=== PATIENT | male | born 1955 | race Caucasian/White ===

== ENCOUNTER 2020-09-12 10:26 | Outpatient (REF) | payer OTHER, SELFPAY ==
[2020-09-12 10:29] LABS: MANUAL DIFF FLAG NO
[2020-09-12 10:50] LABS: Estimated Average Glucose 111 mg/dL; Hemoglobin A1C 136.1236 umol/L; Hemoglobin A1c % 5.5 %
[2020-09-12 10:51] LABS: Basophils Percent Auto 0.7 % (0-2); Eosinophils Absolute Auto 0.1 X10*3/uL (0.0-0.4); Eosinophils Percent Auto 0.8 % (0-4); Hematocrit 43.7 % (42-52); Hemoglobin 14.3 g/dl (14.0-18.0); Imm Gran Abs Auto 0.02 X10*3/uL (0.00-0.03); Imm Gran Pct Auto 0.3 % (0.0-0.4); Lymphocytes Absolute Auto 1.5 X10*3/uL (1.2-4.9); Lymphocytes Percent Auto 24.5 % (20-40); Mean Corpuscular HGB Conc 32.7 g/dl (31.0-36.0); Mean Corpuscular Hemoglobin 30.7 pg (27.0-33.0); Mean Corpuscular Volume 93.8 fL (80-98); Mean Platelet Volume 10.6 fL (9.4-12.4); Monocytes Absolute Auto 0.4 X10*3/uL (0.1-1.2); Monocytes Percent Auto 6.7 % (2-11); Platelet Count 191 X10*3/uL (160-400); Red Blood Count 4.66 X10*6/uL (4.60-5.80); Red Cell Distribution Width 12.8 % (11.0-16.0); White Blood Count 5.9 X10*3/uL (4.8-10.8)
[2020-09-12 12:03] LABS: Alanine Aminotransferase 23 U/L (0-40); Albumin Level 4.2 g/dL (3.5-5.0); Alkaline Phosphatase 47 U/L (39-117); Anion Gap 12 (12-20); Aspartate Amino Transferase 25 U/L (5-37); Bilirubin Total 0.9 mg/dL (0.0-1.0); Blood Urea Nitrogen 22 mg/dL (9-16); Calcium 9.1 mg/dL (8.4-10.2); Carbon Dioxide 26 mmol/L (22-29); Chloride 108 mmol/L (96-108); Cholesterol 206 mg/dL; Estimated Glomerular Filt Rate 52; Glucose Fasting 105 mg/dL (60-99); HDL Cholesterol 64 mg/dL; LDL Cholesterol Calculated 132 mg/dl; Potassium 4.1 mmol/L (3.3-5.1); Sodium 142 mmol/L (135-145); Total Protein 6.7 g/dL (6.5-8.0); Triglycerides 54 mg/dL
[2020-09-12 12:09] LABS: PSA,Total (Free>4and<10) 0.68 ng/mL (0.00-4.00)
== END 2020-09-12 10:27 | disposition home or self-care (01) ==
LOC: HO.LNP 10:26
PROVIDERS: Visit Provider Internal Medicine
DX: Z00.00 Encounter for general adult medical examination without abnormal findings (principal); Z12.5 Encounter for screening for malignant neoplasm of prostate; K50.914 Crohn's disease, unspecified, with abscess; R73.03 Prediabetes
CPT/HCPCS: 80053; 80061; 82043; 83036; 84153; 85025

== ENCOUNTER 2020-09-22 15:05 | Outpatient (REF) | payer OTHER, SELFPAY ==
[2020-09-22 15:14] LABS: Glucose Urine UA NEG (NEG); Leukocyte Esterase Urine NEG (NEG); Nitrite Urine NEG (NEG); PH 6.5 (5.0-8.0); Specific Gravity - Urine 1.015 (1.005-1.025); Urine Blood NEG (NEG); Urine Ketones NEG (NEG); Urine Protein NEG (NEG-TRACE)
[2020-09-22 15:17] LABS: Appearance Urine CLEAR; Color Urine YELLOW
== END 2020-09-22 15:06 | disposition home or self-care (01) ==
LOC: HO.LNP 15:05
PROVIDERS: Visit Provider Internal Medicine
DX: Z00.00 Encounter for general adult medical examination without abnormal findings (principal)
CPT/HCPCS: 81003

== ENCOUNTER 2021-09-22 10:29 | Outpatient (REF) | payer OTHER, SELFPAY ==
[2021-09-22 10:33] LABS: MANUAL DIFF FLAG NO
[2021-09-22 11:05] LABS: Basophils Percent Auto 0.3 % (0-2); Eosinophils Absolute Auto 0.1 X10*3/uL (0.0-0.4); Eosinophils Percent Auto 0.8 % (0-4); Hematocrit 42.4 % (42.0-52.0); Hemoglobin 13.7 g/dl (14.0-18.0); Imm Gran Abs Auto 0.02 X10*3/uL (0.00-0.03); Imm Gran Pct Auto 0.3 % (0.0-0.4); Lymphocytes Absolute Auto 1.6 X10*3/uL (1.2-4.9); Lymphocytes Percent Auto 26.2 % (20-40); Mean Corpuscular HGB Conc 32.3 g/dl (31.0-36.0); Mean Corpuscular Hemoglobin 30.4 pg (27.0-33.0); Mean Platelet Volume 11.4 fL (9.4-12.4); Monocytes Absolute Auto 0.4 X10*3/uL (0.1-1.2); Monocytes Percent Auto 5.7 % (2-11); Neutrophils Absolute Auto 4.1 x10*3/uL (2.0-8.3); Neutrophils Percent Auto 66.7 % (45-73); Platelet Count 176 X10*3/uL (160-400); Red Blood Count 4.51 X10*6/uL (4.60-5.80); Red Cell Distribution Width 12.8 % (11.0-16.0); White Blood Count 6.2 X10*3/uL (4.8-10.8)
[2021-09-22 11:07] LABS: Appearance Urine CLOUDY; Color Urine YELLOW; Glucose Urine UA NEG (NEG); Leukocyte Esterase Urine NEG (NEG); Nitrite Urine NEG (NEG); PH 7.5 (5.0-8.0); Urine Blood NEG (NEG); Urine Ketones NEG (NEG); Urine Protein NEG (NEG-TRACE)
[2021-09-22 11:29] LABS: Alanine Aminotransferase 23 U/L (0-40); Albumin Level 4.1 g/dL (3.5-5.0); Alkaline Phosphatase 52 U/L (39-117); Anion Gap 10 (12-20); Aspartate Amino Transferase 21 U/L (5-37); Bilirubin Total 0.7 mg/dL (0.0-1.0); Blood Urea Nitrogen 23 mg/dL (9-16); Calcium 9.1 mg/dL (8.4-10.2); Carbon Dioxide 30 mmol/L (22-29); Chloride 105 mmol/L (96-108); Cholesterol 201 mg/dL; Estimated Glomerular Filt Rate 50; Glucose Fasting 105 mg/dL (60-99); HDL Cholesterol 55 mg/dL; LDL Cholesterol Calculated 133 mg/dl; Potassium 4.5 mmol/L (3.3-5.1); Sodium 140 mmol/L (135-145); Total Protein 6.7 g/dL (6.5-8.0); Triglycerides 68 mg/dL
[2021-09-22 11:34] LABS: Estimated Average Glucose 105 mg/dL; Hemoglobin A1c % 5.3 %
[2021-09-22 11:37] LABS: PSA,Total (Free>4and<10) 0.69 ng/mL (0.00-4.00)
[2021-09-22 11:55] LABS: Creatinine Urine 138.38 mg/dL; Microalbum/Creatinine Ratio Ur 4.3 ug/mg cr
[2021-09-22 12:04] LABS: Amorphous Sediment Urine 3+ /LPF; RBC Urine 0-2 /HPF (0); WBC Urine 0 /HPF (0-4)
== END 2021-09-22 10:30 | disposition home or self-care (01) ==
LOC: HO.LNP 10:29
PROVIDERS: Visit Provider Internal Medicine
DX: Z00.00 Encounter for general adult medical examination without abnormal findings (principal); Z12.5 Encounter for screening for malignant neoplasm of prostate; R73.03 Prediabetes; K50.914 Crohn's disease, unspecified, with abscess; Z87.448 Personal history of other diseases of urinary system
CPT/HCPCS: 80053; 80061; 81001; 82043; 83036; 84153; 85025

== ENCOUNTER 2021-09-28 15:23 | Outpatient (REF) | payer OTHER, SELFPAY ==
[2021-09-28 15:43] LABS: Blood Urea Nitrogen 24 mg/dL (9-16); Estimated Glomerular Filt Rate 55
== END 2021-09-28 15:24 | disposition home or self-care (01) ==
LOC: HO.LNP 15:23
PROVIDERS: Visit Provider Internal Medicine
DX: R79.9 Abnormal finding of blood chemistry, unspecified (principal)
CPT/HCPCS: 82565; 84520

== ENCOUNTER 2021-10-30 14:16 | Outpatient (REF) | payer OTHER, SELFPAY ==
--- NOTE | ~2021-10-30 | US_ITS ---
EXAMINATION: US EXTRACRANIAL CAROTID DUPLEX, BILATERAL CLINICAL INFORMATION: Carotid bruit COMPARISON: None TECHNIQUE: Real-time ultrasound and Doppler techniques (integrating B-mode 2-D vascular images, Doppler spectral analysis and color-flow Doppler imaging) were utilized to interrogate the extracranial carotid arteries, the vertebral arteries and proximal subclavian arteries bilaterally. The degree of stenosis is determined by criteria similar to NASCET. FINDINGS: Right Side: 1. There is no significant atherosclerotic plaque seen in the bifurcation/proximal ICA region. 2. The common carotid artery PSV proximally is 128 cm/s and distally 108 cm/s. 3. The proximal internal carotid artery velocities are 105 cm/s systolic and 30.8 cm/s diastolic. 4. The proximal external carotid artery PSV is 87.9 cm/s. 5. The vertebral artery shows antegrade flow. 6. The subclavian artery waveforms are normal. Left Side: 1. There is no significant atherosclerotic plaque seen in the bifurcation/proximal ICA region. 2. The common carotid artery PSV proximally is 132 cm/s and distally 127 cm/s. 3. The proximal internal carotid artery velocities are 81.5 cm/s systolic and 28.8 cm/s diastolic. 4. The proximal external carotid artery PSV is 147 cm/s. 5. The vertebral artery shows antegrade flow. 6. The subclavian artery waveforms are normal. US/US carotid duplex BI IMPRESSION: 1. RIGHT: Normal right internal carotid artery without atherosclerotic plaque or hemodynamically significant stenosis. 2. LEFT: Normal left internal carotid artery without atherosclerotic plaque or hemodynamically significant stenosis.
--- NOTE | ~2021-10-30 | US_ITS ---
EXAMINATION: US RETROPERITONEAL LIMITED (RENAL ONLY) CLINICAL INFORMATION: Elevated BUN. COMPARISON: None TECHNIQUE: Real-time imaging of the kidneys. FINDINGS: RIGHT KIDNEY: 9.2 x 5.6 x 5.4 cm (SAG x AP x TRV). The kidney is normal in size, contour, and echogenicity. Renal cortical thickness is normal. There is a 3.7 x 3 x 3.2 cm simple cyst in the upper pole. There is question of smaller peripelvic cysts versus mild calyceal dilatation. No renal calculi. LEFT KIDNEY: 10.0 x 5.4 x 5.8 cm (SAG x AP x TRV). The kidney is normal in size, contour, and echogenicity. Renal cortical thickness is normal. There is question of a small peripelvic cysts versus calyceal dilatation. No calculi or focal parenchymal lesions. US/US renal BI IMPRESSION: Question bilateral small peripelvic cysts versus calyceal dilatation. 3.7 cm right renal cyst.
== END 2021-10-30 14:17 | disposition home or self-care (01) ==
LOC: HO.US 14:16
PROVIDERS: Visit Provider Internal Medicine
DX: R79.9 Abnormal finding of blood chemistry, unspecified (principal); R09.89 Other specified symptoms and signs involving the circulatory and respiratory systems
CPT/HCPCS: 76775; 93880

== ENCOUNTER 2021-10-31 09:57 | Outpatient (REF) | payer OTHER, SELFPAY ==
--- NOTE | ~2021-10-31 | US_ITS ---
EXAMINATION: US PELVIS LIMITED (BLADDER) CLINICAL INFORMATION: Right flank pain. History of renal stones. COMPARISON: None TECHNIQUE: Real-time imaging of the bladder. FINDINGS: BLADDER: Well distended. Mild diffuse bladder wall thickening measuring 4 to 5 mm. Echogenic debris in the bladder. No stone or mass. Bilateral ureteral jets are demonstrated. Prevoid bladder volume is 270 mL. Postvoid bladder volume is 28.8 mL. Prostate gland measures 4.5 x 3.6 x 4 cm, volume 34.6 mL. US/US bladder IMPRESSION: Mild diffuse bladder wall thickening and mobile echogenic debris in the bladder. No significant post void residual. Slightly enlarged prostate gland.
== END 2021-10-31 09:58 | disposition home or self-care (01) ==
LOC: HO.US 09:57
PROVIDERS: Visit Provider Internal Medicine
DX: R79.9 Abnormal finding of blood chemistry, unspecified (principal)
CPT/HCPCS: 76857

== ENCOUNTER 2021-12-02 10:47 | Outpatient (REF) | payer OTHER, SELFPAY ==
[2021-12-02 13:43] LABS: Appearance Urine Cloudy; Color Urine Dark Yellow; Glucose Urine UA Negative (Negative); Leukocyte Esterase Urine Trace (Negative); Nitrite Urine Negative (Negative); Urine Blood Negative (Negative); Urine Ketones Negative (Negative); Urine Protein Negative (Neg-Trace)
[2021-12-02 13:48] LABS: Bacteria Urine None Seen (None Seen); Hyaline Casts Urine 0-2 /LPF (0-2); RBC Urine 0-2 /HPF (0-2); Squamous Epithelial Cell Urine 0-2 /HPF (0-2); WBC Urine 0-5 /HPF (0-5)
[2021-12-02 14:11] LABS: PSA,Total (Free>4and<10) 0.62 ng/mL (0.00-4.00)
== END 2021-12-02 10:48 | disposition home or self-care (01) ==
LOC: HO.HMGCLDS 10:47
PROVIDERS: PCP Internal Medicine; Visit Provider Physician Assistant Medical
DX: Z12.5 Encounter for screening for malignant neoplasm of prostate (principal); R35.0 Frequency of micturition
CPT/HCPCS: 36415; 81001; 84153

== ENCOUNTER 2022-01-22 10:55 | Outpatient (REF) | payer OTHER, SELFPAY ==
[2022-01-22 11:53] LABS: Blood Urea Nitrogen 19 mg/dL (9-16); Estimated Glomerular Filt Rate 48
== END 2022-01-22 10:56 | disposition home or self-care (01) ==
LOC: HO.LNP 10:55
PROVIDERS: Visit Provider Internal Medicine
DX: R79.9 Abnormal finding of blood chemistry, unspecified (principal)
CPT/HCPCS: 82565; 84520

== ENCOUNTER 2022-04-17 11:16 | Outpatient (REF) | payer OTHER, SELFPAY ==
[2022-04-17 12:16] LABS: Blood Urea Nitrogen 16 mg/dL (9-16); Estimated Glomerular Filt Rate 49
== END 2022-04-17 11:17 | disposition home or self-care (01) ==
LOC: HO.LNP 11:16
PROVIDERS: Visit Provider Internal Medicine
DX: R79.9 Abnormal finding of blood chemistry, unspecified (principal)
CPT/HCPCS: 82565; 84520

== ENCOUNTER 2022-08-09 13:43 | Outpatient (REF) | payer OTHER, SELFPAY ==
--- NOTE | ~2022-08-09 | MR_ITS ---
EXAMINATION: MR BRAIN WITHOUT CONTRAST CLINICAL INFORMATION: Parkinsonism. COMPARISON: None available. TECHNIQUE: MRI of the brain was obtained using routine sequences without contrast. FINDINGS: No focal restricted diffusion is demonstrated to suggest acute or subacute cerebral ischemia. No evidence of acute or chronic hemorrhagic products on heme-sensitive imaging. Scattered periventricular and deep white matter T2 FLAIR hyperintensities consistent with mild underlying microangiopathy. Proportional prominence of the ventricles and sulcal spaces without evidence of obstructive hydrocephalus. No abnormal mass effect. No midline shift. Partial flattening of the pituitary gland. Normal positioning of the cerebellar tonsils. Normal arterial and venous vascular flow voids are present. Normal, homogeneous marrow signal. Mild mucosal thickening of the paranasal sinuses. Mild leftward nasal septal deviation. Small bilateral mastoid effusions. MR/MR head/brain wo con IMPRESSION: 1. No acute intracranial abnormalities. 2. Mild underlying microangiopathy and generalized cerebral volume loss.
== END 2022-08-09 13:44 | disposition home or self-care (01) ==
LOC: HO.MRI 13:43
PROVIDERS: PCP Internal Medicine; Visit Provider Psychiatry & Neurology Neurology
DX: G20 Parkinson's disease (principal)
CPT/HCPCS: 70551

== ENCOUNTER 2022-09-27 10:34 | Outpatient (REF) | payer OTHER, SELFPAY ==
[2022-09-27 11:06] LABS: Alanine Aminotransferase 24 U/L (0-40); Albumin Level 4.3 g/dL (3.5-5.0); Alkaline Phosphatase 55 U/L (39-117); Anion Gap 16 (12-20); Aspartate Amino Transferase 20 U/L (5-37); Bilirubin Total 1.2 mg/dL (0.0-1.0); Blood Urea Nitrogen 25 mg/dL (9-16); Calcium 9.8 mg/dL (8.4-10.2); Carbon Dioxide 27 mmol/L (22-29); Chloride 107 mmol/L (96-108); Cholesterol 214 mg/dL; Estimated Glomerular Filt Rate 47; Glucose Fasting 100 mg/dL (60-99); HDL Cholesterol 58 mg/dL; LDL Cholesterol Calculated 139 mg/dl; Potassium 4.5 mmol/L (3.3-5.1); Sodium 145 mmol/L (135-145); Total Protein 6.9 g/dL (6.5-8.0); Triglycerides 87 mg/dL
== END 2022-09-27 10:35 | disposition home or self-care (01) ==
LOC: HO.LNP 10:34
PROVIDERS: Visit Provider Internal Medicine
DX: Z00.00 Encounter for general adult medical examination without abnormal findings (principal); Z12.5 Encounter for screening for malignant neoplasm of prostate; N40.0 Benign prostatic hyperplasia without lower urinary tract symptoms; R73.03 Prediabetes; Z87.448 Personal history of other diseases of urinary system
CPT/HCPCS: 80053; 80061; 81001; 82043; 83036; 84153; 85025

== ENCOUNTER 2022-10-11 10:46 | Outpatient (REF) | payer OTHER, SELFPAY ==
[2022-10-11 14:10] LABS: Blood Urea Nitrogen 19 mg/dL (9-16); Estimated Glomerular Filt Rate 49
== END 2022-10-11 10:47 | disposition home or self-care (01) ==
LOC: HO.LNP 10:46
PROVIDERS: Visit Provider Internal Medicine
DX: R79.9 Abnormal finding of blood chemistry, unspecified (principal)
CPT/HCPCS: 82565; 84520

== ENCOUNTER 2023-01-15 09:15 | Outpatient (AMB) | payer OTHER, SELFPAY ==
--- NOTE | 2023-01-15 09:19 | MHC.OFFVIS ---
Intake Vital Signs 01/15/23 09:20 Height 5 ft 10 in Weight 181 lb BMI 26.0 BP 146/84 H Blood Pressure Location Lt brachial Position Sitting Respiration 16 Pulse 59 Pulse Source Pulse Oximeter Pulse Oximetry (%) 98 Oxygen Delivery Method Room Air Intake Visit Reasons: NPV / Tremors-lvm Intake Note: Pt presents to office for new pt evaluation for tremors. He reports he was diagnosed in June/2022 with Parkinson's. He reports his legs are stiff, he doesn't walk with a swing in my arms , I have mask face and tremors. These have gotten better since starting his medication. Allergies No Known Allergies Allergy (Verified 01/15/23 09:20) Medication List - Last Reconciled 01/15/23 by Roro Trujillo MD carbidopa-levodopa 25-100 mg 1 tab PO TID melatonin 10 mg PO BEDTIME PRN HPI HPI Comments History of Present Illness Details 67y/o right handed male comes for evaluation tremors.He was seen by Dr. Damon and was diagnosed with parkinsons and started on sinemet 25/100 1 tab tid which helped. He started noticing tremors about 2 years ago . The left hand tremors were worse compared to right.The tremors were mainly in the morning and at rest. He also felt his legs were stiff and tight.He also had right shoulder issues , has a shot in his neck, diagnosed with c spine stenosis . He did PT and felt better. Cognition- no change , slower in thinking before sinemet Sleep- He has screaming and yelling sleep for many years now. Mood- depression , anxiety Motivated- good Speech- Normal Drooling- at nighttime Writing- poor , smaller. using utensils- good Dressing- good SHower- normal Turning in bed- normal Gait- good Hallucinations - none He had h/o Crohns and had diarrhea and constipation. falls- none He had concussions from Football as a kid No exposure to chemicals [facility] Medical History Benign enlargement of prostate Parkinson's disease without dyskinesia Right shoulder tendinitis Lumbar spondylosis Cervical spinal stenosis Crohn disease Surgical History H/O left knee surgery Family History Mother No problems noted. Father No problems noted. Sister Breast CA Brother No problems noted. Social History Household Members: Spouse Housing: House Alcohol intake: never Patient Tobacco Use Status: Never used Tobacco Review of Systems Const Reports difficulty sleeping, Reports lethargy and Reports malaise ENT Reports neck pain GI Reports constipation and Reports diarrhea Musc Reports back pain and Reports neck pain Neuro Reports tremor(s) Psych Reports anxiety and Reports depression Physical Exam Vital Signs: Last Vital Signs Pulse 59 01/15/23 09:20 Resp 16 01/15/23 09:20 BP 146/84 H 01/15/23 09:20 Pulse Ox 98 01/15/23 09:20 Oxygen Delivery Method Room Air 01/15/23 09:20 BMI result Body Mass Index 26.0 Const General: cooperative, healthy appearing and comfortable Nutritional Appearance: average body habitus Orientation/consciousness: patient oriented x3 Limitations: no limitations Eyes Pupils: Equal, round and reactive pupils present Neuro Other: mild rest tremors Left UE Mild decreased facial expression and blink FFM and foot taps decreased gisele L>R Gait- stooped , smaller stride , mild decreased arm swings gisele Mild cogwheel rigidity L>R General: patient oriented x3, moves all extremities and no focal motor deficits Cranial nerves: Yes Facial sensation intact/muscles of mastication intact, Yes Equal, round and reactive pupils present, Yes Bilaterally intact EOM present, Yes Nystagmus not present, Yes Normal facial strength present, Yes Midline tongue present and Yes Symmetric palate elevation present Cognition (Neuro): normal cognition Motor exam (neuro): 5/5 motor strength present throughout Deep tendon reflexes (DTR's): Right triceps reflex intensity grade: 2+, Left triceps reflex intensity grade: 2+, Rt Biceps (C5, C6): 2+, Left biceps reflex intensity grade: 2+, Right brachioradialis reflex intensity grade: 2+, Left brachioradialis reflex intensity grade: 2+, Right patellar reflex intensity grade: 2+ and Left patellar reflex intensity grade: 2+ Coordination: [id number] test normal Psych Appearance: grossly normal Assessment & Plan Assessment & Plan (1) Parkinson's disease without dyskinesia: Code(s): G20.A1 - Parkinson's disease without dyskinesia, without mention of fluctuations Plan Discussed with patient about the diagnosis and the management options I suggested to continue tid. Discussed about interaction with protein I will refer him to Parkinson BIG program Info on APDA and [employer] were given . Orders: Orders PT Evaluation and Treatment Today G20.A1 - Parkinson's disease without dyskinesia, without mention of fluctuations Coding Level of Care Code New Pt Level 4 (03793) Diagnoses Parkinson's disease without dyskinesia G20.A1
[2023-01-15 09:20] VITALS: BP 146/84; PULSE 59; RESP 16; O2SAT 98; BMI 26.0
== END 2023-01-15 10:18 | disposition home or self-care (01) ==
PROVIDERS: Visit Provider Psychiatry & Neurology Neurology
DX: G20.A1 Parkinson's disease without dyskinesia, without mention of fluctuations (principal)
CPT/HCPCS: 99204

== ENCOUNTER → 2023-01-15 09:15 | Outpatient (BNVA) | payer OTHER, SELFPAY | PROVIDERS: Visit Provider Psychiatry & Neurology Neurology ==

== ENCOUNTER 2023-04-23 07:47 | Outpatient (AMB) | payer OTHER, SELFPAY ==
--- NOTE | 2023-04-23 07:50 | A.OFFVIS_ITS ---
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 He was seen by Dr. Damon and was diagnosed with parkinsons and started on sinemet 25/100 1 tab tid which helped. He started noticing tremors about 2 years ago . The left hand tremors were worse compared to right.The tremors were mainly in the morning and at rest. He also felt his legs were stiff and tight.He also had right shoulder issues , has a shot in his neck, diagnosed with c spine stenosis . He did PT and felt better. 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 Motivated- good Speech- Normal Drooling- at nighttime Writing- poor , smaller. using utensils- good Dressing- good SHower- normal Turning in bed- normal Gait- good Hallucinations - none He had h/o Crohns and had diarrhea and constipation. falls- none He had concussions from Football as a kid No exposure to chemicals [facility] Medical History Benign enlargement of prostate Parkinson's disease without dyskinesia Right shoulder tendinitis Lumbar spondylosis Cervical spinal stenosis Crohn disease Surgical History H/O left knee surgery Family History Mother No problems noted. Father No problems noted. Sister Breast CA Brother No problems noted. Social History Household Members: Spouse Housing: House Alcohol intake: never Patient Tobacco Use Status: Never used Tobacco Physical Exam Vital Signs: Last Vital Signs Pulse 59 04/23/23 07:51 Resp 16 04/23/23 07:51 BP 114/72 04/23/23 07:51 Pulse Ox 100 04/23/23 07:51 BMI result Body Mass Index 25.6 Const General: cooperative, healthy appearing and comfortable Nutritional Appearance: average body habitus Orientation/consciousness: patient oriented x3 Limitations: no limitations Eyes Pupils: Equal, round and reactive pupils present Neuro Other: mild infrequent rest tremors Left UE Mild decreased facial expression and blink FFM and foot taps decreased gisele L>R Gait- stooped , smaller stride , mild decreased arm swings gisele Mild cogwheel rigidity L>R General: patient oriented x3, moves all extremities and no focal motor deficits Cranial nerves: Yes Facial sensation intact/muscles of mastication intact, Yes Equal, round and reactive pupils present, Yes Bilaterally intact EOM present, Yes Nystagmus not present, Yes Normal facial strength present, Yes Midline tongue present and Yes Symmetric palate elevation present Cognition (Neuro): normal cognition Motor exam (neuro): 5/5 motor strength present throughout Deep tendon reflexes (DTR's): Right triceps reflex intensity grade: 2+, Left triceps reflex intensity grade: 2+, Rt Biceps (C5, C6): 2+, Left biceps reflex intensity grade: 2+, Right brachioradialis reflex intensity grade: 2+, Left brachioradialis reflex intensity grade: 2+, Right patellar reflex intensity grade: 2+ and Left patellar reflex intensity grade: 2+ Coordination: [id number] test normal Psych Appearance: grossly normal Assessment & Plan Assessment & Plan (1) Parkinson's disease without dyskinesia: Code(s): G20.A1 - Parkinson's disease without dyskinesia, without mention of fluctuations Plan Discussed with patient about the diagnosis and the management options I suggested to continue sinemet 25/100 tid. Discussed about interaction with protein Parkinson BIG program Info on APDA and [employer] were given . Coding Level of Care Code Est Pt Level 4 (40418) Diagnoses Parkinson's disease without dyskinesia G20.A1
[2023-04-23 07:51] VITALS: BP 114/72; PULSE 59; RESP 16; O2SAT 100; BMI 25.6
== END 2023-04-23 08:33 | disposition home or self-care (01) ==
PROVIDERS: PCP Internal Medicine; Visit Provider Psychiatry & Neurology Neurology
DX: G20.A1 Parkinson's disease without dyskinesia, without mention of fluctuations (principal)
CPT/HCPCS: 99214

== ENCOUNTER → 2023-04-23 07:47 | Outpatient (BNVA) | payer OTHER, SELFPAY | PROVIDERS: PCP Internal Medicine; Visit Provider Psychiatry & Neurology Neurology ==

== ENCOUNTER 2023-10-01 10:49 | Outpatient (REF) | payer OTHER, SELFPAY ==
[2023-10-01 10:53] LABS: MANUAL DIFF FLAG NO
[2023-10-01 11:40] LABS: Basophils Percent Auto 0.5 % (0-2); Eosinophils Percent Auto 0.6 % (0-4); Hematocrit 43.3 % (42.0-52.0); Hemoglobin 14.5 g/dl (14.0-18.0); Imm Gran Abs Auto 0.02 X10*3/uL (0.00-0.03); Imm Gran Pct Auto 0.3 % (0.0-0.4); Lymphocytes Absolute Auto 1.5 X10*3/uL (1.2-4.9); Mean Corpuscular HGB Conc 33.5 g/dl (31.0-36.0); Mean Corpuscular Hemoglobin 31.3 pg (27.0-33.0); Mean Corpuscular Volume 93.3 fL (80.0-98.0); Mean Platelet Volume 10.9 fL (9.4-12.4); Monocytes Absolute Auto 0.4 X10*3/uL (0.1-1.2); Monocytes Percent Auto 6.4 % (2-11); Neutrophils Absolute Auto 4.3 x10*3/uL (2.0-8.3); Neutrophils Percent Auto 68.2 % (45-73); Platelet Count 198 X10*3/uL (160-400); Red Blood Count 4.64 X10*6/uL (4.60-5.80); Red Cell Distribution Width 12.7 % (11.0-16.0); White Blood Count 6.3 X10*3/uL (4.8-10.8)
[2023-10-01 11:44] LABS: Appearance Urine Turbid; Color Urine Dark Yellow; Glucose Urine UA Negative (Negative); Leukocyte Esterase Urine Trace (Negative); Nitrite Urine Negative (Negative); UMIC TRIGGER UACC YES; Urine Blood Negative (Negative); Urine Ketones Trace mg/dL (Negative); Urine Protein Negative (Neg-Trace)
[2023-10-01 11:54] LABS: Estimated Average Glucose 111 mg/dL; Hemoglobin A1c % 5.5 % (<6.0)
[2023-10-01 12:01] LABS: Alanine Aminotransferase 30 U/L (0-40); Albumin Level 4.1 g/dL (3.5-5.0); Alkaline Phosphatase 50 U/L (39-117); Anion Gap 13 (12-20); Aspartate Amino Transferase 29 U/L (5-37); Bilirubin Total 1.2 mg/dL (0.0-1.0); Blood Urea Nitrogen 18 mg/dL (9-16); Carbon Dioxide 26 mmol/L (22-29); Chloride 106 mmol/L (96-108); Cholesterol 213 mg/dL (<200); Estimated Glomerular Filt Rate 56; Glucose Fasting 99 mg/dL (60-99); HDL Cholesterol 58 mg/dL (>40); LDL Cholesterol Calculated 138 mg/dL (<100); Potassium 4.2 mmol/L (3.3-5.1); Sodium 141 mmol/L (135-145); Triglycerides 88 mg/dL (<150)
[2023-10-01 12:12] LABS: PSA,Total (Free>4and<10) 0.98 ng/mL (0.00-4.00)
[2023-10-01 12:30] LABS: Creatinine Urine 194.92 mg/dL; Microalbum/Creatinine Ratio Ur 4.1 ug/mg cr (<30)
[2023-10-01 13:03] LABS: Bacteria Urine None Seen (None Seen); Hyaline Casts Urine 0-2 /LPF (0-2); Other Crystals Urine Present; RBC Urine 0-2 /HPF (0-2); Squamous Epithelial Cell Urine 0-2 /HPF (0-2); WBC Urine 0-5 /HPF (0-5)
== END 2023-10-01 10:50 | disposition home or self-care (01) ==
LOC: HO.LNP 10:49
PROVIDERS: Visit Provider Internal Medicine
DX: Z00.00 Encounter for general adult medical examination without abnormal findings (principal); R73.09 Other abnormal glucose; N40.0 Benign prostatic hyperplasia without lower urinary tract symptoms; Z12.5 Encounter for screening for malignant neoplasm of prostate
CPT/HCPCS: 80053; 80061; 81001; 82043; 82570; 83036; 84153; 85025

== ENCOUNTER 2023-11-20 07:28 | Day surgery (SDC) | payer OTHER, SELFPAY ==
[2023-11-18 11:40] VITALS: BMI 25.6
--- NOTE | 2023-11-19 09:48 | HO.ANESPROP2 ---
Documented by User: Lurdes Medley NP 11/19/23 09:48 HPI - Anesthesia Eval Consult details Narrative: 68yo M for Colonoscopy PMFSH Active Problems Active Problems: All Active Problems Benign enlargement of prostate (Acute) Parkinson's disease without dyskinesia (Acute) Right shoulder tendinitis (Acute) Lumbar spondylosis (Acute) Cervical spinal stenosis (Acute) Past Medical History Medical History Anxiety Benign enlargement of prostate Parkinson's disease without dyskinesia Right shoulder tendinitis Lumbar spondylosis Cervical spinal stenosis Crohn disease Family History Family History Mother No problems noted. Father No problems noted. Sister Breast CA Brother No problems noted. Surgical History Surgical History Hx of colonoscopy H/O left knee surgery Social History Social History Household Members: Spouse Housing: House Alcohol intake: never Patient Tobacco Use Status: Former Tobacco user Tobacco use type: Cigarette Use of substances other than those prescribed or required for medical reasons: No Are you DNR?: No Advance Directives: No Advance Directives Information Provided: Yes Advance Directives on File: No Recently lost weight without trying: No Nutrition Risks: No Nutritional Risk Poor oral hygiene: No Meds Allergies Allergy/AdvReac Type Severity Reaction Status Date / Time No Known Allergies Allergy Verified 04/23/23 07:51 Home Medications ?Medication ?Instructions ?Recorded ?Confirmed ?Last Taken ?Type carbidopa 25 mg-levodopa 100 mg 1 tab PO TID 01/15/23 01/15/23 11/20/23 History tablet melatonin 10 mg capsule 10 mg PO BEDTIME PRN 01/15/23 01/15/23 Unknown History Exam Height,Weight and Vital Signs: Height 5 ft 10 in Weight 80.91 kg Assessment and Plan Assessment Anesthesia Assessment: Chart Reviewed Documented by User: Gail Krishnan MD 11/20/23 08:36 PMFSH Past Medical History Medical History Anxiety Benign enlargement of prostate Parkinson's disease without dyskinesia Right shoulder tendinitis Lumbar spondylosis Cervical spinal stenosis Crohn disease Family History Family History Mother No problems noted. Father No problems noted. Sister Breast CA Brother No problems noted. Family history of problems with anesthesia: No Surgical History Surgical History Hx of colonoscopy H/O left knee surgery History of Problems with Anesthesia: No Social History Social History Household Members: Spouse Housing: House Alcohol intake: never Patient Tobacco Use Status: Former Tobacco user Tobacco use type: Cigarette Use of substances other than those prescribed or required for medical reasons: No Are you DNR?: No Advance Directives: No Advance Directives Information Provided: Yes Advance Directives on File: No Recently lost weight without trying: No Nutrition Risks: No Nutritional Risk Poor oral hygiene: No Meds Allergies Allergy/AdvReac Type Severity Reaction Status Date / Time No Known Allergies Allergy Verified 04/23/23 07:51 Home Medications ?Medication ?Instructions ?Recorded ?Confirmed ?Last Taken ?Type carbidopa 25 mg-levodopa 100 mg 1 tab PO TID 01/15/23 01/15/23 11/20/23 History tablet melatonin 10 mg capsule 10 mg PO BEDTIME PRN 01/15/23 01/15/23 Unknown History Exam Airway Mallampati Class: II TM Dist: >3cm Neck ROM: Full Heart: rrr Lungs: cta Assessment and Plan Assessment Anesthesia Assessment: Anesthesia Plan Discussed Final Anesthetic Review Family History of Problems with Anesthesia: No History of Problems with Anesthesia: No NPO: Yes ASA Class: III Final Preanesthetic Review: No Changes in Pt Med Stat, Meds/Allgs Chart Reviewed, Consent Obtained/Reviewed and Anes Risks/Benef Reviewed Patient Risk: Intermediate Procedure Risk: Low Anesthetic Plan Anesthetic Plan: MAC: Disposition: Standard PACU
[2023-11-20 07:43] VITALS: BMI 24.5
[2023-11-20 07:50] VITALS: BP 136/73; PULSE 56; RESP 16; TEMP 36.6; O2SAT 97
[2023-11-20] MEDS: Lactated Ringers 1,000 ML 100 ML IVCONT (08:03)
[2023-11-20 09:40] VITALS: BP 90/50; PULSE 56; RESP 12; TEMP 36.1; O2SAT 96
--- NOTE | 2023-11-20 09:41 | PM.OP ---
Brief Operative Note Date of Service: 11/20/23 Pre-op diagnosis: Screening Post-op diagnosis: other (Polyps, Melanosis coli) Procedure: Colonoscopy to the cecum and TI with multiple hot snare polypectomies and 1 bx/removal of polyp Surgeon: Duke Rodriguez MD Anesthesia: MAC Was an Rougher For Cement used for this Procedure?: No Estimated blood loss (mL): 2.0 Pathology: other (A. Ascending colon polyps B. Transverse colon polyps C. Polyp at 60cm D. Polyp at 40cm) Condition: stable Disposition: PACU
[2023-11-20 09:55] VITALS: BP 107/63; PULSE 44; RESP 16; O2SAT 100
--- NOTE | 2023-11-20 10:04 | OP_ITS ---
DATE OF SERVICE: 11/20/2023 SURGEON: Duke Rodriguez MD INDICATIONS: The patient presents for evaluation of colorectal cancer screening, personal history of tubular adenoma of the colon, and family history of colon cancer. Full consent was obtained from him for this, including risks of bleeding and perforation. PREOPERATIVE DIAGNOSIS: POSTOPERATIVE DIAGNOSIS: PROCEDURE PERFORMED: Colonoscopy to the cecum and terminal ileum with hot snare polypectomies, and biopsy and removal of polyp. ESTIMATED BLOOD LOSS: COMPLICATIONS: ANESTHESIA: Monitored anesthesia care. ASSISTANTS: SPECIMENS: PREOPERATIVE DIAGNOSES: Colorectal cancer screening, personal history of tubular adenoma of the colon, family history of colon cancer. POSTOPERATIVE DIAGNOSES: Colorectal cancer screening, personal history of tubular adenoma of the colon, family history of colon cancer, multiple colon polyps, melanosis coli, diverticulosis, and internal hemorrhoids. DESCRIPTION OF PROCEDURE: The patient was placed in the left lateral decubitus position. The digital rectal exam revealed no abnormalities. The Olympus videopediatric colonoscope was entered into the rectum and advanced easily to the cecum. Once in the cecum, I did identify normal-appearing cecal pouch other than his known melanosis coli. The terminal ileum was cannulated and appeared normal without any sign of Crohn disease or any other pathology. The scope was withdrawn back in the colon. The entire cecum and ileocecal valve appeared normal. The scope was slowly withdrawn assessing all mucosal surfaces carefully. Preparation was excellent. Throughout the colon were mucosal changes of his known melanosis coli. In the proximal ascending colon, there was an approximately 4 mm polyp, which was biopsied and completely removed with cold biopsy forceps. In the more distal ascending colon, was an approximately 10 mm polyp, which was removed by hot snare polypectomy and recovered by suction. The polypectomy site appeared clean, without any sign of residual polyp nor bleeding. In the transverse colon were 2 approximately 5 or 6 mm polyps which were each removed by hot snare polypectomy and recovered by suction. The polypectomy sites appeared clean, without any sign of residual polyp nor bleeding. At 60 cm, there was an approximately 10 mm polyp, which was removed by hot snare polypectomy and recovered by suction. The polypectomy site appeared clean, without any sign of residual polyp nor bleeding. At 40 cm, was an approximately 15 mm polyp, which was removed by hot snare polypectomy. The polypectomy site appeared clean, without any sign of residual polyp nor bleeding. The polyp was recovered with the retrieval net. As I removed the scope with the retrieval net, I was able to achieve a good inspection of the remainder of the colon, which appeared normal other than his known melanosis coli. There was a mild amount of sigmoid diverticulosis. The scope was withdrawn from the patient. The polyp was removed from the net. The scope was advanced back in the rectum and the scope was retroflexed visualizing small internal hemorrhoids, but no other pathology. The scope was straightened and withdrawn from the patient. He tolerated the procedure well and was returned to recovery area in stable condition. IMPRESSION: 1. Multiple colon polyps. 2. Melanosis coli. 3. Diverticulosis. 4. Small internal hemorrhoids. 5. No sign of any active ileitis. PLAN: The results of the pathology will be checked. He has been advised not to use any aspirin or NSAIDs for at least 1 week. I would recommend a repeat colonoscopy within 3 years for further screening and surveillance, rather than his usual 5 year interval, given today's findings and family history of colon cancer. He will otherwise see me on a p.r.n. basis. This has been discussed with his . MD BRAULIO Trevino/MAGO / [id number] MTDD
[2023-11-20 10:10] VITALS: BP 126/57; PULSE 48; RESP 16; O2SAT 100
[2023-11-20 10:25] VITALS: BP 132/60; PULSE 47; RESP 16; O2SAT 98
[2023-11-20 10:40] VITALS: BP 147/60; PULSE 52; RESP 16; TEMP 36.1; O2SAT 99
== END 2023-11-20 11:22 | disposition home or self-care (01) ==
PROVIDERS: PCP Internal Medicine; Visit Provider Internal Medicine
PROC: 0DJD8ZZ Inspection of Lower Intestinal Tract, Via Natural or Artificial Opening Endoscopic (ICD-10-PCS; CPT 45378; principal; 2023-11-20 08:30)
DX: Z12.11 Encounter for screening for malignant neoplasm of colon (principal); Z86.010 Personal history of colon polyps; Z80.0 Family history of malignant neoplasm of digestive organs; D12.2 Benign neoplasm of ascending colon; D12.3 Benign neoplasm of transverse colon; D12.4 Benign neoplasm of descending colon; D12.5 Benign neoplasm of sigmoid colon; K63.89 Other specified diseases of intestine; K57.30 Diverticulosis of large intestine without perforation or abscess without bleeding; K64.8 Other hemorrhoids; K50.00 Crohn's disease of small intestine without complications; K59.09 Other constipation; G20.A1 Parkinson's disease without dyskinesia, without mention of fluctuations; F41.8 Other specified anxiety disorders; Z79.899 Other long term (current) drug therapy
CPT/HCPCS: 45385; 45380; 88305; J2704

== ENCOUNTER 2023-12-05 07:19 | Outpatient (AMB) | payer OTHER, SELFPAY ==
--- NOTE | 2023-12-05 07:23 | A.OFFVIS_ITS ---
Vital Signs 12/05/23 07:24 Height 5 ft 10 in Weight 172 lb 4 oz BMI 24.7 BP 122/70 Blood Pressure Location Rt brachial Position Sitting Respiration 16 Pulse 49 L Pulse Source Pulse Oximeter Pulse Oximetry (%) 99 Oxygen Delivery Method Room Air Intake Visit Reasons: 3 mo f/u Intake Note: Pt presents for an 8 month follow up for Parkinson's. Director Rehabilitation Program Required: No Allergies No Known Allergies Allergy (Verified 12/05/23 07:24) Medication List - Last Reconciled 12/05/23 by Roro Trujillo MD carbidopa-levodopa 25-100 mg 1 tab PO TID melatonin 10 mg PO BEDTIME PRN HPI Comments Details: 68y/o right handed male comes for follow up.He is doing good with meds and he did BIG program in June and JULY which helped. He reports fatigue around noon time after his meds. Denies dizziness, but feels like he can fall asleep.He does exercise in the afternoon and feels good. He feels anxious in the mornings.He does not feel right especially when he has to play Golf. He wakes up 5 am , works from 5.30am - 9 am and plays Golf until 2 pm.He eats power bar and water. He eats breakfast at 6am - oatmeal and banana. 2.30-4pm exercises with staff trainer M,W,F He does not eat lunch . He eats between 5pm-6pm and by 6.30 pm he is sleeping. He wakes up at 9pm and takes melatonin 10mg and sleeps from 10pm - 2 am . 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 History from initial visit- He was seen by Dr. Damon and was diagnosed with parkinsons and started on sinemet 25/100 1 tab tid which helped. He started noticing tremors about 2 years ago . The left hand tremors were worse compared to right.The tremors were mainly in the morning and at rest. He also felt his legs were stiff and tight.He also had right shoulder issues , has a shot in his neck, diagnosed with c spine stenosis . He did PT and felt better. 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 Motivated- good Speech- Normal Drooling- at nighttime Writing- poor , smaller. using utensils- good Dressing- good SHower- normal Turning in bed- normal Gait- good Hallucinations - none He had h/o Crohns and had diarrhea and constipation. falls- none He had concussions from Football as a kid No exposure to chemicals [facility] Medical History Anxiety Benign enlargement of prostate Parkinson's disease without dyskinesia Right shoulder tendinitis Lumbar spondylosis Cervical spinal stenosis Crohn disease Surgical History S/P colon polypectomy Hx of colonoscopy H/O left knee surgery Family History Mother No problems noted. Father No problems noted. Sister Breast CA Brother No problems noted. Social History Household Members: Spouse Housing: House Alcohol intake: never Patient Tobacco Use Status: Former Tobacco user Tobacco use type: Cigarette Physical Exam Vital Signs: Last Vital Signs Pulse 49 L 12/05/23 07:24 Resp 16 12/05/23 07:24 BP 122/70 12/05/23 07:24 Pulse Ox 99 12/05/23 07:24 Oxygen Delivery Method Room Air 12/05/23 07:24 BMI result Body Mass Index 24.7 Const General: cooperative, healthy appearing and comfortable Nutritional Appearance: average body habitus Orientation/consciousness: patient oriented x3 Limitations: no limitations Eyes Pupils: Equal, round and reactive pupils present Neuro Other: mild infrequent rest tremors Left UE Mild decreased facial expression and blink FFM and foot taps decreased gisele L>R Gait- stooped , smaller stride , mild decreased arm swings gisele Mild cogwheel rigidity L>R General: patient oriented x3, moves all extremities and no focal motor deficits Cranial nerves: Yes Facial sensation intact/muscles of mastication intact, Yes Equal, round and reactive pupils present, Yes Bilaterally intact EOM present, Yes Nystagmus not present, Yes Normal facial strength present, Yes Midline tongue present and Yes Symmetric palate elevation present Cognition (Neuro): normal cognition Motor exam (neuro): 5 motor strength present throughout Deep tendon reflexes (DTR's): Right triceps reflex intensity grade: 2+, Left triceps reflex intensity grade: 2+, Rt Biceps (C5, C6): 2+, Left biceps reflex intensity grade: 2+, Right brachioradialis reflex intensity grade: 2+, Left brachioradialis reflex intensity grade: 2+, Right patellar reflex intensity grade: 2+ and Left patellar reflex intensity grade: 2+ Coordination: [id number] test normal Psych Appearance: grossly normal Assessment & Plan Assessment & Plan (1) Parkinson's disease without dyskinesia: Code(s): G20.A1 - Parkinson's disease without dyskinesia, without mention of fluctuations Category: Medical Plan Discussed with patient about the diagnosis and the management option continue sinemet 25/100 tid. Discussed about interaction with protein start patient on sinemet 25/100 8-9pm Parkinson BIG program - at [facility] for 8 weeks and he continues to do the exercise PT Info on APDA and [employer] were given . will consider citalopram or escitalopram . Orders: Orders PT Evaluation and Treatment Today G20.A1 - Parkinson's disease without dyskinesia, without mention of fluctuations, M47.816 - Spondylosis without myelopathy or radiculopathy, lumbar region, M48.02 - Spinal stenosis, cervical region Medications: New carbidopa-levodopa 25-100 mg ER 1 tab PO BEDTIME 30 tabs 6RF Coding Level of Care Code Est Pt Level 4 (38773) Complex EM visit Add On G2211 Diagnoses Parkinson's disease without dyskinesia G20.A1
[2023-12-05 07:24] VITALS: BP 122/70; PULSE 49; RESP 16; O2SAT 99; BMI 24.7
== END 2023-12-05 08:28 | disposition home or self-care (01) ==
PROVIDERS: PCP Internal Medicine; Visit Provider Psychiatry & Neurology Neurology
DX: G20.A1 Parkinson's disease without dyskinesia, without mention of fluctuations (principal)
CPT/HCPCS: 99214

== ENCOUNTER → 2023-12-05 07:19 | Outpatient (BNVA) | payer OTHER, SELFPAY | PROVIDERS: PCP Internal Medicine; Visit Provider Psychiatry & Neurology Neurology ==

== ENCOUNTER 2024-06-08 07:25 | Outpatient (AMB) | payer OTHER, SELFPAY ==
--- OUTSIDE RECORDS SUMMARY | 2024-06-08 07:28 | XMS_ITS ---
Author Organization [facility] Address [address] [place] [address] Care Team Providers Care Piano Mechanic Name Role Phone Alex Stuart MD Primary Care Provider Duke Albarado [phone] REASON FOR VISIT screening,hx polyps, fam hx [...] Risk Notes Problem Diverticular disease of colon (235693780) Diverticulosis of large intestine without perforation or abscess without bleeding (K57.30) Active confirmed Encounters Encounter Location Date Provider Diagnosis [facility] Outpatient [address] [place] [address] [phone] 11/20/2023 Duke Rodriguez Colon cancer scree donaldo [...] No Information Progress Notes * DAVE HELLERDOB: (69 yo M)Acc No.[id number]:11/20/2023 COLON WITH MAC Patient:?DAVE HELLER Provider:?Duke Rodriguez MD :1955???Age:68 Y???Sex:Male Diego e:11/20/2023 Address:[address] [place] [address], [id number] Pcp:Alex Stuart MD Subjective: * Chief Complaints: * ???1. Screening,hx polyps, f am hx colon ca. * Medical History:? * Medications:?Taking Garlic 1 00 MG Tablet as directed Orally , Taking Fish Oil 1000 MG Capsule 1 capsule Orally Three times a day , Taking Carbidopa-Levodopa 25-100 MG Tablet Oral Objective: * Vitals:? Assessment: * Assessment: 1.?Colon cancer screening - Z12.11 (Primary)???2.?Colon polyps - K63.5???3.?Family history of colon cancer - Z80.0???4.?Other specified diseases of intestine - K63.89???5.?Diverticulosis of large intestine without perforation or abscess without bleeding - K57.30???6.?Other hemorrhoids - K64.8??? Plan: * Treatment: * Procedure Codes:?78823 LESIO N REMOVAL COLONOSCOPY, Modifiers: 33 , 70753 COLONOSCOPY AND BIOPSY, Modifiers: 59 , 33 * * The named appointment provid er may or may not be the originator of this progress note, and it is not deemed complete until electronically signed by the appointment provider. Sign off status: Pending * Provider:?Duke Rodriguez MD Date:? 024 Generated for Renuka kaminski/Joey/eTransmitting on:?06/08/2024 07:28 AM EDT
--- OUTSIDE RECORDS SUMMARY | 2024-06-08 07:28 | XMS_ITS | Patient Health Record ---
Author Organization Alex Stuart MD Address [address] [place] [phone] Care Team Providers Care Colorist Dyer Name Role Phone Alex Stuart Primary Care Provider [phone] Allergies No Known Allergies Results Component Value Reference Range Notes Complete Blood Count Auto Di ff Reviewed date:10/01/2023 01:09:08 PM Interpretation: Performing Lab:[facility], [address] [place] [phone] Notes/Report: White Blood Count 6.3 4.8-10.8 X10*3/uL Red Blood Count 4.64 4.60-5.80 X10*6/uL Hemoglobin 14.5 14.0-18.0 g/dl Hematocrit 43.3 42.0-52.0 % Mean Corpuscular Volume 93.3 80.0-98.0 fL Mean Corpuscular Hemoglobin 31.3 27.0-33.0 pg Mean Corpuscular HGB Conc 33.5 31.0-36.0 g/dl Red Cell Distribution Width 12.7 11.0-16.0 % Platelet Count 198 160-400 X10*3/uL Mean Platelet Volume 10.9 9.4-12.4 fL Neutrophils Percent Auto 68.2 45-73 % Imm Gran Pct Auto 0.3 0.0-0.4 % Lymphocytes Percent Auto 24.0 20-40 % Monocytes Percent Auto 6.4 2-11 % Eosinophils Percent Auto 0.6 0-4 % Basophils Percent Auto 0.5 0-2 % NRBC Pct Auto 0.0 0.0-0.2 /100WBC Neutrophils Absolute Auto 4.3 2.0-8.3 x10*3/u L Imm Gran Abs Auto 0.02 0.00-0.03 X10*3/uL Lymphocytes Absolute Auto 1.5 1.2-4.9 X10*3/u L Monocytes Absolute Auto 0.4 0.1-1.2 X10*3/uL Eosinophils Absolute Auto 0.0 0.0-0.4 X10*3/u L Basophils Absolute Auto 0.0 0.0-0.2 X10*3/uL NRBC Abs Auto 0.000 0.0-0.012 X10*3/uL Comprehensive [place]. Panel Fa st Reviewed date:10/01/2023 01:07:30 PM Interpretation: Performing Lab:[facility], [address] [place] [phone] Notes/Report: Sodium 141 135-145 mmol/L Potassium 4.2 3.3-5.1 mmol/L Chloride 106 96-108 mmol/L Carbon Dioxide 26 22-29 mmol/L Anion Gap 13 12-20 Blood Urea Nitrogen 18 9-16 mg/dL Creatinine 1.28 0.5-1.4 mg/dL Estimated Glomerular Filt Rate 56 NOTE: For -[place]unis[place] individuals, multiply the result by 1.210. Chronic Kidney Disease: Estimated GFR < 60 mL/min/1.73m2 Severe Kidney Disease: Estimated GFR < 15 mL/min/1.73m2 Glucose Fasting 99 60-99 mg/dL Calcium 10.0 8.4-10.2 mg/dL Bilirubin Total 1.2 0.0-1.0 mg/dL Aspartate Amino Transferase 29 5-37 U/L Alanine Aminotransferase 30 0-40 U/L Total Protein 7.0 6.5-8.0 g/dL Albumin Level 4.1 3.5-5.0 g/dL Alkaline Phosphatase 50 39-117 U/L Lipid Panel Reviewed date:10/01/2023 12:59:52 PM Interpretation: Performing Lab:[facility], [address] [place] [phone] Notes/Report: Triglycerides 88 <150 mg/dL Desirable Triglyceride: less than 150 mg/dL Borderline High Triglyceride 150-199 mg/dL High Triglyceride: 200-499 mg/dL Very High Triglyceride: greater than or equal to 5OO mg/dL Cholesterol 213 <200 mg/dL Desirable Cholesterol: less than 200 mg/dL Borderline High Cholesterol: 200-239 mg/dL High Cholesterol: greater than 239 mg/dL LDL Cholesterol Calculated 138 <100 mg/dL Desirable LDL: less than 100 mg/dL Near Optimal/Above Optimal LDL: 110-129 mg/dL Borderline High LDL: 130-159 mg/dL High LDL: 160-189 mg/dL Very High LDL: greater than or equal to 190 mg/dL HDL Cholesterol 58 >40 mg/dL Desirable HDL: greater than 40 mg/dL Note: This HDL assay may give artificially low results in patients with liver disease. PSA,Total (Free>4and<10) Reviewed date:10/01/2023 01:01:24 PM Interpretation: Performing Lab:[facility], [address] [place] [phone] Notes/Report: PSA,Total (Free>4and<10) 0.98 0.00-4.00 ng/mL A Free PSA was not performed: The percentage of Free PSA can be used to enhance the differentiation of prostate cancer from benign prostatic disease in subjects whose PSA levels are between 4.0 and 10.0 ng/mL. For subjects whose PSA levels are below 4.0 or above 10.0 ng/mL, the risk of prostate cancer is determined on the basis of the PSA alone. Therefore the % Free PSA is recommended only for those subjects whose PSA levels are between 4.0 and 10.0 ng/mL. PSA methodology: [place] Alinity i Chemiluminescent Microparticle Immunoassay (CMIA) Microalbumin, Random Reviewed date:10/01/2023 01:00:43 PM Interpretation: Performing Lab:[facility], [address] [place] [phone] Notes/Report: Creatinine Urine 194.92 Microalbumin Urine 8.0 Microalbum/Creatinine Ratio Ur 4.1 <30 ug/mg cr Albumin/Creatinine Ratio Reference Ranges: Normal: < 30 ug/mg creatinine Microalbuminuria: 30 - 300 ug/mg creatinine Clinical Albuminuria: > 300 ug/mg creatinine Hemoglobin A1c Reviewed date:10/01/2023 01:01:33 PM Interpretation: Performing Lab:[facility], [address] [place] [phone] Notes/Report: Hemoglobin A1c % 5.5 <6.0 % Hemoglobin A1C Reference Range Adults: 4.8 - 6.0 % Non diabetic: < 6.0 % Goal: < 7.0 % Additional Action Suggested: > 8.0 % Note: Hemoglobin A1c results are invalid for patients with abnormal amounts of HbF. Blood transfusions may impact the HbA1c concentration in the patient sample. Estimated Average Glucose 111 eAG = Estimated average glucose which is %A1C expressed as average glucose, using the formula of the [id number]-[id number] Average Glucose study (ADAG), Diabetes Care, Vol.31,#8, Oct. 2007 UA ClnCatch+Micro w/rflx Cul t Reviewed date:10/03/2023 04:26:26 PM Interpretation: Performing Lab:[facility], [address] [place] [phone] Notes/Report: Urine, Clean Catch Color Urine Dark Yellow Appearance Urine Turbid PH 7.0 5.0-9.0 Glucose Urine UA Negative Negative mg/dL Urine Blood Negative Negative Specific [place] - Urine 1.020 1.005-1.025 Urine Protein Negative Neg-Trace mg/dL Urine Ketones Trace Negative mg/dL Nitrite Urine Negative Negative Leukocyte Esterase Urine Trace Negative RBC Urine 0-2 0-2 /HPF WBC Urine 0-5 0-5 /HPF Squamous Epithelial Cell Urine 0-2 0-2 /HPF Other Crystals Urine Present Bacteria Urine None Seen None Seen Hyaline Casts Urine 0-2 0-2 /LPF Occult Blood, Stool, Guaiac Reviewed date:10/08/2023 01:59:23 PM Interpretation:Positive Performing Lab: Notes/Report: Positive Occult Blood, Stool, Guaiac Pos Glucose, finger stick Reviewed date:04/14/2024 01:47:16 PM Interpretation: Performing Lab: Notes/Report: Value 98 Pathology Reviewed date:11/22/2023 02:45:33 PM Interpretation: Performing Lab:[facility], [address] [facility], [place] [address] Notes/Report: Name: Gabriel Brian Age/Sex: 68/M : 1955 Unit#: [id number] Attend Dr: Duke Rodriguez MD Re11/20/23 Status: [facility] Location: [facility] Disch: SPEC : [id number] RECD: 11/20/23-1042 STATUS: GRACIA VAIL NUM: [id number] MADI: 11/20/23-[address] [facility] [address]: Duke Rodriguez MD ENTERED: 11/20/23-1121 SP TYPE: Surgical OTHR DR: Alex Stuart MD ORDERED: HE Stain/12, Gross Micro L4/4 Diagnosis A. Colon, ascending, polypectomies: Fragments of tubular adenomata; negative for high- grade dysplasia or carcinoma. B. Colon, transverse, polypectomy: Fragments of tubular adenoma; negative for high- grade dysplasia or carcinoma. C. Colon, 60 cm, polypectomy: Fragments of tubular adenoma; negative for high-grade dysplasia or carcinoma. D. Colon, 40 cm, polypectomy: Tubular adenoma; negative for high-grade dysplasia or carcinoma. Clinical History Pre-Op Dx: Screening, hx of malignant and colonic polyps Post-Op Dx: Polyps, melanosis coli, diverticulosis, internal hemorrhoids Microscopic Description A-D. Microscopic sections reviewed. Material Received A. Ascending colon polyps B. Transverse colon polyp C. Polyp at 60 D. Polyp at 40 Gross Description A. Received in formalin are multiple hanks 1-3 mm soft tissue fragments, totally submitted in cassette A1. B. Received in formalin is a 1.0 cc aggregate of vegetable material and possible hanks soft tissue fragments, filtered through a mesh cassette and totally submitted in cassette B1. C. Received in formalin is a 0.7 cc aggregate of vegetable material and possible hanks soft tissue, filtered through a mesh cassette, totally submitted in cassette C1. D. Received in formalin is 1 hanks 9 mm polypoid soft tissue fragment, bisected and totally submitted in cassette D1. (DTL) Excision time: 09:00; formalin time: 09:00; cold ischemic time: 0 minutes; total time in formalin: 8-9 hours CONTINUED ON NEXT PAGE Name: Gabriel Brian Age/Sex: 68/M : 1955 [id number] Unit#: [id number] Attend Dr: Duke Rodriguez MD Re11/20/23 Status: [facility] Location: [facility] Disch: SPEC : [id number] RECD: 11/20/23 STATUS: GRACIA VAIL NUM: [id number] MADI: 11/20/[address] [facility] [address]: Duke Rodriguez MD ENTERED: 11/20/23 SP TYPE: Surgical OTHR DR: Alex Stuart MD ORDERED: SMITH Stain/12Brooks L4/4 Copies To: Alex Stuart MD [facility] [address] [place], [place] [phone] Duke Rodriguez MD [facility] [address] [place] [address] Signed (signature on file) Paco Roblero MD 11/22/23 1415 END OF REPORT Reason For Referral No Information Medications Medication SIG (Take, Route, Frequency, Duration) Notes Start Date End Date Status Carbidopa-Levodopa 25-100 MG 1 tablet as needed Orally Three times a day Active Immunizations Vaccine Route Administration Date Status Comme nts DECLINED, FLU Unknown 05/13/2012 Administered SARS-COV-2 Pfizer Unknown 07/18/2020 Administered SARS-COV-2 Pfizer Unknown 06/27/2020 Administered SARS-COV-2 Pfizer Unknown 02/17/2021 Administered PPSV23 (Pnemovax) Unknown 09/09/2017 Refused Fluarix Quadrivalent Unknown 09/21/2019 Refused Fluarix Quadrivalent Unknown 02/13/2022 Refused Social History Tobacco Use: Social History Observation Description Date Details (start date - stop date) Never Smoker NA - NA Tobacco Use/Smoking Question Answer Notes Patient is a nonsmoker Additional Findings: Tobacco Non-User Cu rrent non-smoker, currently using no form of tobacco Alcohol Screen Question Answer Notes Did you have a drink containing alcohol in the p ast year? No Points 0 Interpretation Negative Problems Problem Type SNOMED Code ICD Code Onset Dates Problem Status W/U Status Risk Notes Problem Prostatism (89825297) Prostatism (N40.0) Active confirmed Problem 300338369 Tubular adenoma (D36.9) Active confirmed Problem Anxiety (78916967) Anxiety (F41.9) Active confirmed Problem 21824210 Crohn's disease, unspecified, with abscess (K50.914) Active confirmed Problem 5373607 Prediabetes (R73.09) Active confirmed Problem 059357830 History of hematuria (Z87.448) Active confirmed Problem 3076368 Migraine with aura and without status migrainosus, not intractable (G43.109) Active confirmed Problem 981091613 Panic attacks (F41.0) Active confirmed Problem 35763828 Parkinson disease (G20) Active confirmed Problem 966323475 Irritable bowel syndrome with constipation (K58.1) Active confirmed Problem 741752785 Arthritis of knee (M17.10) Active confirmed Vital Signs Blood pressure diastolic 70 mm Hg 04/14/2024 francisca ght is down 2 pounds since 10-08-23 Height 70 in 04/14/2024 weight is down 2 pounds since 10-08-23 Blood pressure systolic 124 mm Hg 04/14/2024 weig ht is down 2 pounds since 10-08-23 Weight 176 lbs 04/14/2024 weight is down 2 pounds since 10-08-23 BMI 25.25 kg/m2 04/14/2024 weight is down 2 pounds since 10-08-23 Procedures Procedure Date Ordered Date Performed Result Body Sit e Colonoscopy, Screening 11/20/2023 11/20/2023 3 year repeat Encounters Encounter Location Date Provider Diagnosis Alex Stuart MD [address] [place] [phone] 10/01/2023 Alex Stuart Blood tests for routine general physical examination Z00.00 ; Prediabetes R73.09 and Prostatism N40.0 Alex Stuart MD [address] [place] [address] Drive [address] [place] [phone] 10/08/2023 Alex Stuart Annual physical exam Z00.00 ; Stool guaiac positive R19.5 ; Right carotid bruit R09.89 ; Prediabetes R73.09 ; Prostatism N40.0 ; Encounter for screening for depression Z13.31 and Parkinson disease, symptomatic G20.A1 Alex Stuart MD [address] [place] [address] Drive [address] [place], [place] [phone] 04/14/2024 Alex Stuart Prediabetes R73.09 ; Anxiety F41.9 and Parkinson's disease, unspecified whether dyskinesia present, unspecified whether manifestations fluctuate G20.A1 Assessments Encounter Date Diagnosis (ICD Code) Assessment Notes Treatment Notes Treatment Clinical Notes Section Notes 10/01/2023 Blood tests for routine general physical examination (ICD-10 - Z00.00) 10/01/2023 Prediabetes (ICD-10 - R73.09) 10/08/2023 Annual physical exam (ICD-10 - Z00.00) labs reviewed and discussed with patient 04/14/2024 Prediabetes (ICD-10 - R73.09) stable, no need formedication at this time 04/14/2024 Anxiety (ICD-10 - F41.9) was given a script for escitalopram but has not taken it. 10/01/2023 Prostatism (ICD-10 - N40.0) 10/08/2023 Stool guaiac positive (ICD-10 - R19.5) going for colonoscopy in 04/14/2024 Parkinson's disease, unspecified whether dyskinesia present, unspecified whether manifestations fluctuate (ICD-10 - G20.A1) 10/08/2023 Right carotid bruit (ICD-10 - R09.89) had normal carotid us with the bruits and no need to do any further testing 10/08/2023 Prediabetes (ICD-10 - R73.09) stable, no need for medication at this time 10/08/2023 Prostatism (ICD-10 - N40.0) stable, 10/08/2023 Encounter for screening for depression (ICD-10 - Z13.31) negative screen 10/08/2023 Parkinson disease, symptomatic (ICD-10 - G20.A1) 10/08/[address] victoria 04/14/2024 Other stable, followe d by Neuro Plan Of Treatment Pending Test Test Name Order Date Electrocardiogram (EKG) 04/20/2011 Electrocardiogram (EKG) 08/16/2015 Electrocardiogram (EKG) 09/06/2016 Hemoglobin A1c 04/14/2024 URINALYSIS, COMPLETE 09/22/2020 RENAL US WITH BLADDER 10/30/2021 US renal BI 09/28/2021 US carotid duplex BI 09/28/2021 Next Appt Details Provider Name:Alex Sotelo ier, 07/16/2024 01:45:00 PM, [address] [place] [address], Suite [facility], [place], [place], [phone], Provider Name:Alex Sotelo ier, 10/06/2024 07:00:00 AM, [address] [place] [address], [place] [address], [place], [place], [phone], Provider Name:Alex Sotelo ier, 10/13/2024 01:00:00 PM, [address] [place] [address], [place] [address], [place], [place], [phone], Insurance Providers Payer Name Payer Address Payer Phone Subscriber Number Group Number Insured Name Patient Relationship to Insured Coverage Start Date Coverage End Date [facility] [address] [place] [id number] [phone] [id number] Gabriel Brian Self - patient is the insured Medical (General) History Medical History History ICD Code colonoscopy 2008; colonoscop y 06/10/2013 - repeat 5 years; Colonoscopy 06/13/18 - Dr. Rodriguez - repeat 5 years, colonoscopy 11/20/23 repeat 3 y trigeminal neurology hematuria w/u 07/15
--- OUTSIDE RECORDS SUMMARY | 2024-06-08 07:28 | XMS_ITS ---
Author Organization Alex Stuart MD Address [address] [place] [phone] Care Team Providers Care Associate Embalmer/Funeral Director Name Role Phone Alex Stuart Primary Care Provider Allergies No Known Allergies Results Component Value Reference Range Notes Glucose, finger stick Reviewed date:04/14/2024 01:47:16 PM Interpretation: Performing Lab: Notes/Report: Value 98 REASON FOR VISIT 6 month parkinson Medications Medication SIG (Take, Route, Frequency, Duration) Notes Start Date End Date Status Carbidopa-Levodopa 25-100 MG 1 tablet as needed Orally Three times a day Active Vital Signs Blood pressure systolic 124 mm Hg 04/14/19 25 Blood pressure diastolic 70 mm Hg 025 Height 70 in 04/14/2024 Weight 176 lbs 04/14/2024 BMI 25.25 kg/m2 04/14/2024 weight is down 2 pounds [facility] e 10-08-23 Encounters Encounter Location Date Provider Diagnosis Alex Stuart MD [address] [place] [phone] 04/14/2024 Alex Stuart Prediabetes R73.09 ; Anxiety F41.9 and Parkinson's disease, unspecified whether dyskinesia present, unspecified whether manifestations fluctuate G20.A1 Assessments Encounter Date Diagnosis (ICD Code) Assessment Notes Treatment Notes Treatment Clinical Notes Section Notes 04/14/2024 Prediabetes (ICD-10 - R73.09) stable, no need formedication at this time 04/14/2024 Anxiety (ICD-10 - F41.9) was given a script for escitalopram but has not taken it. 04/14/2024 Parkinson's disease, unspecified whether dyskinesia present, unspecified whether manifestations fluctuate (ICD-10 - G20.A1) 04/14/2024 Other stable, followe d by Neuro Plan Of Treatment Treatment Notes Assessment Notes Prediabetes stable, no need form edication at this time Anxiety was given a script f or escitalopram but has not taken it. Other stable, followed by Neuro Pending Test Test Name Order Date Hemoglobin A1c 04/14/2024 Next Appt Details Follow Up: 3 Months, Reason: Provider Name:Alex harvey, 07/16/2024 01:45:00 PM, [address] [place] [address], [address], [phone], Provider Name:Alex harvey, 10/06/2024 07:00:00 AM, [address] [place] [address], [place] [address], [place], [place], [phone], Provider Name:Alex harvey, 10/13/2024 01:00:00 PM, [address] [place] [address], [address], [phone], Progress Notes * Gabriel HELLER PDOB: [birth year] (69 yo M)Acc No.[id number]:04/14/2024 Progress Notes Patient:?Gabriel HELLER Provider:?Alex Stuart MD :1955???Age:69 Y???Sex:Male Diego e:04/14/2024 Address:[address] [place] [address], [facility] [id number] Subjective: * Chief Complaints: * ???6 month parkinson * HPI: ???Symptom(s):? patient is a 69 yo male here for 6 month follow up visit, having trouble with constipation. is doing best when exercising. 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 * ROS:?General/Constitutional:?Denies?Chills.?Denies?Fatigue.?Denies?Fever.?Denies?Headache.?ENT:?Patient denies?decreased sense of smell , any loss of taste , sore throat.?Denies?Sore throat.?Respiratory:?Denies?Cough.?Denies?Shortness of breath at rest.?Denies?Shortness of breath with exertion.?Gastrointestinal:?Denies?Diarrhea.?Denies?Nausea.?Musculoskeletal:?Patient denies?muscle aches.?Peripheral Vascular:?Patient denies?red and blue toes.?Psychiatric:?Admits?Anxiety.?Admits?Difficulty sleeping.? * Medical History:? * Surgical History:? * Hospitalization/Major Diagno stic Procedure:? * Medications:?TakingCarbidopa -Levodopa 25-100 MG Tablet 1 tablet as needed Orally Three times a day Medication List reviewed and reconciled with the patientTaking Carbidopa-Levodopa 25-100 MG Tablet 1 tablet as needed Orally Three times a day Medication List reviewed and reconciled with the patient * Allergies:?N.K.D.A.yes[Aller gies Verified] Objective: * Vitals:?Ht: 70, Wt: 176, BMI :25.25, BP:124/70, Wt-k.83. weight is down 2 pounds since 10-08-23. * Examination: ???General Examination: ?GENERAL APPEARANCE:?alert, well hydrated, in no distress.?HEAD:?normocephalic.?SKIN:?good turgor.?HEART:?no murmurs, rubs, gallops , regular rate and rhythm.?LUNGS:?no wheezes, rales, rhonchi , good air movement , clear to auscultation bilaterally.? Assessment: * Assessment: 1.?Prediabetes - R73.09 (Lydia yancey)???2.?Anxiety - F41.9???3.?Parkinson's disease, unspecified whether dyskinesia present, unspecified whether manifestations fluctuate - G20.A1??? Plan: * Treatment: 2.?Anxiety? Notes: was given a script for escitalopram but has not taken it.?? 3.?Others? Notes: stable, followed by Neuro?? * Labs:? * ?Lab: Hemoglobin A1c (Co llection Date & Time - 04/14/2024) ? Value Reference Range ?Hemoglobin A1c 5.6 ?Lab: Glucose, finger stick (Collection Date & Time - 04/14/2024)* ? Value Reference Range ?Value 98 * Procedure Codes:?68513 ASSAY , GLUCOSE, BLOOD QUANT, Modifiers: QW 66079 GLYCATED HEMOGLOBIN TEST, Modifiers: QW * Follow Up:?3 Months * * Sign off status: Completed true * Provider:?Alex Stuart MD Date:?0 04/14/2024 Generated for Renuka kaminski/Joey/eTransmitting on:?06/08/2024 07:28 AM EDT History and Physical Notes * HPI (History of Present Illness) Category Sub-Category Detail Notes Category Not es Symptom(s) patient is a 69 yo male here for 6 month follow up visit, having trouble with constipation. is doing best when exercising. 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 Examination Category Sub-Category Detail Notes Category Not es General Examination GENERAL APPEARANCE: alert, w ell hydrated, in no distress HEAD: normocephalic HEART: no murmurs, rubs, ga llops , regular rate and rhythm LUNGS: no wheezes, rales, r honchi , good air movement , clear to auscultation bilaterally SKIN: good turgor
--- OUTSIDE RECORDS SUMMARY | 2024-06-08 07:28 | XMS_ITS | Patient Health Record ---
Author Organization [facility] Address [address] [place] [id number] Care Team Providers Care Director Auto Name Role Phone Narciso BECERRA, Alex Primary Care Provider Duke Albarado Unavailable [phone] Allergies No Known Allergies Results Component Value Reference Range Notes Pathology (Not yet reviewed by provider) Interpretation: Performing Lab:[facility], [address] [place] [id number] Notes/Report: Name: Dave Heller Age/Sex: 68/M : 1955 Unit#: [id number] Attend Dr: Duke Rodriguez MD Re11/20/23 Status : [facility] Location: [facility] Disch: SPEC : [id number] RECD : 11/20/23 STATUS: GRACIA VAIL NUM: [id number] MADI: 11/20/[address] [facility] [address]: Duke Rodriguez MD ENTERED: 11/20/23 SP TYPE: Surgical OTHR DR: Alex Stuart MD ORDERED: HE Stain/12 , Gross Micro L4/4 Diagnosis A. Colon, ascending, polypectomies: Fragments of tubular adenomata; negative for high- grade dysplasia or carcinoma. B. Colon, transverse , polypectomy: Fragments of tubular adenoma; negative for high- grade dysplasia or carcinoma. C. Colon, 60 cm, joseph ypectomy: Fragments of tubular adenoma; negative for high-grade dysplasia or carcinoma. D. Colon, 40 cm, joseph ypectomy: Tubular adenoma; negative for high-grade dysplasia or carcinoma. Clinical History Pre-Op Dx: Screening , hx of malignant and colonic polyps Post-Op Dx: Polyps, melanosis coli, diverticulosis, internal hemorrhoids Microscopic Description A-D. Microscopic sec tions reviewed. Material Received A. Ascending colon polyps B. Transverse colon polyp C. Polyp at 60 D. Polyp at 40 Gross Description A. Received in forma [place] are multiple hanks 1-3 mm soft tissue fragments, totally submitted in cassette A1. B. Received in forma [place] is a 1.0 cc aggregate of vegetable material and possible hanks soft tissue fragments, fi ltered through a mesh cassette and totally submitted in cassette B1. C. Received in forma [place] is a 0.7 cc aggregate of vegetable material and possible hanks soft tissue, filtered thr ough a mesh cassette, totally submitted in cassette C1. D. Received in forma [place] is 1 hanks 9 mm polypoid soft tissue fragment, bisected and totally submitted in cassette D1. (DTL) Excision time: 09:00 ; formalin time: 09:00; cold ischemic time: 0 minutes; total time in formalin: 8-9 hours CONTINUED ON NEXT PAGE Name: Dave Heller Jenifer Age/Sex: 68/M : 1955 Unit#: [id number] Attend Dr: Duke Rodriguez MD Re11/20/23 Status : [facility] Location: [facility] Disch: SPEC : [id number] REC STATUS: GRACIA VAIL NUM: [id number] MADI: 11/20/[address] [facility] [address]: Duke Rodriguez MD ENTERED: 11/20/23 SP TYPE: Surgical OTHR DR: Alex Stuart MD ORDERED: SMITH Stain/12 , Brooks [place]ne L4/4 Copies To: Alex Stuart MD [facility] [address] [place] [address] Duke Rodriguez MD [facility] [address] [place] [address] Signed (si gnature on file) Paco Roblero MD 11/22/23 1415 END OF REPORT Reason For Referral No Information Medications Medication SIG (Take, Route, Frequency, Duration) Notes Start Date End Date Status Fish Oil 1000 MG 1 capsule Orally Thr ee times a day for 30 day(s) Active Carbidopa-Levodopa 25-100 MG Oral for 90 Active Garlic 100 MG as directed Orally Active Immunizations Vaccine Route Administration Date Status Comme nts Influenza Unknown 05/07/2018 Refused Influenza Unknown 08/13/2023 Refused Problems Problem Type SNOMED Code ICD Code Onset Dates Problem Status W/U Status Risk Notes Problem 176847382 Encounter for screening for malignant neoplasm of colon (Z12.11) Active confirmed Problem Diverticular disease of colon (869192435) Diverticulosis of large intestine without perforation or abscess without bleeding (K57.30) Active confirmed Problem 637977932926256 Preprocedural examination (Z01.818) Active confirmed Problem 150339847 Family history o f colon cancer (Z80.0) Active confirmed Problem 43125609 Constipation, unspecified constipation type (K59.00) Active confirmed Problem 805208681 Hx of adenomatou s colonic polyps (Z86.010) Active confirmed Problem 50833364 Crohn''s disease of small intestine without complication (K50.00) Active confirmed Vital Signs Temperature 98.0 degrees Fahrenheit 08/13/2023 Blood pressure diastolic 00 mm Hg 08/13/2023 Height 70 in 08/13/2023 Blood pressure systolic 000 mm Hg 08/13/2023 Weight 178 lb 6 oz lbs 08/13/2023 BMI 25.59 kg/m2 08/13/2023 Encounters Encounter Location Date Provider Diagnosis [facility] [address], [place] [id number] 11/20/2023 Duke Rodriguez Colon cancer screeni ng Z12.11 ; Colon polyps K63.5 ; Family history of colon cancer Z80.0 ; Other specified diseases of intestine K63.89 ; Diverticulosis of large intestine without perforation or abscess without bleeding K57.30 and Other hemorrhoids K64.8 [facility] [address] [place] [address] 08/13/2023 uDke Rodriguez Preprocedural examination Z01.818 ; Crohn''s disease of small intestine without complication K50.00 ; Hx of adenomatous colonic polyps Z86.010 ; Encounter for screening for malignant neoplasm of colon Z12.11 and Family history of colon cancer Z80.0 [facility] [address] [place] [address] 07/23/2023 Duke Rodriguez [facility] [address] [place] [address] 11/19/2023 Duke Rodriguez Assessments Encounter Date Diagnosis (ICD Code) Assessment Notes Treatment Notes Treatment Clinical Notes Section Notes 11/20/2023 Colon cancer screening (ICD-10 - Z12.11) 11/20/2023 Colon polyps (ICD-10 - K63.5) 08/13/2023 Preprocedural examination (ICD-10 - Z01.818) Overall, Dave appears well despite the fairly recent diagnosis of his Parkinson's disease. He is not having any particularly worrisome GI symptoms at the present time. I did recommend a followup colonoscopy for further screening given his history of a tubular adenoma, family history of colon cancer in his father in his 50s, and his last colonoscopy being over 5 years ago. We did review the rationale for that in regard to colon cancer prevention. Full consent was obtained from him for this, including risks of bleeding and perforation. The procedure will be done monitored anesthesia care. We did review the underlying diagnosis of Crohn's disease but at this point I don't think it is symptomatic as the majority of the time his bowel movements are formed and fairly regular. We did review that Parkinson's disease can have GI related effects but at this point things being stable in that regard as well. Dave was comfortable with this plan. Thank you again for allowing me to participate in in Dave's care. I shall continue to keep you advised of his progress 08/13/2023 Crohn''s disease of small intestine without complication (ICD-10 - K50.00) Overall, Dave appears well despite the fairly recent diagnosis of his Parkinson's disease. He is not having any particularly worrisome GI symptoms at the present time. I did recommend a followup colonoscopy for further screening given his history of a tubular adenoma, family history of colon cancer in his father in his 50s, and his last colonoscopy being over 5 years ago. We did review the rationale for that in regard to colon cancer prevention. Full consent was obtained from him for this, including risks of bleeding and perforation. The procedure will be done monitored anesthesia care. We did review the underlying diagnosis of Crohn's disease but at this point I don't think it is symptomatic as the majority of the time his bowel movements are formed and fairly regular. We did review that Parkinson's disease can have GI related effects but at this point things being stable in that regard as well. Dave was comfortable with this plan. Thank you again for allowing me to participate in in Dave's care. I shall continue to keep you advised of his progress 11/20/2023 Family history of colon cancer (ICD-10 - Z80.0) 08/13/2023 Hx of adenomatous colonic polyps (ICD-10 - Z86.010) Overall, Dave appears well despite the fairly recent diagnosis of his Parkinson's disease. He is not having any particularly worrisome GI symptoms at the present time. I did recommend a followup colonoscopy for further screening given his history of a tubular adenoma, family history of colon cancer in his father in his 50s, and his last colonoscopy being over 5 years ago. We did review the rationale for that in regard to colon cancer prevention. Full consent was obtained from him for this, including risks of bleeding and perforation. The procedure will be done monitored anesthesia care. We did review the underlying diagnosis of Crohn's disease but at this point I don't think it is symptomatic as the majority of the time his bowel movements are formed and fairly regular. We did review that Parkinson's disease can have GI related effects but at this point things being stable in that regard as well. Dave was comfortable with this plan. Thank you again for allowing me to participate in in Dave's care. I shall continue to keep you advised of his progress 11/20/2023 Other specified diseases of intestine (ICD-10 - K63.89) 08/13/2023 Encounter for screening for malignant neoplasm of colon (ICD-10 - Z12.11) Overall, Dave appears well despite the fairly recent diagnosis of his Parkinson's disease. He is not having any particularly worrisome GI symptoms at the present time. I did recommend a followup colonoscopy for further screening given his history of a tubular adenoma, family history of colon cancer in his father in his 50s, and his last colonoscopy being over 5 years ago. We did review the rationale for that in regard to colon cancer prevention. Full consent was obtained from him for this, including risks of bleeding and perforation. The procedure will be done monitored anesthesia care. We did review the underlying diagnosis of Crohn's disease but at this point I don't think it is symptomatic as the majority of the time his bowel movements are formed and fairly regular. We did review that Parkinson's disease can have GI related effects but at this point things being stable in that regard as well. Dave was comfortable with this plan. Thank you again for allowing me to participate in in Dave's care. I shall continue to keep you advised of his progress 11/20/2023 Diverticulosis of large intestine without perforation or abscess without bleeding (ICD-10 - K57.30) 08/13/2023 Family history of colon cancer (ICD-10 - Z80.0) Overall, Dave appears well despite the fairly recent diagnosis of his Parkinson's disease. He is not having any particularly worrisome GI symptoms at the present time. I did recommend a followup colonoscopy for further screening given his history of a tubular adenoma, family history of colon cancer in his father in his 50s, and his last colonoscopy being over 5 years ago. We did review the rationale for that in regard to colon cancer prevention. Full consent was obtained from him for this, including risks of bleeding and perforation. The procedure will be done monitored anesthesia care. We did review the underlying diagnosis of Crohn's disease but at this point I don't think it is symptomatic as the majority of the time his bowel movements are formed and fairly regular. We did review that Parkinson's disease can have GI related effects but at this point things being stable in that regard as well. Dave was comfortable with this plan. Thank you again for allowing me to participate in in Dave's care. I shall continue to keep you advised of his progress 11/20/2023 Other hemorrhoids (ICD-10 - K64.8) Plan Of Treatment Pending Test Test Name Order Date Pathology 11/20/2023 Future Test Test Name Order Date COLONOSCOPY 04/17/2013 COLONOSCOPY 05/07/2018 COLONOSCOPY 08/13/2023 Insurance Providers Payer Name Payer Address Payer Phone Subscriber Number Group Number Insured Name Patient Relationship to Insured Coverage Start Date Coverage End Date [facility] [address] [place] [phone] [id number] Self - patient is the insured Medical (General) History Medical History History ICD Code He has had negative colonosc opies in 1993, 1997, 2002, and 2008, other than the finding of his known Crohn's disease of the terminal ileum, hyperplastic polyps, diverticulosis, and internal hemorrhoids. Colonoscopy in 05/2013-small tubular adenoma removed and mild ileitis Crohn's Disease of TI--not s ymptomatic-never been treated--confirmed on his colonoscopies and GI series. Denies NE,DM,CVA,Lung disease,renal dise ase Neg. ETT Negative colonoscopy in 2018 other than his known melanosis coli and Crohn's ileitis. Parkinson's disease Anxiety in association with the Parkinso n's disease Surgical History Surgery Date(Month/Year) Knee surgery
--- OUTSIDE RECORDS SUMMARY | 2024-06-08 07:28 | XMS_ITS ---
Author Organization Alex Stuart MD Address [address] [place] [phone] Care Team Providers Care Business Database Analyst Name Role Phone Alex Stuart Primary Care Provider [phone] Allergies No Known Allergies Results Component Value Reference Range Notes Occult Blood, Stool, Guaiac Reviewed date:10/08/2023 01:59:23 PM Interpretation:Positive Performing Lab: Notes/Report: Positive Occult Blood, Stool, Guaiac Pos REASON FOR VISIT annual visit Medications Medication SIG (Take, Route, Frequency, Duration) Notes Start Date End Date Status Carbidopa-Levodopa 25-100 MG 1 tablet as needed Orally Three times a day Active Social History Tobacco Use: Social History Observation [...] ast year? No Points 0 Interpretation Negative Vital Signs Blood pressure systolic 132 mm Hg 10/08/19 24 Blood pressure diastolic 64 mm Hg 024 Height 70 in 10/08/2023 Weight 178 lbs 10/08/2023 BMI 25.54 kg/m2 10/08/2023 Encounters Encounter Location Date Provider Diagnosis Alex Stuart MD [address] [place] [address] Drive [address] [place], [place] [phone] 10/08/2023 Alex Stuart Annual physical exam Z00.00 ; Stool guaiac positive R19.5 ; Right carotid bruit R09.89 ; Prediabetes R73.09 ; Prostatism N40.0 ; Encounter for screening for depression Z13.31 and Parkinson disease, symptomatic G20.A1 Assessments Encounter Date Diagnosis (ICD Code) Assessment Notes Treatment Notes Treatment Clinical Notes Section Notes 10/08/2023 Annual physical exam (ICD-10 - Z00.00) labs reviewed and discussed with patient 10/08/2023 Stool guaiac positive (ICD-10 - R19.5) going for colonoscopy in 10/08/2023 Right carotid bruit (ICD-10 - R09.89) [...] G20.A1) 10/08/[address] victoria Plan Of Treatment Treatment Notes Assessment Notes Annual physical exam labs reviewed and d iscussed with patient Stool guaiac positive going for colonosc opy in october Right carotid bruit had normal carotid u s with the bruits and no need to do any further testing Prediabetes stable, no need for medication at this time Prostatism stable, Encounter for screening for depression n egative screen Other followed by dr darci summers Next Appt Details Follow Up: 6 Months, Reason: parkinson Provider Name:Alex harvey, 07/16/2024 01:45:00 PM, [address] [place] [address], [address], [place], [place], [phone], Provider Name:Alex harvey, 10/06/2024 07:00:00 AM, [address], [address], [place], [place], [phone], Provider Name:Alex Stephensonvalorie ier, 10/13/2024 01:00:00 PM, [address], [address], [place], [place], [phone], Progress Notes * ANGabriel Ruiz PDOB: [birth year] (68 yo M)Acc No.[id number]:10/08/2023 Progress Notes Patient:?Gabriel Brian Provider:?Alex Stuart MD :1955???Age:68 Y???Sex:Male Diego e:10/08/2023 Address:[address] [place] [address], [facility] Subjective: * Chief Complaints: * ???Annual visit * HPI: ???Depression Screening:?PHQ-9?Little interest or pleasure in doing things?Several days,?Feeling down, depressed, or hopeless?Not at all,?Trouble falling or staying asleep, or sleeping too much?Not at all,?Feeling tired or having little energy?Several days,?Poor appetite or overeating?Not at all,?Feeling bad about yourself or that you are a failure, or have let yourself or your family down?Not at all,?Trouble concentrating on things, such as reading the newspaper or watching television?Several days,?Moving or speaking so slowly that other people could have noticed; or the opposite, being so fidgety or restless that you have been moving around a lot more than usual?Not at all,?Thoughts that you would be better off or of hurting yourself in some way?Not at all,?Total Score?3,?Interpretation?Minimal Depression.?Communication Needs:?Communication Needs?Does the patient have a hearing impairment?No,?Does the patient have a vision impairment??Yes,?If yes, what is the vision impairment??Glasses,?Does the patient have a cognition impairment??No.?Fall Risk:?History?Have you had any falls with injury in the past year??No,?Have you had two or more falls in the past year??No.?SDOH Questions:?SDOH Questions?In the past year have you been worried about losing housing??No,?In the past year have you or any family members you live with been unable to get any of the following when it was really needed? Check all that apply:?None.?Symptom(s):? patient here for yearly evaluation with review of recent labs and follow up of chronic issues. going to gym regularly. parkinsons is good other than anxiety, and depression is good. * ROS:?General/Constitutional:?Patient denies?fatigue , headache.?Change in appetite?denies.?Chills?denies.?Fever?denies.?Ophthalmologic:?Blurred vision?denies.?Discharge?denies.?Pain?denies.?ENT:?Patient denies?decreased sense of smell , any loss of taste , sore throat.?Decreased hearing?denies.?Sore throat?denies.?Swollen glands?denies.?Endocrine:?Cold intolerance?denies.?Excessive thirst?denies.?Heat intolerance?denies.?Weight loss?denies.?Respiratory:?Cough?denies.?Shortness of breath at rest?denies.?Shortness of breath with exertion?denies.?Wheezing?denies.?Cardiovascular:?Chest pain at rest?denies.?Chest pain with exertion?denies.?Irregular heartbeat?denies.?Shortness of breath?denies.?Gastrointestinal:?Abdominal pain?denies.?Change in bowel habits?denies.?Diarrhea?denies.?Nausea?denies.?Rectal bleeding?admits.?Vomiting?denies .?Genitourinary:?Blood in urine?denies.?Difficulty urinating?denies.?Frequent urination?denies.?Musculoskeletal:?Patient denies?muscle aches.?Painful joints?denies.?Weakness?denies.?Peripheral Vascular:?Patient denies?red and blue toes.?Skin:?Dry skin?denies.?Itching?denies.?Denies?Mole(s),? changes in moles, new moles or any lesions of concern.?Denies?Photosensitivity.?Rash?denies.?Neurologic:?Dizziness?denies.?Fainting?denies.?Headache?denies.? * Medical History:? * Surgical History:? * Hospitalization/Major Diagno stic Procedure:? * Family History:?Father: dece ased 85 yrs, bladder cancer, colon cancer, pancreatic cancer, prostate cancer, diagnosed with Cancer.?Mother: alive 97 yrs.?1 brother(s) , 1 sister(s) . .? Mother-Healthy, Denies mental health/substance abuse family history, No pertinent family medical history, No pertinent family medical history, Denies mental health/substance abuse family history, Denies mental health/substance abuse family history. * Social History:?Tobacco Use:?Tobacco Use/Smoking?Patient is a?nonsmoker,?Additional Findings: Tobacco Non-User?Current non-smoker, currently using no form of tobacco.?Drugs/Alcohol:?Alcohol Screen?Did you have a drink containing alcohol in the past year??No,?Points?0,?Interpretation?Negative.?Miscellaneous:?no Caffeine. no Children. no Community involvements. Exercise: yes, 3-4 times per week manager personal QD. Home smoke detector use: yes. Housing: owning. Living with: spouse. Marital status: . Occupation: works full-time,sales. Pets: none. no Travel outside of the [place]. * Medications:?TakingCarbidopa -Levodopa 25-100 MG Tablet 1 tablet as needed Orally Three times a dayMedication List reviewed and reconciled with the patientTaking Carbidopa-Levodopa 25-100 MG Tablet 1 tablet as needed Orally Three times a dayMedication List reviewed and reconciled with the patient * Allergies:?N.K.D.A.yes[Aller gies Verified] Objective: * Vitals:?Ht: 70, Wt:178, BMI: 25.54, BP:132/64. * ???Past Orders: ???Lab:Lipid Panel (Order Da 10/01/2023) (Collection Date - 10/01/2023) ? Value Reference Range ?Triglycerides 88 <150 - mg/dL ?Cholesterol 213 H <200 - m g/dL ?LDL Cholesterol Calculated 138 H <100 - mg/dL ?HDL Cholesterol 58 >40 - mg/dL ???Lab:PSA,Total (Free>4and< 10) (Order Date - 10/01/2023) (Collection Date - 10/01/2023) ? Value Reference Range ?PSA,Total (Free>4and<10) 0.98 0.00-4.00 - ng/mL ???Lab:Microalbumin, Random (Order - 10/01/2023) (Collection Date - 10/01/2023) ? Value Reference Range ?Creatinine Urine 194.92 - m g/dL ?Microalbumin Urine 8.0 - mg/L ?Microalbum Creatinine Ratio Ur 4.1 <30 - ug/mg cr ???Lab:Hemoglobin A1c (Order - 10/01/2023) (Collection Date - 10/01/2023) ? Value Reference Range ?Hemoglobin A1c % 5.5 <6. 0 - % ?Estimated Average Glucose 111 - mg/dL ???Lab:Complete Blood Count Auto Diff (Order Date - 10/01/2023) (Collection Date - 10/01/2023) ? Value Reference Range ?White Blood Count 6.3 4. 8-10.8 - X10*3/uL ?Red Blood Count 4.64 4.60 -5.80 - X10*6/uL ?Hemoglobin 14.5 14.0-18.0 - g/dl ?Hematocrit 43.3 42.0-52.0 - % ?Mean Corpuscular Volume 93.3 80.0-98.0 - fL ?Mean Corpuscular Hemoglobin 31.3 27.0-33.0 - pg ?Mean Corpuscular HGB Conc 33.5 31.0-36.0 - g/dl ?Red Cell Distribution Width 12.7 11.0-16.0 - % ?Platelet Count 198 160-4 00 - X10*3/uL ?Mean Platelet Volume 10.9 9.4-12.4 - fL ?Neutrophils Percent Auto 68.2 45-73 - % ?Imm Gran Pct Auto 0.3 0. 0-0.4 - % ?Lymphocytes Percent Auto 24.0 20-40 - % ?Monocytes Percent Auto 6.4 2-11 - % ?Eosinophils Percent Auto 0.6 0-4 - % ?Basophils Percent Auto 0.5 0-2 - % ?NRBC Pct Auto 0.0 0.0-0. 2 - /100WBC ?Neutrophils Absolute Auto 4.3 2.0-8.3 - x10*3/uL ?Imm Gran Abs Auto 0.02 0. 00-0.03 - X10*3/uL ?Lymphocytes Absolute Auto 1.5 1.2-4.9 - X10*3/uL ?Monocytes Absolute Auto 0.4 0.1-1.2 - X10*3/uL ?Eosinophils Absolute Auto 0.0 0.0-0.4 - X10*3/uL ?Basophils Absolute Auto 0.0 0.0-0.2 - X10*3/uL ?NRBC Abs Auto 0.000 0.0-0. 012 - X10*3/uL ???Lab:Comprehensive [place]. [facility] Fast (Order Date - 10/01/2023) (Collection Date - 10/01/2023) ? Value Reference Range ?Sodium 141 135-145 - mmo l/L ?Bilirubin Total 1.2 H 0.0- 1.0 - mg/dL ?Aspartate Amino Transferase 29 5-37 - U/L ?Alanine Aminotransferase 30 0-40 - U/L ?Total Protein 7.0 6.5-8. 0 - g/dL ?Albumin Level 4.1 3.5-5. 0 - g/dL ?Alkaline Phosphatase 50 39-117 - U/L ?Potassium 4.2 3.3-5.1 - mmol/L ?Chloride 106 96-108 - mm ol/L ?Carbon Dioxide 26 22-29 - mmol/L ?Anion Gap 13 12-20 - ?Blood Urea Nitrogen 18 H 9-16 - mg/dL ?Creatinine 1.28 0.5-1.4 - mg/dL ?Estimated Glomerular Filt Rate 56 - ?Glucose Fasting 99 60-9 9 - mg/dL ?Calcium 10.0 8.4-10.2 - m g/dL * Examination: ???General Examination: ?GENERAL APPEARANCE:?well developed, well nourished, in no acute distress.?HEAD:?normocephalic, atraumatic.?EYES:?pupils equal, round, reactive to light and accommodation, sclera non-icteric.?EARS:?normal.?ORAL CAVITY:?mucosa moist.?THROAT:?clear.?NECK/THYROID:?neck supple, full range of motion, no cervical lymphadenopathy, , abnormal with bruits on the rt.?SKIN:?warm and dry, no suspicious lesions.?HEART:?regular rate and rhythm, S1, S2 normal, no murmurs.?LUNGS:?clear to auscultation bilaterally.?ABDOMEN:?soft, nontender, nondistended, bowel sounds present, normal, no organomegaly , no masses palpable.?RECTAL EXAM:?normal tone, no external hemorrhoids, no masses palpable, prostate normal, stool guaiac positive.?MALE GENITOURINARY:?circumcised, no penile lesions or discharge, testes descended bilaterally.?EXTREMITIES:?no clubbing, cyanosis, or edema.?NEUROLOGIC:?nonfocal, motor strength normal upper and lower extremities, sensory exam intact.? Assessment: * Assessment: 1.?Annual physical exam - Z0 0.00 (Primary)?2.?Stool guaiac positive - R19.5?3.?Right carotid bruit - R09.89?4.?Prediabetes - R73.09?5.?Prostatism - N40.0?6.?Encounter for screening for depression - Z13.31?7.?Parkinson disease, symptomatic - G20.A1? Plan: * Treatment: 2.?Stool guaiac positive? Notes: going for colonoscopy in october.?? 3.?Right carotid bruit? Notes: had normal carotid us with the bruits and no need to do any further testing.?? 4.?Prediabetes? Notes: stable, no need for medication at this time.?? 5.?Prostatism? Notes: stable,.?? 6.?Encounter for screening f or depression? Notes: negative screen.?? 7.?Others? Notes: followed by dr victoria.?? * Labs:? * ?Lab: Occult Blood, Stoo l, Guaiac?Positive ? Value Reference Range ?Occult Blood, Stool, Guaiac Pos * Procedure Codes:?83833 TEST FOR BLOOD, FECES * Follow Up:?6 Months (Reason: parkinson) * * Sign off status: Completed true * Provider:?Alex Stuart MD Date:?0 10/08/2023 Generated for Renuka kaminski/Joey/eTransmitting on:?06/08/2024 07:27 AM EDT History and Physical Notes * HPI (History of Present Illness) Category Sub-Category Detail Notes Category Not es Symptom(s) patient here fo r yearly evaluation with review of recent labs and follow up of chronic issues. going to gym regularly. parkinsons is good other than anxiety, and depression is good. Depression Screening PHQ-9 Little inte rest or pleasure in doing things: Several days Feeling down, depressed, or hopeless: No t at all Trouble falling or staying asleep, or sl eeping too much: Not at all Feeling tired or having little energy: S everal days Poor appetite or overeating: Not at all Feeling bad about yourself o r that you are a failure, or have let yourself or your family down: Not at all Trouble concentrating on thi ngs, such as reading the newspaper or watching television: Several days Moving or speaking so slowly that other people could have noticed; or the opposite, being so fidgety or restless that you have been moving around a lot more than usual: Not at all Thoughts that you would be b joyce off or of hurting yourself in some way: Not at all Total Score: 3 Interpretation: Minimal Depression SDOH Questions SDOH Questions In the past year have you been worried about losing housing?: No In the past year have you or any family members you live with been unable to get any of the following when it was really needed? Check all that apply:: None Fall Risk History Have you had any falls with injury i n the past year?: No Have you had two or more falls in the year?: No Communication Needs Communication Needs Does the patient have a hearing impairment: No Does the patient have a vision impairmen t?: Yes ?If yes, what is the vision impairment?: Glasses Does the patient have a cognition impair ment?: No Examination Category Sub-Category Detail Notes Category Not es General Examination GENERAL APPEARANCE: well dev eloped, well nourished, in no acute distress HEAD: normocephalic, atrau matic EYES: pupils equal, round, reactive to light and accommodation, sclera non- icteric EARS: normal THROAT: clear NECK/THYROID: neck supple, full ra nge of motion, no cervical lymphadenopathy, , abnormal with bruits on the rt HEART: regular rate and rhy thm, S1, S2 normal, no murmurs LUNGS: clear to auscultatio n bilaterally ABDOMEN: soft, nontender, non distended, bowel sounds present, normal, no organomegaly , no masses palpable NEUROLOGIC: nonfocal, motor stre ngth normal upper and lower extremities, sensory exam intact SKIN: warm and dry, no vani picious lesions EXTREMITIES: no clubbing, cyanosi s, or edema MALE GENITOURINARY: circumcised, no peni le lesions or discharge, testes descended bilaterally RECTAL EXAM: normal tone, no exte rnal hemorrhoids, no masses palpable, prostate normal, stool guaiac positive ORAL CAVITY: mucosa moist
--- OUTSIDE RECORDS SUMMARY | 2024-06-08 07:29 | XMS_ITS ---
Author Organization [facility] Address [address] [place] [phone] Care Team Providers Care Transportation Worker Name Role Phone Alex Stuart MD Primary Care Provider Duke Albarado [phone] REASON FOR VISIT parkinson medication/procedure tomorrow Encounters Encounter Location Date Provider Diagnosis [facility] [address] [place] [phone] 11/19/2023 Duke Rodriguez Plan Of Treatment No Information Progress Notes * DAVE HELLERDOB: (68 yo M)Acc No.[id number]:11/19/2023 Patient:?PINA DAVE :1955???Age:68 Y???Sex:Male Address:[address] [place] [address] * true * Date:? Generated for Renuka kaminski/Joey/eTransmitting on:?06/08/2024 07:28 AM EDT
--- OUTSIDE RECORDS SUMMARY | 2024-06-08 07:29 | XMS_ITS ---
Author Organization Alex Stuart MD Address [address] [place] [phone] Care Team Providers Care Head Host/Hostess Name Role Phone Alex Stuart Primary Care Provider Results Component Value Reference Range Notes Complete Blood Count Auto Di ff Reviewed date:10/01/2023 01:09:08 PM Interpretation: Performing Lab:[facility], [address] [place] [phone] Notes/Report: White Blood Count 6.3 4.8-10.8 X10*3/uL [...] NRBC Abs Auto 0.000 0.0-0.012 X10*3/uL Comprehensive [place]. Panel Fa st Reviewed date:10/01/2023 01:07:30 PM Interpretation: Performing Lab:[facility], [address] [place] [phone] Notes/Report: Sodium 141 135-145 mmol/L Potassium 4.2 3.3-5.1 mmol/L Chloride 106 96-108 mmol/L Carbon Dioxide 26 22-29 mmol/L Anion Gap 13 12-20 Blood Urea Nitrogen 18 9-16 mg/dL Creatinine 1.28 0.5-1.4 mg/dL Estimated Glomerular Filt Rate 56 NOTE: For -Austrian individuals, multiply the result by 1.210. Chronic [...] Panel Reviewed date:10/01/2023 12:59:52 PM Interpretation: Performing Lab:[facility], [address] [place] [phone] Notes/Report: Triglycerides 88 <150 mg/dL Desirable Triglyceride: [...] (Free>4and<10) Reviewed date:10/01/2023 01:01:24 PM Interpretation: Performing Lab:[facility], [address] [place] [phone] Notes/Report: PSA,Total (Free>4and<10) 0.98 0.00-4.00 ng/mL A [...] Random Reviewed date:10/01/2023 01:00:43 PM Interpretation: Performing Lab:[facility], [address] [place] [phone] Notes/Report: Creatinine Urine 194.92 Microalbumin Urine 8.0 Microalbum/Creatinine Ratio Ur 4.1 <30 ug/mg cr Albumin/Creatinine Ratio Reference Ranges: Normal: < 30 ug/mg creatinine Microalbuminuria: 30 - 300 ug/mg creatinine Clinical Albuminuria: > 300 ug/mg creatinine Hemoglobin A1c Reviewed date:10/01/2023 01:01:33 PM Interpretation: Performing Lab:[facility], [address] [place] [phone] Notes/Report: Hemoglobin A1c % 5.5 <6.0 % [...] average glucose, using the formula of the Q8I-Iykpodh Average Glucose study (ADAG), Diabetes Care, Vol.31,#8, Oct. 2007 UA ClnCatch+Micro w/rflx Cul t Reviewed date:10/03/2023 04:26:26 PM Interpretation: Performing Lab:[facility], [address] [place] [phone] Notes/Report: Urine, Clean Catch Color Urine Dark Yellow Appearance Urine Turbid PH 7.0 5.0-9.0 Glucose Urine UA Negative Negative mg/dL Urine Blood Negative Negative Specific Edwards - Urine 1.020 1.005-1.025 Urine Protein Negative Neg-Trace mg/dL Urine Ketones Trace Negative mg/dL Nitrite Urine Negative Negative Leukocyte Esterase Urine Trace Negative RBC Urine 0-2 0-2 /HPF WBC Urine 0-5 0-5 /HPF Squamous Epithelial Cell Urine 0-2 0-2 /HPF Other Crystals Urine Present Bacteria Urine None Seen None Seen Hyaline Casts Urine 0-2 0-2 /LPF REASON FOR VISIT yearly labs Encounters Encounter Location Date Provider Diagnosis Alex Stuart MD [address] [place] [address] Drive [address] [place], [place] [phone] 10/01/2023 Alex Stuart Blood tests for routine general physical examination Z00.00 ; Prediabetes R73.09 and Prostatism N40.0 Assessments Encounter Date Diagnosis (ICD Code) Assessment Notes Treatment Notes Treatment Clinical Notes Section Notes 10/01/2023 Blood tests for routine general physical examination (ICD-10 - Z00.00) 10/01/2023 Prediabetes (ICD-10 - R73.09) 10/01/2023 Prostatism (ICD-10 - N40.0) Plan Of Treatment Next Appt Details Provider Name:Alex harvey, 07/16/2024 01:45:00 PM, [address], [address], [place], [place], [phone], Provider Name:Alex ottr, 10/06/2024 07:00:00 AM, [address], [address], [place], [place], [phone], Provider Name:Alex ottr, 10/13/2024 01:00:00 PM, [address], [address], [place], [place], [phone], Progress Notes * Gbariel HELLER PDOB: [birth year] (69 yo M)Acc No.[id number]:10/01/2023 Progress Note Patient:?Gabriel HELLER Provider:?Alex Stuart MD :1955???Age:68 Y???Sex:Male Diego e:10/01/2023 Address:[address] [place] [address], [facility] Subjective: * Chief Complaints: * ???1. Yearly labs. * Medical History:? Objective: * Vitals:? Assessment: * Assessment: 1.?Blood tests for routine g eneral physical examination - Z00.00 (Primary)???2.?Prediabetes - R73.09???3.?Prostatism - N40.0??? Plan: * Treatment: 2.?Prediabetes?LAB: Complete Blood Count Auto Diff (Collection Date & Time - 10/01/2023 07:00 AM) ?LAB: Comprehensive [place]. Panel Fast (Collection Date & Time - 10/01/2023 07:00 AM) ?LAB: Lipid Panel (Collection Date & Time - 10/01/2023 07:00 AM) ?LAB: PSA,Total (Free>4and<10) (Collection Date & Time - 10/01/2023 07:00 AM) ?LAB: Microalbumin, Random (Collection Date & Time - 10/01/2023 07:00 AM) ?LAB: Hemoglobin A1c (Collection Date & Time - 10/01/2023 07:00 AM) ?LAB: UA ClnCatch+Micro w/rflx Cult (Collection Date & Time - 10/01/2023 07:00 AM) 3.?Prostatism?LAB: Complete Blood Count Auto Diff (Collection Date & Time - 10/01/2023 07:00 AM) ?LAB: Comprehensive [place]. Panel Fast (Collection Date & Time - 10/01/2023 07:00 AM) ?LAB: Lipid Panel (Collection Date & Time - 10/01/2023 07:00 AM) ?LAB: PSA,Total (Free>4and<10) (Collection Date & Time - 10/01/2023 07:00 AM) ?LAB: Microalbumin, Random (Collection Date & Time - 10/01/2023 07:00 AM) ?LAB: Hemoglobin A1c (Collection Date & Time - 10/01/2023 07:00 AM) ?LAB: UA ClnCatch+Micro w/rflx Cult (Collection Date & Time - 10/01/2023 07:00 AM) * Procedure Codes:?14493 VENIP UNCT, ROUTINE* * * The named appointment provid er may or may not be the originator of this progress note, and it is not deemed complete until electronically signed by the appointment provider. Sign off status: Pending * Provider:?Alex Stuart MD Date:?0 10/01/2023 Generated for Renuka kaminski/Joey/eTransmitting on:?06/08/2024 07:28 AM EDT
--- OUTSIDE RECORDS SUMMARY | 2024-06-08 07:29 | XMS_ITS ---
Author Organization [facility] Address [address] [place] [id number] Care Team Providers Care Waste Handling Technician Name Role Phone Alex Stuart MD Primary Care Provider Duke Albarado [phone] Allergies No Known Allergies REASON FOR VISIT Patient presents today for a colon screening Medications Medication SIG (Take, Route, Frequency, Duration) Notes Start Date End Date Status Carbidopa-Levodopa 25-100 MG Oral for 90 Active Fish Oil 1000 MG 1 capsule Orally Thr ee times a day for 30 day(s) Active Garlic 100 MG as directed Orally Active Immunizations Vaccine Route Administration Date Status Comme nts Influenza Unknown 08/13/2023 Refused Vital Signs Temperature 98.0 degrees Fahrenheit 08/13/19 24 Blood pressure systolic 000 mm Hg 08/13/19 24 Blood pressure diastolic 00 mm Hg 024 Height 70 in 08/13/2023 Weight 178 lb 6 oz lbs 08/13/2023 BMI 25.59 kg/m2 08/13/2023 Encounters Encounter Location Date Provider Diagnosis [facility] [address] [place] [id number] 08/13/2023 Duke Rodriguez Preprocedural examination Z01.818 ; Crohn''s disease of small intestine without complication K50.00 ; Hx of adenomatous colonic polyps Z86.010 ; Encounter for screening for malignant neoplasm of colon Z12.11 and Family history of colon cancer Z80.0 Assessments Encounter Date Diagnosis (ICD Code) Assessment Notes Treatment Notes Treatment Clinical Notes Section Notes 08/13/2023 Preprocedural examination (ICD-10 - Z01.818) Overall, [...] keep you advised of his progress 08/13/2023 Hx of adenomatous colonic polyps (ICD-10 [...] keep you advised of his progress 08/13/2023 Encounter for screening for malignant neoplasm [...] keep you advised of his progress 08/13/2023 Family history of colon cancer (ICD-10 [...] to keep you advised of his progress Plan Of Treatment Future Test Test Name Order Date COLONOSCOPY 08/13/2023 Next Appt Details Follow Up: prn, Reason: Progress Notes * DAVE HELLERDOB: (68 yo M)Acc No.[id number]:08/13/2023 Progress Notes Patient:?DAVE HELLER Provider:?Duke Rodriguez MD :1955???Age:68 Y???Sex:Male Diego e:08/13/2023 Address:[address] [place] [address], [id number] Pcp:Alex Stuart MD Subjective: * Chief Complaints: * ???Patient presents today fo r a colon screening * HPI: ???incontinence:? I saw Dave in the office today for evaluation of his personal history of a tubular adenoma of the colon, family history of colon cancer, underlying history of Crohn's ileitis, and chronic constipation. ?I last saw Dave in 2019, at which time he underwent a negative followup screening colonoscopy. He does remain on his magnesium supplements in regard to his chronic constipation. He reports that he is having a daily bowel movement. He has not noticed any sign of bleeding. He does describe occasional days of looser than usual bowel movements but without any persistent diarrhea nor signs of bleeding. He is eating comfortably and denies any significant heartburn or dysphagia. He denies any abdominal pain nor jaundice. ?As you know, he was diagnosed with Parkinson's disease about a year ago. He has also been troubled by some anxiety in association with that. * ROS:?General/Constitutional:?Change in appetite?denies.?Chills?denies.?Fatigue?denies.?Ophthalmologic:?Patient denies? Negative..?ENT:?Patient denies?Negative..?Respiratory:?Patient denies?No coughing/hemoptysis..?Cardiovascular:?Patient denies? No chest pain/orthopnea..?Gastrointestinal:?Comments?See HPI for details.?Genitourinary:?Patient denies? No dysuria/hematuria..?Musculoskeletal:?Patient denies? No specific arthralgias/myalgias..?Skin:?Patient denies?No rash/pruritus..?Neurologic:?Patient denies? No headaches/seizures..?Psychiatric:?Patient denies?Negative..? * Medical History:? * Surgical History:?Knee surge ry * Hospitalization/Major Diagno stic Procedure:?No Hospitalization History. * Family History:?Father: dece ased, Colon cancer in his 50's. He from pancreatic cancer in his 80's, diagnosed with Colon cancer.?Mother: alive.? No family history of liver cancer. * Social History:?Tobacco Use:?Tobacco Use/Smoking?Are you a: former smoker , How long has it been since you last smoked?: > 10 years.?Drugs/Alcohol:?Alcohol Screen?Points: 0, Interpretation: Negative.?Miscellaneous:?Marital status: . 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 ???Nonsmoker; no alcohol. * Medications:?TakingGarlic 10 0 MG Tablet as directed Orally Fish Oil 1000 MG Capsule 1 capsule Orally Three times a dayCarbidopa-Levodopa 25-100 MG Tablet Oral Medication List reviewed and reconciled with the patientTaking Garlic 100 MG Tablet as directed Orally Taking Fish Oil 1000 MG Capsule 1 capsule Orally Three times a dayTaking Carbidopa-Levodopa 25-100 MG Tablet Oral Medication List reviewed and reconciled with the patient * Allergies:?N.K.D.A.yes[Aller gies Verified] Objective: * Vitals:?Wt: 178 lb 6 oz, Ht: 70 in, BMI:25.59 Index, BP: 000/00 mm Hg, Temp: 98.0. * Examination: ???General Examination: ?GENERAL APPEARANCE:?pleasant, well nourished, well developed, in no acute distress.?EYES:?sclera non-icteric.?ORAL CAVITY:?mucosa moist.?NECK/THYROID:?no cervical lymphadenopathy, neck supple.?SKIN:?nonjaundiced, no spider angiomata..?HEART:?S1, S2 normal.?LUNGS:?clear to auscultation bilaterally.?ABDOMEN:?normal bowel sounds, no guarding or rigidity, no hepatosplenomegaly, no masses palpable, soft, nontender, nondistended..?EXTREMITIES:?no edema.?NEUROLOGIC:?alert and oriented.? Assessment: * Assessment: 1.?Crohn''s disease of small intestine without complication - K50.00 (Primary)?2.?Preprocedural examination - Z01.818?3.?Hx of adenomatous colonic polyps - Z86.010?4. Encounter for screening for malignant neoplasm of colon - Z12.11?5.?Family history of colon cancer - Z80.0? Overall, Dave appears well despite the fairly [...] continue to keep you advised of his progress. Plan: * Treatment: 2.?Encounter for screening for malignant neoplasm of colon?Procedure: COLONOSCOPY (Ordered for 08/13/2023)* with MACsched for 11/20/23 at 7:30 ammiralax 3.?Family history of colon cancer?Procedure: COLONOSCOPY (Ordered for 08/13/2023)* with MACsched for 11/20/23 at 7:30 ammiralax * Immunizations:? Influenza (Not administered - Refused: Patient decision) * Procedure Codes:?3017F COLOR ECTAL CA SCREEN DOC [id number] TOBACCO [id number] BP SCR NOT PRFRM REC REASON NOS * Preventive Medicine:? ??Counseling:?Care goal follow-up plan:?Above Normal BMI Follow-up?Giving encouragement to exercise,?BMI management provided?Yes.? * Follow Up:?prn * * Sign off status: Completed true * Provider:?Duke Rodriguez MD Date:? 024 Generated for Renuka kaminski/Joey/eTsarkissmitting on:?06/08/2024 07:28 AM EDT History and Physical Notes * HPI (History of Present Illness) Category Sub-Category Detail Notes Category Not es incontinence I saw Dave in the office today for evaluation of his personal history of a tubular adenoma of the colon, family history of colon cancer, underlying history of Crohn's ileitis, and chronic constipation. I last saw Dave in 2019, at which time he underwent a negative followup screening colonoscopy. He does remain on his magnesium supplements in regard to his chronic constipation. He reports that he is having a daily bowel movement. He has not noticed any sign of bleeding. He does describe occasional days of looser than usual bowel movements but without any persistent diarrhea nor signs of bleeding. He is eating comfortably and denies any significant heartburn or dysphagia. He denies any abdominal pain nor jaundice. As you know, he was diagnosed with Parkinson's disease about a year ago. He has also been troubled by some anxiety in association with that. Examination Category Sub-Category Detail Notes Category Not es General Examination GENERAL APPEARANCE: pleasant , well nourished, well developed, in no acute distress EYES: sclera non-icteric NECK/THYROID: no cervical lymphade nopathy, neck supple HEART: S1, S2 normal LUNGS: clear to auscultatio n bilaterally ABDOMEN: normal bowel sounds, no guarding or rigidity, no hepatosplenomegaly, no masses palpable, soft, nontender, nondistended. NEUROLOGIC: alert and oriented SKIN: nonjaundiced, no spi jeff angiomata. EXTREMITIES: no edema ORAL CAVITY: mucosa moist
[2024-06-08 07:39] VITALS: BP 112/70; PULSE 59; O2SAT 98; BMI 25.4
--- NOTE | 2024-06-08 07:39 | MHC.OFFVIS ---
Vital Signs 06/08/24 07:39 Height 5 ft 10 in Weight 177 lb BMI 25.4 BP 112/70 Blood Pressure Location Rt brachial Position Sitting Pulse 59 Pulse Source Pulse Oximeter Pulse Oximetry (%) 98 Oxygen Delivery Method Room Air Intake Visit Reasons: 6m follow up Intake Note: Patient presents for parkinson's. med trial carbidopa levodopa. Allergies No Known Allergies Allergy (Verified 06/08/24 07:43) HPI Comments Details: 69y/o right handed male comes for follow up. He has some good days and some bad days . 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 He is better when he exercises. he also has left knee pain- has PRP treatment. He is doing good with meds and he did BIG program in June and JULY which helped. He reports fatigue around noon time after his meds. Denies dizziness, but feels like he can fall asleep.He does exercise in the afternoon and feels good. He feels anxious in the mornings.He will start playing Golf this week. He eats breakfast at 6am - oatmeal and banana. 2.30-4pm exercises with nurse infection control M,W,F He does not eat lunch . He eats between 5pm-6pm and by 6.30 pm he is sleeping. He wakes up at 9pm and takes melatonin 10mg and sleeps from 10pm - 2 am . History from initial visit- He was seen by Dr. Damon and was diagnosed with parkinsons and started on sinemet 25/100 1 tab tid which helped. He started noticing tremors about 2 years ago . The left hand tremors were worse compared to right.The tremors were mainly in the morning and at rest. He also felt his legs were stiff and tight.He also had right shoulder issues , has a shot in his neck, diagnosed with c spine stenosis . He did PT and felt better. 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 Motivated- good Speech- Normal Drooling- at nighttime Writing- poor , smaller. using utensils- good Dressing- good SHower- normal Turning in bed- normal Gait- good Hallucinations - none He had h/o Crohns and had diarrhea and constipation. falls- none He had concussions from Football as a kid No exposure to chemicals [facility] Medical History Anxiety Benign enlargement of prostate Parkinson's disease without dyskinesia Right shoulder tendinitis Lumbar spondylosis Cervical spinal stenosis Crohn disease Surgical History S/P colon polypectomy Hx of colonoscopy H/O left knee surgery Family History Mother No problems noted. Father No problems noted. Sister Breast CA Brother No problems noted. Social History Household Members: Spouse Housing: House Alcohol intake: never Patient Tobacco Use Status: Former Tobacco user Tobacco use type: Cigarette Physical Exam Vital Signs: Last Vital Signs Pulse 59 06/08/24 07:39 BP 112/70 06/08/24 07:39 Pulse Ox 98 06/08/24 07:39 Oxygen Delivery Method Room Air 06/08/24 07:39 BMI result Body Mass Index 25.4 Const General: cooperative, healthy appearing and comfortable Nutritional Appearance: average body habitus Orientation/consciousness: patient oriented x3 Limitations: no limitations Eyes Pupils: Equal, round and reactive pupils present Neuro Other: mild infrequent rest tremors Left UE Mild decreased facial expression and blink FFM and foot taps decreased gisele L>R Gait- stooped , smaller stride , mild decreased arm swings gisele Mild cogwheel rigidity L>R General: patient oriented x3, moves all extremities and no focal motor deficits Cranial nerves: Yes Facial sensation intact/muscles of mastication intact, Yes Equal, round and reactive pupils present, Yes Bilaterally intact EOM present, Yes Nystagmus not present, Yes Normal facial strength present, Yes Midline tongue present and Yes Symmetric palate elevation present Cognition (Neuro): normal cognition Motor exam (neuro): 5/5 motor strength present throughout Deep tendon reflexes (DTR's): Right triceps reflex intensity grade: 2+, Left triceps reflex intensity grade: 2+, Rt Biceps (C5, C6): 2+, Left biceps reflex intensity grade: 2+, Right brachioradialis reflex intensity grade: 2+, Left brachioradialis reflex intensity grade: 2+, Right patellar reflex intensity grade: 2+ and Left patellar reflex intensity grade: 2+ Coordination: [id number] test normal Psych Appearance: grossly normal Assessment & Plan Assessment & Plan (1) Parkinson's disease without dyskinesia: Code(s): G20.A1 - Parkinson's disease without dyskinesia, without mention of fluctuations Category: Medical Plan I will trial him on escitalopram 5 mg qd continue sinemet 25/100 tid. Discussed about interaction with protein start patient on sinemet 25/100 8-9pm Parkinson BIG program - at [facility] for 8 weeks and he continues to do the exercise Orders: Orders PT Evaluation and Treatment Today G20.A1 - Parkinson's disease without dyskinesia, without mention of fluctuations Medications: New escitalopram oxalate 5 mg PO DAILY 30 tabs 6RF Coding Level of Care Code Est Pt Level 4 (40079) Complex EM visit Add On G2211 Diagnoses Parkinson's disease without dyskinesia G20.A1
== END 2024-06-08 08:16 | disposition home or self-care (01) ==
LOC: HO.HSMS 07:25
PROVIDERS: PCP Internal Medicine; Visit Provider Psychiatry & Neurology Neurology
DX: G20.A1 Parkinson's disease without dyskinesia, without mention of fluctuations (principal)
CPT/HCPCS: 99214

== ENCOUNTER 2024-09-15 12:14 | Emergency (ER) | payer OTHER, SELFPAY ==
--- NOTE | ~2024-09-15 | CT_ITS ---
CLINICAL HISTORY: SBO vs crohns flare CT abdomen and pelvis with contrast Comparison: None provided Findings: Mild bibasilar atelectasis/pneumonitis, right worse than left. Mild adrenal hyperplasia of the imaged adrenal glands with motion artifacts. The spleen is nonenlarged. Mild volume loss of the pancreas. Multiple cystic lesions of the liver are nonspecific with 1 in the left lobe measuring 1.7 cm (image 19 of series 3). Gallbladder is mildly distended and otherwise unremarkable for CT. No hydronephrosis accounting for parapelvic cysts. Question septation of the 6 mm cystic lesion of the right kidney (Bosniak 2F on image 29 of series 3). Small mesenteric lymph nodes are likely reactive. Air-fluid levels of the multiple small-bowel loops as can be seen with enteritis. With mild/minimal dilatation of the small bowel loops in the right lower quadrant approaching terminal ileum where wall thickening is present. Enteric contrast noted in the large intestine excluding complete small bowel obstruction. Mild wall thickening of the large intestine is nonspecific and may reflect colitis including hepatic flexure, transverse colon, and proximal sigmoid colon. Severe stool burden is noted distally with [id number] distention of the distal large intestine and rectum. Imaged appendix is nondilated (imaged 47 of series 7). Prostate gland measures 5.6 cm transverse. Mild wall thickening of the urinary bladder. Small fat containing left inguinal hernia. Vascular calcifications noted. Degenerative changes of the hips, SI joints, and spine. Facet arthropathy is multifocal. Vacuum disc phenomenon is multifocal. IMPRESSION: 1. Wall thickening of the terminal ileum as can be seen with enteritis and reported inflammatory bowel disease. No small bowel obstruction at this time. 2. Wall thickening of the large intestine is nonspecific, with distention of the imaged rectum at this time. 3. Indeterminate liver lesions, predominantly in the left lobe. Please consider outpatient liver mass imaging for additional characterization. 4. Bosniak 2F cystic lesion of the right kidney measures 6 mm. Recommend six-month follow-up imaging. This document has been electronically signed by: Shai Abbott MD on 09/15/2024 22:56:08
[2024-09-15 12:25] VITALS: BP 127/75; PULSE 69; RESP 16; TEMP 36.6; O2SAT 97; BMI 24.6
--- NOTE | 2024-09-15 12:37 | ED_ITS ---
HPI - Abdominal Pain General Chief Complaint: Abdominal Pain Stated Complaint: Constipation, abd pain Time Seen by Provider: 09/15/24 19:14 Source: patient, family and old records reviewed Mode of arrival: ambulatory Limitations: no limitations History of Present Illness ED Provider: Dr. Brandy Hsu HPI narrative: 69-year-old male with history of Parkinson's disease, Crohn's disease not currently on medications presenting today with constipation for 3 days. Last bowel movement was Saturday. Was reportedly loose but not watery and non melanotic. States that he has been dealing with loose stools over the last several months while using a dietary supplement to help with his bowels. He does not take anything for his Crohn's disease. Has not required steroids. Last colonoscopy was about a year ago and was reportedly ?good?. Does not need another colonoscopy for 2 more years. Sees his seismic observer regularly (Dr. Rodriguez). No reported fevers. Describes suprapubic abdominal pain and fullness. Admits he has not had a single bowel movement or passed any gas for 3 days. He has a lot of anxiety around his bowel movements as he describes an episode of fecal incontinence several years ago that embarrassed him at work. Admits that he fixates on his bowels now. Denies nausea or vomiting. He does report a poor appetite though. No known sick contacts or travel. No questionable food intake. Related Data Home Medications ?Medication ?Instructions ?Recorded ?Confirmed carbidopa 25 mg-levodopa 100 mg 1 tab PO TID 01/15/23 09/18/24 tablet melatonin 5 mg tablet 5 mg PO BEDTIME 09/18/24 Previous Rx's ?Medication ?Instructions ?Recorded carbidopa ER 25 mg-levodopa 100 mg 1 tab PO BEDTIME #3 0 tabs 07/16/24 tablet,extended release polyethylene glycol 3350 17 17 g PO DAILY #119 grams 0 09/20/24 gram/dose oral powder (Miralax) psyllium husk 0.4 gram capsule 0.4 g PO DAILY #90 caps 09/20/24 (Daily Fiber) Allergies Allergy/AdvReac Type Severity Reaction Status Date / Time No Known Allergies Allergy Verified 09/17/24 21:21 Review of Systems Review of Systems Yes all other systems are reviewed and are negative [facility] Past Medical History Attestation statement: The following information was validated with the patient. [facility] Narrative: Crohn's disease, Parkinson's disease Source: old records reviewed and obtained from family Medical History Anxiety Benign enlargement of prostate Parkinson's disease without dyskinesia Right shoulder tendinitis Lumbar spondylosis Cervical spinal stenosis Crohn disease Surgical History S/P colon polypectomy Hx of colonoscopy H/O left knee surgery Family History Family History Mother No problems noted. Father No problems noted. Sister Breast CA Brother No problems noted. Social History Social History Household Members: Spouse Housing: House Do you presently have visiting nurse or other home services: No Alcohol intake: never Comment: at bed side Patient Tobacco Use Status: Former Tobacco user Tobacco use type: Cigarette Second Hand Smoke Exposure: No Advance Directives Date on File: 09/18/24 service: No Physical Exam ED Vital Signs: Vital Signs - 24 hr 09/15/24 12:25 09/15/24 18:58 09/15/24 19:15 Temperature 97.8 F 98.3 F 98.1 F Pulse Rate 69 56 58 Respiratory Rate 16 18 12 Blood Pressure 127/75 160/77 H 166/81 H Pulse Oximetry 97 98 97 Oxygen Delivery Method Room Air Room Air Room Air 09/15/24 23:43 09/15/24 23:46 Temperature 98.2 F 98.2 F Pulse Rate 61 61 Respiratory Rate 18 18 Blood Pressure 136/70 136/70 Pulse Oximetry 97 97 Oxygen Delivery Method Room Air Room Air BMI result Body Mass Index 24.6 GENERAL: Chronically ill-appearing, conversant, no acute distress. SKIN: Normal skin color for ethnicity, warm, dry, no rashes noted. HEENT: Normocephalic, atraumatic, no stridor, posterior oropharynx nonerythematous, EOMI. NECK: Soft, supple, full ROM, midline structures nontender, no step-offs, no deformities, no lymphadenopathy. CHEST: Heart regular rate and rhythm, no murmurs, symmetric chest rise and fall. PULMONARY: Clear to auscultation bilaterally, no labored breathing, no wheezes/rhales/ rhonchi. ABDOMINAL: Soft, nondistended, nontender, quiet bowel sounds in all quadrants, no palpable masses. : Deferred. MUSCULOSKELETAL: Normal tone, full range of motion, no deformities, no peripheral edema. NEURO: Alert and oriented to person, CN II through XII intact, no focal neurologic deficits. PSYCHIATRIC: Flat affect, fluid speech, appropriate demeanor. Course Reevaluation(s) Reevaluation #1: Neisha Pepper PA-C 09/15/2024: 1230 pm :Rapid medical exam done we will defer full ROS and exam to treating provider Subjective Crohn's flare for the last 2 weeks not treated in any way other than a liquid diet. He has not had a BM in the last 3 days. He tried seismic observer off of and he also tried a Fleet enema which failed. It is not common for him to go this long without having a bowel movement. He denies any diarrhea or vomiting he did not notice any blood in his stool last time he had a bowel movement. His last colonoscopy was in October of last year 10 months ago with no abnormal findings. No recent steroids. feels bloated. Time: 12:30 Medical Decision Making Medical Decision Making MDM Narrative: This patient presents today with a chief complaint of abdominal pain. Differential diagnosis for this patient is broad. It includes appendicitis, cholecystitis, bowel obstruction, peptic ulcer disease, pyelonephritis, vascular pathology, among many others. A broad-based workup based on history and physical examination was obtained. Workup today has been reassuring. No evidence of acute intra-abdominal pathology aside from slight inflammatory bowel changes and wall thickening of the large intestine. He does have a significant amount of stool burden in the rectum which is probably causing his discomfort today. We had an extensive discussion regarding fiber and importance of follow-up with gastroenterology. Using shared decision making, plan for discharge home to follow-up with primary care and/or specialist. Patient understands and agrees with plan for discharge. Discharged home in stable condition. Differential Diagnosis Differential Diagnoses: The differential diagnosis associated with the presentation includes (As above) Admission/Observation Consideration of admission/observation: Escalation of care including admission/observation considered Lab Data MDM Lab Attestation statement: I reviewed the patient's lab results. 09/15/24 12:56 09/15/24 12:56 Labs: Lab Results 09/15/24 09/15/24 Range/Units 12:56 20:31 WBC 7.7 (4.8-10.8) X10*3/uL RBC 4.53 L (4.60-5.80) X10*6/uL Hgb 13.8 L (14.0-18.0) g/dl Hct 41.0 L (42.0-52.0) % MCV 90.5 (80.0-98.0) fL MCH 30.5 (27.0-33.0) pg MCHC 33.7 (31.0-36.0) g/dl RDW 12.6 (11.0-16.0) % Plt Count 201 (160-400) X10*3/uL MPV 10.2 (9.4-12.4) fL Immature Gran % (Auto) 0.3 (0.0-0.4) % Neut % (Auto) 68.5 (45-73) % Lymph % (Auto) 23.7 (20-40) % Willacy % (Auto) 6.3 (2-11) % Eos % (Auto) 0.8 (0-4) % Baso % (Auto) 0.4 (0-2) % Lymph # (Auto) 1.8 (1.2-4.9) X10*3/uL Willacy # (Auto) 0.5 (0.1-1.2) X10*3/uL Eos # (Auto) 0.1 (0.0-0.4) X10*3/uL Baso # (Auto) 0.0 (0.0-0.2) X10*3/uL Abs Immat Gran (auto) 0.02 (0.00-0.03) X10*3/uL Absolute Neuts (auto) 5.3 (2.0-8.3) x10*3/uL Absolute Nucleated RBC 0.000 (0.0-0.012) X10*3/uL Nucleated RBC % (auto) 0.0 (0.0-0.2) /100WBC Sodium 139 (135-145) mmol/L Potassium 4.0 (3.3-5.1) mmol/L Chloride 107 (96-108) mmol/L Carbon Dioxide 26 (22-29) mmol/L Anion Gap 10 L (12-20) BUN 17 H (9-16) mg/dL Creatinine 1.23 (0.5-1.4) mg/dL Estim Creat Clear Calc 56.8 Estimated GFR 58 Random Glucose 116 H (60-115) mg/dL Calcium 9.2 D (8.4-10.2) mg/dL Magnesium 2.1 (1.6-2.6) mg/dL Total Bilirubin 0.8 (0.0-1.0) mg/dL Direct Bilirubin 0.2 (0.0-0.5) mg/dL AST 24 (5-37) U/L ALT 9 (0-40) U/L Alkaline Phosphatase 51 (39-117) U/L C-Reactive Protein < 0.04 (< or = 0.50) mg/dL Total Protein 6.8 (6.5-8.0) g/dL Albumin 4.3 (3.5-5.0) g/dL Lipase 39 (8-78) U/L Hold Yellow Top See Note Urine Color Yellow Urine Appearance Clear Urine pH 7.0 (5.0-9.0) Ur Specific Bladen 1.015 (1.005-1.025) Urine Protein Negative (Neg-Trace) mg/dL Urine Glucose (UA) Negative (Negative) mg/dL Urine Ketones Negative (Negative) mg/dL Urine Blood Negative (Negative) Urine Nitrite Negative (Negative) Ur Leukocyte Esterase Negative (Negative) Radiology Impression Discussion of test interpretation with radiology: I have reviewed the radiologist's reading. Radiologist Impression: CT abdomen and pelvis with contrast Comparison: None provided Findings: Mild bibasilar atelectasis/pneumonitis, right worse than left. Mild adrenal hyperplasia of the imaged adrenal glands with motion artifacts. The spleen is nonenlarged. Mild volume loss of the pancreas. Multiple cystic lesions of the liver are nonspecific with 1 in the left lobe measuring 1.7 cm (image 19 of series 3). Gallbladder is mildly distended and otherwise unremarkable for CT. No hydronephrosis accounting for parapelvic cysts. Question septation of the 6 mm cystic lesion of the right kidney (Bosniak 2F on image 29 of series 3). Small mesenteric lymph nodes are likely reactive. Air-fluid levels of the multiple small-bowel loops as can be seen with enteritis. With mild/minimal dilatation of the small bowel loops in the right lower quadrant approaching terminal ileum where wall thickening is present. Enteric contrast noted in the large intestine excluding complete small bowel obstruction. Mild wall thickening of the large intestine is nonspecific and may reflect colitis including hepatic flexure, transverse colon, and proximal sigmoid colon. Severe stool burden is noted distally with [id number] distention of the distal large intestine and rectum. Imaged appendix is nondilated (imaged 47 of series 7). Prostate gland measures 5.6 cm transverse. Mild wall thickening of the urinary bladder. Small fat containing left inguinal hernia. Vascular calcifications noted. Degenerative changes of the hips, SI joints, and spine. Facet arthropathy is multifocal. Vacuum disc phenomenon is multifocal. IMPRESSION: 1. Wall thickening of the terminal ileum as can be seen with enteritis and reported inflammatory bowel disease. No small bowel obstruction at this time. 2. Wall thickening of the large intestine is nonspecific, with distention of the imaged rectum at this time. 3. Indeterminate liver lesions, predominantly in the left lobe. Please consider outpatient liver mass imaging for additional characterization. 4. Bosniak 2F cystic lesion of the right kidney measures 6 mm. Recommend six-month follow-up imaging. This document has been electronically signed by: Shai Abbott MD on 09/15/2024 22:56:08 Dictated By: Shai Abbott MD Signed By: <Electronically signed by Shai Abbott MD in OV> Independent Historian Clinical information obtained from an independent historian. History obtained from or confirmed by: Spouse External Record Review External record reviewed: Inpatient record and Outpatient record Chronic Conditions Patient?s care impacted by: Other (Parkinson's disease, Crohn's) Medications Administered Discontinued Medications Generic Name Dose Route Start Last Admin Trade Name Freq PRN Reason Stop Dose Admin Diatrizoate Meglum/Diatrizoate Sod 30 ml 09/15/24 21:47 09/15/24 21:47 Diatrizoate Meglumine, Sodium 30 Ml Solution PO 09/15/24 21:48 30 ml ONCE ONE Administration Lactated Ringer's 1,000 mls @ 999 mls/hr 09/15/24 20:40 09/15/24 21:50 Lr IV 09/15/24 21:40 Infused .Q1H1M ONE Infusion Iohexol 100 ml 09/15/24 21:44 09/15/24 21:46 Iohexol 350 Mg/Ml 100 Ml Infus..Btl IV 09/15/24 21:45 85 ml ONCE ONE Administration Discharge Plan Discharge Clinical Impression: Abdominal bloating Constipation Qualifiers: Constipation type: unspecified constipation type Qualified Code(s): K59.00 - Constipation, unspecified Patient Disposition: Home, Self-Care Instructions: Constipation (ED), High Fiber Diet (ED) Additional Instructions: Constipation recipe Constipation Remedy 1 Lb prunes 1 Lb pitless dates 1 Lb raisins 16 teabags Smooth Move tea brewed in 2 cups water 1 Cup brown sugar 1 Cup lemon juice Mix in a trainer Put in freezer (never completely freezes) Can be used as a spread on crackers, toast, etc. (about 1-2 tablespoons per dose) Try to force your fluids over the next several days. Drink plenty of water. You may try taking a fiber additive such as Metamucil for your constipation. Be sure to accompany any bowel regimen with plenty of fluids. Return to the emergency department with any new or worsening symptoms including: Worsening pain, fevers greater than 100?, vomiting, any new symptom that concerns you. Follow-up with the seismic observer as soon as possible. You will need a follow-up MRI of the liver on a nonemergent basis. Prescriptions: No Action carbidopa-levodopa 25-100 mg tablet extended release 1 tab PO BEDTIME Qty: 30 6RF melatonin 5 mg Tablet 5 mg PO BEDTIME polyethylene glycol 3350 [Miralax] 17 gram/dose powder 17 g PO DAILY Qty: 119 1RF psyllium husk [Daily Fiber] 0.4 gram capsule 0.4 g PO DAILY Qty: 90 0RF carbidopa-levodopa 25-100 mg tablet 1 tab PO TID Interventions: ED Discharge Assessment Last Done: 09/15/24 23:46 Discharge Date/Time: 09/15/24 23:47 Print Language: Sami
[2024-09-15 13:02] LABS: MANUAL DIFF FLAG NO
[2024-09-15 13:08] LABS: Basophils Percent Auto 0.4 % (0-2); Eosinophils Absolute Auto 0.1 X10*3/uL (0.0-0.4); Eosinophils Percent Auto 0.8 % (0-4); Hemoglobin 13.8 g/dl (14.0-18.0); Imm Gran Abs Auto 0.02 X10*3/uL (0.00-0.03); Imm Gran Pct Auto 0.3 % (0.0-0.4); Lymphocytes Absolute Auto 1.8 X10*3/uL (1.2-4.9); Lymphocytes Percent Auto 23.7 % (20-40); Mean Corpuscular HGB Conc 33.7 g/dl (31.0-36.0); Mean Corpuscular Hemoglobin 30.5 pg (27.0-33.0); Mean Corpuscular Volume 90.5 fL (80.0-98.0); Mean Platelet Volume 10.2 fL (9.4-12.4); Monocytes Absolute Auto 0.5 X10*3/uL (0.1-1.2); Monocytes Percent Auto 6.3 % (2-11); Neutrophils Absolute Auto 5.3 x10*3/uL (2.0-8.3); Neutrophils Percent Auto 68.5 % (45-73); Platelet Count 201 X10*3/uL (160-400); Red Blood Count 4.53 X10*6/uL (4.60-5.80); Red Cell Distribution Width 12.6 % (11.0-16.0); White Blood Count 7.7 X10*3/uL (4.8-10.8)
[2024-09-15 13:23] LABS: Alanine Aminotransferase 9 U/L (0-40); Albumin Level 4.3 g/dL (3.5-5.0); Alkaline Phosphatase 51 U/L (39-117); Anion Gap 10 (12-20); Aspartate Amino Transferase 24 U/L (5-37); Bilirubin Direct 0.2 mg/dL (0.0-0.5); Bilirubin Total 0.8 mg/dL (0.0-1.0); Blood Urea Nitrogen 17 mg/dL (9-16); C Reactive Protein < 0.04 mg/dL (< or = 0.50); Calcium 9.2 mg/dL (8.4-10.2); Carbon Dioxide 26 mmol/L (22-29); Chloride 107 mmol/L (96-108); Creatinine Clr Calc Pharmacy 56.8; Estimated Glomerular Filt Rate 58; Glucose Random 116 mg/dL (60-115); Lipase 39 U/L (8-78); Magnesium 2.1 mg/dL (1.6-2.6); Sodium 139 mmol/L (135-145); Total Protein 6.8 g/dL (6.5-8.0)
[2024-09-15 18:58] VITALS: BP 160/77; PULSE 56; RESP 18; TEMP 36.8; O2SAT 98
[2024-09-15 19:15] VITALS: BP 166/81; PULSE 58; RESP 12; TEMP 36.7; O2SAT 97
--- NOTE | 2024-09-15 19:41 | PC.NURSE ---
Patient done drinking Oral contrast.
[2024-09-15 20:42] LABS: Appearance Urine Clear; Color Urine Yellow; Glucose Urine UA Negative (Negative); Leukocyte Esterase Urine Negative (Negative); Nitrite Urine Negative (Negative); Specific Gravity - Urine 1.015 (1.005-1.025); Urine Blood Negative (Negative); Urine Ketones Negative (Negative); Urine Protein Negative (Neg-Trace)
[2024-09-15] MEDS: Lactated Ringers 1,000 ML 999 ML IV (20:49)
[2024-09-15] MEDS: iohexoL 350 MG/ML 100 ML INFUS..BTL IV (21:46)
[2024-09-15] MEDS: Diatrizoate Meglumine, Sodium 30 ML SOLUTION PO (21:47)
--- NOTE | 2024-09-15 23:01 | PC.NURSE ---
IVF LR still currently running.
[2024-09-15 23:43] VITALS: BP 136/70; PULSE 61; RESP 18; TEMP 36.8; O2SAT 97
[2024-09-15 23:46] VITALS: BP 136/70; PULSE 61; RESP 18; TEMP 36.8; O2SAT 97
== END 2024-09-15 23:47 | disposition home or self-care (01) ==
PROVIDERS: Physician Assistant Medical; Absent Provider Internal Medicine; Emergency Provider Emergency Medicine; PCP Internal Medicine
DX: K59.00 Constipation, unspecified (principal); R14.0 Abdominal distension (gaseous); R10.30 Lower abdominal pain, unspecified; G20.A1 Parkinson's disease without dyskinesia, without mention of fluctuations; K50.90 Crohn's disease, unspecified, without complications; Z79.899 Other long term (current) drug therapy
CPT/HCPCS: 36415; 74177; 80048; 80076; 81003; 83690; 83735; 85025; 86140; 96360; 99284; J7120; Q9967

== ENCOUNTER → 2024-09-15 21:45 | Outpatient (BNV) | payer OTHER, SELFPAY | PROVIDERS: Absent Provider Internal Medicine; Emergency Provider Emergency Medicine; PCP Internal Medicine; Visit Provider Radiology Neuroradiology | DX: K56.41 Fecal impaction (principal) | CPT/HCPCS: 74177 ==

== ENCOUNTER 2024-09-17 20:57 | Observation (INO) | payer OTHER, SELFPAY ==
--- NOTE | ~2024-09-17 | XR_ITS ---
CLINICAL HISTORY: constipation, low suspicion sbo, CT 2 days ago 1 view abdomen Comparison: None provided Findings: No abnormal calcifications. No acute fractures. Large rectal and moderate colonic stool burden. Nonobstructive bowel-gas pattern. IMPRESSION: Large rectal and moderate colonic stool burden. This document has been electronically signed by: Gino Valdez MD on 09/17/2024 22:12:54
--- NOTE | ~2024-09-17 | XR_ITS ---
CLINICAL HISTORY: constipation s p bowel reg?improvemebt 1 view abdomen Comparison: CR - XR KUB - 09/17/24 21:44 EDT Findings: No pneumoperitoneum or pneumatosis. Diffusely air distended, nondilated loops of bowel in the small bowel and colon. There has been significant decrease in amount of fecal loading within the colon. No abnormal calcifications. No acute fractures. IMPRESSION: Interval decrease in amount of fecal loading. Air distended, nondilated small bowel and colon suggesting mild ileus. This document has been electronically signed by: Flo James MD on 09/20/2024 11:25:23
[2024-09-17 21:06] VITALS: BP 134/70; PULSE 74; O2SAT 97
[2024-09-17 21:15] VITALS: BMI 24.2
[2024-09-17 21:21] VITALS: BP 131/63; PULSE 71; RESP 16; TEMP 37.2; O2SAT 95
--- NOTE | 2024-09-17 21:22 | ED.GENADULT ---
HPI - General Adult General Chief complaint: General Medical Stated complaint: ?bowel obstruction Time Seen by Provider: 09/17/24 20:58 Source: patient and family Mode of arrival: ambulatory Limitations: no limitations History of Present Illness ED Provider: Dr. Marni Correa HPI narrative: Patient comes to the emergency room complaining of constipation. Patient was seen here 2 days ago. Patient states that he has not had any bowel movements yet and feels very uncomfortable. Patient states that prior to arrival today, he used to Fleet enemas without any success. Patient states that he does not quite have abdominal pain but he has discomfort in the rectal area from not being able to pass stool. Related Data Home Medications ?Medication ?Instructions ?Recorded ?Confirmed carbidopa 25 mg-levodopa 100 mg 1 tab PO TID 01/15/23 12/05/23 tablet melatonin 10 mg capsule 10 mg PO BEDTIME PRN 01/15/23 12/05/23 Previous Rx's ?Medication ?Instructions ?Recorded escitalopram oxalate 5 mg tablet 5 mg PO DAILY #30 tabs 06/08/24 carbidopa ER 25 mg-levodopa 100 mg 1 tab PO BEDTIME #30 tabs 07/16/24 tablet,extended release Allergies Allergy/AdvReac Type Severity Reaction Status Date / Time No Known Allergies Allergy Verified 09/17/24 21:21 Review of Systems Review of Systems: Constitutional : No Weight loss, No Fever, No Chills, No Night Sweats, No Fatigue, No Malaise ENT/Mouth : No Hearing loss, No Ear Pain, No Nasal Congestion, No Sinus Pain, No Hoarseness, No sore throat, No Rhinorrhea, No Swallowing Difficulty Eyes: No Eye Pain, No Swelling, No Redness, No Foreign Body, No Discharge, No Vision Changes Cardiovascular : No Chest Pain, No SOB, No Dyspnea on Exertion, No Orthopnea, No Edema, No Palpitations Respiratory : No Cough, No Sputum, No Wheezing, No Smoke Exposure, No Dyspnea Gastrointestinal : No Nausea, No Vomiting, patient complaining of constipation, rectal pressure and pain, no significant abdominal pain Genitourinary : no irregular bleeding, No Dysuria, No Urinary Frequency, No Hematuria, No Urinary Incontinence, No Urgency, No Flank Pain, No Urinary Flow Changes, No Hesitancy Musculoskeletal : No joint pain, No Myalgias, No Joint Swelling Skin : No Skin Lesions, No rash Neuro : No Weakness, No Numbness, No Paresthesias, No Loss of Consciousness, No Dizziness, No Headache Psych : No Anxiety/Panic, No Depression, No SI/HI/AH/VH, No Social Issues, Heme/Lymph: No Bruising, No Bleeding,No Lymphadenopathy Endocrine : No Polyuria, No Polydipsia, No Temperature Intolerance [facility] Past Medical History Medical History Anxiety Benign enlargement of prostate Parkinson's disease without dyskinesia Right shoulder tendinitis Lumbar spondylosis Cervical spinal stenosis Crohn disease Surgical History S/P colon polypectomy Hx of colonoscopy H/O left knee surgery Family History Family History Mother No problems noted. Father No problems noted. Sister Breast CA Brother No problems noted. Social History Social History Household Members: Spouse Housing: House Alcohol intake: never Patient Tobacco Use Status: Former Tobacco user Tobacco use type: Cigarette Smoked in Last 30 Days: No Use of substances other than those prescribed or required for medical reasons: No Advance Directives: Yes Advance Directives Information Provided: No Advance Directives on File: No Physical Exam ED Vital Signs: Vital Signs - 24 hr 09/17/24 21:21 Temperature 99.0 F Pulse Rate 71 Respiratory Rate 16 Blood Pressure 131/63 Pulse Oximetry 95 Oxygen Delivery Method Room Air BMI result Body Mass Index 24.2 Const Other: Appearance: Alert. Oriented X3. No acute distress. Eyes: Pupils equal, round and reactive to light. ENT: Pharynx normal. Neck: Normal inspection. Neck supple. No lymph nodes noted. No crepitus CVS: Normal heart rate and rhythm. Pulses normal. Normal S1 and S2 Respiratory: No respiratory distress. Breath sounds normal. No Wheezing. No rales Abdomen: Soft and nontender. No rigidity. No distention. Skin: Skin warm and dry. Normal skin color. Normal skin turgor. Extremities: No lower extremity edema. No Lacerations. No Rash Neuro: Oriented X 3. No motor deficit. No sensory deficit. Moving all extremities. No slurred speech. CN 2 through 12 grossly intact Psych: calm, cooperative, normal affect Course Course Course Narrative: Patient comes in complaining of rectal pain pressure secondary to constipation. Tried to enemas at home without any success. Denies significant abdominal pain Medications Administered Discontinued Medications Generic Name Dose Route Start Last Admin Trade Name Gray PRN Reason Stop Dose Admin Acetaminophen 975 mg 09/18/24 01:17 09/18/24 01:21 Acetaminophen 325 Mg Tablet PO 09/18/24 01:18 975 mg ONCE ONE Administration Lactulose 200 gm 09/17/24 23:33 09/18/24 01:52 Lactulose 320 Gm/480 Ml Solution [place] 09/17/24 23:34 Not Given ONCE ONE Lactulose 200 gm 09/18/24 01:30 09/18/24 01:56 Lactulose 20 Gm/30 Ml Solution [place] 09/18/24 01:31 200 gm ONCE ONE Administration Lidocaine 1 appl 09/17/24 21:26 09/17/24 23:19 Lidocaine 5 % Ointment 35 Gm TOPICAL 09/17/24 21:27 1 appl ONCE ONE Administration Protocol Medical Decision Making Medical Decision Making MDM Narrative: Patient states that earlier today he had a lot of pressure in his abdomen. States that he had a very small bowel movement after 2 Fleet enemas. However, he still has a lot of rectal pressure and feels very uncomfortable. Patient received here soapsuds enema, lactulose enema, we attempted a manual disimpaction. However, patient had a very small bowel movement with no significant relief. Patient states that he does not have as much pressure in the rectum anymore. However, he still has not had a good bowel movement. Dr. Rodriguez from GI, requesting to have the patient admitted, possibly have a surgery consult I discussed the above-mentioned with Dr. Rae, patient being admitted Differential Diagnosis Differential Diagnoses: The differential diagnosis associated with the presentation includes (Constipation, SBO) Admission/Observation Consideration of admission/observation: Escalation of care including admission/observation considered Consult Healthcare Provider Management of the patient was discussed with: Hospitalist and Food Service Tray Attendant Lab Data MDM Lab Attestation statement: I reviewed the patient's lab results. Independent Interpretation I performed an independent interpretation of an: Plain X-Ray Radiology Impression Discussion of test interpretation with radiology: I have reviewed the radiologist's reading. Radiologist Impression: No abnormal calcifications. No acute fractures. Large rectal and moderate colonic stool burden. Nonobstructive bowel-gas pattern. IMPRESSION: Large rectal and moderate colonic stool burden. Critical Care Time Critical Care Time Critical Care Time: Yes Total Critical Care Time: 45 Attestation: I have personally provided critical care time. Time includes review of lab data, radiology results, discussion with consultants, and monitoring for potential decompensation. Intervention performed as documented. Discharge Plan Discharge Clinical Impression: Constipation Patient Disposition: Admitted As Inpatient Print Language: Lithuanian
[2024-09-17] MEDS: Lidocaine 5 % Ointment 35 GM 1 APPL TOPICAL (23:19)
[2024-09-18] MEDS: Acetaminophen 325 MG TABLET 975 MG PO ×2 (01:21→14:13)
[2024-09-18] MEDS: Lactulose 20 GM/30 ML SOLUTION 200 GM PR (01:56)
[2024-09-18 04:00] VITALS: BP 135/86; PULSE 76; RESP 18; TEMP 36.7; O2SAT 96
--- NOTE | 2024-09-18 05:28 | PM.IMHP ---
History of Present Illness Date of Service: 09/18/24 Chief Complaint: constipation This is a 69-year-old male with pertinent history of Parkinson's disease, mood disorder, Crohn's disease currently not on medications who was sent to the emergency department by his mortgage branch manager for evaluation management of constipation. Patient states his last bowel movement was 09/12. Normally he does have a bowel movement every day. He was seen in the ER on 09/15 for constipation and discharged from the ER. Patient states he continues to be constipated and has generalized abdominal discomfort and fullness. His last colonoscopy was 10 months ago which was apparently normal and he is not due for colonoscopy for another 2 years. Patient states he took laxatives and enema at home without any relief for bowel movement. Patient's mortgage branch manager asked the patient to come to the ER for general surgery consult. No nausea or vomiting. He denies fever, chills, chest pain, palpitations, shortness of breath, changes in urinary habits. In the emergency department, patient was given lactulose. ER provider was contacted by patient's mortgage branch manager who requested admission with general surgery consult. Review of Systems Constitutional: Constitutional: Reports fatigue and Reports malaise Cardiovascular: Cardiovascular: Reports no additional cardiovascular complaints Respiratory: Respiratory: Reports no additional respiratory complaints Gastrointestinal: Gastrointestinal: Reports abdominal pain and Reports constipation Genitourinary: Genitourinary: Reports no additional male genitourinary complaints Endocrine: Endocrine: Reports fatigue [facility] Medical History Anxiety Benign enlargement of prostate Parkinson's disease without dyskinesia Right shoulder tendinitis Lumbar spondylosis Cervical spinal stenosis Crohn disease Family History Mother No problems noted. Father No problems noted. Sister Breast CA Brother No problems noted. Surgical History S/P colon polypectomy Hx of colonoscopy H/O left knee surgery Social History Household Members: Spouse Housing: House Alcohol intake: never Patient Tobacco Use Status: Former Tobacco user Tobacco use type: Cigarette Smoked in Last 30 Days: No Use of substances other than those prescribed or required for medical reasons: No Advance Directives: Yes Advance Directives Information Provided: No Advance Directives on File: No Meds Allergies Allergy/AdvReac Type Severity Reaction Status Date / Time No Known Allergies Allergy Verified 09/17/24 21:21 Home Medications ?Medication ?Instructions ?Recorded ?Confirmed ?Last Taken ?Type carbidopa 25 mg-levodopa 100 mg 1 tab PO TID 01/15/23 12/05/23 11/20/23 History tablet melatonin 10 mg capsule 10 mg PO BEDTIME PRN 01/15/23 12/05/23 Unknown History Physical Exam Vital Signs and Narrative: Vital Signs: Last Vital Signs Temp 98.0 F 09/18/24 04:00 Pulse 76 09/18/24 04:00 Resp 18 09/18/24 04:00 BP 135/86 09/18/24 04:00 Pulse Ox 96 09/18/24 04:00 O2 Del Method Room Air 09/18/24 04:00 BMI result Body Mass Index 24.2 Middle-aged male lying in bed in no distress Neck supple, no JVD Regular rate and rhythm, S1-S2 heard Regular breath sounds bilaterally, no wheezing or crackles appreciated Abdomen with no guarding, no rigidity Patient is awake, alert and oriented x3 ; no focal motor deficit Psych: Normal mood No pedal edema Assessment and Plan (1) Constipation: Status: Acute Plan This is a 69-year-old male with pertinent history of Parkinson's disease, mood disorder, Crohn's disease currently not on medications who was sent to the emergency department by his mortgage branch manager for evaluation management of constipation. #. Constipation: Patient tried laxatives and enemas at home without any relief. No bowel movements since 09/12. He was seen in the ER previously on 09/15 for constipation. Patient's mortgage branch manager recommended General surgery consult. He was given lactulose in the ER. Will order bisacodyl and magnesium citrate. #. Parkinson's disease: On Sinemet #. Mood disorder: Continue home mood stabilizers Med rec pending DVT prophylaxis: Lovenox Full code Quality Stroke Does the patient have a stroke diagnosis?: No VTE Prior VTE?: No VTE Risk Level:: Medical - moderate - high VTE Device Contraindication: Treatment Not Indicated VTE Drug Contraindication: N/A - Med Ordered
[2024-09-18 05:54] VITALS: BP 140/64; PULSE 62; RESP 16; TEMP 36.6; O2SAT 97
[2024-09-18 07:16] LABS: Creatinine Clr Calc Pharmacy 61.9; Estimated Glomerular Filt Rate > 60
--- NOTE | 2024-09-18 07:21 | PC.NURSE ---
Accepted care of pt. Pt states no BM in last hour. NAD but abdominal pain is lessening but still present. rates 3-4
--- NOTE | 2024-09-18 09:38 | PM.CNGS ---
History of Present Illness Consult details Consult date: 09/18/24 Reason for consult: other (constipation) Narrative: 69-year-old male with pertinent history of Parkinson's disease, mood disorder, Crohn's disease currently not on medications who was sent to the emergency department by his energy efficiency specialist for evaluation management of constipation. Patient has not had a bowel movement since 09/12. Patient came to the ED on 09/15 and was found to have a large stool burdern, on imaging, however it was not close enough for a manual disimpaction. Patient wasw d/c and instructed on dietary fiber and recommended to f/u with GI. Patient continues to have abdominal pain and intermittent cramping, and thus returned to the ED. Denies nausea or vomiting but has had a reduced appetite since the pain started. states he increased fiber but feels like he does not drink a lot of water. He reports some episodes of fecal incontinence over the past year or so. Denies melena, states he does see some BRBPR after straining. Patient was given a lactulose enema, and oral laxatives. He has been able to produce small volume soft, liquid stools. He is only able to pass these when standing up. At the time of exam the patient was passing some stool PMFSH Past Medical History Medical History Anxiety Benign enlargement of prostate Parkinson's disease without dyskinesia Right shoulder tendinitis Lumbar spondylosis Cervical spinal stenosis Crohn disease Family History Family History Mother No problems noted. Father No problems noted. Sister Breast CA Brother No problems noted. Surgical History Surgical History S/P colon polypectomy Hx of colonoscopy H/O left knee surgery Social History Social History Household Members: Spouse Housing: House Alcohol intake: never Patient Tobacco Use Status: Former Tobacco user Tobacco use type: Cigarette Smoked in Last 30 Days: No Use of substances other than those prescribed or required for medical reasons: No Advance Directives: Yes Advance Directives Information Provided: No Advance Directives on File: No Meds Allergies Allergy/AdvReac Type Severity Reaction Status Date / Time No Known Allergies Allergy Verified 09/17/24 21:21 Active Medications: Current Medications Acetaminophen (Acetaminophen 325 Mg Tablet) 650 mg PO Q6H PRN PRN Reason: Pain, Mild 1-3,fever,headache Calcium Carbonate (Calcium Carbonate 750 Mg Tab.Chew) 750 mg PO Q4H PRN PRN Reason: Heartburn Enoxaparin Sodium (Enoxaparin Sodium 40 Mg/0.4 Ml Syringe) 40 mg SUBCUT Q24H [facility] Last Admin: 09/18/24 09:09 Dose: Not Given Magnesium Hydroxide (Milk Of Magnesia 30 Ml Oral.Susp) 30 ml PO DAILY PRN PRN Reason: Constipation Melatonin (Melatonin 3 Mg Tablet) 6 mg PO BEDTIME PRN PRN Reason: Insomnia Ondansetron HCl (Ondansetron Hcl 4 Mg/2 Ml Vial) 4 mg IVPUSH Q8H PRN PRN Reason: Nausea and Vomiting Sodium Chloride (0.9 % Sodium Chloride Flush 3 Ml Syringe) 3 ml IVFLUSH QSHIFT [facility] Last Admin: 09/18/24 09:09 Dose: Not Given Home Medications ?Medication ?Instructions ?Recorded ?Confirmed ?Last Taken ?Type carbidopa 25 mg-levodopa 100 mg 1 tab PO TID 01/15/23 09/18/24 09/17/24 History tablet melatonin 5 mg tablet 5 mg PO BEDTIME 09/18/24 09/18/24 09/17/24 History Physical Exam Vital Signs: Vital Signs: Last Vital Signs Temp 97.9 F 09/18/24 05:54 Pulse 62 09/18/24 05:54 Resp 16 09/18/24 05:54 BP 140/64 H 09/18/24 05:54 Pulse Ox 97 09/18/24 05:54 O2 Del Method Room Air 09/18/24 05:54 BMI result Body Mass Index 24.2 Const: General: no acute distress; No comfortable Orientation/consciousness: patient oriented x3 Resp: Effort & Inspection: normal respiratory effort and able to speak in complete sentences GI: Inspection: Yes normal to inspection Palpation (GI): Soft to palpation and Tenderness to palpation present (GI) (mildly tender) Rectal Exam - Male: Yes visual inspection normal, Yes heme positive stool (BRBPR with disimpaction) and Yes fecal impaction Neuro: General: patient oriented x3 Results Labs 09/18/24 06:40 Labs: BMP 09/18/24 06:40 Creatinine 1.13 All other labs normal. Assessment and Plan (1) Constipation: Qualifiers: Constipation type: unspecified constipation type Qualified Code(s): K59.00 - Constipation, unspecified Status: Acute Plan 69-year-old male with pertinent history of Parkinson's disease, mood disorder, Crohn's disease currently not on medications who was sent to the emergency department by his energy efficiency specialist for evaluation management of constipation. Patient found to have large volume of stool that was unable to be disimpacted on 09/15, patient was d/c with bowel regimen and dietary instructions. Patient has not had Bm since 09/12, he is feeling increasingly furstrated. Conitnues to have pain the abdomen, decreases appetite. patient was given lactulose enema in ED, on bowel regimen. Has been able to produce small volumes of soft liquid stool. I performed a digital rectal exam and was able to manually disimpact a small/moderate amount of stool. I was unable to appreciate a large formed stool, there may be a larger volume above where i was able to reach. There was some bright red blood, may be secondary to fissure or hemorrhoid. Would recommend continuing with bowel regimen, if patient not producing more stool after disimpaction would consider glycerin enema, possible repeat imaging hydration pain control as needed GI consult? Procedures Date of Service Date of Service: 09/18/24 Rectal Disimpaction Time out performed: Yes (patient agreeable ) Indication: fecal impaction Procedural sedation: No Sedation/Analgesia: none Technique: manual disimpaction with gloved finger Result: significant stool output (small/med amount of soft stool) Patient tolerated procedure: well (small amounts of bright red blood) Rectal disimpaction complications: pain and bleeding
[2024-09-18 13:25] LABS: Anion Gap 11 (12-20); Blood Urea Nitrogen 20 mg/dL (9-16); Calcium 9.3 mg/dL (8.4-10.2); Carbon Dioxide 27 mmol/L (22-29); Chloride 104 mmol/L (96-108); Creatinine Clr Calc Pharmacy 56.8; Estimated Glomerular Filt Rate 58; Glucose Fasting 122 mg/dL (60-99); Potassium 4.1 mmol/L (3.3-5.1); Sodium 138 mmol/L (135-145)
[2024-09-18 13:41] LABS: Free T4 (Free Thyroxine) 1.14 ng/dL (0.71-1.85); Thyroid Stimulating Hormone 0.99 uIU/mL (0.32-4.0)
[2024-09-18 13:42] VITALS: BMI 24.2
[2024-09-18 13:48] VITALS: BP 143/73; PULSE 77; RESP 16; TEMP 37; O2SAT 96
[2024-09-18] MEDS: bisacodyL 5 MG TABLET.DR 10 MG PO (14:13)
[2024-09-18] MEDS: Carbidopa/Levodopa 25/100 TABLET 1 TAB PO ×2 (14:13→20:51)
--- NOTE | 2024-09-18 15:01 | PM.EVENT ---
Event Note Date of Service: 09/18/24 Event Note: seen and examined follow up constipation seen by surgery - some manual disimpaction done seen by GI - rec go lytely, dulcolax and enema and clear liquids for now had moderate BM this afternoon reporting abdominal bloating Parkinson's disease continue Sinemet dvt ppx - lovenox Time Spent With Patient Time: Total time managing care of this patient today ____ minutes.
[2024-09-18] MEDS: PEG 3350/Na Sulf,Bicarb,Cl/KCL 4,000 ML SOLN.RECON 4000 ML PO (15:22)
[2024-09-18 15:57] VITALS: BP 106/60; PULSE 63; RESP 18; TEMP 36.6; O2SAT 96
--- NOTE | 2024-09-18 19:15 | P.EN_ITS ---
Event Note Date of Service: 09/18/24 Event Note: GI Consult-Full note dictated-History from patient, his , and the medical record Patient seen at 12:30PM in the ER. Impression/Recommendations: Chronic constipation exacerbated by stoppage of his home bowel regimen of CleanseMORE a few days prior to the onset of this worsening constipation, as well as his underlying Parkinson's disease. His abdominal exam is presently benign and there is no sign of bowel obstruction. His colonoscopy last year did not show any sign of obstruction but did reveal several polyps which were removed, as well as his known melanosis coli. His previously seen Crohn's ileitis was inactive at that time. Given the benign abdomen and no evidence of obstruction I would continue a cleanout from above as well as with some enema therapy. I have placed an order for another bowel cleanout with a colonoscopy prep. I would cut him back to just full liquids rather than a regular diet for the time being. I have also ordered a thyroid profile and repeat electrolytes. I do not think a colonoscopy is required nor manual disimpaction at this time. If he continues to improve his diet could be advanced over the weekend and he should be able to be discharged on his usual outpatient bowel regimen of his Magnesium and the CleansMORE. However I did advise him that he should add some daily fiber supplement such as Metamucil with a lot of water and some MiraLAX to definitely avoid a recurrence of this worsening constipation. I did advise him to follow- up with me in the office as need be. This has all been reviewed in detail with the patient and his today. They are comfortable with this plan. Thank you for the consultation. Time Spent With Patient Time: Total time managing care of this patient today ____ minutes.
[2024-09-18 19:32] VITALS: BP 132/60; PULSE 54; RESP 16; TEMP 36.6; O2SAT 96
[2024-09-18] MEDS: Melatonin 3 MG TABLET 6 MG PO (20:48)
[2024-09-18] MEDS: Carbidopa/Levodopa CR 25/100 TABLET.ER 1 TAB PO (20:50)
[2024-09-18 23:34] VITALS: BP 101/58; PULSE 54; RESP 18; TEMP 36.7; O2SAT 97
[2024-09-19 02:44] VITALS: BP 119/57; PULSE 51; RESP 16; TEMP 37.2; O2SAT 95
[2024-09-19] MEDS: Acetaminophen 325 MG TABLET 975 MG PO (02:53)
--- NOTE | 2024-09-19 05:16 | CONS_ITS ---
DATE OF SERVICE: 09/18/2024 REASON FOR CONSULTATION: Constipation and abdominal discomfort. HISTORY OF PRESENT ILLNESS: History has been obtained from the patient, his , and the medical record. The patient is a 69-year-old male well known to me with an underlying history of chronic constipation, colon polyps, and Crohn's ileitis. I last saw him in October 2023, when he underwent a followup screening colonoscopy with the removal of several tubular adenomas as well as the finding of his chronic melanosis coli. At that time, there was no evidence for any ileitis as had been seen on previous colonoscopies. Of note, he had never needed to be treated for the Crohn's disease and had always had been asymptomatic. He does have a longstanding history of constipation, for which he had been on magnesium and a bowel regimen called CleanseMORE, which is made up of some herbs. He has Parkinson's disease which has worsened his constipation. Several days ago, for some reason, he decided to stop the CleanseMORE preparation that he had been taking for many years. He did continue the magnesium. He developed progressive constipation that was refractory to attempts at oral cleanouts including a colonoscopy prep with MiraLAX and some enemas at home. He came to the ER for evaluation. In the ER, he was also treated with some enemas, but without much improvement. He has felt bloated and distended. There is no vomiting. He does have some nausea. He denies any fevers. He denies any hematochezia nor melena. He denies any urinary symptoms. Prior to the past few days when he was still taking the CleanseMORE preparation along with the magnesium his bowel movements were fairly regular. He does have a family history of colon cancer in his father. MEDICATIONS: At home included Sinemet, magnesium, fish oil, and the CleanseMORE bowel regimen. PAST MEDICAL HISTORY: Multiple colonoscopies including the most recent one last year with removal of polyps. Melanosis coli and chronic constipation. Asymptomatic Crohn's disease of the terminal ileum although the colonoscopy last year was negative for that. He has had a negative stress test in the past. Parkinson's disease and anxiety. He denies a history of DC, diabetes, stroke. No lung disease. He had knee surgery. FAMILY HISTORY: Positive for colon cancer and pancreatic cancer in his father. SOCIAL HISTORY: He does not smoke nor use any significant amounts of alcohol. He is . REVIEW OF SYSTEMS: CONSTITUTIONAL: He has been feeling poorly in general in regard to worsening constipation and Parkinson disease. SKIN: No rash. No pruritus. CARDIAC: No chest pain. PULMONARY: No coughing or hemoptysis. GI: As above. URINARY: No dysuria. No hematuria. PHYSICAL EXAMINATION: GENERAL: The patient is an alert comfortable-appearing male, in no distress. SKIN: Warm and dry. Anicteric sclerae. Moist mucous membranes. ABDOMEN: Soft, nondistended, nontender without palpable mass. Bowel sounds are diminished, but present. EXTREMITIES: Without edema. IMAGING DATA: He had a CT scan a couple of days ago and abdominal x-ray today that did not show any sign of obstruction nor free air. There was a large amount of stool in the colon including the rectosigmoid area. LABORATORY DATA: CBC and chemistries were unremarkable. IMPRESSION AND PLAN: Given the patient's clinical history with chronic constipation, having stopped one of his bowel regimen medications recently, and the underlying Parkinson disease, he appears to have worsening of his chronic constipation. At this point his abdominal exam is benign and he does not show any clinical signs of obstruction on exam or by imaging studies. As such, I would recommend a continued bowel cleanout with both oral and some enema therapy. I do not think he needs manual disimpaction at this time or any other type of intervention such as a colonoscopy. I did review with him and his that I would recommend another attempt with a colonoscopy prep, as well as another enema later in the day. I will continue a diet but keep him only on full liquids. I would check thyroid studies and followup chemistries. We did review that hopefully once he is cleaned out we can then send him home on his continued bowel regimen of the magnesium and the CleanseMORE preparation, but perhaps add some daily MiraLAX and fiber supplements to his regimen as well. I did review all of this in detail with the patient and his . They are comfortable with the plan. Thank you for the consultation. MD BRAULIO Trevino/MAGO / [id number] MTDD
[2024-09-19 06:14] LABS: MANUAL DIFF FLAG NO
[2024-09-19 06:18] LABS: Basophils Percent Auto 0.6 % (0-2); Eosinophils Absolute Auto 0.1 X10*3/uL (0.0-0.4); Eosinophils Percent Auto 1.8 % (0-4); Hemoglobin 13.2 g/dl (14.0-18.0); Imm Gran Abs Auto 0.03 X10*3/uL (0.00-0.03); Imm Gran Pct Auto 0.4 % (0.0-0.4); Lymphocytes Percent Auto 14.7 % (20-40); Mean Corpuscular HGB Conc 34.7 g/dl (31.0-36.0); Mean Corpuscular Hemoglobin 31.1 pg (27.0-33.0); Mean Corpuscular Volume 89.4 fL (80.0-98.0); Mean Platelet Volume 10.4 fL (9.4-12.4); Monocytes Absolute Auto 0.6 X10*3/uL (0.1-1.2); Monocytes Percent Auto 7.8 % (2-11); Neutrophils Absolute Auto 5.3 x10*3/uL (2.0-8.3); Neutrophils Percent Auto 74.7 % (45-73); Platelet Count 144 X10*3/uL (160-400); Red Blood Count 4.25 X10*6/uL (4.60-5.80); Red Cell Distribution Width 12.5 % (11.0-16.0)
[2024-09-19 06:32] LABS: Anion Gap 16 (12-20); Blood Urea Nitrogen 20 mg/dL (9-16); Carbon Dioxide 24 mmol/L (22-29); Chloride 106 mmol/L (96-108); Creatinine Clr Calc Pharmacy 61.9; Creatinine Clr Calc Pharmacy 62.4; Estimated Glomerular Filt Rate > 60; Glucose Random 96 mg/dL (60-115); Potassium 3.7 mmol/L (3.3-5.1); Sodium 142 mmol/L (135-145)
[2024-09-19] MEDS: Carbidopa/Levodopa 25/100 TABLET 1 TAB PO ×3 (08:10→20:10)
[2024-09-19] MEDS: Docusate Sodium 100 MG CAPSULE PO ×2 (08:10→20:09)
[2024-09-19 08:31] VITALS: BP 131/61; PULSE 50; RESP 18; TEMP 36.1; O2SAT 97
--- NOTE | 2024-09-19 11:13 | MHC.CM.PN ---
NICOLE delivered. Patient lives in a home w/ . Dx Parkinsons. Functionally independent. Denies use of DME or services. PCP Alex Stuart MD Reports he has an HCP naming his , Elizabeth, as HCA. Copy requested. will bring later today. DP: Goal is home self care, to transport. CM will continue to follow.
--- NOTE | 2024-09-19 11:25 | PC.NURSE ---
Pt. is walking independently, steady on feet, at the bedside, they requested alarms off.
[2024-09-19] MEDS: Sodium Phosphate,Mono-Dibasic 133 ML ENEMA PR (12:19)
--- NOTE | 2024-09-19 12:33 | P.PNIM_ITS ---
Subjective Subjective Date of Service: 09/19/24 Interval History: seen and examined this morning follow up for severe constipation abdominal pain/bloating improving Constitutional Constitutional: Denies chills and Denies fever(s) Physical Exam 2 Vital Signs: Vital Signs: Last Vital Signs Temp 97.0 F 09/19/24 08:31 Pulse 50 09/19/24 08:31 Resp 18 09/19/24 08:31 BP 131/61 09/19/24 08:31 Pulse Ox 97 09/19/24 08:31 O2 Del Method Room Air 09/19/24 08:31 BMI result Body Mass Index 24.2 Const: General: cooperative, comfortable, alert and awake Nutritional Appearance: average body habitus Orientation/consciousness: patient oriented x3 Resp: Effort & Inspection: normal respiratory effort, able to speak in complete sentences, no respiratory distress and no use of accessory muscles Cardio: Rate: regular rate GI: Other: no guarding no rebound Inspection: No distended Palpation (GI): Soft to palpation Neuro: General: patient oriented x3, moves all extremities and CN's II-XI intact bilaterally Objective Data Active Medications Acetaminophen (Acetaminophen 325 Mg Tablet) 975 mg PO Q8H PRN PRN Reason: Pain, Mild 1-3,fever,headache Last Admin: 09/19/24 02:53 Dose: 975 mg Documented By: KRISTY Calcium Carbonate (Calcium Carbonate 750 Mg Tab.Chew) 750 mg PO Q4H PRN PRN Reason: Heartburn Carbidopa/Levodopa (Carbidopa/Levodopa 25/100 Tablet) 1 tab PO TID [facility] Last Admin: 09/19/24 08:10 Dose: 1 tab Documented By: RAMOS Carbidopa/Levodopa (Carbidopa/Levodopa Cr 25/100 Tablet.Er) 1 tab PO BEDTIME [facility] Last Admin: 09/18/24 20:50 Dose: 1 tab Documented By: KRISTY Docusate Sodium (Docusate Sodium 100 Mg Capsule) 100 mg PO BID [facility] Last Admin: 09/19/24 08:10 Dose: 100 mg Documented By: RAMOS Enoxaparin Sodium (Enoxaparin Sodium 40 Mg/0.4 Ml Syringe) 40 mg SUBCUT Q24H [facility] Last Admin: 09/19/24 08:13 Dose: Not Given Documented By: RAMOS Non-Admin Reason: Patient Refused Magnesium Hydroxide (Milk Of Magnesia 30 Ml Oral.Susp) 30 ml PO DAILY PRN PRN Reason: Constipation Melatonin (Melatonin 3 Mg Tablet) 6 mg PO BEDTIME PRN PRN Reason: Insomnia Melatonin (Melatonin 3 Mg Tablet) 6 mg PO BEDTIME [facility] Last Admin: 09/18/24 20:48 Dose: 6 mg Documented By: KRISTY Ondansetron HCl (Ondansetron Hcl 4 Mg/2 Ml Vial) 4 mg IVPUSH Q8H PRN PRN Reason: Nausea and Vomiting Polyethylene Glycol (Polyethylene Glycol 3350 17 Gm Powd.Pack) 17 gm PO BEDTIME [facility] Last Admin: 09/18/24 21:01 Dose: Not Given Documented By: KRISTY Non-Admin Reason: Patient Refused Sodium Chloride (0.9 % Sodium Chloride Flush 3 Ml Syringe) 3 ml IVFLUSH QSHIFT [facility] Last Admin: 09/19/24 08:13 Dose: Not Given Documented By: RAMOS Non-Admin Reason: No Access Labs 09/19/24 05:55 09/19/24 05:55 Labs: Laboratory Results - last 24 hr 09/18/24 09/19/24 09/19/24 12:58 05:55 05:55 MCV 89.4 MCH 31.1 MCHC 34.7 RDW 12.5 Plt Count 144 L D MPV 10.4 Immature Gran % (Auto) 0.4 Neut % (Auto) 74.7 H Lymph % (Auto) 14.7 L Baldwin % (Auto) 7.8 Eos % (Auto) 1.8 Baso % (Auto) 0.6 Lymph # (Auto) 1.0 L Baldwin # (Auto) 0.6 Eos # (Auto) 0.1 Baso # (Auto) 0.0 Abs Immat Gran (auto) 0.03 Absolute Neuts (auto) 5.3 Absolute Nucleated RBC 0.000 Nucleated RBC % (auto) 0.0 Anion Gap 11 L 16 Estim Creat Clear Calc 56.8 61.9 62.4 Estimated GFR 58 > 60 Random Glucose Fasting Glucose 122 H Calcium 9.3 TSH 0.99 Free T4 1.14 09/19/24 05:55 MCV MCH MCHC RDW Plt Count MPV Immature Gran % (Auto) Neut % (Auto) Lymph % (Auto) Baldwin % (Auto) Eos % (Auto) Baso % (Auto) Lymph # (Auto) Baldwin # (Auto) Eos # (Auto) Baso # (Auto) Abs Immat Gran (auto) Absolute Neuts (auto) Absolute Nucleated RBC Nucleated RBC % (auto) Anion Gap Estim Creat Clear Calc Estimated GFR > 60 Random Glucose 96 Fasting Glucose Calcium 9.0 TSH Free T4 Assessment and Plan (1) Constipation: Status: Acute Plan 69-year-old male with pertinent history of Parkinson's disease, mood disorder, Crohn's disease currently not on medications who was sent to the emergency department by his watch and clock maker and repairer for evaluation management of constipation. Patient found to have large volume of stool that was unable to be disimpacted on 09/15 Constipation Status post manual disimpaction 09/18 small amount of stool removed Multiple liquid bowel movements with GoLYTELY Continue GoLYTELY, enema, bowel regimen Continue full liquid diet abdominal pain/distention a little better today follow electrolytes GI recommends home with MiraLax and Metamucil upon discharge Parkinson's disease Continue Sinemet DVT prophylaxis- chemoprophylaxis refused; early ambulation Quality Stroke Does the patient have a stroke diagnosis?: No VTE Prior VTE?: No VTE Risk Level:: Medical - moderate - high VTE Device Contraindication: Treatment Not Indicated VTE Drug Contraindication: N/A - Med Ordered
[2024-09-19] MEDS: Potassium Chloride ER 20 MEQ TAB.ER.PRT 40 MEQ PO (13:09)
[2024-09-19 15:48] VITALS: BP 132/63; PULSE 53; RESP 18; TEMP 36.7; O2SAT 99
[2024-09-19 19:33] VITALS: BP 122/57; PULSE 50; RESP 18; TEMP 36.4; O2SAT 98
[2024-09-19] MEDS: Melatonin 3 MG TABLET 6 MG PO (20:10)
[2024-09-19] MEDS: Carbidopa/Levodopa CR 25/100 TABLET.ER 1 TAB PO (20:10)
[2024-09-20 03:26] VITALS: BP 142/64; PULSE 51; RESP 16; TEMP 36.4; O2SAT 96
[2024-09-20 06:30] LABS: Anion Gap 15 (12-20); Blood Urea Nitrogen 14 mg/dL (9-16); Carbon Dioxide 23 mmol/L (22-29); Chloride 108 mmol/L (96-108); Creatinine Clr Calc Pharmacy 63.5; Estimated Glomerular Filt Rate > 60; Glucose Random 100 mg/dL (60-115); Potassium 3.9 mmol/L (3.3-5.1); Sodium 142 mmol/L (135-145)
[2024-09-20] MEDS: Docusate Sodium 100 MG CAPSULE PO (07:52)
[2024-09-20] MEDS: Carbidopa/Levodopa 25/100 TABLET 1 TAB PO (07:53)
[2024-09-20 08:09] VITALS: BP 139/70; PULSE 54; RESP 18; TEMP 36.3; O2SAT 97
--- NOTE | 2024-09-20 10:33 | P.DS_ITS ---
DS: Providers Provider Date of Service: 09/20/24 Date of admission: 09/18/24 05:03 Date of discharge: 09/20/24 Primary care physician: Duke Rodriguez MD Consults: 09/18/24 05:38 Consult to General Surgery Routine Consulting Provider: [facility] General Surgeons Reason for consultation: constipation Attending physician on discharge: Mariaa Craig Discharging clinician: June Pfeiffer DS: Diagnosis Discharge Diagnosis (1) Constipation: Status: Acute DS: Summary Hospital Course Hospital Course: From H&P on the day of admission This is a 69-year-old male with pertinent history of Parkinson's disease, mood disorder, Crohn's disease currently not on medications who was sent to the emergency department by his assembly repairer for evaluation management of constipation. Patient states his last bowel movement was 09/12. Normally he does have a bowel movement every day. He was seen in the ER on 09/15 for constipation and discharged from the ER. Patient states he continues to be constipated and has generalized abdominal discomfort and fullness. His last colonoscopy was 10 months ago which was apparently normal and he is not due for colonoscopy for another 2 years. Patient states he took laxatives and enema at home without any relief for bowel movement. Patient's assembly repairer asked the patient to come to the ER for general surgery consult. No nausea or vomiting. He denies fever, chills, chest pain, palpitations, shortness of breath, changes in urinary habits. In the emergency department, patient was given lactulose. ER provider was contacted by patient's assembly repairer who requested admission with general surgery consult Constipation Status post manual disimpaction 09/18 small amount of stool removed. Completed GoLYTELY colon prep and started on bowel regimin with good effect. Subjective abdominal distention improved, requested repeat KUB showing significant interval decrease in fecal loading, does show air distention suggesting possible mild ileus however given improvement in symptoms and ability to tolerate full diet patient will be discharged home with bowel regimen. Importance of adequate hydration and fiber intake was discussed. GI in agreement and recommends MiraLax and Metamucil fiber pills upon discharge in addition to the patient's home regimen of cleanseMORE and magnesium. Time Attestation Discharge Coordination Time (in mins): 32 Quality: Safe Use of Opioids Does Pt have an Active Cancer Diagnosis on the Problem List?: No Quality: Stroke Does the patient have a stroke diagnosis?: No Physical Exam Vital Signs: Vital Signs: Last Vital Signs Temp 97.4 F 09/20/24 08:09 Pulse 54 09/20/24 08:09 Resp 18 09/20/24 08:09 BP 139/70 09/20/24 08:09 Pulse Ox 97 09/20/24 08:09 O2 Del Method Room Air 09/20/24 08:09 BMI result Body Mass Index 24.2 Const: General: cooperative, comfortable, alert and awake Nutritional Appearance: average body habitus Orientation/consciousness: patient oriented x3 Resp: Effort & Inspection: normal respiratory effort, able to speak in complete sentences, no respiratory distress and no use of accessory muscles Cardio: Rate: regular rate GI: Other: no guarding no rebound Inspection: No distended Palpation (GI): Soft to palpation Neuro: General: patient oriented x3, moves all extremities and CN's II-XI intact bilaterally DS: Data Data Completed and Pending Labs on day of discharge: Laboratory Results - last 24 hr 09/20/24 05:45 Hold Purple Top SEE NOTE Sodium 142 Potassium 3.9 Chloride 108 Carbon Dioxide 23 Anion Gap 15 BUN 14 Creatinine 1.10 Estim Creat Clear Calc 63.5 Estimated GFR > 60 Random Glucose 100 Calcium 9.0 Discharge Plan Discharge Patient Disposition: Home, Self-Care Discharge Diagnosis: constipation Referrals: Duke Rodriguez MD [Primary Care Provider, Gastroenterology] - 1 Week Discharge Medications: New polyethylene glycol 3350 [Miralax] 17 gram/dose powder 17 g PO DAILY Qty: 119 1RF psyllium husk [Daily Fiber] 0.4 gram capsule 0.4 g PO DAILY Qty: 90 0RF Continued carbidopa-levodopa 25-100 mg tablet extended release 1 tab PO BEDTIME Qty: 30 6RF melatonin 5 mg Tablet 5 mg PO BEDTIME carbidopa-levodopa 25-100 mg tablet 1 tab PO TID Discharge Orders: Discharge Order (Routine); Ordered 09/20/24 Ordered By: June Pfeiffer Activity on Discharge: As tolerated Stand Alone Forms: Patient Portal Discharge page Print Language: Zambian Care Plan Goals: See below Health Concerns: Constipation Plan of Treatment: Recommend adequate hydration and fiber intake Continue current personal regimen of magnesium and cleansMORE miralax 1-2 times day (OTC ok) metamucil fiber tablets (OTC ok) prunes/prune juice can be helpful limit constipating foods such as daily and bananas call GI office if any recurrent issues Assessment: See discharge summary Patient Instructions: Constipation (GEN)
--- NOTE | 2024-09-20 14:42 | MHC.CM.PN ---
Patient medically cleared for dc home self care. at bedside to transport. Patient/ with additional questions re: OBS notice. All questions answered. Verbalized understanding. will follow up with [facility] billing and their insurance for any other specific questions.
== END 2024-09-20 15:04 | disposition home or self-care (01) ==
LOC: HO.ED 09-18 04:00 → HO.EDOVER 09-18 05:07 → HO.S3 09-18 12:11
PROVIDERS: Internal Medicine; Absent Provider Internal Medicine; Admitting Provider Student in an Organized Health Care Education/Training Program; Emergency Provider Emergency Medicine; PCP Internal Medicine; Visit Provider Physician Assistant Medical
DX: K59.00 Constipation, unspecified (principal); G20.A1 Parkinson's disease without dyskinesia, without mention of fluctuations; K50.90 Crohn's disease, unspecified, without complications; F39 Unspecified mood [affective] disorder
CPT/HCPCS: 36415; 74018; 80048; 82565; 84439; 84443; 85025; 99221; 99285

== ENCOUNTER → 2024-09-17 21:23 | Outpatient (BNV) | payer OTHER, SELFPAY | PROVIDERS: Absent Provider Internal Medicine; Emergency Provider Emergency Medicine; PCP Internal Medicine; Visit Provider Radiology Diagnostic Radiology | DX: K56.41 Fecal impaction (principal) | CPT/HCPCS: 74018 ==

== ENCOUNTER 2024-09-18 05:03 | Outpatient (BNV) | payer OTHER, SELFPAY | END 2024-09-20 08:36 | PROVIDERS: Absent Provider Internal Medicine; Admitting Provider Student in an Organized Health Care Education/Training Program; Emergency Provider Emergency Medicine; PCP Internal Medicine; Visit Provider Radiology Diagnostic Radiology | DX: K59.00 Constipation, unspecified (principal) | CPT/HCPCS: 74018 ==

== ENCOUNTER → 2024-09-18 05:03 | Outpatient (BNV) | payer OTHER, SELFPAY | PROVIDERS: Absent Provider Internal Medicine; Admitting Provider Student in an Organized Health Care Education/Training Program; Emergency Provider Emergency Medicine; PCP Internal Medicine; Visit Provider Student in an Organized Health Care Education/Training Program | DX: K59.00 Constipation, unspecified (principal) | CPT/HCPCS: 99232; 99239 ==

== ENCOUNTER → 2024-09-18 05:03 | Outpatient (BNV) | payer OTHER, SELFPAY | PROVIDERS: Absent Provider Internal Medicine; Admitting Provider Student in an Organized Health Care Education/Training Program; Emergency Provider Emergency Medicine; PCP Internal Medicine | DX: K59.00 Constipation, unspecified (principal) | CPT/HCPCS: 99222 ==

== ENCOUNTER 2024-10-05 10:50 | Outpatient (REF) | payer OTHER, SELFPAY ==
--- NOTE | ~2024-10-05 | XR_ITS ---
EXAMINATION: XR ABDOMEN 1 VIEW (KUB) HISTORY: ILEUS COMPARISON: Comparison is made with the prior examination dated 09/20/2024. FINDINGS: Two supine views of the abdomen are submitted. The bowel gas pattern is unremarkable, without evidence of mechanical obstruction. There are phleboliths in the pelvis. There are no abnormal soft tissue masses. The bones are intact. XR/XR KUB IMPRESSION: Unremarkable bowel gas pattern. Electronically signed by: Duke Wolfe MD 10/05/2024 12:53 PM EDT
[2024-10-05 11:36] LABS: MANUAL DIFF FLAG NO
[2024-10-05 11:45] LABS: Hematocrit 43.8 % (42.0-52.0); Hemoglobin 14.7 g/dl (14.0-18.0); Imm Gran Abs Auto 0.02 X10*3/uL (0.00-0.03); Imm Gran Pct Auto 0.3 % (0.0-0.4); Lymphocytes Absolute Auto 1.9 X10*3/uL (1.2-4.9); Mean Corpuscular HGB Conc 33.6 g/dl (31.0-36.0); Mean Corpuscular Hemoglobin 30.7 pg (27.0-33.0); Mean Corpuscular Volume 91.4 fL (80.0-98.0); NRBC Abs Auto 0.000 X10*3/uL (0.0-0.012); NRBC Pct Auto 0.0 /100WBC (0.0-0.2); Platelet Count 235 X10*3/uL (160-400); Red Blood Count 4.79 X10*6/uL (4.60-5.80); White Blood Count 6.9 X10*3/uL (4.8-10.8)
--- OUTSIDE RECORDS SUMMARY | 2024-10-05 11:48 | XMS_ITS | Patient Health Record ---
Author Organization [facility] Address [address] [place] [phone] Care Team Providers Care Criminology Teacher Name Role Phone Narciso BECERRA, Alex Primary Care Provider Duke Albarado Unavailable [phone] Allergies No Known Allergies Results Component Value Reference Range Notes Pathology Reviewed date:09/15/2024 09:12:30 AM Interpretation: Performing Lab:[facility], [address] [place] [id number] Notes/Report: CT abdomen pelvis w con Reviewed date:09/16/2024 12:04:45 AM Interpretation: Performing Lab: Notes/Report: [address] [address] [address] Scan Report Signed Patient: Dave Heller MR#: [id number] : 1955 Acct:[id number] Age/Sex: 69 / M ADM Date: 09/15/24 Loc: HO.ED Attending Dr: Ordering Physician: Neisha Pepper PA-C Date of Service: 09/15/24 Procedure(s): CT abdomen pelvis w IV con Accession Number(s): [id number] cc: Neisha Pepper PA-C; Duke Rodriguez MD Report Number: [id number]: Total DLP = 463.00 mGy-cm CLINICAL HISTORY: SBO vs crohns flare CT abdomen and pelvis with contrast Comparison: None provided Findings: Mild bibasilar atelectasis/pneumonitis, right worse than left. Mild adrenal hyperplasia of the imaged adrenal glands with motion artifacts. The spleen is nonenlarged. Mild volume loss of the pancreas. Multiple cystic lesions of the liver are nonspecific with 1 in the left lobe measuring 1.7 cm (image 19 of series 3). Gallbladder is mildly distended and otherwise unremarkable for CT. No hydronephrosis accounting for parapelvic cysts. Question septation of the 6 mm cystic lesion of the right kidney (Bosniak 2F on image 29 of series 3). Small mesenteric lymph nodes are likely reactive. Air-fluid levels of the multiple small-bowel loops as can be seen with enteritis. With mild/minimal dilatation of the small bowel loops in the right lower quadrant approaching terminal ileum where wall thickening is present. Enteric contrast noted in the large intestine excluding complete small bowel obstruction. Mild wall thickening of the large intestine is nonspecific and may reflect colitis including hepatic flexure, transverse colon, and proximal sigmoid colon. Severe stool burden is noted distally with [id number] distention of the distal large intestine and rectum. Imaged appendix is nondilated (imaged 47 of series 7). Prostate gland measures 5.6 cm transverse. Mild wall thickening of the urinary bladder. Small fat containing left inguinal hernia. Vascular calcifications noted. Degenerative changes of the hips, SI joints, and spine. Facet arthropathy is multifocal. Vacuum disc phenomenon is multifocal. IMPRESSION: 1. Wall thickening of the terminal ileum as can be seen with enteritis and reported inflammatory bowel disease. No small bowel obstruction at this time. 2. Wall thickening of the large intestine is nonspecific, with distention of the imaged rectum at this time. 3. Indeterminate liver lesions, predominantly in the left lobe. Please consider outpatient liver mass imaging for additional characterization. 4. Bosniak 2F cystic lesion of the right kidney measures 6 mm. Recommend six-month follow-up imaging. This document has been electronically signed by: Shai Abbott MD on 09/15/2024 22:56:08 Dictated By: Shai Abbott MD Signed By: <Electronically signed by Shai Abbott MD in OV> 09/15/242256 DD/ 55 TD/TT: 09/15/242255 Vacuum Repairer: KATIE BURGOS Reviewed date:09/18/2024 04:54:49 PM Interpretation: Performing Lab: Notes/Report: [address] [address] XRay Report Signed Patient: Dave Heller MR#: [id number] : 1955 Acct:[id number] Age/Sex: 69 / M ADM Date: 09/17/24 Loc: HO.ED Attending Dr: Ordering Physician: Marni Correa MD Date of Service: 09/17/24 Procedure(s): XR KUB Accession Number(s): [id number] cc: Marni Correa MD; Duke Rodriguez MD CLINICAL HISTORY: constipation, low suspicion sbo, CT 2 days ago 1 view abdomen Comparison: None provided Findings: No abnormal calcifications. No acute fractures. Large rectal and moderate colonic stool burden. Nonobstructive bowel-gas pattern. IMPRESSION: Large rectal and moderate colonic stool burden. This document has been electronically signed by: Gino Valdez MD on 09/17/2024 22:12:54 Dictated By: Gino Valdez MD Signed By: <Electronically signed by Gino Valdez MD in OV> 09/17/242213 DD/ 11 TD/TT: 09/17/242211 Vacuum Repairer: Basic Metabolic Panel Fastin g Reviewed date:09/18/2024 04:53:36 PM Interpretation: Performing Lab:[facility], [address] [place] [phone] Notes/Report: Sodium 138 135-145 mmol/L Potassium 4.1 3.3-5.1 mmol/L Chloride 104 96-108 mmol/L Carbon Dioxide 27 22-29 mmol/L Anion Gap 11 12-20 Blood Urea Nitrogen 20 9-16 mg/dL Creatinine 1.23 0.5-1.4 mg/dL Creatinine Clr Calc Pharmacy 56.8 eGFR (calculated from the MDRD study equation) and eCrCl (calculated from the Cockcroft-Gault equation) are based on different parameters and may not yield comparable results. If eCrCl result is absurd, please check patient's height/weight. Estimated Glomerular Filt Rate 58 Chronic Kidney Disease: Estimated GFR < 60 mL/min/1.73m2 Severe Kidney Disease: Estimated GFR < 15 mL/min/1.73m2 Glucose Fasting 122 60-99 mg/dL A fasting glucose from 100-125 mg/dl is considered impaired (pre-diabetes). Calcium 9.3 8.4-10.2 mg/dL Creatinine Reviewed date:09/18/2024 04:54:12 PM Interpretation: Performing Lab:[address] [address] Notes/Report: Creatinine 1.13 0.5-1.4 mg/dL Creatinine Clr Calc Pharmacy 61.9 eGFR (calculated from the MDRD study equation) and eCrCl (calculated from the Cockcroft-Gault equation) are based on different parameters and may not yield comparable results. If eCrCl result is absurd, please check patient's height/weight. Estimated Glomerular Filt Rate > 60 Chronic Kidney Disease: Estimated GFR < 60 mL/min/1.73m2 Severe Kidney Disease: Estimated GFR < 15 mL/min/1.73m2 Free T4 (Free Thyroxine) Reviewed date:09/18/2024 04:53:54 PM Interpretation: Performing Lab:[address] [address] Notes/Report: Free T4 (Free Thyroxine) 1.14 0.71-1.85 ng/dL Thyroid Stimulating Hormone Reviewed date:09/18/2024 04:54:01 PM Interpretation: Performing Lab:[address] [address] Notes/Report: Thyroid Stimulating Hormone 0.99 0.32-4.0 uIU/ mL TSH 3rd Generation ([facility]) Complete Blood Count Auto Di ff Reviewed date:09/19/2024 06:18:39 PM Interpretation: Performing Lab:[address] [address] Notes/Report: White Blood Count 7.0 4.8-10.8 X10*3/uL Red Blood Count 4.25 4.60-5.80 X10*6/uL Hemoglobin 13.2 14.0-18.0 g/dl Hematocrit 38.0 42.0-52.0 % Mean Corpuscular Volume 89.4 80.0-98.0 fL Mean Corpuscular Hemoglobin 31.1 27.0-33.0 pg Mean Corpuscular HGB Conc 34.7 31.0-36.0 g/dl Red Cell Distribution Width 12.5 11.0-16.0 % Platelet Count 144 160-400 X10*3/uL Mean Platelet Volume 10.4 9.4-12.4 fL Neutrophils Percent Auto 74.7 45-73 % Imm Gran Pct Auto 0.4 0.0-0.4 % Lymphocytes Percent Auto 14.7 20-40 % Monocytes Percent Auto 7.8 2-11 % Eosinophils Percent Auto 1.8 0-4 % Basophils Percent Auto 0.6 0-2 % NRBC Pct Auto 0.0 0.0-0.2 /100WBC Neutrophils Absolute Auto 5.3 2.0-8.3 x10*3/u L Imm Gran Abs Auto 0.03 0.00-0.03 X10*3/uL Lymphocytes Absolute Auto 1.0 1.2-4.9 X10*3/u L Monocytes Absolute Auto 0.6 0.1-1.2 X10*3/uL Eosinophils Absolute Auto 0.1 0.0-0.4 X10*3/u L Basophils Absolute Auto 0.0 0.0-0.2 X10*3/uL NRBC Abs Auto 0.000 0.0-0.012 X10*3/uL Basic Metabolic Panel Reviewed date:09/19/2024 06:18:13 PM Interpretation: Performing Lab:[facility], [address] [place] [phone] Notes/Report: Sodium 142 135-145 mmol/L Potassium 3.7 3.3-5.1 mmol/L Chloride 106 96-108 mmol/L Carbon Dioxide 24 22-29 mmol/L Anion Gap 16 12-20 Blood Urea Nitrogen 20 9-16 mg/dL Creatinine 1.13 0.5-1.4 mg/dL Creatinine Clr Calc Pharmacy 61.9 eGFR (calculated from the MDRD study equation) and eCrCl (calculated from the Cockcroft-Gault equation) are based on different parameters and may not yield comparable results. If eCrCl result is absurd, please check patient's height/weight. Estimated Glomerular Filt Rate > 60 Chronic Kidney Disease: Estimated GFR < 60 mL/min/1.73m2 Severe Kidney Disease: Estimated GFR < 15 mL/min/1.73m2 Glucose Random 96 60-115 mg/dL Calcium 9.0 8.4-10.2 mg/dL Creatinine Reviewed date:09/19/2024 06:18:25 PM Interpretation: Performing Lab:[facility], [address] [place] [phone] Notes/Report: Creatinine 1.12 0.5-1.4 mg/dL Creatinine Clr Calc Pharmacy 62.4 eGFR (calculated from the MDRD study equation) and eCrCl (calculated from the Cockcroft-Gault equation) are based on different parameters and may not yield comparable results. If eCrCl result is absurd, please check patient's height/weight. Estimated Glomerular Filt Rate > 60 Chronic Kidney Disease: Estimated GFR < 60 mL/min/1.73m2 Severe Kidney Disease: Estimated GFR < 15 mL/min/1.73m2 Hold Lav - Possible Hematolo gy Reviewed date:09/21/2024 11:04:24 PM Interpretation: Performing Lab:[facility], [address] [place] [phone] Notes/Report: Hold Lav - Possible Hematology SEE NOTE Specimen will be held untested for 8 hours. Call Hematology if testing is desired. Basic Metabolic Panel Reviewed date:09/21/2024 11:04:10 PM Interpretation: Performing Lab:[facility], [address] [place] [phone] Notes/Report: Sodium 142 135-145 mmol/L Potassium 3.9 3.3-5.1 mmol/L Chloride 108 96-108 mmol/L Carbon Dioxide 23 22-29 mmol/L Anion Gap 15 12-20 Blood Urea Nitrogen 14 9-16 mg/dL Creatinine 1.10 0.5-1.4 mg/dL Creatinine Clr Calc Pharmacy 63.5 eGFR (calculated from the MDRD study equation) and eCrCl (calculated from the Cockcroft-Gault equation) are based on different parameters and may not yield comparable results. If eCrCl result is absurd, please check patient's height/weight. Estimated Glomerular Filt Rate > 60 Chronic Kidney Disease: Estimated GFR < 60 mL/min/1.73m2 Severe Kidney Disease: Estimated GFR < 15 mL/min/1.73m2 Glucose Random 100 60-115 mg/dL Calcium 9.0 8.4-10.2 mg/dL XR KUB Reviewed date:09/21/2024 11:03:57 PM Interpretation: Performing Lab: Notes/Report: [address] [address] XRay Report Signed Patient: Dave Heller MR#: [id number] : 1955 Acct:[id number] Age/Sex: 69 / M ADM Date: 09/18/24 Loc: .S3 360-[address]: June ASTUDILLO Ordering Physician: June Pfeiffer Date of Service: 09/20/24 Procedure(s): XR KUB Accession Number(s): [id number] cc: June Pfeiffer; Duke Rodriguez MD CLINICAL HISTORY: constipation s p bowel reg?improvemebt 1 view abdomen Comparison: CR - XR KUB - 09/17/24 21:44 EDT Findings: No pneumoperitoneum or pneumatosis. Diffusely air distended, nondilated loops of bowel in the small bowel and colon. There has been significant decrease in amount of fecal loading within the colon. No abnormal calcifications. No acute fractures. IMPRESSION: Interval decrease in amount of fecal loading. Air distended, nondilated small bowel and colon suggesting mild ileus. This document has been electronically signed by: Flo James MD on 09/20/2024 11:25:23 Dictated By: Flo James MD Signed By: <Electronically signed by Flo James MD in OV> 09/20/24 1126 DD/ 1125 TD/TT: 09/20/24 1125 Vacuum Repairer: Reason For Referral No Information Medications Medication [...] Problem Status W/U Status Risk Notes Problem 687541739 Encounter for screening for malignant neoplasm of colon (Z12.11) Active confirmed Problem Diverticular disease of colon (067710323) Diverticulosis of large intestine without perforation or abscess without bleeding (K57.30) Active confirmed Problem 483237026229677 Preprocedural examination (Z01.818) Active confirmed Problem 646364879 Family history o f colon cancer (Z80.0) Active confirmed Problem 97392674 Constipation, unspecified constipation type (K59.00) Active confirmed Problem 417679644 Hx of adenomatou s colonic polyps (Z86.010) Active confirmed Problem 61952122 Crohn''s disease of small intestine without complication (K50.00) Active confirmed Encounters Encounter Location Date Provider Diagnosis [facility] Outpatient [address] [place] [phone] 11/20/2023 Duke Rodriguez Colon cancer screeni ng Z12.11 ; Colon polyps K63.5 ; Family history of colon cancer Z80.0 ; Other specified diseases of intestine K63.89 ; Diverticulosis of large intestine without perforation or abscess without bleeding K57.30 and Other hemorrhoids K64.8 [facility] [address] [place] [phone] 09/28/2024 Duke Rodriguez [facility] [address] [place] [phone] 11/19/2023 Duke Rodriguez [facility] [address] [place] [phone] 09/14/2024 Duke Rodriguez [facility] [address] [place] [phone] 09/17/2024 Duke Rodriguez [facility] [address] [place] [phone] 09/18/2024 Duke Rodriguez [facility] [address] [place] [phone] 09/22/2024 Duke Rodriguez Assessments Encounter Date Diagnosis (ICD [...] hemorrhoids (ICD-10 - K64.8) Plan Of Treatment Future Test Test Name Order Date COLONOSCOPY 04/17/2013 COLONOSCOPY 05/07/2018 COLONOSCOPY 08/13/2023 Insurance Providers Payer Name Payer Address Payer Phone Subscriber Number Group Number Insured Name Patient Relationship to Insured Coverage Start Date Coverage End Date [employer] [address] [place] [phone] [id number] [place] Self - patient is the insured [...] on his colonoscopies and GI series. Denies [place],DM,CVA,Lung disease,renal dise ase Neg. ETT Negative colonoscopy in 2018 other than his known melanosis coli and Crohn's ileitis. Parkinson's disease Anxiety in association with the Parkinso n's disease Surgical History Surgery Date(Month/Year) Knee surgery
--- OUTSIDE RECORDS SUMMARY | 2024-10-05 11:49 | XMS_ITS | Patient Health Record ---
Author Organization Alex Stuart MD Address [address] [place] [phone] Care Team Providers Care Head Of Acquisitions Name Role Phone Alex Stuart Primary Care Provider Allergies No Known Allergies Results Component Value Reference Range Notes Hemoglobin A1c Reviewed date:07/16/2024 01:50:05 PM Interpretation: Performing Lab: Notes/Report: Hemoglobin A1c 5.3 Complete Blood Count Auto Di ff (Not yet reviewed by provider) Interpretation: Performing Lab:[facility], [address] [place] [phone] Notes/Report: White Blood Count 6.9 4.8-10.8 X10*3/uL [...] X10*3/uL NRBC Abs Auto 0.000 0.0-0.012 X10*3/uL Occult Blood, Stool, Guaiac Reviewed date:10/08/2023 01:59:23 PM Interpretation:Positive Performing Lab: Notes/Report: Positive Occult Blood, Stool, Guaiac Pos Glucose, finger stick Reviewed date:04/14/2024 01:47:16 PM Interpretation: Performing Lab: Notes/Report: Value 98 Glucose, finger stick Reviewed date:07/16/2024 01:43:31 PM Interpretation: Performing Lab: Notes/Report: Value 132 Pathology Reviewed date:11/22/2023 02:45:33 PM Interpretation: Performing Lab:[facility], [address] [place] [phone] Notes/Report: - -------- Name: Gabriel Brian Age/Sex: 68/M : 1955 Unit#: [id number] Attend Dr: Duke Rodriguez MD Re11/20/23 Status : [facility] Location: [facility] Disch: - -------- SPEC : [id number] RECD : 11/20/23-1042 STATUS: GRACIA VAIL NUM: [id number] MADI: 11/20/23-899 [facility] DR: Duke Rodriguez MD ENTERED: 11/20/23-1121 SP [...] tissue fragment, bisected and totally submitted in karla Saldaña ([facility]) Excision time: 09:00 ; formalin time: 09:00; cold ischemic time: 0 minutes; total time in formalin: 8-9 hours CONTINUED ON NEXT PAGE - -------- Name: Gabriel Brian Age/Sex: 68/M : 1955 Unit#: [id number] Attend Dr: Duke Rodriguez MD Re11/20/23 Status : [facility] Location: [facility] Disch: - -------- SPEC : [id number] RECD : 11/20/23 STATUS: GRACIA VAIL NUM: [id number] MADI: 11/20/23 [facility] DR: Duke Rodriguez MD ENTERED: 11/20/23 SP TYPE: Surgical OTHR DR: Alex Stuart MD ORDERED: HE Stain/12 , Gross Micro L4/4 Copies To: Alex Stuart MD [facility] [address] [place] [address] Duke Rodriguez MD [facility] [address] [place], [place] [id number] - -------- Signed (signature on file) Paco Roblero MD 11/22/23 1415 - -------- END OF REPORT Complete Blood Count Auto Di ff Reviewed date:09/15/2024 05:35:59 PM Interpretation: Performing Lab:[facility], [address] [place] [phone] Notes/Report: White Blood Count 7.7 4.8-10.8 X10*3/uL Red Blood Count 4.53 4.60-5.80 X10*6/uL Hemoglobin 13.8 14.0-18.0 g/dl Hematocrit 41.0 42.0-52.0 % Mean Corpuscular Volume 90.5 80.0-98.0 fL Mean Corpuscular Hemoglobin 30.5 27.0-33.0 pg Mean Corpuscular HGB Conc 33.7 31.0-36.0 g/dl Red Cell Distribution Width 12.6 11.0-16.0 % Platelet Count 201 160-400 X10*3/uL Mean Platelet Volume 10.2 9.4-12.4 fL Neutrophils Percent Auto 68.5 45-73 % Imm Gran Pct Auto 0.3 0.0-0.4 % Lymphocytes Percent Auto 23.7 20-40 % Monocytes Percent Auto 6.3 2-11 % Eosinophils Percent Auto 0.8 0-4 % Basophils Percent Auto 0.4 0-2 % NRBC Pct Auto 0.0 0.0-0.2 /100WBC Neutrophils Absolute Auto 5.3 2.0-8.3 x10*3/u L Imm Gran Abs Auto 0.02 0.00-0.03 X10*3/uL Lymphocytes Absolute Auto 1.8 1.2-4.9 X10*3/u L Monocytes Absolute Auto 0.5 0.1-1.2 X10*3/uL Eosinophils Absolute Auto 0.1 0.0-0.4 X10*3/u L Basophils Absolute Auto 0.0 0.0-0.2 X10*3/uL NRBC Abs Auto 0.000 0.0-0.012 X10*3/uL Liver Panel Reviewed date:09/15/2024 03:01:59 PM Interpretation: Performing Lab:[facility], [address] [place] [phone] Notes/Report: Bilirubin Total 0.8 0.0-1.0 mg/dL Bilirubin Direct 0.2 0.0-0.5 mg/dL Aspartate Amino Transferase 24 5-37 U/L Alanine Aminotransferase 9 0-40 U/L Total Protein 6.8 6.5-8.0 g/dL Albumin Level 4.3 3.5-5.0 g/dL Alkaline Phosphatase 51 39-117 U/L Basic Metabolic Panel Reviewed date:09/15/2024 05:33:53 PM Interpretation: Performing Lab:[facility], [address] [place] [phone] Notes/Report: Sodium 139 135-145 mmol/L Potassium 4.0 3.3-5.1 mmol/L Chloride 107 96-108 mmol/L Carbon Dioxide 26 22-29 mmol/L Anion Gap 10 12-20 Blood Urea Nitrogen 17 9-16 mg/dL Creatinine 1.23 0.5-1.4 mg/dL Creatinine [...] Estimated GFR < 15 mL/min/1.73m2 Glucose Random 116 60-115 mg/dL Calcium 9.2 8.4-10.2 mg/dL Magnesium Reviewed date:09/15/2024 03:02:13 PM Interpretation: Performing Lab:[facility], [address] [place] [phone] Notes/Report: Magnesium 2.1 1.6-2.6 mg/dL C Reactive Protein Reviewed date:09/15/2024 03:00:53 PM Interpretation: Performing Lab:[facility], [address] [place] [phone] Notes/Report: C Reactive Protein < 0.04 < or = 0.50 mg/dL Lipase Reviewed date:09/15/2024 03:00:46 PM Interpretation: Performing Lab:[facility], [address] [place] [phone] Notes/Report: Lipase 39 8-78 U/L Hold Jah Reviewed date:09/15/2024 03:01:45 PM Interpretation: Performing Lab:[facility], [address] [place] [phone] Notes/Report: Tiffanie Tyson See Note Specimen held untested for 24 hours; Call to request Chemistry testing. UA CC w/rflx Micro + Cult Reviewed date:09/16/2024 07:42:01 PM Interpretation: Performing Lab:[facility], [address] [place] [phone] Notes/Report: Urine, Clean Catch Color Urine Yellow Appearance Urine Clear PH 7.0 5.0-9.0 Glucose Urine UA Negative Negative mg/dL Urine Blood Negative Negative Specific [place] - Urine 1.015 1.005-1.025 Urine Protein Negative Neg-Trace mg/dL Urine Ketones Negative Negative mg/dL Nitrite Urine Negative Negative Leukocyte Esterase Urine Negative Negative Reason For Referral No Information Medications Medication SIG (Take, Route, Frequency, Duration) Notes Start Date End Date Status Carbidopa-Levodopa 25-100 MG 1 tablet as needed Orally Three times a day Active Escitalopram Oxalate 5 MG 1 tablet Orall y Once a day 10/05/2024 Active Immunizations Vaccine Route Administration Date Status [...] Status W/U Status Risk Notes Problem Prostatism (42509531) Prostatism (N40.0) Active confirmed Problem 513282981 Tubular adenoma (D36.9) Active confirmed Problem Constipation (38758795) Constipation (K59.00) Active confirmed Problem Anxiety (74869146) Anxiety (F41.9) Active confirmed Problem 96768363 Crohn's disease, unspecified, with abscess (K50.914) Active confirmed Problem 1847817 Prediabetes (R73.09) Active confirmed Problem 294324667 History of hematuria (Z87.448) Active confirmed Problem 8888352 Migraine with au ra and without status migrainosus, not intractable (G43.109) Active confirmed Problem 373163771 Panic attacks (F41.0) Active confirmed Problem 895039324 Irritable bowel syndrome with constipation (K58.1) Active confirmed Problem 689802530 Arthritis of kne e (M17.10) Active confirmed Problem Lesion of liver (972095175) Liver lesion (K76.9) Active confirmed Problem 55713149 Parkinson's disease without dyskinesia, unspecified whether manifestations fluctuate (G20.A1) Active confirmed Vital Signs Blood pressure diastolic 76 mm Hg 10/05/2024 francisca ght is down 13 pounds since 07-16-24 Height 70 in 10/05/2024 weight is down 13 pounds since 07-16-24 Blood pressure systolic 144 mm Hg 10/05/2024 weig ht is down 13 pounds since 07-16-24 Weight 163 lbs 10/05/2024 weight is down 13 pounds since 07-16-24 BMI 23.39 kg/m2 10/05/2024 weight is down 13 pounds since 07-16-24 Procedures Procedure Date Ordered Date Performed Result Body Sit e Colonoscopy, Screening 11/20/2023 11/20/2023 3 year repeat Encounters Encounter Location Date Provider Diagnosis Alex Stuart MD [address] [id number] 10/05/2024 Alex Stuart Prediabetes R73.09 ; Prostatism N40.0 ; Blood tests for routine general physical examination Z00.00 and Liver mass R16.0 Alex Stuart MD [address] [id number] 10/05/2024 Alex Stuart Constipation K59.00 ; Ileus K56.7 ; Liver lesion K76.9 and Kidney cysts N28.1 Alex Stuart MD [address] [place] [id number] 10/08/2023 Alex Stuart Annual physical exam Z00.00 ; Stool guaiac positive R19.5 ; Right carotid bruit R09.89 ; Prediabetes R73.09 ; Prostatism N40.0 ; Encounter for screening for depression Z13.31 and Parkinson disease, symptomatic G20.A1 Alex Stuart MD [address] [place] [id number] 04/14/2024 Alex Stuart Prediabetes R73.09 ; Anxiety F41.9 and Parkinson's disease, unspecified whether dyskinesia present, unspecified whether manifestations fluctuate G20.A1 Alex Stuart MD [address] [place] [id number] 07/16/2024 Alex Stuart Prediabetes R73.09 a nd Parkinson disease G20 Alex Stuart MD [address] [place] [address] [id number] 10/02/2024 Alex Stuart Assessments Encounter Date Diagnosis (ICD Code) Assessment Notes Treatment Notes Treatment Clinical Notes Section Notes 10/05/2024 Prediabetes (ICD-10 - R73.09) 10/05/2024 Prostatism (ICD-10 - N40.0) 10/05/2024 Constipation (ICD-10 - K59.00) need results from the thyroid done 09/1810/05/2024 Ileus (ICD-10 - K56.7) 10/08/2023 Annual physical exam (ICD-10 - Z00.00) labs reviewed and discussed with patient 04/14/2024 Prediabetes (ICD-10 - R73.09) stable, no need formedication at this time 04/14/2024 Anxiety (ICD-10 - F41.9) was given a script for escitalopram but has not taken it. 07/16/2024 Prediabetes (ICD-10 - R73.09) stable, no need for medication at this time 10/05/2024 Blood tests for routine general physical examination (ICD-10 - Z00.00) 10/05/2024 Liver lesion (ICD-10 - K76.9) needs liver mass imaging. need to talk to radiology to see what that is/ has ongoing weight loss and abnomal ct of liver. need further evaluation to ascertain that this is not a cancer 10/08/2023 Stool guaiac positive (ICD-10 - R19.5) going for colonoscopy in 04/14/2024 Parkinson's disease, unspecified whether dyskinesia present, unspecified whether manifestations fluctuate (ICD-10 - G20.A1) 07/16/2024 Parkinson disease (ICD-10 - G20) not doing well at present, will continue current regiment 10/05/2024 Kidney cysts (ICD-10 - N28.1) us kidney 10/08/2023 Right carotid bruit (ICD-10 - R09.89) had normal carotid us with the bruits and no need to do any further testing 10/05/2024 Liver mass (ICD-10 - R16.0) 10/08/2023 Prediabetes (ICD-10 - R73.09) stable, no [...] 04/20/2011 Electrocardiogram (EKG) 08/16/2015 Electrocardiogram (EKG) 09/06/2016 URINALYSIS, COMPLETE 09/22/2020 MRI ABD W&WO CONTRAST 10/05/2024 RENAL US WITH BLADDER 10/30/2021 Complete Blood Count Auto Diff Comprehensive [place]. Panel Fast Lipid Panel 10/05/2024 PSA,Total (Free>4and<10) 10/05/2024 Microalbumin, Random 10/05/2024 US renal BI 10/05/2024 US renal BI 09/28/2021 US carotid duplex BI 09/28/2021 XR KUB 10/05/2024 Hemoglobin A1c 10/05/2024 UA ClnCatch+Micro w/rflx Cult 10/05/2024 Next Appt Details Provider Name:Alex Sotelo ier, 10/13/2024 01:00:00 PM, [address] [place] [address], [address], [place], [place], [id number], Insurance Providers Payer Name Payer Address Payer Phone Subscriber Number Group Number Insured Name Patient Relationship to Insured Coverage Start Date Coverage End Date [facility] [address] [place] [address] [phone] [id number] Gabriel Brian Self - patient is the insured Medical (General) History Medical History History ICD Code colonoscopy 2008; colonoscop y 06/10/2013 - repeat 5 years; Colonoscopy 06/13/18 - Dr. Rodriguez - repeat 5 years, colonoscopy 11/20/23 repeat 3 y trigeminal neurology hematuria w/u 07/15
[2024-10-05 11:55] LABS: Hemoglobin A1C 142.2038 umol/L; Total Hemoglobin (HGBA1C) 3841.5296 umol/L
[2024-10-05 12:16] LABS: PSA,Total (Free>4and<10) 1.25 ng/mL (0.00-4.00)
[2024-10-05 12:25] LABS: Alanine Aminotransferase 7 U/L (0-40); Albumin Level 4.4 g/dL (3.5-5.0); Alkaline Phosphatase 52 U/L (39-117); Anion Gap 14 (12-20); Aspartate Amino Transferase 26 U/L (5-37); Blood Urea Nitrogen 18 mg/dL (9-16); Calcium 9.3 mg/dL (8.4-10.2); Carbon Dioxide 25 mmol/L (22-29); Chloride 105 mmol/L (96-108); Cholesterol 206 mg/dL (<200); Estimated Glomerular Filt Rate 58; HDL Cholesterol 62 mg/dL (>40); Potassium 3.9 mmol/L (3.3-5.1); Sodium 140 mmol/L (135-145); Total Protein 7.0 g/dL (6.5-8.0); Triglycerides 94 mg/dL (<150)
== END 2024-10-05 10:51 | disposition home or self-care (01) ==
LOC: HO.XRAY 10:50
PROVIDERS: PCP Internal Medicine; Visit Provider Internal Medicine
DX: K56.7 Ileus, unspecified (principal); N40.0 Benign prostatic hyperplasia without lower urinary tract symptoms; R73.09 Other abnormal glucose; Z12.5 Encounter for screening for malignant neoplasm of prostate; Z13.6 Encounter for screening for cardiovascular disorders; Z00.00 Encounter for general adult medical examination without abnormal findings
CPT/HCPCS: 36415; 74018; 80053; 80061; 83036; 84153; 85025

== ENCOUNTER → 2024-10-05 11:00 | Outpatient (BNV) | payer OTHER, SELFPAY | PROVIDERS: PCP Internal Medicine; Visit Provider Radiology Diagnostic Radiology | DX: K56.7 Ileus, unspecified (principal) | CPT/HCPCS: 74018 ==

== ENCOUNTER 2024-10-20 09:50 | Outpatient (AMB) | payer OTHER, SELFPAY ==
--- NOTE | 2024-10-20 09:54 | A.OFFVIS_ITS ---
Vital Signs 10/20/24 09:56 Height 5 ft 10 in Weight 161 lb 6 oz BMI 23.2 BP 140/70 H Blood Pressure Location Rt brachial Pulse 76 Pulse Source Pulse Oximeter Pulse Oximetry (%) 96 Oxygen Delivery Method Room Air Intake Visit Reasons: Follow up Sterilisation Technician Required: No Accompanied by: Spouse Allergies No Known Allergies Allergy (Verified 09/17/24 21:21) HPI Comments Details: 69y/o right handed male comes for follow up.He reports severe worsening since his hospitalization for severe constipation.Now he feels his medication is not working , He reports anxiety , depression , sleep issues, freezing epsiodes and gen weakness. He started his escitalopram 3 weeks ago and feels it is not helping. He is against using miralax which was suggested by his GI He is is seeing Dr. Momin ( functional medicine) He is now on a supplement - , PATRICIO supplement , another supplement for mood . History form last visit-He has some good days and some bad days . 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 He is better when he exercises. he also has left knee pain- has PRP treatment. He is doing good with meds and he did BIG program in June and JULY which helped. He reports fatigue around noon time after his meds. Denies dizziness, but feels like he can fall asleep.He does exercise in the afternoon and feels good. He feels anxious in the mornings.He will start playing Golf this week. He eats breakfast at 6am - oatmeal and banana. 2.30-4pm exercises with boxing trainer M,W,F He does not eat lunch . He eats between 5pm-6pm and by 6.30 pm he is sleeping. He wakes up at 9pm and takes melatonin 10mg and sleeps from 10pm - 2 am . History from initial visit- He was seen by Dr. Damon and was diagnosed with parkinsons and started on sinemet 25/100 1 tab tid which helped. He started noticing tremors about 2 years ago . The left hand tremors were worse compared to right.The tremors were mainly in the morning and at rest. He also felt his legs were stiff and tight.He also had right shoulder issues , has a shot in his neck, diagnosed with c spine stenosis . He did PT and felt better. 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 Motivated- good Speech- Normal Drooling- at nighttime Writing- poor , smaller. using utensils- good Dressing- good SHower- normal Turning in bed- normal Gait- good Hallucinations - none He had h/o Crohns and had diarrhea and constipation. falls- none He had concussions from Football as a kid No exposure to chemicals [facility] Medical History Anxiety Constipation Anxiety Benign enlargement of prostate Parkinson's disease without dyskinesia Right shoulder tendinitis Lumbar spondylosis Cervical spinal stenosis Crohn disease Surgical History S/P colon polypectomy Hx of colonoscopy H/O left knee surgery Family History Mother No problems noted. Father No problems noted. Sister Breast CA Brother No problems noted. Social History Household Members: Spouse Housing: House Do you presently have visiting nurse or other home services: No Alcohol intake: never Comment: at bed side Patient Tobacco Use Status: Former Tobacco user Tobacco use type: Cigarette Second Hand Smoke Exposure: No Advance Directives Date on File: 09/18/24 service: No Physical Exam Vital Signs: Last Vital Signs Pulse 76 10/20/24 09:56 BP 140/70 H 10/20/24 09:56 Pulse Ox 96 10/20/24 09:56 Oxygen Delivery Method Room Air 10/20/24 09:56 BMI result Body Mass Index 23.2 Const General: cooperative, healthy appearing and comfortable Nutritional Appearance: average body habitus Orientation/consciousness: patient oriented x3 Limitations: no limitations Eyes Pupils: Equal, round and reactive pupils present Neuro Other: mild infrequent rest tremors Left UE Mild decreased facial expression and blink FFM and foot taps decreased gisele L>R Gait- stooped , smaller stride , mild decreased arm swings gisele Mild cogwheel rigidity L>R General: patient oriented x3, moves all extremities and no focal motor deficits Cranial nerves: Yes Facial sensation intact/muscles of mastication intact, Yes Equal, round and reactive pupils present, Yes Bilaterally intact EOM present, Yes Nystagmus not present, Yes Normal facial strength present, Yes Midline tongue present and Yes Symmetric palate elevation present Cognition (Neuro): normal cognition Motor exam (neuro): 5/5 motor strength present throughout Coordination: [id number] test normal Psych Affect: Anxious affect present Assessment & Plan Assessment & Plan (1) Parkinson's disease without dyskinesia: Code(s): G20.A1 - Parkinson's disease without dyskinesia, without mention of fluctuations Category: Medical Qualifiers: Fluctuating manifestations: without fluctuating manifestations Qualified Code(s): G20.A1 - Parkinson's disease without dyskinesia, without mention of fluctuations (2) Constipation: Code(s): K59.00 - Constipation, unspecified Category: Medical (3) Anxiety: Code(s): F41.9 - Anxiety disorder, unspecified Category: Medical Plan Increase escitalopram 10 mg qd I will trial him on Clonazepam 0.25mg qhs Continue sinemet 25/100 tid. Discussed about interaction with protein Sinemet ER/100 8-9pm This was a counseling predominated session . Info on APDA PDA given to patient Medications: New clonazepam administer 30 minutes before bedtime 0.25 mg PO BEDTIME 30 tabs 3RF Coding Level of Care Code Est Pt Level 4 (34816) Complex EM visit Add On G2211 Diagnoses Parkinson's disease without dyskinesia or fluctuating manifestations G20.A1 Fluctuating manifestations: without fluctuating manifestations Constipation K59.00 Anxiety F41.9
[2024-10-20 09:56] VITALS: BP 140/70; PULSE 76; O2SAT 96; BMI 23.2
--- OUTSIDE RECORDS SUMMARY | 2024-10-20 10:28 | XMS_ITS | Patient Health Record ---
Author Organization [facility] Address [address] [place] [phone] Care Team Providers Care Road Roller Operator Hot Mix Name Role Phone Narciso BECERRA, Alex Primary Care Provider Duke Albarado Unavailable [phone] Allergies No Known Allergies Results Component Value Reference Range Notes Pathology Reviewed date:09/15/2024 09:12:30 AM Interpretation: Performing Lab:[facility], [address] [place] [phone] Notes/Report: CT abdomen pelvis w con Reviewed date:09/16/2024 12:04:45 AM Interpretation: Performing Lab: Notes/Report: [address] [address] [address] Scan Report Signed Patient: Dave Heller MR#: [id number] : 1955 Acct:[id number] Age/Sex: 69 / M ADM Date: 09/15/24 Loc: HO.ED Attending Dr: Ordering Physician: Neisha Pepper PA-C Date of Service: 09/15/24 Procedure(s): CT abdomen pelvis w IV con Accession Number(s): [id number] cc: Neisha Pepper PA-C; Duke Rodriguez MD Report Number: [id number]: Total DLP = 463.00 mGy-cm CLINICAL HISTORY: [...] Severe stool burden is noted distally with sppyetbq-uy-uyqovk distention of the distal large intestine and [...] in OV> 09/15/242256 DD/ 55 TD/TT: 09/15/242255 Network Coordinator: KATIE BURGOS Reviewed date:09/18/2024 04:54:49 PM Interpretation: Performing Lab: Notes/Report: [address] [address] XRay Report Signed Patient: Dave Heller MR#: [id number] : 1955 Acct:[id number] Age/Sex: 69 / M ADM Date: 09/17/24 Loc: HO.ED Attending Dr: Ordering Physician: Marni Correa MD Date of Service: 09/17/24 Procedure(s): XR KUB Accession Number(s): [id number] cc: Marni Correa MD; Duke Rodriguez MD [...] in OV> 09/17/242213 DD/ 11 TD/TT: 09/17/242211 Network Coordinator: Basic Metabolic Panel Fastin g Reviewed date:09/18/2024 04:53:36 PM Interpretation: Performing Lab:[facility], [address] [place] [phone] Notes/Report: Sodium 138 135-145 mmol/L Potassium 4.1 [...] Creatinine Reviewed date:09/18/2024 04:54:12 PM Interpretation: Performing Lab:[address] [phone] Notes/Report: Creatinine 1.13 0.5-1.4 mg/dL Creatinine Clr [...] Thyroxine) Reviewed date:09/18/2024 04:53:54 PM Interpretation: Performing Lab:[address] [address] Notes/Report: Free T4 (Free Thyroxine) 1.14 0.71-1.85 ng/dL Thyroid Stimulating Hormone Reviewed date:09/18/2024 04:54:01 PM Interpretation: Performing Lab:[address] [address] Notes/Report: Thyroid Stimulating Hormone 0.99 0.32-4.0 uIU/ mL TSH 3rd Generation ([facility]) Complete Blood Count Auto Di ff Reviewed date:09/19/2024 06:18:39 PM Interpretation: Performing Lab:[address] [address] Notes/Report: White Blood Count 7.0 4.8-10.8 X10*3/uL [...] Panel Reviewed date:09/19/2024 06:18:13 PM Interpretation: Performing Lab:[facility], [address] [place] [phone] Notes/Report: Sodium 142 135-145 mmol/L Potassium 3.7 [...] Creatinine Reviewed date:09/19/2024 06:18:25 PM Interpretation: Performing Lab:[facility], [address] [place] [phone] Notes/Report: Creatinine 1.12 0.5-1.4 mg/dL Creatinine Clr [...] gy Reviewed date:09/21/2024 11:04:24 PM Interpretation: Performing Lab:[facility], [address] [place] [phone] Notes/Report: Hold Lav - Possible Hematology SEE NOTE Specimen will be held untested for 8 hours. Call Hematology if testing is desired. Basic Metabolic Panel Reviewed date:09/21/2024 11:04:10 PM Interpretation: Performing Lab:[facility], [address] [place] [phone] Notes/Report: Sodium 142 135-145 mmol/L Potassium 3.9 [...] date:09/21/2024 11:03:57 PM Interpretation: Performing Lab: Notes/Report: [address] [address] XRay Report Signed Patient: Dave Heller MR#: [id number] : 1955 Acct:[id number] Age/Sex: 69 / M ADM Date: 09/18/24 Loc: .S3 360-[address]: June ASTUDILLO Ordering Physician: June Pfeiffer Date of Service: 09/20/24 Procedure(s): XR KUB Accession Number(s): [id number] cc: June Pfeiffer; Duke Rodriguez MD CLINICAL [...] 09/20/24 1126 DD/ 1125 TD/TT: 09/20/24 1125 Network Coordinator: Reason For Referral No Information Medications Medication [...] Problem Status W/U Status Risk Notes Problem [id number] Encounter for screening for malignant neoplasm of colon (Z12.11) Active confirmed Problem Diverticulosis o f large intestine without perforation or abscess without bleeding (K57.30) Active confirmed Problem 517399324011637 Preprocedural examination (Z01.818) Active confirmed Problem 361771603 Family history o f colon cancer (Z80.0) Active confirmed Problem 83436576 Constipation, unspecified constipation type (K59.00) Active confirmed Problem 100005692 Hx of adenomatou s colonic polyps (Z86.010) Active confirmed Problem 34357699 Crohn''s disease of small intestine without complication (K50.00) Active confirmed Encounters Encounter Location Date Provider Diagnosis [facility] [address] [place] [phone] 11/20/2023 Duke Rodriguez Colon cancer screeni ng Z12.11 ; Colon polyps K63.5 ; Family history of colon cancer Z80.0 ; Other specified diseases of intestine K63.89 ; Diverticulosis of large intestine without perforation or abscess without bleeding K57.30 and Other hemorrhoids K64.8 [facility] [address] [place] [phone] 11/19/2023 Duke Rodriguez [facility] [address] [place] [phone] 09/14/2024 Duke Rodriguez [facility] [address] [place] [phone] 09/17/2024 Duke Rodriguez [facility] [address] [place] [phone] 09/18/2024 Duke Rodriguez [facility] [address] [place] [phone] 09/22/2024 Duke Rodriguez [facility] [address] [place] [phone] 09/28/2024 Duke Rodriguez Assessments Encounter Date Diagnosis (ICD [...] Insured Coverage Start Date Coverage End Date [employer] [address] [place] [phone] [id number] DAVE HELLER Self - patient is the insured Medical [...] on his colonoscopies and GI series. Denies KS,DM,CVA,Lung disease,renal dise ase Neg. ETT Negative colonoscopy in 2018 other than his known melanosis coli and Crohn's ileitis. Parkinson's disease Anxiety in association with the Parkinso n's disease Surgical History Surgery Date(Month/Year) Knee surgery
--- OUTSIDE RECORDS SUMMARY | 2024-10-20 10:28 | XMS_ITS | Clinical Summary ---
Author Organization [facility] Address [address] [place] [phone] Phone Care Team Providers Care Ink Printer Name Role Phone Alex Stuart MD Primary Care Provider Odette Damon MD Unavailable Roro Trujillo MD Unavailable [phone] Allergies No known active allergies Medications carbidopa-levodo pa (SINEMET) 25-100 mg per tablet 1 tablet as needed Orally Three times a day Active Active Problems Problem Noted Date Diagnosed Date Parkinson's disease without dyskinesia or fluctuating manifestations 05/02/2023 Moderate episode of recurrent major depressive d isorder 05/02/2023 Crohn's disease of small intestine without compl ication 05/02/2023 Social History Tobacco Use Types Packs/Day Years Used Date Smoking Tobacco: Never Assessed Education Answer Date Recorded Are you interested in more education? Not on owen e 08/30/2022 Are you concerned about learning? Not on file 08/30/2022 No 08/30/2022 No 08/30/2022 Digital Access Answer Date Recorded No 08/30/2022 No 08/30/2022 Reliable internet access at home? Not on file 08/30/2022 Device with a working camera? Not on file Sex and Gender Information Value Date Recorded Sex Assigned at Male 08/21/2022 10:36 AM EDT Legal Sex Male 10:33 AM EDT Gender Identity Male 08/21/2022 10:36 AM EDT Sexual Orientation Straight 08/21/2022 10 :36 AM EDT Last Filed Vital Signs Vital Sign Reading Time Taken Comments Blood Pressure 118/70 05/02/2023 7:44 AM EST Pulse 63 05/02/2023 7:44 AM EST Temperature 36 C (96.8 F) 05/02/2023 7:44 AM EST Respiratory Rate - - Oxygen Saturation 97% 05/02/2023 7:44 AM EST Inhaled Oxygen Concentration - - Weight 79 kg (174 lb 2.6 oz) 05/02/2023 7:44 AM EST Height 175.5 cm (5' 9.09 ) 05/02/2023 7:44 AM ES T Body Mass Index 25.65 05/02/2023 7:44 AM EST Plan of Treatment Health Maintenance Due Date Last Done Comments Adult Td,Tdap Booster 1955 LIPID PANEL 1955 DEPRESSION SCREENING 1965 SMOKING Hx and SMOKELESS TOB ACCO SCREENING 1966 HEPATITIS C SCREENING 1971 COLOGUARD 1998 COLONOSCOPY 1998 COLORECTAL CANCER SCREENING 1998 FIT TEST 1998 FOBT 1998 SIGMOIDOSCOPY 1998 VIRTUAL COLONOSCOPY 1998 PNEUMOCOCCAL VACCINES (50+ y ears) (1 of 1 - PCV) 2003 ZOSTER VACCINES (1 of 2) 2003 COVID-19 VACCINE ( - 2023-2 5 season) 2023 RSV VACCINE (1 - 1-dose 75+ series) 2028 HEPATITIS A VACCINES Aged Out No long er eligible based on patient's age to complete this topic HIB VACCINES Aged Out No longer eligi ble based on patient's age to complete this topic MENINGOCOCCAL VACCINES (ACWY) Aged Out No longer eligible based on patient's age to complete this topic MENINGOCOCCAL VACCINES (B) Aged Out N o longer eligible based on patient's age to complete this topic Medical Devices Not on file Insurance [facility] PPO MEDICARE A [facility] PPO MEDICARE A [facility] PPO MEDICARE A [facility] PPO Member Subscriber Plan / Payer ( fective 2022-) Name:Gabriel Brian Relation to Subscriber:Self Name:Gabriel Brian Payer ID:[id number] (NAIC) Group ID:Not on file Type:O Address: [address] [employer] [facility] MEDICARE A [facility] PPO MEDICARE A [facility] PPO MEDICARE A Care Teams Ink Printer Relationship Specialty Start Date End Date Alex Stuart MD [address] [place] [address] Dr [address] [place] [id number] PCP - General Internal Medicine 08/21/22 Odette Damon MD [address] [place] [address] Dr [address] [place] [id number] Neurology 05/02/23 Roro Trujillo MD [address] [place] [address] Dr [address] [place] [id number] Neurology 05/02/23 Additional Source Comments The information contained in this document represents components of the legal health record. It is not the complete legal health record.[facility]
--- OUTSIDE RECORDS SUMMARY | 2024-10-20 10:29 | XMS_ITS | Patient Health Record ---
Author Organization Alex Stuart MD Address [address] [place] [phone] Care Team Providers Care Cook Chief Name Role Phone Alex Stuart Primary Care Provider Allergies No Known Allergies Results Component Value Reference Range Notes Hemoglobin A1c Reviewed date:07/16/2024 01:50:05 PM Interpretation: Performing Lab: Notes/Report: Hemoglobin A1c 5.3 Complete Blood Count Auto Di ff Reviewed date:10/05/2024 12:55:35 PM Interpretation: Performing Lab:[facility], [address] [place] [phone] Notes/Report: White Blood Count 6.9 4.8-10.8 X10*3/uL [...] NRBC Abs Auto 0.000 0.0-0.012 X10*3/uL Comprehensive Wild Horse. Panel Fa st Reviewed date:10/05/2024 12:55:13 PM Interpretation: Performing Lab:[facility], [address] [place] [phone] Notes/Report: Sodium 140 135-145 mmol/L Potassium 3.9 [...] Panel Reviewed date:10/05/2024 12:54:35 PM Interpretation: Performing Lab:[address] [phone] Notes/Report: Triglycerides 94 <150 mg/dL Desirable Triglyceride: [...] (Free>4and<10) Reviewed date:10/05/2024 12:54:54 PM Interpretation: Performing Lab:[address] [address] Notes/Report: PSA,Total (Free>4and<10) 1.25 0.00-4.00 ng/mL A [...] A1c Reviewed date:10/05/2024 12:50:47 PM Interpretation: Performing Lab:[address], [place] [address] Notes/Report: Hemoglobin A1c % 5.5 <6.0 % [...] average glucose, using the formula of the F4G-Lzscmfz Average Glucose study (ADAG), Diabetes Care, Vol.31,#8, Oct. 2007 Glucose, finger stick Reviewed date:04/14/2024 01:47:16 PM Interpretation: Performing Lab: Notes/Report: Value 98 Glucose, finger stick Reviewed date:07/16/2024 01:43:31 PM Interpretation: Performing Lab: Notes/Report: Value 132 XR KUB Reviewed date:10/05/2024 01:05:26 PM Interpretation: Performing Lab: Notes/Report: [address] [address] XRay Report Signed Patient: Gabriel Brian MR#: [id number] : 1955 Acct:[id number] Age/Sex: 69 / M ADM Date: 10/05/24 Loc: HO.ROB Attending Dr: Alex Stuart MD Ordering Physician: Alex Stuart MD Date of Service: 10/05/24 Procedure(s): XR KUB Accession Number(s): [id number] cc: Alex Stuart MD EXAMINATION: XR ABDOMEN [...] Duke Wolfe MD 10/05/2024 12:53 PM EDT Dictated By: Duke Wolfe MD Signed By: <Electronically signed by Duke Wolfe MD in OV> 10/05/24 1253 DD/ 1100 TD/TT: 10/05/24 1115 Squil[place]: [address] [place] [address] XRay Report Signed Patient: Gabriel Brian MR#: [id number] : 1955 Acct:[id number] Age/Sex: 69 / M ADM Date: 10/05/24 Loc: HO.XRAY Attending Dr: Alex Stuart MD Ordering Physician: Alex Stuart MD Date of Service: 10/05/24 Procedure(s): XR KUB Accession Number(s): [id number] cc: Alex Stuart MD EXAMINATION: XR ABDOMEN 1 VIEW (KUB) HISTORY: ILEUS COMPARISON: Comparis on is made with the prior examination dated 09/20/2024. FINDINGS: Two supine views of the abdomen are submitted. The bowel gas pattern is unremarkable, without evidence of mechanical obstruction. There a re phleboliths in the pelvis. There are no abnormal soft tissue masses. The bones are intact. XR/XR KUB IMPRESSION: Unremarkable bowel g as pattern. Electronically tricia d by: Duke Wolfe MD 10/05/2024 12:53 PM EDT RP Dictated By: Duke Wolfe MD Signed By: <Electronically signed by Duke Wolfe MD in OV> 10/05/24 1253 DD/ 1100 TD/TT: 10/05/24 1115 Squilgeer: Pathology Reviewed date:11/22/2023 02:45:33 PM Interpretation: Performing Lab:[facility], [address] [place] [phone] Notes/Report: -- ---- Name: RocGbariel Jenifer Age/Sex: 68/M [facility] 1955 [id number]#: [id number] Attend Dr: Duke Rodriguez MD Re11/20/23 Status : [facility] Location: [facility] Disch: -- ---- SPEC : [id number] RECD : 11/20/23-1042 STATUS: [facility] NUM: [id number] MADI: 11/20/23-[address] [facility] [address]: Duke Rodriguez MD ENTERED: 11/20/23-02 13 SP TYPE: Surgical OTHR DR: Alex Stuart MD ORDERED: HE Stain/ , Gross Micro L4/4 Diagnosis A. Colon, [...] fragment, bisected and totally submitted in karla perry D1. (DT) Excision time: 09:00 ; formalin time: 09:00; cold ischemic time: 0 minutes; total time in formalin: 8-9 hours CONTINUED ON NEXT PAGE -- ---- Name: Gabriel Brian Age/Sex: 68/M : 1955 Unit#: [id number] Attend Dr: Duke Rodriguez MD Re11/20/23 Status : [facility] Location: [facility] Disch: -- ---- SPEC : [id number] RECD : 11/20/23 STATUS: [facility] NUM: [id number] MADI: 11/20/23-[address] [facility] [address]: Duke Rodriguez MD ENTERED: 11/20/23-02 13 SP TYPE: Surgical OTHR DR: Alex Stuart MD ORDERED: HE Stain/12 , Gross Micro L4/4 Copies To: Alex Stuart MD [facility] [address] [place] [address] Duke Rodriguez MD [facility] [address] [place], [place] [phone] -- ---- Signed (signature on file) Paco Roblero MD 11/22/23 1415 -- ---- END OF REPORT Complete Blood Count Auto Di ff Reviewed date:09/15/2024 05:35:59 PM Interpretation: Performing Lab:[facility], [address] [place] [phone] Notes/Report: White Blood Count 7.7 4.8-10.8 X10*3/uL [...] Panel Reviewed date:09/15/2024 03:01:59 PM Interpretation: Performing Lab:[address] [address] Notes/Report: Bilirubin Total 0.8 0.0-1.0 mg/dL Bilirubin Direct 0.2 0.0-0.5 mg/dL Aspartate Amino Transferase 24 5-37 U/L Alanine Aminotransferase 9 0-40 U/L Total Protein 6.8 6.5-8.0 g/dL Albumin Level 4.3 3.5-5.0 g/dL Alkaline Phosphatase 51 39-117 U/L Basic Metabolic Panel Reviewed date:09/15/2024 05:33:53 PM Interpretation: Performing Lab:[address] [address] Notes/Report: Sodium 139 135-145 mmol/L Potassium 4.0 [...] Magnesium Reviewed date:09/15/2024 03:02:13 PM Interpretation: Performing Lab:[address] [address] Notes/Report: Magnesium 2.1 1.6-2.6 mg/dL C Reactive Protein Reviewed date:09/15/2024 03:00:53 PM Interpretation: Performing Lab:[facility], [address] [place] [phone] Notes/Report: C Reactive Protein < 0.04 < or = 0.50 mg/dL Lipase Reviewed date:09/15/2024 03:00:46 PM Interpretation: Performing Lab:[address] [address] Notes/Report: Lipase 39 8-78 U/L Hold Gold Reviewed date:09/15/2024 03:01:45 PM Interpretation: Performing Lab:[address] [address] Notes/Report: Hold Gold See Note Specimen held untested for 24 hours; Call to request Chemistry testing. UA CC w/rflx Micro + Cult Reviewed date:09/16/2024 07:42:01 PM Interpretation: Performing Lab:[address] [address] Notes/Report: Urine, Clean Catch Color Urine Yellow Appearance Urine Clear PH 7.0 5.0-9.0 Glucose Urine UA Negative Negative mg/dL Urine Blood Negative Negative Specific [place] - Urine 1.015 1.005-1.025 Urine Protein Negative Neg-Trace mg/dL Urine Ketones Negative Negative mg/dL Nitrite Urine Negative Negative Leukocyte Esterase Urine Negative Negative Reason For Referral Reason parkinson's disease Diagnosis 1 Parkinson's disease without dyskinesia, unspecified whether manifestations fluctuate (G20.A1) Referral Organization Alex Stuart MD Referring Provider First Name Alex Referring Provider Last Name Narciso Referring Provider Speciality Internal M edicine Referred Provider Miles Puri Referred Provider Specialty Neurology General Notes Allyssa Solo 0 10/13/2024 02:30:26 PM > phone [phone] fax [phone], Allyssa Solo 10/15/2024 11:47:47 AM >spoke with patient he needs to call them a per register, Wants me to hold off on sending this referral , He was told they are booking in July 2025 Referral Priority Routine Medications Medication SIG (Take, Route, Frequency, Duration) [...] Status W/U Status Risk Notes Problem Prostatism (33151618) Prostatism (N40.0) Active confirmed Problem 556512870 Tubular adenoma (D36.9) Active confirmed Problem Constipation (63313716) Constipation (K59.00) Active confirmed Problem Anxiety (14006224) Anxiety (F41.9) Active confirmed Problem 20743391 Crohn's disease, unspecified, with abscess (K50.914) Active confirmed Problem 3625864 Prediabetes (R73.09) Active confirmed Problem 609731892 History of hematuria (Z87.448) Active confirmed Problem 4223651 Migraine with au ra and without status migrainosus, not intractable (G43.109) Active confirmed Problem 046186173 Panic attacks (F41.0) Active confirmed Problem Liver cyst (43352207) Liver cyst (K76.89) Active confirmed Problem 972542576 Irritable bowel syndrome with constipation (K58.1) Active confirmed Problem 743579764 Arthritis of kne e (M17.10) Active confirmed Problem Lesion of liver (619285968) Liver lesion (K76.9) Active confirmed Problem 02098097 Parkinson's disease without dyskinesia, unspecified whether manifestations fluctuate (G20.A1) Active confirmed Vital Signs Blood pressure diastolic 66 mm Hg 10/13/2024 Height 70 in 10/13/2024 Blood pressure systolic 128 mm Hg 10/13/2024 Weight 163 lbs 10/13/2024 BMI 23.39 kg/m2 10/13/2024 Procedures Procedure Date Ordered Date Performed Result Body Sit e Colonoscopy, Screening 11/20/2023 11/20/2023 3 year repeat Encounters Encounter Location Date Provider Diagnosis Alex Stuart MD [address] [place] [id number] 10/05/2024 Alex Stuart Prediabetes R73.09 ; Prostatism N40.0 ; Blood tests for routine general physical examination Z00.00 and Liver mass R16.0 Alex Stuart MD [address] [place] [address] Drive [address] [place] [id number] 10/13/2024 Alex Stuart Annual physical exam Z00.00 ; Parkinson's disease without dyskinesia, unspecified whether manifestations fluctuate G20.A1 ; Liver cyst K76.89 ; Prediabetes R73.09 ; Prostatism N40.0 and Depression screening Z13.31 Alex Stuart MD [address] [place] [address] Drive [address] [place] [id number] 04/14/2024 Alex Stuart Prediabetes R73.09 ; Anxiety F41.9 and Parkinson's disease, unspecified whether dyskinesia present, unspecified whether manifestations fluctuate G20.A1 Alex Stuart MD [address] [place] [address] Drive [address] [place] [id number] 07/16/2024 Alex Stuart Prediabetes R73.09 a nd Parkinson disease G20 Alex Stuart MD [address] [place] [address] Drive [address] [place] [id number] 10/05/2024 Alex Stuart Constipation K59.00 ; Ileus K56.7 ; Liver lesion K76.9 and Kidney cysts N28.1 Alex Stuart MD [address] [place] [address] Drive [address] [place], [place] [phone] 10/02/2024 Alex Stuart Assessments Encounter Date Diagnosis (ICD Code) Assessment Notes Treatment Notes Treatment Clinical Notes Section Notes 10/05/2024 Prediabetes (ICD-10 - R73.09) 10/05/2024 Prostatism (ICD-10 - N40.0) 10/13/2024 Annual physical exam (ICD-10 - Z00.00) labs reviewed and discussed with patient 10/13/2024 Parkinson's disease without dyskinesia, unspecified whether manifestations fluctuate (ICD-10 - G20.A1) not doing well at present have suggested that he go to [facility] neurology dr puri 04/14/2024 Prediabetes (ICD-10 - R73.09) stable, no need formedication at this time 04/14/2024 Anxiety (ICD-10 - F41.9) was given a script for escitalopram but has not taken it. 07/16/2024 Prediabetes (ICD-10 - R73.09) stable, no need for medication at this time 10/05/2024 Constipation (ICD-10 - K59.00) need results from the thyroid done 09/1810/05/2024 Ileus (ICD-10 - K56.7) 10/05/2024 Blood tests for routine general physical examination (ICD-10 - Z00.00) 10/13/2024 Liver cyst (ICD-10 - K76.89) at present not able to do mri. the cyst appear to be small. will probably have to do the mri later 04/14/2024 Parkinson's disease, unspecified whether dyskinesia present, unspecified whether manifestations fluctuate (ICD-10 - G20.A1) 07/16/2024 Parkinson disease (ICD-10 - G20) not doing well at present, will continue current regiment 10/05/2024 Liver lesion (ICD-10 - K76.9) needs liver mass imaging. need to talk to radiology to see what that is/ has ongoing weight loss and abnomal ct of liver. need further evaluation to ascertain that this is not a cancer 10/13/2024 Prediabetes (ICD-10 - R73.09) stable, no need for medication at this time 10/05/2024 Kidney cysts (ICD-10 - N28.1) [facility] 10/05/2024 Liver mass (ICD-10 - R16.0) 10/13/2024 Prostatism (ICD-10 - N40.0) stable, will continue to monitor 10/13/2024 Depression screening (ICD-10 - Z13.31) negative screen 04/14/2024 Other stable, followe d by Neuro 10/05/2024 Other Total time spen t on the date of the encounter is 35 minutes including both face to face time spent and time spent reviewing documentation, pertinent lab data, studies and counseling the patient. Plan Of Treatment Pending Test Test Name Order Date Electrocardiogram (EKG) 08/16/2015 Electrocardiogram (EKG) 04/20/2011 Electrocardiogram (EKG) 09/06/2016 URINALYSIS, COMPLETE 09/22/2020 MRI ABD W&WO CONTRAST 10/05/2024 RENAL US WITH BLADDER 10/30/2021 Microalbumin, Random 10/05/2024 US renal BI 10/05/2024 US renal BI 09/28/2021 US carotid duplex BI 09/28/2021 UA ClnCatch+Micro w/rflx Cult 10/05/2024 Next Appt Details Provider Name:Alex Sotelo ier, 12/15/2024 01:30:00 PM, [address] [place] [address], [address], [phone], Provider Name:Alex Sotelo ier, 10/08/2025 07:00:00 AM, [address] [place] [address], [place] [address], [place], [place], [phone], Provider Name:Alex Sotelo ier, 10/15/2025 01:00:00 PM, [address] [place] [address], [address], [phone], Insurance Providers Payer Name Payer Address Payer Phone Subscriber Number Group Number Insured Name Patient Relationship to Insured Coverage Start Date Coverage End Date [facility] [id number] [place]ANE [id number] Gabriel Brian Self - patient is the insured Medical (General) History Medical History History ICD Code colonoscopy 2008; colonoscop y 06/10/2013 - repeat 5 years; Colonoscopy 06/13/18 - Dr. Rodriguez - repeat 5 years, colonoscopy 11/20/23 repeat 3 y trigeminal neurology hematuria w/u 07/15
== END 2024-10-20 10:42 | disposition home or self-care (01) ==
LOC: HO.HSMS 09:51
PROVIDERS: PCP Internal Medicine; Visit Provider Psychiatry & Neurology Neurology
DX: G20.A1 Parkinson's disease without dyskinesia, without mention of fluctuations (principal); K59.00 Constipation, unspecified; F41.9 Anxiety disorder, unspecified
CPT/HCPCS: 99214

== ENCOUNTER 2024-11-12 18:22 | Outpatient (REF) | payer OTHER, SELFPAY ==
[2024-11-12 18:35] LABS: Appearance Urine Cloudy; Glucose Urine UA Negative (Negative); PH 6.5 (5.0-9.0); Specific Gravity - Urine 1.015 (1.005-1.025); UMIC TRIGGER UACC YES
== END 2024-11-12 18:23 | disposition home or self-care (01) ==
LOC: HO.LNP 18:22
PROVIDERS: Visit Provider Internal Medicine
DX: N39.0 Urinary tract infection, site not specified (principal)
CPT/HCPCS: 81001

== ENCOUNTER 2024-12-01 09:34 | Outpatient (AMB) | payer OTHER, SELFPAY ==
--- OUTSIDE RECORDS SUMMARY | 2023-11-20 04:30 | XMS_ITS ---
Author Organization [facility] Address [address] [place] [address] Care Team Providers Care Contracting Analyst Name Role Phone Alex Stuart MD Primary Care Provider Duke Albarado [phone] REASON FOR VISIT screening,hx polyps, fam hx colon ca Medications Medication SIG (Take, Route, Frequency, Duration) Notes Start Date End Date Status Fish Oil 1000 MG 1 capsule Orally Thr ee times a day for 30 day(s) Active Carbidopa-Levodopa 25-100 MG Oral for 90 Active Garlic 100 MG as directed Orally Active Problems Problem Type SNOMED Code ICD Code Onset Dates Problem Status W/U Status Risk Notes Problem Diverticular disease of colon (241972155) Diverticulosis of large intestine without perforation or abscess without bleeding (K57.30) Active confirmed Encounters Encounter Location Date Provider Diagnosis [facility] [address] [place] [address] [phone] 11/20/2023 Duke Rodriguez Colon cancer scree donaldo [...] * DAVE HELLERDOB: [birth year] (69 yo M)Acc No.[id number]:11/20/2023 COLON WITH MAC Patient: DAVE FREEMAN Provider: Chelsi Rodriguez MD :1955 A ge:68 Y S ex:Male Date:11/20/2023 Address:[address] [place], [place] [id number] Pcp:Alex Stuart MD Subjective: * Chief Complaints: * 1 . Screening,hx polyps, fam hx colon ca. * Medical History: * Medications: T aking Garlic 100 MG Tablet as directed Orally , Taking Fish Oil 1000 MG Capsule 1 capsule Orally Three times a day , Taking Carbidopa-Levodopa 25-100 MG Tablet Oral Objective: * Vitals: Assessment: * Assessment: 1. C olon cancer screening - Z12.11 (Primary) 2 . C olon polyps - K63.5? 3. F amily history of colon cancer - Z80.0 4 . O ther specified diseases of intestine - K63.89 5 . D iverticulosis of large intestine without perforation or abscess without bleeding - K57.30 6 . O ther hemorrhoids - K64.8? Plan: * Treatment: * Procedure Codes: 4 5385 LESION REMOVAL COLONOSCOPY, Modifiers: 33 , 92282 COLONOSCOPY AND BIOPSY, Modifiers: 59 , 33 * * The named appointment provid er may or may not be the originator of this progress note, and it is not deemed complete until electronically signed by the appointment provider. Sign off status: Pending * Provider: Chelsi Rodriguez MD Date: 0 11/20/2023 Generated for Renuka kaminski/Joey/Yingitting on: 0 12/01/2024 11:02 AM EDT
--- OUTSIDE RECORDS SUMMARY | 2024-10-13 09:00 | XMS_ITS ---
Author Organization Alex Stuart MD Address [address] [place] [phone] Care Team Providers Care Rail Transportation Tabeler Name Role Phone Alex Stuart Primary Care Provider Allergies No Known Allergies Reason For Referral Reason parkinson's disease Diagnosis 1 Parkinson's disease without dyskinesia, unspecified whether manifestations fluctuate (G20.A1) Referral Organization Alex Stuart MD Referring Provider First Name Alex Referring Provider Last Name Narciso Referring Provider Speciality Internal M edicine Referred Provider Miles Puri Referred Provider Specialty Neurology General Notes Allyssa Solo 0 10/13/2024 02:30:26 PM > phone [phone] fax [phone], Allyssa Solo 10/15/2024 11:47:47 AM >spoke with patient he needs to call them a per register, Wants me to hold off on sending this referral , He was told they are booking in July 2025, Allyssa Solo 11/05/2024 01:44:08 PM >spoke with patient's , she said he want's to hold of on this referral to [facility] to travel Referral Priority Routine REASON FOR VISIT annual [...] W/U Status Risk Notes Problem Liver cyst (58273303) Liver cyst (K76.89) Active confirmed Vital Signs Blood pressure systolic 128 mm Hg 10/14/19 25 Blood pressure diastolic 66 mm Hg 025 Height 70 in 10/13/2024 Weight 163 lbs 10/13/2024 BMI 23.39 kg/m2 10/13/2024 Encounters Encounter Location Date Provider Diagnosis Alex Stuart MD [address] [place] [address] [address] [place], [place] [phone] 10/13/2024 Alex Stuart Annual physical exam Z00.00 [...] present have suggested that he go to [facility] medical neurology dr puri 10/13/2024 Liver cyst (ICD-10 [...] present have suggested that he go to [facility] neurology dr puri Liver cyst at present not able to do mri. the cyst appear to be small. will probably have to do the mri later Prediabetes stable, no need for medication at this time Prostatism stable, will continu e to monitor Depression screening negative screen Referrals Referral Date Details 10/13/2024 10/13/2024, parkinso n's disease, Miles Puri Next Appt Details Follow Up: 2 Months, Reason: Provider Name:Alex harvey, 12/15/2024 01:30:00 PM, [address] [place] [address], [address], [place], [place], [phone], Provider Name:Alex harvey, 10/08/2025 07:00:00 AM, [address] [place] [address] Drive, [address], [place], [place], [phone], Provider Name:Alex harvey, 10/15/2025 01:00:00 PM, [address] [place] [address], [address], [place], [place], [phone], Progress Notes * Gabriel HELLER PDOB: [birth year] (69 yo M)Acc No.[id number]:10/13/2024 Progress Notes Patient: Everett Gabriel BARR Provider: Oliver Stuart MD :1955 A ge:69 Y S ex:Male Date:10/13/2024 Address:[address] [place] [address], [facility] Subjective: * Chief Complaints: * A nnual [...] T obacco Use: T obacco Use/Smoking P atient is a n onsmoker, A dditional Findings: Tobacco Non-User C urrent non-smoker, currently using no form of tobacco. D rugs/Alcohol: A lcohol Screen D id you have a drink containing alcohol in the past year? N o, P oints 0 , I nterpretation N egative. M iscellaneous: C affeine: no. Children: no. Community involvements: no. 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 Home smoke detector use: yes. Housing: [...] Auto 0.000 0.0-0.012 - X10*3/uL L ab:Comprehensive [place]. Panel Fast (Order Date - 10/05/2024) (Collection [...] present have suggested that he go to [facility] medical neurology dr puri ? Referral [...] 0 10/13/2024 Generated for Renuka kaminski/Joey/Yingitting on: 0 12/01/2024 11:01 AM EDT History and Physical Notes * [...] Total Score: 0 Interpretation and Intervention Depression Janny fulton Findings: Negative Follow-Up for Depression: : review [...] had two or more falls in the st year?: No Communication Needs Communication Needs Does [...] Provider Referred Provider Not es 10/13/2024 Alex Stuart, Miles parkinson's disease
--- OUTSIDE RECORDS SUMMARY | 2024-10-29 09:11 | XMS_ITS ---
Author Organization Alex Stuart MD Address [address] [place] [phone] Care Team Providers Care Set Up Inspector Name Role Phone Alex Stuart Primary Care Provider [phone] REASON FOR VISIT US renal bilateral * Encounters Encounter Location Date Provider Diagnosis Alex Stuart MD [address] [place] [phone] 10/29/2024 Alex Stuart Plan Of Treatment Next Appt Details Provider Name:Alex harvey, 12/15/2024 01:30:00 PM, [address] [place] [address], [address] [place] [address], [phone], Provider Name:Alex harvey, 10/08/2025 07:00:00 AM, [address] [place] [address], [place] [address], [place], [place], [phone], Provider Name:Alex harvey, 10/15/2025 01:00:00 PM, [address] [place] [address], [address], [phone], Progress Notes * Gabriel HELLER PDOB: [birth year] (69 yo M)Acc No.[id number]:10/29/2024 Patient: Gabriel FREEMAN :1955 A ge:69 Y S ex:Male Address:[address] [place] [address], [place] [address] * * Date:
--- OUTSIDE RECORDS SUMMARY | 2024-11-12 09:30 | XMS_ITS ---
Author Organization Alex Stuart MD Address [address] [place] [phone] Care Team Providers Care Range Technician Name Role Phone Alex Stuart Primary Care Provider [phone] Results Component Value Reference Range Notes UA ClnCatch+Micro w/rflx Cul t Reviewed date:11/13/2024 12:40:07 PM Interpretation: Performing Lab:[facility] [place], [address] [place] [phone] Notes/Report: Urine, Clean Catch Color Urine Yellow Appearance Urine Cloudy PH 6.5 5.0-9.0 Glucose Urine UA Negative Negative mg/dL Urine Blood Trace Negative Specific [place] - Urine 1.015 1.005-1.025 Urine Protein Negative [...] Stuart MD [address] [place], [place] [phone] 11/12/2024 Alex Stuart UTI (urinary tract infection) N39.0 Assessments Encounter Date Diagnosis (ICD Code) Assessment Notes Treatment Notes Treatment Clinical Notes Section Notes 11/12/2024 UTI (urinary tract infection) (ICD-10 - N39.0) Plan Of Treatment Next Appt Details Provider Name:Alex harvey, 12/15/2024 01:30:00 PM, [address] [place] [address], Suite [facility], [place], [place], [phone], Provider Name:Alex harvey, 10/08/2025 07:00:00 AM, [address] [place] [address], Suite [facility], [place], [place], [phone], Provider Name:Alex harvey, 10/15/2025 01:00:00 PM, [address] [place] [address], [place] [address], [place], [place], [phone], Progress Notes * Gabriel HELLER PDOB: [birth year] (69 yo M)Acc No.[id number]:11/12/2024 Progress Note Patient: Everett Gabriel BARR Provider: Oliver Stuart MD :1955 A ge:69 Y S ex:Male Date:11/12/2024 Address:[address] [place] [address], [facility] Subjective: * Chief Complaints: * 1 . [...] 0 11/12/2024 Generated for Renuka kaminski/Joey/eTsarkissmitting on: 0 12/01/2024 11:03 AM EDT
--- OUTSIDE RECORDS SUMMARY | 2024-11-26 05:48 | XMS_ITS ---
Author Organization Alex Stuart MD Address [address] [place] [phone] Care Team Providers Care Pit Crane Operator Name Role Phone Alex Stuart Primary Care Provider [phone] REASON FOR VISIT Discharge summary rec'd Encounters Encounter Location Date Provider Diagnosis Alex Stuart MD [address] [place] [phone] 11/26/2024 Alex Stuart Plan Of Treatment Next Appt Details Provider Name:Alex harvey, 12/15/2024 01:30:00 PM, [address] [place] [address], [address] [place] [address], [phone], Provider Name:Alex harvey, 10/08/2025 07:00:00 AM, [address] [place] [address], [place] [address], [place], [place], [phone], Provider Name:Alex harvey, 10/15/2025 01:00:00 PM, [address] [place] [address], [address], [phone], Progress Notes * Gabriel HELLER PDOB: [birth year] (69 yo M)Acc No.[id number]:11/26/2024 Patient: Everett Gabriel BARR :1955 A ge:69 Y S ex:Male Address:[address] [place] [address], [place] [address] * true * Date: Generated for Renuka kaminski/Joey/Ronsmitting on: 0 12/01/2024 11:03 AM EDT
--- OUTSIDE RECORDS SUMMARY | 2024-11-26 13:00 | XMS_ITS | Encounter Summary ---
Author Organization [facility] Address [address] [place] [phone] Phone Care Team Providers Care Refining Still Operator Name Role Phone Alex Stuart MD Primary Care Provider Odette Damon MD Unavailable [phone] Roro Trujillo MD Unavailable [phone] Reason for Visit * Auth/Cert (Routine) Specialty Diagnoses / Procedures Referred By Contac t Referred To Contact Referral ID Status Reason Start Date Expiration Date Visits Re quested Visits Authorized [id number] 1 1 Encounter Details Date Type Department Care Team (Late st Contact Info) Description 11/26/2024 1:00 PM EDT Home Care Visit [facility] [address] [place] [phone] Michelle Espinosa RN [address] [place] [address] [email or web address] SN OASIS START OF CARE (SOC) Social History Tobacco Use Types Packs/Day Years Used Date Smoking Tobacco: Never Smokeless Tobacco: Never Alcohol Use Standard Drinks/Week Comments Not Currently 0 (1 standard drink = 0.6 oz pur e alcohol) Home Health Assessment: Transportation Answer Date Recorded Lack of Transportation (Medical) No 11/26/2024 Lack of Transportation (Non-Medical) No 11/26/2024 Patient Unable or Declines to Respond No 11/26/2024 Education Answer Date Recorded Are you interested in more education? Not on owen e 08/30/2022 Are you concerned about learning? Not on file 08/30/2022 No 08/30/2022 No 08/30/2022 Food Answer Date Recorded Within the past 6 months we worried whether our food would run out before we got money to buy more. Never True 11/14/2024 Within the past 6 months the food we bought just didn't last and we didn't have enough money to get more. Never True Residential Stability Answer Date Recor ded What is your housing situation today? I have debbie sing 11/14/2024 How many times have you move d in the past 12 months? Zero (I did not move) 11/14/2024 Paying for Meds Answer Date Recorded Do you have trouble paying for medicines? No 11/14/2024 Paying Utility Bills Answer Date Record ed Do you have trouble paying your heating or elect ricity bill? No 11/14/2024 Transportation Answer Date Recorded Has the lack of transportati on kept you from medical appointments or from getting medications? No 11/14/2024 Digital Access Answer Date Recorded No 11/14/2024 Yes 11/14/2024 Do you have reliable internet access at home? Ye s 11/14/2024 Do you have a device (e.g., phone, tablet, computer) with a working camera? Yes 11/14/2024 Intimate Partner Violence Answer Date R ecorded Are you denied basic needs s uch as food, clothing, or medical care? No 11/14/2024 In the past 12 months have y ou been in a relationship with a person who hurts, threatens, or tries to control you? No 11/14/2024 Are you denied basic needs s uch as food, clothing, or medical care? No 11/14/2024 In the past 12 months have y ou been in a relationship with a person who hurts, threatens, or tries to control you? No 11/14/2024 Sex and Gender Information Value Date Recorded Sex Assigned at Male 08/21/2022 10:36 AM EDT Legal Sex Male 10:33 AM EDT Gender Identity Male 08/21/2022 10:36 AM EDT Sexual Orientation Straight 08/21/2022 10 :36 AM EDT documented as of this encounter Last Filed Vital Signs Vital Sign Reading Time Taken Comments Blood Pressure 82/60 11/26/2024 6:01 PM EDT Pulse 64 11/26/2024 6:00 PM EDT Temperature 36.5 C (97.7 F) 11/26/2024 6:00 PM EDT Respiratory Rate 16 11/26/2024 6:00 PM EDT Oxygen Saturation 98% 11/26/2024 6:00 PM EDT Inhaled Oxygen Concentration - - Weight - - Height - - Body Mass Index - - documented in this encounter Plan of Treatment Upcoming Encounters Date Type Department Care Team (Late st Contact Info) Description 12/01/2024 12:30 PM EDT Home Care Visit [facility] [address] [place] [phone] Zunilda Spring, PT [address] [place] [address] 12/01/2024 1:00 PM EDT Home Care Visit [facility] [address] [place] [phone] Shari Waller [address] [place] [address] 12/02/2024 1:30 AM EDT Home Care Visit [facility] [address] [place] [phone] Margarita Leung, RN [address] [place] [address] maria 12/03/2024 12:00 PM EDT Home Care Visit [facility] [address] [place] [phone] Shari Waller [address] [place] [address] 12/07/2024 12:00 PM EDT Home Care Visit [facility] [address] [place] [phone] Shari Waller [address] [place] [address] 12/09/2024 2:30 AM EDT Home Care Visit [facility] [address] [place] [phone] Margarita Leung, RICH [address] [place] [address] maria 12/10/2024 12:00 PM EDT Home Care Visit [facility] [address] [place] [phone] Sridhar Shari [address] [place] [address] 12/14/2024 12:00 PM EDT Home Care Visit [facility] [address] [place] [phone] Sridhar Shari [address] [place] [address] 12/16/2024 2:00 AM EDT Home Care Visit [facility] [address] [place] [phone] Margarita Leung, RICH [address] [place] [address] maria 12/17/2024 12:00 PM EDT Home Care Visit [facility] [address] [place] [phone] Shari Waller [address] [place] [address] 12/21/2024 12:00 PM EDT Home Care Visit [facility] [address] [place] [phone] Shari Waller [address] [place] [address] 12/23/2024 3:00 AM EDT Home Care Visit [facility] [address] [place] [phone] Margarita Leung RN [address] [place] [address] maria 12/24/2024 12:00 PM EDT Home Care Visit [facility] [address] [place] [phone] Sridhar Shari [address] [place] [address] 12/28/2024 12:00 PM EDT Home Care Visit [facility] [address] [place] [phone] [address] 12/30/2024 1:30 AM EDT Home Care Visit [facility] [address] [place] [phone] Margarita Leung RN [address] [place] [address] maria 12/31/2024 12:00 PM EDT Home Care Visit [facility] [address] [place] [phone] Shari Waller [address] [place] [address] 01/04/2025 12:00 PM EDT Home Care Visit [facility] [address] [place] [phone] Sridhar Shari [address] [place] [address] 01/07/2025 1:00 AM EDT Home Care Visit [facility] [address] [place] [phone] LeungMargarita sheets RN [address] [place] [address] maria 01/14/2025 12:30 AM EDT Home Care Visit [facility] [address], [place] [phone] Margarita Leung RN [address] [place] [address] maria 01/21/2025 12:30 AM EDT Appointment [facility] [address] [place], [place] [phone] Margarita Leung RN [address] [place] [address] maria documented as of this encounter Visit Diagnoses Not on filedocumented in this encounter Home Health Visit - Care Plan Visit Details Visit Type -SN OASIS START O F CARE (SOC) Discipline -Assisted Problems Problem Description Start Date Status Goals Interve ntions HH - Telehealth/Virtua l Care Disciplines: All Active Home Health Disciplines 11/26/2024 Active 1 goal linked to scheduled/document ed intervention 1 goal intervention scheduled/document ed in this visit HH - Medication Management Disciplines: All Active Home Health Disciplines 11/26/2024 Active 1 goal linked to scheduled/document ed intervention 2 goal interventions scheduled/document ed in this visit HH - Health Maintenance Disciplines: All Active Home Health Disciplines 11/26/2024 Active 1 goal linked to scheduled/document ed intervention 1 goal intervention scheduled/document ed in this visit HH - Focus of Care and Teaching Disciplines: All Active Home Health Disciplines w/RD 11/26/2024 Active 1 goal linked to scheduled/document ed intervention 1 goal intervention scheduled/document ed in this visit HH - Emergency Planning - Knowledge of Disciplines: All Active Home Health Disciplines 11/26/2024 Active 1 goal linked to scheduled/document ed intervention 2 goal interventions scheduled/document ed in this visit HH - Infection - Actual or Risk of Disciplines: All Active Home Health Disciplines 11/26/2024 Active 1 goal linked to scheduled/document ed intervention 1 goal intervention scheduled/document ed in this visit HH - Falls - Risk of Disciplines: All Active Home Health Disciplines 11/26/2024 Active 1 goal linked to scheduled/document ed intervention 1 goal intervention scheduled/document ed in this visit HH - Standard of Care Disciplines: All Active Home Health Disciplines 11/26/2024 Active 1 goal linked to scheduled/document ed intervention 5 goal interventions scheduled/document ed in this visit HH - Pain Disciplines: All Active Home Health Disciplines 11/26/2024 Active 1 goal linked to scheduled/document ed intervention 1 goal intervention scheduled/document ed in this visit Goals Goal Associated Problem Outcome Goal Met? Visit Notes HH - Telehealth visits along with in-person home visits will be utilized when appropriate to achieve optimal wellness and home safety Description: Telehealth visits along with in-person home visits will be utilized when appropriate to achieve optimal wellness and home safety related to teaching. HH - Telehealth/Virtual Care No HH - Safe medication management, avoid unnecessary harm related to medication errors and/or interactions HH - Medication Management No HH - Patient preferences will be utilized to achieve optimal wellness and home safety. HH - Health Maintenance No HH - Communication and collaboration to achieve patient goals HH - Focus of Care and Teaching No HH - Knowledge of options for managing care in the event of an emergency related situation. HH - Emergency Planning - Knowledge of No HH - Patient will have no new infection; any new infection that occurs will be identified and treated promptly; existing infection will resolve without complication Description: Patient and caregiver(s) will demonstrate understanding of infection prevention, monitoring, and treatment as appropriate HH - Infection - Actual or Risk of No HH - Knowledge and management of fall prevention measures. HH - Falls - Risk of No HH - Achieve care management for a safe to home/community discharge from homecare HH - Standard of Care No HH - Frequency of pain interfering with patient's activity or movement will improve with activity or movement by discharge. Description: Pain will be managed over the course of care. Patient's acceptable level of pain is 1 - pain that doesn't interfere. HH - Pain No Interventions Intervention Associated Problem/Goal Status Variance Visit Notes HH - Assess the patient's access/technology, monitoring device availability, cognitive, mental, physical ability, and willingness to effectively participate in telehealth care Problem:HH - Telehealth/Virtual Care Goal:HH - Telehealth visits along with in-person home visits will be utilized when appropriate to achieve optimal wellness and home safety Completed HH - I/E medication management: administration, purpose, dosages, preparation, setup, scheduling, side effects, food/drug interactions, and potential complications as indicated Description: Update patient's copy of medication list as needed. Problem:HH - Medication Management Goal:HH - Safe medication management, avoid unnecessary harm related to medication errors and/or interactions Completed HH - Complete medication review every visit and medication reconciliation as indicated. Pharmacy information: Description: reviewed from d/c papaerwork and meds in home Problem:HH - Medication Management Goal:HH - Safe medication management, avoid unnecessary harm related to medication errors and/or interactions Completed HH - Assess immunizations Description: COVID: 2 doses in past declines all others Problem:HH - Health Maintenance Goal:HH - Patient preferences will be utilized to achieve optimal wellness and home safety. Completed Covid only declines flu and pna vaccines HH - Focus of care, teaching completed and plan for next visit Problem:HH - Focus of Care and Teaching Goal:HH - Communication and collaboration to achieve patient goals Completed Primary Clinical Focus this Visit & Instruction Provided: Patient referred to homecare services after hospitalization for exacerbation of Parkinson's sx; increased rigidity, goldy. in legs. D/C 11/25/24, increase in sinemet has helped PMH: crohn's disease, failure to thrive Patient sleeping on couch upon arrival, rousable but conts. to doze off. Poor sleeping last evening only 3hrs, unale to get comfortable. Walker on hand, amb. with oversight to bathroom and bedroom then back to couch. Appetite fair, denies any issues, c/o diarrhea x4 today. Rigidity to LE deacreased since increase in sinemet, no tremors noted, voice clear, strong. BP a bit low, increased with ambulating. Lives with supportive spouse, Elizabeth, one floor, stairs into home. Identified skills to be provided and taught: T/E nutrition/hydration, need to increase fluids goldy. if having diarrhea, reviewed medications, all on hand and taking as ordered, safety measures, s/sx to report The identified person that we will be teaching is spouse, Elizabeth and patient Other disciplines ordered to assist patient in meeting goals: PT/OT/SHEET TESTER Has fup with neurology 12/01, Joshua Stubbs 12/03, PCP Dr. Berkowitz's office to call back to schedule fup and review medications with Elizabeth this afternoon Anticipated number of visits to meet goals: 2wk1, 1wk8, 3prn SHEET TESTER 2wk8 for personal care call to Dr. Stuart's office updating the above, return call from RICH Gupta to be made later today to Instruction Provided to: caregiver, elizabeth, spouse Response to Instruction/Teaching: Is partially able to teach back topics. Plan for Next Visit Specific Focus & Education Needed: cpv ck, gu assess, med management, safety New Orders: as stated Updated Discharge Plan: when therapies start and medications and se are managed HH - I/E management of care in an urgent or emergency (ER) situation: When to call your Home Care Team/911, ER plans, supplies, evacuation, when to contact local ER officials and how to stay informed Problem: - Emergency Planning - Knowledge of Goal:HH - Knowledge of options for managing care in the event of an emergency related situation. Completed - Emergency planning assessment: the emergency plan, supplies needed, emergency contact numbers and an evacuation plan were reviewed Description: Caregiver is/are knowledgeable of emergency plans. Problem: - Emergency Planning - Knowledge of Goal:HH - Knowledge of options for managing care in the event of an emergency related situation. Completed HH - I/E infection Description: s/s of infection Problem:HH - Infection - Actual or Risk of Goal:HH - Patient will have no new infection; any new infection that occurs will be identified and treated promptly; existing infection will resolve without complication Completed - Complete fall risk assessment scale Problem:HH - Falls - Risk of Goal:HH - Knowledge and management of fall prevention measures. Completed HH - Assess vital signs, pulse oximetry, pain, and as indicated, orthostatic vital signs Description: use agency-specific parameters Problem:HH - Standard of Care Goal:HH - Achieve care management for a safe to home/community discharge from homecare Completed HH - Assess skin integrity Problem:HH - Standard of Care Goal:HH - Achieve care management for a safe to home/community discharge from homecare Completed HH - Complete Nir scale at SOC and weekly Problem:HH - Standard of Care Goal:HH - Achieve care management for a safe to home/community discharge from homecare Completed HH - Assess weight Problem:HH - Standard of Care Goal:HH - Achieve care management for a safe to home/community discharge from homecare Completed HH - Diet: Description: dysphagia diet Problem:HH - Standard of Care Goal:HH - Achieve care management for a safe to home/community discharge from homecare Completed HH - Assess pain Problem:HH - Pain Goal:HH - Frequency of pain interfering with patient's activity or movement will improve with activity or movement by discharge. Completed documented in this encounter Care Teams Refining Still Operator Relationship Specialty Start Date End Date Alex Stuart MD [address] [place] [address] Dr GUERRA [address] [place] [address] PCP - General Internal Medicine 08/21/22 Odette Damon MD [address] [place] [address] Dr Guerra [address] [place] [address] Neurology 05/02/23 Roro Trujillo MD [address] [place] [address] Dr Guerra [address] [place] [address] Neurology 05/02/23 documented as of this encounter Additional Source Comments The information contained in this document represents components of the legal health record. It is not the complete legal health record.[facility]
--- OUTSIDE RECORDS SUMMARY | 2024-11-27 13:00 | XMS_ITS | Encounter Summary ---
Author Organization [facility] Address [address] [facility] [address] [place] [address] Phone Care Team Providers Care Rn Endoscopy Name Role Phone Alex Stuart MD Primary Care Provider Odette Damon MD Unavailable [phone] Roro Trujillo MD Unavailable [phone] Reason for Visit * Auth/Cert (Routine) Specialty Diagnoses / Procedures Referred By Conttj t Referred To Contact Referral ID Status Reason Start Date Expiration Date Visits Re quested Visits Authorized [id number] 1 1 Encounter Details Date Type Department Care Team (Late st Contact Info) Description 11/27/2024 1:00 PM EDT Home Care Visit [facility] [address] [place] [phone] Ellis Valero RN [address] [place] [address] [email or web address] SN HOME VISIT Social History Tobacco Use Types Packs/Day Years [...] Sign Reading Time Taken Comments Blood Pressure - - Pulse 65 11/27/2024 2:21 PM EDT Temperature 37.1 C (98.7 F) 11/27/2024 2:21 PM EDT Respiratory Rate - - Oxygen Saturation 98% 11/27/2024 2:21 PM EDT Inhaled Oxygen Concentration - - Weight - - Height - - Body Mass Index - - documented in this encounter Plan of Treatment Upcoming Encounters Date Type Department Care Team (Late st Contact Info) Description 12/01/2024 12:30 PM EDT Home Care Visit [facility] [address] [place] [phone] Zunilda Spring, PT [address] [place] [address] 12/01/2024 1:00 PM EDT Home Care Visit [facility] [address] [place] [phone] Shari Waller [address] [place] [email or web address] 12/02/2024 1:30 AM EDT Home Care Visit [facility] [address] [place] [phone] Margarita Leung, RN [address] [place] [address] maria 12/03/2024 12:00 PM EDT Home Care Visit [facility] [address] [place] [phone] Shari Waller [address] [place] [address] [email or web address] 12/[email or web address]/2024 12:00 PM EDT Home Care Visit [facility] [address] [place] [phone] Sridhar Shari [address] [place] [email or web address] 12/09/2024 2:30 AM EDT Home Care Visit [facility] [address] [place] [phone] Margarita Leung RN [address] [place] [address] maria 12/10/2024 12:00 PM EDT Home Care Visit [facility] [address] [place] [phone] [address] 12/14/2024 12:00 PM EDT Home Care Visit [facility] [address] [place] [phone] [address] 12/16/2024 2:00 AM EDT Home Care Visit [facility] [address] [place] [phone] Margarita Leung RN [address] [place] [address] maria 12/17/2024 12:00 PM EDT Home Care Visit [facility] [address] [place] [phone] Sridhar Shari [address] [place] [phone] 12/21/2024 12:00 PM EDT Home Care Visit [facility] [address] [place] [phone] Sridhar Shari [address] [place] [phone] 12/23/2024 3:00 AM EDT Home Care Visit [facility] [address] [place] [phone] Margarita Leung RN [address] [place] [address] maria 12/24/2024 12:00 PM EDT Home Care Visit [facility] [address] [place] [phone] SridharShari [address] [place] [address] 12/28/2024 12:00 PM EDT Home Care Visit [facility] [address] [place] [phone] Sridhar Shari [address] [place] [address] 12/30/2024 1:30 AM EDT Home Care Visit [facility] [address] [place] [phone] Margarita Leung RN [address] [place] [address] maria 12/31/2024 12:00 PM EDT Home Care Visit [facility] [address] [place] [phone] [address]ari [address] [place] [address] 01/04/2025 12:00 PM EDT Home Care Visit [facility] [address] [place] [address] SridharShari [address] [place] [address] 01/07/2025 1:00 AM EDT Home Care Visit [facility] [address] [place] [phone] Margarita Leung, RICH [address] [place] [address] maria 01/14/2025 12:30 AM EDT Home Care Visit [facility] [address] [place], [place] [phone] Margarita Leung RN [address] [place] [address] maria [email or web address] 01/21/2025 12:30 AM EDT Appointment [facility] [address] [place], [place] [phone] Margarita Leung RN [address] [place] [address] [email or web address] [email or web address] documented as of this encounter Visit Diagnoses Not on filedocumented in this encounter Home Health Visit - Care Plan Visit Details Visit Type -SN HOME VISIT Discipline -Intermediate Problems Problem Description Start Date Status Goals Interve ntions HH - Medication Management Disciplines: All Active [...] 1 goal linked to scheduled/document ed intervention 4 goal interventions scheduled/document ed in this visit HH - Pain Disciplines: All Active Home Health Disciplines 11/26/2024 Active 1 goal linked to scheduled/document ed intervention 2 goal interventions scheduled/document ed in this visit Goals Goal Associated Problem Outcome Goal Met? Visit Notes HH - Safe medication management, avoid unnecessary harm related to medication errors and/or interactions HH - Medication Management No HH - Communication and collaboration to [...] Problem/Goal Status Variance Visit Notes HH - I/E medication management: administration, purpose, [...] medication errors and/or interactions Completed HH - Focus of care, teaching completed and plan for next visit Problem:HH - Focus of Care and Teaching Goal:HH - Communication and collaboration to achieve patient goals Completed Primary Clinical Focus this Visit & Instruction Provided: Pt. lying on couch up on arrival, CG/spouse presented. VSS. afebrile BP lower side 95/62 initially but increased to 118/64 after water and mobility. Diarrhea resolved no any BMs since yesterday evening. Reports increased weakness/leg stiffness and eagerly waiting to work on with PT/OT to increase strength/endurance. Reports lightheadedness occasionally- I/E on slow position changes, fall/safety, deep breathing techniques for stress management, hydration and when to contact NAOMI//911. Pt./Spouse waiting operations research manager from PT/OT Instruction Provided to: patient and caregiver Response to Instruction/Teaching : Is fully able to teach back topics as evidenced by verbalization Plan for Next Visit Specific Focus & Education Needed: cv/cp/GI assessment, fall/safety teaching New Orders: no Updated Discharge Plan: no, once stable HH - I/E management of care in [...] Description: Caregiver is/are knowledgeable of emergency plans. Problem:HH - Emergency Planning - Knowledge of Goal:HH - Knowledge of options for managing care in the event of an emergency related situation. Completed HH - I/E infection Description: s/s of infection Problem: - Infection - Actual or Risk of Goal:HH - Patient will have no new infection; any new infection that occurs will be identified and treated promptly; existing infection will resolve without complication Completed - Assess infection risk and s/s Problem: - Infection - Actual or Risk of Goal:HH - Patient will have no new infection; any new infection that occurs will be identified and treated promptly; existing infection will resolve without complication Completed HH - I/E fall prevention measures Description: cognitive impairment: strategies to minimize impairments with memory deficits, distractibility, judgement, impulsivity, and safety awareness, diagnosis/age related changes/prior history of falls: symptoms and side effects of illness/injury/history of falls placing patient at increased risk for falls. may include management of dizziness/orthostasis, impaired functional mobility: supervision for mobility/activity, appropriate footwear and as indicated safe use of assistive device(s) and pain affecting level of function: impact of pain on an increased risk of falls Problem: - Falls - Risk of Goal: - Knowledge and management of fall prevention measures. Completed HH - Assess vital signs, pulse oximetry, pain, and as indicated, orthostatic vital signs Description: use agency-specific parameters Problem: - Standard of Care Goal: - Achieve care management for a safe to home/community discharge from homecare Completed HH - Assess skin integrity Problem:HH - Standard of Care Goal:HH - Achieve care management for a safe to home/community discharge from homecare Completed HH - I/E discharge plan Problem:HH - Standard of Care Goal:HH - [...] with activity or movement by discharge. Completed HH - I/E pain management Problem:HH - Pain Goal:HH - Frequency of pain interfering with patient's activity or movement will improve with activity or movement by discharge. Completed documented in this encounter Care Teams Rn Endoscopy Relationship Specialty Start Date End Date Alex Stuart MD [address] [place] [address] Dr ELIZ[address] [place] [address] PCP - General Internal Medicine 08/21/22 Odette Damon MD [address] [place] [address] [place] [address] Neurology 05/02/23 Roro Trujillo MD [address] [place] [address] [place] [address] Neurology 05/02/23 documented as of this encounter Additional Source Comments The information contained in this document represents components of the legal health record. It is not the complete legal health record.[facility]
--- OUTSIDE RECORDS SUMMARY | 2024-11-30 10:00 | XMS_ITS ---
Author Organization Alex Stuart MD Address [address] [place] [phone] Care Team Providers Care Glass Deposition Tender Name Role Phone Alex Stuart Primary Care [...] kg/m2 11/30/2024 weight is down 7 pounds [facility] e 10-13-24 Encounters Encounter Location Date Provider Diagnosis Alex Stuart MD [address] [place] [phone] 11/30/2024 Alex Stuart Cervical spinal stenosis M48.02 [...] Up: 3 Weeks, Reason: Provider Name:Alex harvey, 12/15/2024 01:30:00 PM, [address] [place] [address], [address], [phone], Provider Name:Alex harvey, 10/08/2025 07:00:00 AM, [address] [place] [address], Suite [facility], [place], [place], [phone], Provider Name:Alex harvey, 10/15/2025 01:00:00 PM, [address] [place] [address], [address] [place] [address], [phone], Progress Notes * Gabriel HELLER PDOB: [birth year] (69 yo M)Acc No.[id number]:11/30/2024 Patient: Gabriel FREEMAN Provider: Oliver Stuart MD :1955 A ge:69 Y S ex:Male Date:11/30/2024 Address:[address] [place] [address], [facility] [id number] Subjective: * Chief Complaints: * 1 . PH/TCM. 2. Accompanied by . * HPI: S ymptom(s): patient is a [...] D enies N ausea. * Medical History: c olonoscopy 2008; colonoscopy 06/10/2013 - repeat 5 years; Colonoscopy 06/13/18 - Dr. Rodriguez - repeat 5 years, colonoscopy 11/20/23 repeat 3 y, Trigeminal neurology, Hematuria w/u 07/15. * Medications: T aking Mirtazapine 7.5 MG Tablet 1 tablet at bedtime Orally Once a day , Taking Valium 5 MG Tablet 0.5 tab Orally twice a day , Taking Carbidopa-Levodopa 25-100 MG Tablet 2 tabs Orally Foutr times a day , Discontinued Escitalopram Oxalate 5 MG Tablet 1 tablet Orally Once a day * Allergies: N .K.D.A. Objective: * Vitals: H t: 70, Wt: [...] (Not administered - Refused: Patient decision) * Preventive Medicine: Immunizations: I nfluenza H ave you had a flu shot since the most recent November 23? N o patient refused at visit today. * Follow Up: 3 Weeks * * The named appointment provid er may or may not be the originator of this progress note, and it is not deemed complete until electronically signed by the appointment provider. Sign off status: Pending * Provider: Oliver Stuart MD Date: 0 11/30/2024 Generated for Renuka kaminski/Joey/Ronsmitting on: 0 12/01/2024 11:01 AM EDT History [...]
--- NOTE | 2024-12-01 09:35 | MHC.OFFVIS ---
Vital Signs 12/01/24 09:36 Height 5 ft 10 in Weight 154 lb 6 oz BMI 22.1 BP 100/64 Blood Pressure Location Rt brachial Position Sitting Pulse 66 Pulse Source Pulse Oximeter Pulse Oximetry (%) 98 Oxygen Delivery Method Room Air Intake Visit Reasons: 6wk OK per MD Intake Note: Follow up Parkinson's disease without dyskinesia and anxiety It Compliance Manager Required: No Accompanied by: Spouse Allergies No Known Allergies Allergy (Verified 12/01/24 09:35) HPI Comments Details: 69y/o right handed male comes for follow up. He was hospitalized from 11/14- 11/25 for worsening parkinsons and anxiety. He is on sinemet 25/100 2 tabs qid diazepam 5 mg qhs - he took his first dose at 9.30 PM last night- he slept well but feels groggy this morning Mirtazepine 7.5mg qhs He was admitted at [facility] for constipation in August 2024 He is against using miralax which was suggested by his GI He is not taking dulcolax but he is taking magnesium 600mg qd He has daily bowel movements He stopped all supplements . History form last visit-He has some good days and some bad days . 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 He is better when he exercises. he also has left knee pain- has PRP treatment. He is doing good with meds and he did BIG program in June and JULY which helped. He reports fatigue around noon time after his meds. Denies dizziness, but feels like he can fall asleep.He does exercise in the afternoon and feels good. He feels anxious in the mornings.He will start playing Golf this week. He eats breakfast at 6am - oatmeal and banana. 2.30-4pm exercises with pest control applicator M,W,F He does not eat lunch . He eats between 5pm-6pm and by 6.30 pm he is sleeping. He wakes up at 9pm and takes melatonin 10mg and sleeps from 10pm - 2 am . History from initial visit- He was seen by Dr. Damon and was diagnosed with parkinsons and started on sinemet 25/100 1 tab tid which helped. He started noticing tremors about 2 years ago . The left hand tremors were worse compared to right.The tremors were mainly in the morning and at rest. He also felt his legs were stiff and tight.He also had right shoulder issues , has a shot in his neck, diagnosed with c spine stenosis . He did PT and felt better. 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 Motivated- good Speech- Normal Drooling- at nighttime Writing- poor , smaller. using utensils- good Dressing- good SHower- normal Turning in bed- normal Gait- good Hallucinations - none He had h/o Crohns and had diarrhea and constipation. falls- none He had concussions from Football as a kid No exposure to chemicals REPLACED BY [facility] Medical History Anxiety Constipation Anxiety Benign enlargement of prostate Parkinson's disease without dyskinesia Right shoulder tendinitis Lumbar spondylosis Cervical spinal stenosis Crohn disease Surgical History S/P colon polypectomy Hx of colonoscopy H/O left knee surgery Family History Mother No problems noted. Father No problems noted. Sister Breast CA Brother No problems noted. Social History Household Members: Spouse Housing: House Do you presently have visiting nurse or other home services: No Alcohol intake: never Comment: at bed side Patient Tobacco Use Status: Former Tobacco user Tobacco use type: Cigarette Second Hand Smoke Exposure: No Advance Directives Date on File: 09/18/24 service: No Physical Exam Vital Signs: Last Vital Signs Pulse 66 12/01/24 09:36 BP 100/64 12/01/24 09:36 Pulse Ox 98 12/01/24 09:36 Oxygen Delivery Method Room Air 12/01/24 09:36 BMI result Body Mass Index 22.1 Const General: cooperative, healthy appearing, comfortable and anxious Nutritional Appearance: average body habitus Orientation/consciousness: patient oriented x3 Limitations: no limitations Eyes Pupils: Equal, round and reactive pupils present Neuro Other: mild infrequent rest tremors Left UE Mild decreased facial expression and blink FFM and foot taps mild decreased gisele L>R Gait- mild stooped , smaller stride , mild decreased arm swings gisele Mild cogwheel rigidity L>R General: patient oriented x3, moves all extremities and no focal motor deficits Cranial nerves: Yes Facial sensation intact/muscles of mastication intact, Yes Equal, round and reactive pupils present, Yes Bilaterally intact EOM present, Yes Nystagmus not present, Yes Normal facial strength present, Yes Midline tongue present and Yes Symmetric palate elevation present Cognition (Neuro): normal cognition Motor exam (neuro): 5/5 motor strength present throughout Coordination: [id number] test normal Psych Affect: Anxious affect present Assessment & Plan Assessment & Plan (1) Parkinson's disease without dyskinesia: Code(s): G20.A1 - Parkinson's disease without dyskinesia, without mention of fluctuations Category: Medical Qualifiers: Fluctuating manifestations: without fluctuating manifestations Qualified Code(s): G20.A1 - Parkinson's disease without dyskinesia, without mention of fluctuations (2) Constipation: Code(s): K59.00 - Constipation, unspecified Category: Medical Qualifiers: Constipation type: other constipation type Qualified Code(s): K59.09 - Other constipation (3) Anxiety: Code(s): F41.9 - Anxiety disorder, unspecified Category: Medical Plan Diazepam 5mg q 8pm Mirtazepine 7.5mg q 8,30 pm Carbidopa/levodopa 25/100 2tasb qid PT for gait and parkinsons Psych ref This was a counseling predominated session . Info APDA given Orders: Orders PT Evaluation and Treatment Today G20.A1 - Parkinson's disease without dyskinesia, without mention of fluctuations Referrals Psychiatry Outpatient Consultation Service F41.9 - Anxiety disorder, unspecified, G20.A1 - Parkinson's disease without dyskinesia, without mention of fluctuations Medications: Changed From carbidopa-levodopa 25-100 mg 1.5 tabs PO TID 30 days 135 tabs 6RF To carbidopa-levodopa 25-100 mg 2 tabs PO QID 240 tabs 6RF 30 days Coding Level of Care Code Est Pt Level 4 (69942) Complex EM visit Add On G2211 Diagnoses Parkinson's disease without dyskinesia or fluctuating manifestations G20.A1 Fluctuating manifestations: without fluctuating manifestations Other constipation K59.09 Constipation type: other constipation type Anxiety F41.9
[2024-12-01 09:36] VITALS: BP 100/64; PULSE 66; O2SAT 98; BMI 22.1
--- OUTSIDE RECORDS SUMMARY | 2024-12-01 11:02 | XMS_ITS | Encounter Summary ---
Author Organization [facility] Address [address] [place] [address] Phone Care Team Providers Care [place] Consultant Name Role Phone Alex Stuart MD Primary Care Provider Odette Damon MD Unavailable [phone] Roro Trujillo MD Unavailable [phone] Encounter Details Date Type Department Care Team (Late st Contact Info) Description 11/14/2024 Procedure Pass [facility], Ct Scan - [address] [address] Social History Tobacco Use Types Packs/Day Years Used Date Smoking Tobacco: Never Smokeless Tobacco: Never Alcohol Use Standard Drinks/Week Comments Not Currently 0 (1 standard drink = 0.6 oz pur e alcohol) Education Answer Date Recorded Are you interested [...] AM EDT documented as of this encounter Functional Status * Calculated C-SSRS Risk Score (Lifetime/Recent) Answer Date of Assessment Author No Risk Indicated 11/14/2024 11:02 AM EDT Chanel Shepard RN * Davidson Suicide Severity Rating Scale (Screener/Recent Self-Report) Question Answer Date of Assessment Author 1. Wish to be (Past 1 Month) No 11/14/2024 11:02 AM EDT Chanel Shepard RN 2. Non-Specific Active Suicidal Thoughts (Past 1 Month) No 11/14/2024 11:02 AM EDT Chanel Shepard RN 6. Suicidal Behavior (Lifetime) No 11/14/2024 11:02 AM EDT Chanel Shepard RN documented as of this encounter Plan of Treatment Upcoming Encounters Date Type Department Care Team (Late st Contact Info) Description 12/01/2024 12:30 PM EDT Home Care Visit [facility] [address] [place] [address] Zunilda Spring, PT [address] [place] [address] 12/01/2024 1:00 PM EDT Home Care Visit [facility] [address] [place] [phone] [address] 12/02/2024 1:30 AM EDT Home Care Visit [facility] [address] [place] [phone] Margarita Leung RN [address] [place] [address] maria 12/03/2024 12:00 PM EDT Home Care Visit [facility] [address] [place] [phone] Sridhar Shari [address] [place] [address] 12/07/2024 12:00 PM EDT Home Care Visit [facility] [address] [place] [phone] Sridhar Shari [address] [place] [address] 12/09/2024 2:30 AM EDT Home Care Visit [facility] [address] [place] [phone] Margarita Leung, RICH [address] [place] [address] maria 12/10/2024 12:00 PM EDT Home Care Visit [facility] [address] [place] [address] [address] [place] [email or web address] 12/14/2024 12:00 PM EDT Home Care Visit [facility] [address] [place] [address] [address] [place] [email or web address] 12/16/2024 2:00 AM EDT Home Care Visit [facility] [address] [place] [address] Margarita Lueng RN [address] [place] [address] maria 12/17/2024 12:00 PM EDT Home Care Visit [facility] [address] [place] [address] [address] 12/21/2024 12:00 PM EDT Home Care Visit [facility] [address] [place] [address] Sridhar Shari [address] [place] [address] 12/23/2024 3:00 AM EDT Home Care Visit [facility] [address] [place] [address] Margarita Leung, RICH [address] [place] [address] maria 12/24/2024 12:00 PM EDT Home Care Visit [facility] [address] [place] [address] Shari Waller [address] [place] [address] 12/28/2024 12:00 PM EDT Home Care Visit [facility] [address] [place] [address] Shari Waller [address] [place] [address] 12/30/2024 1:30 AM EDT Home Care Visit [facility] [address] [place] [address] Margarita Leung RN [address] [place] [address] maria 12/31/2024 12:00 PM EDT Home Care Visit [facility] [address] [place] [address] Shari Waller [address] [place] [address] 01/04/2025 12:00 PM EDT Home Care Visit [facility] [address] [place] [address] Shari Waller [address] [place] [address] 01/07/2025 1:00 AM EDT Home Care Visit [facility] [address] [place] [address] Margarita Leung RN [address] [place] [address] maria 01/14/2025 12:30 AM EDT Home Care Visit [facility] [address] [place] [address] Margarita Leung RN [address] [place] [address] maria 01/21/2025 12:30 AM EDT Appointment [facility] [address] [place] [phone] Margarita Leung RN [address] [place] [address] maria [email or web address] documented as of this encounter Visit Diagnoses Not on filedocumented in this encounter Care Teams [place] Consultant Relationship Specialty Start Date End Date Alex Stuart MD [address] [place] [address] Dr GUERRA [address] [place] [address] PCP - General Internal Medicine 08/21/22 Odette Damon MD [address] [place] [address] Dr Guerra [address] [place] [address] Neurology 05/02/23 Roro Trujillo MD [address] [place] [address] Dr Guerra [address] [place] [address] Neurology 05/02/23 documented as of this encounter Additional Source Comments The information contained in this document represents components of the legal health record. It is not the complete legal health record.[facility]
--- OUTSIDE RECORDS SUMMARY | 2024-12-01 11:02 | XMS_ITS | Encounter Summary ---
Author Organization [facility] Address [address] [place] [address] Phone Care Team Providers Care Rest Room Maid Name Role Phone Alex Stuart MD Primary Care Provider Odette Damon MD Unavailable Roro Trujillo MD Unavailable [phone] Encounter Details Date Type Department Care Team (Late st Contact Info) Description 11/14/2024 Procedure Pass [facility], [address] [address] Social History Tobacco Use Types Packs/Day Years [...] 11:02 AM EDT Chanel Shepard RN * [place] Suicide Severity Rating Scale (Screener/Recent Self-Report) Question [...] Visit [facility] [address] [place] [address] Zunilda Spring, PT [address] [place] [address] [email or web address] 12/01/2024 1:00 PM EDT Home Care Visit [facility] [address] [place] [phone] Sridhar Shari [address] [place] [address] [email or web address] 12/02/2024 1:30 AM EDT Home Care Visit [facility] [address] [place] [phone] Margarita Leung RN [address] [place] [address] [email or web address] 12/03/2024 12:00 PM EDT Home Care Visit [facility] [address] [place] [phone] Sridhar Shari [address] [place] [address] [email or web address] 12/07/2024 12:00 PM EDT Home Care Visit [facility] [address] [place] [phone] Sridhar Shari [address] [place] [address] [email or web address] 12/09/2024 2:30 AM EDT Home Care Visit [facility] [address] [place] [phone] Margarita Leung RN [address] [place] [address] maria [email or web address] 12/10/2024 12:00 PM EDT Home Care Visit [facility] [address] [place] [address] [place] [address] [email or web address] 12/14/2024 12:00 PM EDT Home Care Visit [facility] [address] [place] [address] [address] [place] [address] [email or web address] 12/16/2024 2:00 AM EDT Home Care Visit [facility] [address] [place] [address] Margarita Leung RN [address] [place] [address] [email or web address] 12/17/2024 12:00 PM EDT Home Care Visit [facility] [address] [place] [address] Sridhar Shari [address] [place] [address] [email or web address] 12/21/2024 12:00 PM EDT Home Care Visit [facility] [address] [place] [address] Sridhar Shari [address] [place] [email or web address] 12/23/2024 3:00 AM EDT Home Care Visit [facility] [address] [place] [address] Margarita Leung, RICH [address] [place] [address] [email or web address] 12/24/2024 12:00 PM EDT Home Care Visit [facility] [address] [place] [address] Shari Waller [address] [place] [address] [email or web address] 12/28/2024 12:00 PM EDT Home Care Visit [facility] [address] [place] [address] Shari Waller [address] [place] [address] [email or web address] 12/30/2024 1:30 AM EDT Home Care Visit [facility] [address] [place] [address] Margarita Leung RN [address] [place] [address] [email or web address] 12/31/2024 12:00 PM EDT Home Care Visit [facility] [address] [place] [address] Shari Waller [address] [place] [address] [email or web address] 01/04/2025 12:00 PM EDT Home Care Visit [facility] [address] [place] [address] Shari Waller [address] [place] [address] [email or web address] 01/07/2025 1:00 AM EDT Home Care Visit [facility] [address] [place] [address] Margarita Leung RN [address] [place] [address] maria [email or web address] 01/14/2025 12:30 AM EDT Home Care Visit [facility] [address] [place] [address] Margarita Leung RN [address] [place] [address] maria 01/21/2025 12:30 AM EDT Appointment [facility] [address] [place] [address] Margarita Leung, RICH [address] [place] [address] maria [email or web address] documented as of this encounter Visit Diagnoses Not on filedocumented in this encounter Care Teams Rest Room Maid Relationship Specialty Start Date End Date Alex Stuart MD [address] [place] [address] Dr GUERRA [address] [place] [address] PCP - General Internal Medicine 08/21/22 Odette Damon MD [address] [place] [address] Dr Guerra [address] [place] [address] Neurology 05/02/23 Roro Trujillo MD [address] [place] [address] Dr Guerra [address] [place] [address] Neurology 05/02/23 documented as of this encounter Additional Source Comments The information contained in this document represents components of the legal health record. It is not the complete legal health record.[facility]
--- OUTSIDE RECORDS SUMMARY | 2024-12-01 11:02 | XMS_ITS | Encounter Summary ---
Author Organization [facility] Address [address] [place] [address] Phone Care Team Providers Care Director Of Research Name Role Phone Alex Stuart MD Primary Care Provider Odette Damon MD Unavailable Roro Trujillo MD Unavailable [phone] Encounter Details Date Type Department Care Team (Late st Contact Info) Description 11/26/2024 Plan of Care Documentation [facility] [address] [place] [address] Social History Tobacco Use Types Packs/Day Years [...] your housing situation today? I have debbie dumont 11/14/2024 How many times have you move [...] AM EDT documented as of this encounter Plan of Treatment Upcoming Encounters Date Type Department Care Team (Late st Contact Info) Description 12/01/2024 12:30 PM EDT Home Care Visit [facility] [address] [place] [address] Zunilda Spring, PT [address] [place] [address] 12/01/2024 1:00 PM EDT Home Care Visit [facility] [address] [place] [address] Sridhar Shari [address] [place] [phone] [email or web address] 12/02/2024 1:30 AM EDT Home Care Visit [facility] [address] [place] [address] Margarita Leung, RICH [address] [place] [address] maria 12/03/2024 12:00 PM EDT Home Care Visit [facility] [address] [place] [address] Sridhar Shari [address] [place] [address] 12/07/2024 12:00 PM EDT Home Care Visit [facility] [address] [place] [address] Sridhar Shari [address] [place] [address] 12/09/2024 2:30 AM EDT Home Care Visit [facility] [address] [place] [address] Margarita Leung, RICH [address] [place] [address] maria 12/10/2024 12:00 PM EDT Home Care Visit [facility] [address] [place] [address] Sridhar Shari [address] [place] [address] 12/14/2024 12:00 PM EDT Home Care Visit [facility] [address] [place] [address] Shari Waller [address] [place] [address] 12/16/2024 2:00 AM EDT Home Care Visit [facility] [address] [place] [address] Margarita Leung, RICH [address] [place] [address] maria 12/17/2024 12:00 PM EDT Home Care Visit [facility] [address] [place] [address] Sridhar Shari [address] [place] [address] 12/21/2024 12:00 PM EDT Home Care Visit [facility] [address] [place] [phone] Sridhar Shari [address] [place] [address] 12/23/2024 3:00 AM EDT Home Care Visit [facility] [address] [place] [phone] Margarita Leung, RICH [address] [place] [address] maria 12/24/2024 12:00 PM EDT Home Care Visit [facility] [address] [place] [address] Sridhar Shari [address] [place] [address] 12/28/2024 12:00 PM EDT Home Care Visit [facility] [address] [place] [address] Sridhar Shari [address] [place] [address] 12/30/2024 1:30 AM EDT Home Care Visit [facility] [address] [place] [address] Margarita Leung RN [address] [place] [address] maria 12/31/2024 12:00 PM EDT Home Care Visit [facility] [address] [place] [address] [address]ari [address] [place] [address] 01/04/2025 12:00 PM EDT Home Care Visit [facility] [address] [place] [phone] [address] 01/07/2025 1:00 AM EDT Home Care Visit [facility] [address] [place] [phone] Margarita Leung RN [address] [place] [address] maria 01/14/2025 12:30 AM EDT Home Care Visit [facility] [address] [place] [phone] Margarita Leung RN [address] [place] [address] maria 01/21/2025 12:30 AM EDT Appointment [facility] [address] [place] [phone] Margarita Leung, RICH [address] [place] [address] maria documented as of this encounter Visit Diagnoses Not on filedocumented in this encounter Care Teams Director Of Research Relationship Specialty Start Date End Date Alex Stuart MD [address] [place] [address] Dr GUERRA [address] [place] [address] PCP - General Internal Medicine 08/21/22 Odette Damon MD [address] [place] [address] Dr Guerra [address] [place] [address] Neurology 05/02/23 Roro Trujillo MD [address] [place] [address] Dr Guerra [address] [place] [address] Neurology 05/02/23 documented as of this encounter Additional Source Comments The information contained in this document represents components of the legal health record. It is not the complete legal health record.[facility]
--- OUTSIDE RECORDS SUMMARY | 2024-12-01 11:03 | XMS_ITS | Patient Health Record ---
Author Organization Alex Stuart MD Address [address] [place] [phone] Care Team Providers Care Nuclear Cardiology Technologist Name Role Phone Alex Stuart Primary Care Provider [phone] Allergies No Known Allergies Results Component Value Reference Range Notes Hemoglobin A1c Reviewed date:07/16/2024 01:50:05 PM Interpretation: Performing Lab: Notes/Report: Hemoglobin A1c 5.3 Complete Blood Count Auto Di ff Reviewed date:10/05/2024 12:55:35 PM Interpretation: Performing Lab:[facility], [address] [place] [phone] Notes/Report: White Blood Count 6.9 4.8-10.8 X10*3/uL [...] NRBC Abs Auto 0.000 0.0-0.012 X10*3/uL Comprehensive Caret. Panel Fa st Reviewed date:10/05/2024 12:55:13 PM Interpretation: Performing Lab:[facility], [address] [place] [phone] Notes/Report: Sodium 140 135-145 mmol/L Potassium 3.9 [...] Panel Reviewed date:10/05/2024 12:54:35 PM Interpretation: Performing Lab:[address] [phone] Notes/Report: Triglycerides 94 <150 mg/dL Desirable Triglyceride: [...] (Free>4and<10) Reviewed date:10/05/2024 12:54:54 PM Interpretation: Performing Lab:[address] [phone] Notes/Report: PSA,Total (Free>4and<10) 1.25 0.00-4.00 ng/mL A [...] A1c Reviewed date:10/05/2024 12:50:47 PM Interpretation: Performing Lab:[address] [place] [address] Notes/Report: Hemoglobin A1c % 5.5 <6.0 % [...] average glucose, using the formula of the I7D-Sunrwkn Average Glucose study (ADAG), Diabetes Care, Vol.31,#8, Oct. 2007 UA ClnCatch+Micro w/rflx Cul t Reviewed date:11/13/2024 12:40:07 PM Interpretation: Performing Lab:[address] [phone] Notes/Report: Urine, Clean Catch Color Urine Yellow Appearance Urine Cloudy PH 6.5 5.0-9.0 Glucose Urine UA Negative Negative mg/dL Urine Blood Trace Negative Specific [place] - Urine 1.015 1.005-1.025 Urine Protein Negative Neg-Trace mg/dL Urine Ketones Trace Negative mg/dL Nitrite Urine Negative Negative Leukocyte Esterase Urine Trace Negative RBC Urine 6-10 0-2 /HPF WBC Urine 0-5 0-5 /HPF Squamous Epithelial Cell Urine 0-2 0-2 /HPF Bacteria Urine None Seen None Seen Hyaline Casts Urine 3-5 0-2 /LPF Glucose, finger stick Reviewed date:04/14/2024 01:47:16 PM Interpretation: Performing Lab: Notes/Report: Value 98 Glucose, finger stick Reviewed date:07/16/2024 01:43:31 PM Interpretation: Performing Lab: Notes/Report: Value 132 XR KUB Reviewed date:10/05/2024 01:05:26 PM Interpretation: Performing Lab: Notes/Report: [address] [address] XRay Report Signed Patient: Gabriel Brian MR#: [id number] : 1955 Acct:[id number] Age/Sex: 69 / M ADM Date: 10/05/24 Loc: [facility] Attending Dr: Alex Stuart MD Ordering Physician: Alex Stuart MD Date of Service: 10/05/24 Procedure(s): XR KUB Accession Number(s): [id number] cc: Alex Stuart MD EXAMINATION: XR ABDOMEN [...] 10/05/24 1253 DD/ 1100 TD/TT: 10/05/24 1115 Mining Technician: [place] [address] XRay Report Signed Patient: Gabriel Brian MR#: [id number] : 1955 Acct:[id number] Age/Sex: 69 / M ADM Date: 10/05/24 Loc: HO.ROB Attending Dr: Alex Stuart MD Ordering Physician: Alex Stuart MD Date of Service: 10/05/24 Procedure(s): XR KUB Accession Number(s): [id number] cc: Alex Stuart MD EXAMINATION: XR ABDOMEN [...] 10/05/24 1253 DD/ 1100 TD/TT: 10/05/24 1115 Mining Technician: Complete Blood Count Auto Di ff Reviewed date:09/15/2024 05:35:59 PM Interpretation: Performing Lab:[facility], [address] [place] [phone] Notes/Report: White Blood Count 7.7 4.8-10.8 X10*3/uL [...] Panel Reviewed date:09/15/2024 03:01:59 PM Interpretation: Performing Lab:[facility], [address] [place] [phone] Notes/Report: Bilirubin Total 0.8 0.0-1.0 mg/dL Bilirubin Direct 0.2 0.0-0.5 mg/dL Aspartate Amino Transferase 24 5-37 U/L Alanine Aminotransferase 9 0-40 U/L Total Protein 6.8 6.5-8.0 g/dL Albumin Level 4.3 3.5-5.0 g/dL Alkaline Phosphatase 51 39-117 U/L Basic Metabolic Panel Reviewed date:09/15/2024 05:33:53 PM Interpretation: Performing Lab:[facility], [address] [place] [phone] Notes/Report: Sodium 139 135-145 mmol/L Potassium 4.0 [...] Magnesium Reviewed date:09/15/2024 03:02:13 PM Interpretation: Performing Lab:[facility], [address] [place] [phone] Notes/Report: Magnesium 2.1 1.6-2.6 mg/dL C Reactive Protein Reviewed date:09/15/2024 03:00:53 PM Interpretation: Performing Lab:[address] [phone] Notes/Report: C Reactive Protein < 0.04 < or = 0.50 mg/dL Lipase Reviewed date:09/15/2024 03:00:46 PM Interpretation: Performing Lab:[facility], [address] [place] [phone] Notes/Report: Lipase 39 8-78 U/L Tiffanie Jah Reviewed date:09/15/2024 03:01:45 PM Interpretation: Performing Lab:[facility], [address] [place] [phone] Notes/Report: Tiffanie Tyson See Note Specimen held untested for 24 hours; Call to request Chemistry testing. UA CC w/rflx Micro + Cult Reviewed date:09/16/2024 07:42:01 PM Interpretation: Performing Lab:[facility], [address] [place] [phone] Notes/Report: Urine, Clean Catch Color Urine Yellow Appearance Urine Clear PH 7.0 5.0-9.0 Glucose Urine UA Negative Negative mg/dL Urine Blood Negative Negative Specific [place] - Urine 1.015 1.005-1.025 Urine Protein Negative [...] Solo 0 10/13/2024 02:30:26 PM > phone [phone] fax [phone], Allyssa Solo 10/15/2024 11:47:47 AM >spoke with patient he needs to call them a per register, Wants me to hold off on sending this referral , He was told they are booking in July 2025, Allyssa Solo 11/05/2024 01:44:08 PM >spoke with patient's , she said he want's to hold of on this referral to far to travel Referral Priority Routine Medications Medication SIG (Take, [...] 09/21/2019 Refused Fluarix Quadrivalent Unknown 02/13/2022 Refused Influenza High Dose Unknown 11/30/2024 Refused Social History Tobacco Use: Social History [...] Status W/U Status Risk Notes Problem Prostatism (62383056) Prostatism (N40.0) Active confirmed Problem 823812408 Tubular adenoma (D36.9) Active confirmed Problem Constipation (99868469) Constipation (K59.00) Active confirmed Problem Anxiety (34529492) Anxiety (F41.9) Active confirmed Problem 75347272 Crohn's disease, unspecified, with abscess (K50.914) Active confirmed Problem 8160627 Prediabetes (R73.09) Active confirmed Problem 237530679 History of hematuria (Z87.448) Active confirmed Problem 0710690 Migraine with au ra and without status migrainosus, not intractable (G43.109) Active confirmed Problem 733252132 Panic attacks (F41.0) Active confirmed Problem Liver cyst (65589781) Liver cyst (K76.89) Active confirmed Problem 368896203 Irritable bowel syndrome with constipation (K58.1) Active confirmed Problem 004492373 Arthritis of kne e (M17.10) Active confirmed Problem Lesion of liver (487523691) Liver lesion (K76.9) Active confirmed Problem 78568115 Parkinson's disease without dyskinesia, unspecified whether manifestations fluctuate (G20.A1) Active confirmed Vital Signs Blood pressure diastolic 54 mm Hg 11/30/2024 francisca ght is down 7 pounds since 10-13-24 Height 70 in 11/30/2024 weight is down 7 pounds since 10-13-24 Blood pressure systolic 98 mm Hg 11/30/2024 franciscag ht is down 7 pounds since 10-13-24 Weight 156 lbs 11/30/2024 weight is down 7 pounds since 10-13-24 BMI 22.38 kg/m2 11/30/2024 weight is down 7 pounds since 10-13-24 Encounters Encounter Location Date Provider Diagnosis Alex Stuart MD [address] [place] [id number] 10/05/2024 Alex Stuart Prediabetes R73.09 ; Prostatism N40.0 ; Blood tests for routine general physical examination Z00.00 and Liver mass R16.0 Alex Stuart MD [address] [place] [address] [id number] 11/12/2024 Alex Stuart UTI (urinary tract infection) N39.0 Alex Stuart MD [address] [place] [id number] 11/30/2024 Alex Stuart Cervical spinal stenosis M48.02 ; Parkinson's disease without dyskinesia, unspecified whether manifestations fluctuate G20.A1 and Anxiety F41.9 Alex Stuart MD [address] [place] [address] [id number] 04/14/2024 Alex Stuart Prediabetes R73.09 ; Anxiety F41.9 and Parkinson's disease, unspecified whether dyskinesia present, unspecified whether manifestations fluctuate G20.A1 Alex Stuart MD [address] [place] [address] [id number] 07/16/2024 Alex Stuart Prediabetes R73.09 a nd Parkinson disease G20 Alex Stuart MD [address] [place] [address] [id number] 10/05/2024 Alex Stuart Constipation K59.00 ; Ileus K56.7 ; Liver lesion K76.9 and Kidney cysts N28.1 Alex Stuart MD [address] [place] [address] [id number] 10/13/2024 Alex Stuart Annual physical exam Z00.00 ; Parkinson's disease without dyskinesia, unspecified whether manifestations fluctuate G20.A1 ; Liver cyst K76.89 ; Prediabetes R73.09 ; Prostatism N40.0 and Depression screening Z13.31 Alex Stuart MD [address] [place] [address] [id number] 10/29/2024 Alex Stuart MD [address] [place] [address] [id number] 10/02/2024 Alex Stuart MD [address] [place] [address] [id number] 11/26/2024 Alex Stuart Assessments Encounter Date Diagnosis (ICD Code) Assessment Notes Treatment Notes Treatment Clinical Notes Section Notes 10/05/2024 Prediabetes (ICD-10 - R73.09) 10/05/2024 Prostatism (ICD-10 - N40.0) 11/12/2024 UTI (urinary tract infection) (ICD-10 - N39.0) 11/30/2024 Cervical spinal stenosis (ICD-10 - M48.02) did not have significant spinal stenosis on mri 04/14/2024 Prediabetes (ICD-10 - R73.09) stable, no need formedication at this time 04/14/2024 Anxiety (ICD-10 - F41.9) was given a script for escitalopram but has not taken it. 07/16/2024 Prediabetes (ICD-10 - R73.09) stable, no need for medication at this time 10/05/2024 Constipation (ICD-10 - K59.00) need results from the thyroid done 09/1810/05/2024 Ileus (ICD-10 - K56.7) 10/13/2024 Annual physical exam (ICD-10 - Z00.00) labs reviewed and discussed with patient 10/13/2024 Parkinson's disease without dyskinesia, unspecified whether manifestations fluctuate (ICD-10 - G20.A1) not doing well at present have suggested that he go to [facility] neurology dr puri 10/05/2024 Blood tests for routine general physical examination (ICD-10 - Z00.00) 11/30/2024 Parkinson's disease without dyskinesia, unspecified whether manifestations fluctuate (ICD-10 - G20.A1) doing better 04/14/2024 Parkinson's disease, unspecified whether dyskinesia present, [...] that this is not a cancer 10/13/2024 Liver cyst (ICD-10 - K76.89) at present not able to do mri. the cyst appear to be small. will probably have to do the mri later 11/30/2024 Anxiety (ICD-10 - F41.9) seems well controlled 10/05/2024 Kidney cysts (ICD-10 - N28.1) [facility] 10/13/2024 Prediabetes (ICD-10 - R73.09) stable, no need for medication at this time 10/05/2024 Liver mass (ICD-10 - R16.0) 10/13/2024 [...] Provider Name:Alex Sotelo ier, 12/15/2024 01:30:00 PM, [address], [address], [place], [phone], Provider Name:Alex Sotelo ier, 10/08/2025 07:00:00 AM, [address], [address], [place], [phone], Provider Name:Alex Sotelo ier, 10/15/2025 01:00:00 PM, [address], [address], [place], [phone], Insurance Providers Payer Name Payer Address Payer Phone Subscriber Number Group Number Insured Name Patient Relationship to Insured Coverage Start Date Coverage End Date [facility] [id number] [place] [id number] Gabriel Brian Self - patient is the insured Medical (General) History Medical History History ICD Code colonoscopy 2008; colonoscop y 06/10/2013 - repeat 5 years; Colonoscopy 06/13/18 - Dr. Rodriguez - repeat 5 years, colonoscopy 11/20/23 repeat 3 y trigeminal neurology hematuria w/u 07/15
--- OUTSIDE RECORDS SUMMARY | 2024-12-01 11:03 | XMS_ITS | Clinical Summary ---
Author Organization [facility] Address [address] [facility] [address] [place] [id number] Phone Care Team Providers Care Substation Operator Automatic Name Role Phone Alex Stuart MD Primary Care Provider Odette Damon MD Unavailable Roro Trujillo MD Unavailable [phone] Allergies No known active allergies Medications carbidopa-levodopa (SINEMET) 25-100 mg per tablet Take 2 tablets by mouth 4 (four) times a day. 240 tablet 2 11/26/19 25 Active polyethylene glycol (MIRALAX) 17 gram packet [The details of the medication are not available because there are pending changes by a home health clinician.] 60 packet 2 11/26/19 25 Active Additional Information Patient not taking.Reported on 11/26/2024 diazePAM (VALIUM) 5 MG tablet Take 0.5 tablets (2.5 mg total) by mouth 2 (two) times a day as needed for anxiety. 90 tablet 11/26/19 25 Active docusate sodium (COLACE) 100 MG capsule [The details of the medication are not available because there are pending changes by a home health clinician.] 120 capsule 2 11/26/19 25 Active Additional Information Patient not taking.Reported on 11/26/2024 mirtazapine (REMERON) 7.5 MG tablet Take 1 tablet (7.5 mg total) by mouth nightly at bedtime. 30 tablet 2 11/26/19 25 Active magnesium oxide (MAG-OX) 400 mg (241.3 mg elemental) tablet Take 600 mg by mouth daily. prescribed by welt maker; MD campbell, was taking while inpatient 10/19/19 Active carbidopa-levodopa (SINEMET) 25-100 mg per tablet 1 tablet as needed Orally Three times a day Discontin ued(No longer taking) clonazePAM (KLONOPIN) 0.25 MG disintegrating tablet Take 0.25 mg by mouth nightly at bedtime as needed for anxiety. 10/21/19 Discontin ued(Stop Taking at Discharge ) escitalopram oxalate (LEXAPRO) 10 MG tablet Take 10 mg by mouth Every Afternoon. 11/10/19 025 Discontin ued(Stop Taking at Discharge ) GAVILAX 17 gram/dose powder Take 17 g by mouth Every Afternoon. 09/21/19 025 Discontin ued(Stop Taking at Discharge ) carbidopa-levodopa (SINEMET CR) 25-100 mg per CR tablet Take 1.5 tablets by mouth 3 (three) times a day. 11/03/19 025 Discontin ued(No longer taking) carbidopa-levodopa (SINEMET CR) 25-100 mg per CR tablet Take 1 tablet by mouth nightly at bedtime. At 8pm 025 Discontin ued(Stop Taking at Discharge ) carbidopa-levodopa (PARCOPA) 25-100 mg per disintegrating tablet Take 1.5 tablets by mouth 3 (three) times a day. 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 He presented to the emergency department today after he has had progressive lower extremity weakness which is affected his ADLs and his inability to go to work since 10/30 over the course the last 3 days as symptoms have progressively worsened as he is unable to ambulate without assistance. Given this the patient will be admitted to the hospital for failure to thrive and undergo PT and OT evaluations Generalized anxiety disorder 11/14/2024 Assessment & Plan (11/24/2024 9:43 PM EDT): Recently started on Lexapro and dose increased within the last few weeks, also taking Klonopin. His feels the Lexapro may have increased symptoms and did not seem to really help with anxiety at all-I discussed with psychiatry and we will hold both medications for now. Patient has severe anxiety during moments of freezing spells. Was trialed on diazepam 5 mg twice daily and additional as needed. Really did not have any effect from this medication. - Only now getting diazepam 2.5 mg twice daily as needed for anxiety/spasm. -Mirtazapine 7.5 mg nightly started on 11/20 for mood and insomnia with improvement. Assessment & Plan (11/23/2024 5:48 PM EDT): Recently started on Lexapro and dose increased within the last few weeks, also taking Klonopin. His feels the Lexapro may have increased symptoms and did not seem to really help with anxiety at all-I discussed with psychiatry and we will hold both medications for now. Patient has severe anxiety during moments of freezing spells. Was trialed on diazepam 5 mg twice daily and additional as needed. Really did not have any effect from this medication. -Dose reduced to diazepam 2.5 mg twice daily, additional 2.5 mg twice daily as needed for anxiety/spasm. -Mirtazapine 7.5 mg nightly started on 11/20 for mood and insomnia with improvement. Assessment & Plan (11/22/2024 2:03 PM EDT): Recently started on Lexapro and dose increased within the last few weeks, also taking Klonopin. His feels the Lexapro may have increased symptoms and did not seem to really help with anxiety at all-I discussed with psychiatry and we will hold both medications for now. Patient has severe anxiety during moments of freezing spells. Was trialed on diazepam 5 mg twice daily and additional as needed. Really did not have any effect from this medication. -Dose reduced to diazepam 2.5 mg twice daily, additional 2.5 mg twice daily as needed for anxiety/spasm. -Mirtazapine 7.5 mg nightly started on 11/20 for mood and insomnia Assessment & Plan (11/21/2024 3:27 PM EDT): Recently started on Lexapro and dose increased within the last few weeks, also taking Klonopin. His feels the Lexapro may have increased symptoms and did not seem to really help with anxiety at all-I discussed with psychiatry and we will hold both medications for now. Patient has severe anxiety during moments of freezing spells. Was trialed on diazepam 5 mg twice daily and additional as needed. Really did not have any effect from this medication. -Dose reduced to diazepam 2.5 mg twice daily, additional 2.5 mg twice daily as needed for anxiety/spasm. -Mirtazapine 7.5 mg nightly started on 11/20 for mood and insomnia Assessment & Plan (11/20/2024 5:14 PM EDT): Recently started on Lexapro and dose increased within the last few weeks, also taking Klonopin, his feels the Lexapro may have increased symptoms and did not seem to really help with anxiety at all-I discussed with psychiatry and we will hold these medications for now Patient has severe anxiety during moments of freezing spells. Was trialed on diazepam 5 mg twice daily and additional as needed. Really did not have any effect from this medication. Dose reduced to diazepam 2.5 mg twice daily, additional 2.5 mg twice daily as needed for anxiety/spasm. Mirtazapine 7.5 mg nightly started on 11/20 for mood and insomnia Assessment & Plan (11/19/2024 4:24 PM EDT): Recently started on Lexapro and dose increased within the last few weeks, also taking Klonopin, his feels the Lexapro may have increased symptoms and did not seem to really help with anxiety at all-I discussed with psychiatry and we will hold these medications for now Patient has severe anxiety during moments of freezing spells. - psychiatry recommended trial of longer acting benzos like Valium (which seems to be working better than Klonopin) - also considering mirtazapine but neurology noted we should be making very minimal medication changes at a time so that we can see if there is an impact Assessment & Plan (11/18/2024 4:20 PM EDT): Recently started on Lexapro and dose increased within the last few weeks, also taking Klonopin, his feels the Lexapro may have increased symptoms and did not seem to really help with anxiety at all-I discussed with psychiatry and we will hold these medications for now Patient has severe anxiety during moments of freezing spells. - psychiatry recommended trial of longer acting benzos like Valium (which seems to be working better than Klonopin) - also considering mirtazapine but neurology noted we should be making very minimal medication changes at a time so that we can see if there is an impact Assessment & Plan (11/17/2024 9:25 PM EDT): Recently started on Lexapro and dose increased within the last few weeks, also taking Klonopin, his feels the Lexapro may have increased symptoms and did not seem to really help with anxiety at all-I discussed with psychiatry and we will hold these medications for now - psychiatry recommended trial of longer acting benzos like Valium (which seems to be working better than Klonopin) - also considering mirtazapine but neurology noted we should be making very minimal medication changes at a time so that we can see if there is an impact Assessment & Plan (11/16/2024 4:10 PM EDT): Recently started on Lexapro and dose increased within the last few weeks, also taking Klonopin, his feels the Lexapro may have increased symptoms and did not seem to really help with anxiety at all-I discussed with psychiatry and we will hold these medications for now, he seems to be doing well with benzodiazepines for his anxiety but we have discussed using longer acting benzos like Valium (which seems to be working better than Klonopin) instead of Ativan which he may need as a rescue at times in the hospital, 5 mg of Valium this morning psych is wondering if we should trial twice daily dosing tomorrow (2.5), they also recommended considering mirtazapine but neurology noted we should be making very minimal medication changes at a time so that we can see if there is an impact Assessment & Plan (11/15/2024 2:23 PM EDT): Recently started on Lexapro and dose increased within the last few weeks, also taking Klonopin, his feels the Lexapro may have increased symptoms and did not seem to really help with anxiety at all-I discussed with psychiatry and we will hold these medications for now, low-dose Ativan which is shorter acting seems to be more helpful for his anxiety symptoms right now, he may have also been oversedated with Klonopin being longer acting-he should have psychiatry, potentially neuropsych follow-up Assessment & Plan (11/14/2024 9:39 PM EDT): Patient has increased generalized anxiety. Patient was recently started on Lexapro 5 mg daily back in September and progressed to 10 mg daily. He was also started on Klonopin 0.25 mg nightly as needed which started 2 days ago. Since starting the medication patient has significantly seen progressive symptoms of his Parkinson's disease which is known one of the side effects. There is also a known side effect of agitation and increased restlessness. This could also be contributing to his increased generalized anxiety.. I would recommend discontinuing the Lexapro and discontinue Klonopin and start Ativan 0.5 mg every 8 hours as needed anxiety Weakness of both lower extremities 11/14/2024 Assessment & Plan (11/24/2024 9:43 PM EDT): MRI total spine without evidence of cord compression or high-grade spinal stenosis. Does describe multilevel degenerative changes, notably in the cervical spine with high-grade foraminal stenosis from C3-C6. -neurology consulted and thinks this could represent parkinsonism progression versus cervical spinal stenosis which he does have -Ensure outpatient neurosurgery follow up for cervical stenosis. - referral for acute rehab has been made and shira is looking into him -Attempted to call insurance liaison for peer to peer review of his criteria for acute rehab. Patient has an acute decline of his function likely due to worsening of his Parkinson's disease. However the patient was highly independent and functional prior to this sudden decline, and and working with our physical therapists, has shown significant improvement and a motivation to return to his baseline functioning. He will need at least 5 days of acute rehab but unlikely to need a prolonged stay. He is currently stable from a medical standpoint and I think that he would benefit most from acute rehab at this time as he has all high likelihood of regaining significant degree of function. Assessment & Plan (11/23/2024 5:48 PM EDT): MRI total spine without evidence of cord compression or high-grade spinal stenosis. Does describe multilevel degenerative changes, notably in the cervical spine with high-grade foraminal stenosis from C3-C6. -neurology consulted and thinks this could represent parkinsonism progression versus cervical spinal stenosis which he does have -Ensure outpatient neurosurgery follow up for cervical stenosis. - referral for acute rehab has been made and shira is looking into him Assessment & Plan (11/22/2024 2:03 PM EDT): MRI total spine without evidence of cord compression or high-grade spinal stenosis. Does describe multilevel degenerative changes, notably in the cervical spine with high-grade foraminal stenosis from C3-C6. -neurology consulted and thinks this could represent parkinsonism progression versus cervical spinal stenosis which he does have -Ensure outpatient neurosurgery follow up for cervical stenosis. - referral for acute rehab has been made and shira is looking into him Assessment & Plan (11/21/2024 3:27 PM EDT): MRI total spine without evidence of cord compression or high-grade spinal stenosis. Does describe multilevel degenerative changes, notably in the cervical spine with high-grade foraminal stenosis from C3-C6. -neurology consulted- feels this could represent parkinsonism progression versus cervical spinal stenosis which he does have -Ensure outpatient neurosurgery follow up for cervical stenosis. - referral for acute rehab Assessment & Plan (11/20/2024 5:14 PM EDT): MRI total spine without evidence of cord compression or high-grade spinal stenosis. Does describe multilevel degenerative changes, notably in the cervical spine with high-grade foraminal stenosis from C3-C6. -neurology consulted- feels this could represent parkinsonism progression versus cervical spinal stenosis which he does have -Ensure outpatient neurosurgery follow up for cervical stenosis. - referral for acute rehab Assessment & Plan (11/19/2024 4:24 PM EDT): Most likely cause is progression of parkinsonism with recent medication side effects and now with symptoms likely related to withdrawal of some meds and supplements. -neurology consulted- feels this could represent parkinsonism progression versus cervical spinal stenosis which he does have -Ensure outpatient neurosurgery follow up for cervical stenosis. - referral for acute rehab Assessment & Plan (11/18/2024 4:20 PM EDT): Most likely cause is progression of parkinsonism with recent medication side effects and now with symptoms likely related to withdrawal of some meds and supplements. -neurology consulted- feels this could represent parkinsonism progression versus cervical spinal stenosis which he does have -Ensure outpatient neurosurgery follow up for cervical stenosis. - referral for acute rehab Assessment & Plan (11/17/2024 9:25 PM EDT): -Most likely cause is progression of parkinsonism with possible recent medication side effect. -neurology consulted- feels this could represent parkinsonism progression versus cervical spinal stenosis which he does have -Ensure outpatient neurosurgery follow up for cervical stenosis. - referral for acute rehab Assessment & Plan (11/16/2024 4:10 PM EDT): -Most likely cause is progression of parkinsonism with possible recent medication side effect/possible oversedation -Increased dosing of Sinemet 1 week ago, at this point given his subacute on chronic motor symptom worsening-neurology consulted- feels this could represent parkinsonism progression versus cervical spinal stenosis which he does have-recommended further exploration with antidepressants in the outpatient setting, also 4 times daily immediate release Sinemet dosing as they felt the nighttime long acting was not helpful -They also recommend referral for deep brain stimulation evaluation in [place]. I discussed this with the family, referral sent neurology will also communicate with the team -Patient did fairly well with PT and OT and they are not recommending any formal rehab facility -labs are largely normal, lyme titers pending Assessment & Plan (11/15/2024 2:23 PM EDT): -Most likely cause is progression of parkinsonism with possible recent medication side effect/possible oversedation -Increased dosing of Sinemet 1 week ago, at this point given his subacute on chronic motor symptom worsening-neurology consulted- feels this could represent parkinsonism progression versus cervical spinal stenosis which he does have -Imaging showed no acute intracranial findings no cord compression or high-grade spinal stenosis however multilevel foraminal stenosis in the cervical spine- recommend follow-up with neurosurgeon-but this is a known chronic issue -They also recommend referral for deep brain stimulation evaluation in [place]. I discussed this with the family -Patient did fairly well with PT and OT and they are not recommending any formal rehab facility -labs are largely normal, lyme titers pending Assessment & Plan (11/14/2024 9:39 PM EDT): Patient noted to have a diagnosis of Parkinson's disease that was diagnosed 4 years ago due to a shuffling gait then noted to have progressive symptoms with upper extremity tremor 2 years ago and started on Sinemet 25/100 mg 1 tab 3 times daily.. Patient has a history of cervical stenosis and notes that his pain has increased over the course of the last few months but denies any upper extremity weakness tingling or numbness. Over the course of the last 2 weeks he has had progressive lower extremity weakness and increasing anxiety. Of note he was recently started on Lexapro 5 mg daily starting at the beginning of September with an increase in his dosage roughly 2 weeks later correlating with his symptoms. Upon further discussion with the patient has had history of serotonin syndrome in the past. These symptoms are similar to that of his previous serotonin syndrome However given the abrupt onset of worsening lower extremity weakness neurology was consulted from the emergency department and was advised to undergo a CT head which was noted to be negative. He further underwent a cervical, thoracic and lumbar MRIs which revealed no evidence of cord compression or high-grade spinal stenosis. Multilevel degenerative changes of the spine most notable in the cervical spine with multilevel high-grade foraminal stenosis from C3-C6. . Given the findings of the MRIs and CT I feel that his symptoms are most likely related to an exacerbation of his Parkinson's symptoms secondary to Lexapro. - At this time I will discontinue the Lexapro -Obtain PT and OT evaluations -I will obtain a repeat CMP, Mg and Lyme titer -continue current regimen of sinemet Parkinson's disease without dyskinesia or fluctuating manifestations 05/02/2023 Assessment & Plan (11/24/2024 9:43 PM EDT): Worsening neurological and psychiatric symptoms with weakness in extremities in the setting of recent medication changes. -Sinemet started 2 years ago. This admission he was changed from long acting formulation of sinemet for overnight with sinemet IR tid, to sinemet IR QID only. His Sinemet dose was increased from 1.5 tablets 4 times daily to 2 tablets 4 times daily on 11/20 afternoon. He was able to get up and walk down the green w/o a walker today. - For his longstanding anxiety, he was prescribed escitalopram 5mg on October 21, dose increased to 10mg on Nov 09; this coincided with worsening parkinsonian symptoms. Discontinued abruptly on admission 11/14. Effects of the medication and/or withdrawal from the medications may have been contributing to his symptoms. -For anxiety he was also prescribed clonazepam on 10/20, unclear how he was taking this at home. Here he is now on scheduled diazepam 2.5mg BID and has 2.5mg available prn for anxiety, muscle spasms. -He typically takes many supplements on a daily basis, he abruptly stopped taking these supplements when he came to the hospital. RICH Vargas from his neurology group, sent over a extensive list of supplements he had been taking. - B tele neurology consulted 11/14, 11/16. Referral placed for DBS evaluation in [place]. Will need outpatient neurology follow up. Referral within [facility] system per patient preference to be seen for second opinion. - psychiatry consulted 11/16, following. Recommend addition of diazepam both scheduled and prn. In agreement with antidepressant such as mirtazapine, or trazodone. - Primary neurology team has been in contact and is helping with medication management. ; Dr Trujillo is his primary Neurologist, she is away until approx 11/25?, but covering [employer] Alf Duffy and Alicia VILLANUEVA have both been very helpful. He appears to have made some improvement with his medication changes but he is not at his functional baseline. Planning for discharge to rehab, hopefully acute. Patient will benefit from minimum of 1 hour of physical therapy and 1 hour of occupational therapy per day in the setting of increased dopaminergic medications for refractory Parkinson's symptoms. Preference is to acute rehab. Primary neurology team will continue to follow while at rehab to provide support around medication management. Patient states that yesterday, it got a PRN valium at 7pm, his scheduled Remeron, and did not get any scheduled valium that night or during the day. He also got some tylenol for pain around 5 am to good effect. Apparently it was the best sleep he has gotten in sometime, and he was able to do work with PT more today than before. They are wondering if maybe the valium maybe building up and that less might be more helpful. Scheduled Valium was discontinued yesterday and he only got a as needed dose of Valium last night as well as his scheduled Remeron. He got a good nights rest but did admit to feeling slightly groggy this morning. Assessment & Plan (11/23/2024 5:48 PM EDT): Worsening neurological and psychiatric symptoms with weakness in extremities in the setting of recent medication changes. -Sinemet started 2 years ago. This admission he was changed from long acting formulation of sinemet for overnight with sinemet IR tid, to sinemet IR QID only. His Sinemet dose was increased from 1.5 tablets 4 times daily to 2 tablets 4 times daily on 11/20 afternoon. He was able to get up and walk down the green w/o a walker today. - For his longstanding anxiety, he was prescribed escitalopram 5mg on October 21, dose increased to 10mg on Nov 09; this coincided with worsening parkinsonian symptoms. Discontinued abruptly on admission 11/14. Effects of the medication and/or withdrawal from the medications may have been contributing to his symptoms. -For anxiety he was also prescribed clonazepam on 10/20, unclear how he was taking this at home. Here he is now on scheduled diazepam 2.5mg BID and has 2.5mg available prn for anxiety, muscle spasms. -He typically takes many supplements on a daily basis, he abruptly stopped taking these supplements when he came to the hospital. RICH Vargas from his neurology group, sent over a extensive list of supplements he had been taking. - B tele neurology consulted 11/14, 11/16. Referral placed for DBS evaluation in [place]. Will need outpatient neurology follow up. Referral within [facility] system per patient preference to be seen for second opinion. - psychiatry consulted 11/16, following. Recommend addition of diazepam both scheduled and prn. In agreement with antidepressant such as mirtazapine, or trazodone. - Primary neurology team has been in contact and is helping with medication management. ; Dr Trujillo is his primary Neurologist, she is away until approx 11/25?, but covering [employer] Alf Duffy and Alicia VILLANUEVA have both been very helpful. He appears to have made some improvement with his medication changes but he is not at his functional baseline. Planning for discharge to rehab, hopefully acute. Patient will benefit from minimum of 1 hour of physical therapy and 1 hour of occupational therapy per day in the setting of increased dopaminergic medications for refractory Parkinson's symptoms. Preference is to acute rehab. Primary neurology team will continue to follow while at rehab to provide support around medication management. Patient states that yesterday, it got a PRN valium at 7pm, his scheduled Remeron, and did not get any scheduled valium that night or during the day. He also got some tylenol for pain around 5 am to good effect. Apparently it was the best sleep he has gotten in sometime, and he was able to do work with PT more today than before. They are wondering if maybe the valium maybe building up and that less might be more helpful. I will consider adjusting his valium and keeping his scheduled Remeron. Assessment & Plan (11/22/2024 2:03 PM EDT): Worsening neurological and psychiatric symptoms with weakness in extremities in the setting of recent medication changes. -Sinemet started 2 years ago. This admission he was changed from long acting formulation of sinemet for overnight with sinemet IR tid, to sinemet IR QID only. His Sinemet dose was increased from 1.5 tablets 4 times daily to 2 tablets 4 times daily on 11/20 afternoon. He was able to get up and walk down the green w/o a walker today. - For his longstanding anxiety, he was prescribed escitalopram 5mg on October 21, dose increased to 10mg on Nov 09; this coincided with worsening parkinsonian symptoms. Discontinued abruptly on admission 11/14. Effects of the medication and/or withdrawal from the medications may have been contributing to his symptoms. -For anxiety he was also prescribed clonazepam on 10/20, unclear how he was taking this at home. Here he is now on scheduled diazepam 2.5mg BID and has 2.5mg available prn for anxiety, muscle spasms. -He typically takes many supplements on a daily basis, he abruptly stopped taking these supplements when he came to the hospital. RICH Vargas from his neurology group, sent over a extensive list of supplements he had been taking. - B tele neurology consulted 11/14, 11/16. Referral placed for DBS evaluation in [place]. Will need outpatient neurology follow up. Referral within [facility] system per patient preference to be seen for second opinion. - psychiatry consulted 11/16, following. Recommend addition of diazepam both scheduled and prn. In agreement with antidepressant such as mirtazapine, or trazodone. - Primary neurology team has been in contact and is helping with medication management. ; Dr Trujillo is his primary Neurologist, she is away until approx 11/25?, but covering [employer] Alf Duffy and Alicia VILLANUEVA have both been very helpful. He appears to have made some improvement with his medication changes but he is not at his functional baseline. Planning for discharge to rehab, hopefully acute. Patient will benefit from minimum of 1 hour of physical therapy and 1 hour of occupational therapy per day in the setting of increased dopaminergic medications for refractory Parkinson's symptoms. Preference is to acute rehab. Primary neurology team will continue to follow while at rehab to provide support around medication management. Assessment & Plan (11/21/2024 3:27 PM EDT): Worsening neurological and psychiatric symptoms with weakness in extremities in the setting of recent medication changes. -Sinemet started 2 years ago. This admission he was changed from long acting formulation of sinemet for overnight with sinemet IR tid, to sinemet IR QID only. His Sinemet dose was increased from 1.5 tablets 4 times daily to 2 tablets 4 times daily on 11/20 afternoon. He thinks that contributed to better sleep. - For his longstanding anxiety, he was prescribed escitalopram 5mg on October 21, dose increased to 10mg on Nov 09; this coincided with worsening parkinsonian symptoms. Discontinued abruptly on admission 11/14. Effects of the medication and/or withdrawal from the medications may have been contributing to his symptoms. -For anxiety he was also prescribed clonazepam on 10/20, unclear how he was taking this at home. Here he is now on scheduled diazepam 2.5mg BID and has 2.5mg available prn for anxiety, muscle spasms. -He typically takes many supplements on a daily basis, he abruptly stopped taking these supplements when he came to the hospital. RICH Vargas from his neurology group, sent over a extensive list of supplements he had been taking, Elizabeth will update the list with recent changes. - B tele neurology consulted 11/14, 11/16. Referral placed for DBS evaluation in [place]. Will need outpatient neurology follow up. Referral within [facility] system per patient preference to be seen for second opinion. - psychiatry consulted 11/16, following. Recommend addition of diazepam both scheduled and prn. In agreement with antidepressant such as mirtazapine, or trazodone. - Primary neurology team has been in contact and is helping with medication management. ; Dr Trujillo is his primary Neurologist, she is away until approx 11/25?, but covering [employer] Alf Duffy and Alicia VILLANUEVA have both been very helpful. No clear benefit from medication changes yet. Anticipate may take several days or even weeks to get improved symptom control. Planning for discharge to rehab, hopefully acute. Patient will benefit from minimum of 1 hour of physical therapy and 1 hour of occupational therapy per day in the setting of increased dopaminergic medications for refractory Parkinson's symptoms. Preference is to acute rehab. Primary neurology team will continue to follow while at rehab to provide support around medication management. Assessment & Plan (11/20/2024 5:14 PM EDT): Worsening neurological and psychiatric symptoms with weakness in extremities in the setting of recent medication changes. - Sinemet started 2 years ago. This admission he was changed from long acting formulation of sinemet for overnight with sinemet IR tid, to sinemet IR QID only. His Sinemet dose was increased from 1.5 tablets 4 times daily to 2 tablets 4 times daily on 11/20 afternoon. - For his longstanding anxiety, he was prescribed escitalopram 5mg on October 21, dose increased to 10mg on Nov 09; this coincided with worsening parkinsonian symptoms. Discontinued abruptly on admission 11/14. Effects of the medication and/or withdrawal from the medications may have been contributing to his symptoms. - For anxiety he was also prescribed clonazepam on 10/20, unclear how he was taking this at home. Here he is now on scheduled diazepam 2.5mg BID and has 2.5mg available prn for anxiety, muscle spasms. - he typically takes many supplements on a daily basis, he abruptly stopped taking these supplements when he came to the hospital. RICH Vargas from his neurology group, sent over a extensive list of supplements he had been taking, Elizabeth will update the list with recent changes. - B tele neurology consulted 11/14, 11/16. Referral placed for DBS evaluation in [place]. Will need outpatient neurology follow up. Referral within [facility] system per patient preference to be seen for second opinion. - psychiatry consulted 11/16, following. Recommend addition of diazepam both scheduled and prn. In agreement with antidepressant such as mirtazapine, or trazodone. - Primary neurology team has been in contact and is helping with medication management. ; Dr Trujillo is his primary Neurologist, she is away until approx 11/25?, but covering [employer] Alf Duffy and Alicia VILLANUEVA have both been very helpful. No clear benefit from medication changes yet. Anticipate may take several days or even weeks to get improved symptom control. Planning for discharge to rehab, hopefully acute. Patient will benefit from minimum of 1 hour of physical therapy and 1 hour of occupational therapy per day in the setting of increased dopaminergic medications for refractory Parkinson's symptoms. Preference is to acute rehab. Primary neurology team will continue to follow while at rehab to provide support around medication management. Assessment & Plan (11/19/2024 4:24 PM EDT): Worsening neurological and psychiatric symptoms with weakness in extremities in the setting of recent medication changes. - Sinemet started 2 years ago. This admission he was changed from long acting formulation of sinemet for overnight with sinemet IR tid, to sinemet IR QID only. - started taking escitalopram 5mg October 21, dose increased to 10mg Nov 09; this also coincided with worsening symptoms. Discontinued abruptly on admission 11/14. Likely precipitating some withdrawal symptoms. - was prescribed clonazepam on 10/20, unclear how he was taking this at home. Here he is now on scheduled diazepam 5mg BID and has 2.5mg available prn. - he also abruptly discontinued many supplements on admission. His primary neurology list to send over a list of known supplement, family has not left bedside to procure med list or supplements. - B tele neurology consulted 11/14, 11/16. Referral placed for DBS evaluation in [place]. Will need outpatient neurology follow up. Referral within [facility] system per patient preference to be seen for second opinion. - psychiatry consulted 11/16, following. Recommend addition of scheduled diazepam and also available prn. Consider antidepressant such as mirtazapine - Primary neurology team to be in contact No clear benefit from medication changes yet. Anticipate may take several days or even weeks to get improved symptom control. Planning for discharge to rehab, hopefully acute. I believe patient will be able to participate in acute rehab level physical therapy. Assessment & Plan (11/18/2024 4:20 PM EDT): Worsening neurological and psychiatric symptoms with weakness in extremities in the setting of recent medication changes. - Sinemet started 2 years ago. This admission he was changed from long acting formulation of sinemet for overnight with sinemet IR tid, to sinemet IR QID only. - started taking escitalopram 5mg October 21, dose increased to 10mg Nov 09; this also coincided with worsening symptoms. Discontinued abruptly on admission 11/14. Likely precipitating some withdrawal symptoms. - was prescribed clonazepam on 10/20, unclear how he was taking this at home. Here he is now on scheduled diazepam 5mg BID and has 2.5mg available prn. - he also abruptly discontinued many supplements on admission. His primary neurology list to send over a list of known supplement, family has not left bedside to procure med list or supplements. - B tele neurology consulted 11/14, 11/16. Referral placed for DBS evaluation in [place]. Will need outpatient neurology follow up. Referral within [facility] system per patient preference to be seen for second opinion. - psychiatry consulted 11/16, following. Recommend addition of scheduled diazepam and also available prn. Consider antidepressant such as mirtazapine - Primary neurology team to be in contact No clear benefit from medication changes yet. Anticipate may take several days or even weeks to get improved symptom control. Planning for discharge to rehab, hopefully acute. I believe patient will be able to participate in acute rehab level physical therapy. Assessment & Plan (11/17/2024 9:25 PM EDT): Worsening neurological and psychiatric symptoms with weakness in extremities in the setting of recent medication changes. - Sinemet started 2 years ago. Recently, increase in dose and changed to long acting formulation of sinemet for overnight but this coincided with subacute/acute worsening of symptoms, so now back on sinemet IR QID. - started taking escitalopram 5mg October 21, dose increased to 10mg Nov 09; this also coincided with worsening symptoms. Discontinued abruptly on admission 11/14. - was prescribed clonazepam on 10/20 which he describes taking for the first time recent to admission and having a bad night. - neurology consulted 11/14, 11/16. Referral placed for DBS evaluation in [place]. Will need outpatient neurology follow up. Referral within [facility] system per patient preference to be seen for second opinion. - psychiatry consulted 11/16, following. Recommend addition of scheduled diazepam and also available prn. Consider antidepressant such as mirtazapine No clear benefit from medication changes yet. Anticipate may take several days or even weeks to get improved symptom control. Planning for discharge to rehab, hopefully acute. I believe patient will be able to participate in acute rehab level physical therapy. Assessment & Plan (11/16/2024 4:10 PM EDT): Worsening symptoms , see above Assessment & Plan (11/15/2024 2:23 PM EDT): Worsening symptoms , see above Assessment & Plan (11/14/2024 9:39 PM EDT): Patient with a history of Parkinson's that was diagnosed 4 years ago with a shuffling gait which has significantly progressed over the last 4 years. He he follows closely with neurology patient was started on Sinemet 2 years ago with an increase in his Sinemet most recently on 11/06- 5/100 mg tablets 1-1/2 tablets 3 times daily at 6 AM, 10 AM and 2 PM. He also has Sinemet 25/100 mg ER at 8 PM. These medications will be Crohn's disease of small intestine without compl ication 05/02/2023 Assessment & Plan (11/24/2024 9:43 PM EDT): Patient with a history of Crohn's who follows with Dr. Rodriguez , no acute issues Assessment & Plan (11/23/2024 5:48 PM EDT): Patient with a history of Crohn's who follows with Dr. Rodriguez , no acute issues Assessment & Plan (11/22/2024 2:03 PM EDT): Patient with a history of Crohn's who follows with Dr. Rodriguez , no acute issues Assessment & Plan (11/21/2024 3:27 PM EDT): Patient with a history of Crohn's who follows with Dr. Rodriguez , no acute issues Assessment & Plan (11/20/2024 5:14 PM EDT): Patient with a history of Crohn's who follows with Dr. Rodriguez , no acute issues Assessment & Plan (11/19/2024 4:24 PM EDT): Patient with a history of Crohn's who follows with Dr. Rodriguez , no acute issues Assessment & Plan (11/18/2024 2:55 PM EDT): Patient with a history of Crohn's who follows with Dr. Rodriguez , no acute issues Assessment & Plan (11/17/2024 9:25 PM EDT): Patient with a history of Crohn's who follows with Dr. Rodriguez , no acute issues Assessment & Plan (11/16/2024 4:10 PM EDT): Patient with a history of Crohn's who follows with Dr. Rodriguez , no acute issues Assessment & Plan (11/15/2024 2:23 PM EDT): Patient with a history of Crohn's who follows with Dr. Rodriguez , no acute issues Assessment & Plan (11/14/2024 9:39 PM EDT): Patient with a history of Crohn's who follows with Dr. Rodriguez regularly he is currently on fiber supplementation Resolved Problems Problem Noted Date Diagnosed Date Resolved Date Moderate episode of recurren t major depressive disorder 05/02/2023 11/14/2024 Encounters Date Type Department Care Team Description 11/30/2024 Home Care Visit [facility] [address] [place] [address] Ana Smith, PT TELEPHONE ENCOUNTER 11/27/2024 1:00 PM EDT Home Care Visit [facility] [address] [place] [address] Ellis Valero RN SN HOME VISIT 11/27/2024 Episode Documentatio n Update [facility] [address] [place] [address] 11/26/2024 1:00 PM EDT Home Care Visit [facility] [address] [place] [phone] Michelle Espinosa, RICH SN OASIS START OF CARE (SOC) 11/26/2024 Plan of Care Documentation [facility] [address] [place] [phone] 11/25/2024 Home Care Visit [facility] [address] [place] [address] Michelle Espinosa, RICH TELEPHONE ENCOUNTER 11/15/2024 Orders Only [facility] [address] [place] [phone] Homehealth, Dunia Bey MD 11/14/2024 10:34 AM EDT - 11/25/2024 6:00 PM EDT Hospital Encounter [facility] [address] [place] [address] Ramy Amaro MD Altman, Evan K, DO, MPH Chioma Doe DO, MPH Carmelita Louis DO Yau, Cyrus H, MD Discharge Disposition: Home-Health Care Svc 11/14/2024 Procedure Pass [facility], Mri - [address] [address] 11/14/2024 Procedure [facility], Ct Scan - [address] [address] from Last 3 Months Social History Tobacco Use Types Packs/Day Years Used Date Smoking Tobacco: Never Smokeless Tobacco: Never Tobacco Cessation:Counseling Given: Not Answered Alcohol Use Standard Drinks/Week Comments Not Currently [...] is your housing situation today? I have debbierome dumont 11/14/2024 How many times have you [...] Pressure 82/60 11/26/2024 6:01 PM EDT Pulse 65 11/27/2024 2:21 PM EDT Temperature 37.1 C (98.7 F) 11/27/2024 2:21 PM EDT Respiratory Rate 16 11/26/2024 6:00 PM EDT Oxygen Saturation 98% 11/27/2024 2:21 PM EDT Inhaled Oxygen Concentration - - Weight 70.9 kg (156 lb 3.2 oz) 11/23/2024 11:00 AM EDT Height 177.8 cm (5' 10 ) 11/14/2024 1:42 PM EDT Body Mass Index 22.41 11/14/2024 1:42 PM EDT Plan of Treatment Upcoming Encounters Date Type Department Care Team (Late st Contact Info) Description 12/01/2024 12:30 PM EDT Home Care Visit [facility] [address] [place] [phone] Zunilda Spring, PT [address] [place] [address] 12/01/2024 1:00 PM EDT Home Care Visit [facility] [address] [place] [phone] Shari Waller [address] [place] [address] 12/02/2024 1:30 AM EDT Home Care Visit [facility] [address] [place] [phone] Margarita Leung, RICH [address] [place] [address] maria 12/03/2024 12:00 PM EDT Home Care Visit [facility] [address] [place] [phone] Shari Waller [address] [place] [address] [email or web address] 12/[email or web address]/2024 12:00 PM EDT Home Care Visit [facility] [address] [place] [phone] Shari Waller [address] [place] [address] 12/09/2024 2:30 AM EDT Home Care Visit [facility] [address] [place] [phone] Margarita Leung, RICH [address] [place] [address] maria 12/10/2024 12:00 PM EDT Home Care Visit [facility] [address] [place] [address] Shari Waller [address] [place] [phone] 12/14/2024 12:00 PM EDT Home Care Visit [facility] [address] [place] [address] Shari Waller [address] [place] [phone] 12/16/2024 2:00 AM EDT Home Care Visit [facility] [address] [place] [phone] Margarita Leung RN [address] [place] [address] maria 12/17/2024 12:00 PM EDT Home Care Visit [facility] [address] [place] [phone] Shari Waller [address] [place] [phone] 12/21/2024 12:00 PM EDT Home Care Visit [facility] [address] [place] [address] [address] [place] [phone] 12/23/2024 3:00 AM EDT Home Care Visit [facility] [address] [place] [address] Margarita Leung, RICH [address] [place] [address] maria 12/24/2024 12:00 PM EDT Home Care Visit [facility] [address] [place] [address] Shari Waller [address] [place] [address] 12/28/2024 12:00 PM EDT Home Care Visit [facility] [address] [place] [address] Shari Waller [address] [place] [address] 12/30/2024 1:30 AM EDT Home Care Visit [facility] [address] [place] [address] Margarita Leung RN [address] [place] [address] maria 12/31/2024 12:00 PM EDT Home Care Visit [facility] [address] [place] [address] Shari Waller [address] [place] [phone] [email or web address] 01/04/2025 12:00 PM EDT Home Care Visit [facility] [address] [place] [phone] [address]ari [address] [place] [phone] [email or web address] 01/07/2025 1:00 AM EDT Home Care Visit [facility] [address] [place] [address] Margarita Leung RN [address] [place] [address] maria 01/14/2025 12:30 AM EDT Home Care Visit [facility] [address] [place] [address] LeungMargarita sheets RN [address] [place] [address] maria 01/21/2025 12:30 AM EDT Appointment [facility] [address] [place] [address] Margarita Leung RN [address] [place] [address] maria [email or web address] Health Maintenance Due Date Last Done Comments Adult Td,Tdap Booster 1953 LIPID PANEL 1953 DEPRESSION SCREENING 1965 HEPATITIS C SCREENING 1971 COLOGUARD 1998 COLONOSCOPY 1998 COLORECTAL CANCER SCREENING 1998 FIT TEST 1998 FOBT 1998 SIGMOIDOSCOPY 1998 VIRTUAL COLONOSCOPY 1998 PNEUMOCOCCAL VACCINES (50+ y ears) (1 of 1 - PCV) 2003 ZOSTER VACCINES (1 of 2) 2003 INFLUENZA VACCINE (#1) 2024 COVID-19 VACCINE ( - 2023-2 5 season) 2024 RSV VACCINE (1 - 1-dose 75+ series) 2028 SMOKING STATUS SCREENING (On ce After 26 Yrs) Completed 11/14/2024 HEPATITIS A VACCINES Aged Out No long [...] this topic Medical Devices Not on file Procedures Procedure Name Priority Date/Time Associated Diagnosis Comments CBC Routine 11/25/2024 5:49 AM EDT BASIC METABOLIC PANEL Routine 11/25/2024 5:49 AM EDT CBC Routine 11/24/2024 5:20 AM EDT BASIC METABOLIC PANEL Routine 11/24/2024 5:20 AM EDT CBC Routine 11/22/2024 6:02 AM EDT PHOSPHORUS Routine 11/22/2024 6:02 AM EDT MAGNESIUM Routine 11/22/2024 6:02 AM EDT COMPREHENSIVE METABOLIC PANEL Routine 11/22/2024 6:02 AM EDT CBC Routine 11/21/2024 5:39 AM EDT PHOSPHORUS Routine 11/21/2024 5:39 AM EDT MAGNESIUM Routine 11/21/2024 5:39 AM EDT COMPREHENSIVE METABOLIC PANEL Routine 11/21/2024 5:39 AM EDT CBC Routine 11/20/2024 5:39 AM EDT PHOSPHORUS Routine 11/20/2024 5:39 AM EDT MAGNESIUM Routine 11/20/2024 5:39 AM EDT COMPREHENSIVE METABOLIC PANEL Routine 11/20/2024 5:39 AM EDT MAGNESIUM Routine 11/17/2024 5:36 AM EDT BASIC METABOLIC PANEL Routine 11/17/2024 5:36 AM EDT CBC Routine 11/17/2024 5:36 AM EDT CBC Routine 11/15/2024 5:02 AM EDT MAGNESIUM Routine 11/15/2024 5:02 AM EDT COMPREHENSIVE METABOLIC PANEL Routine 11/15/2024 5:02 AM EDT LYME SCREEN WITH REFLEX TO WESTERN BLOT, BLOOD Routine 11/15/2024 5:02 AM EDT MRI CERVICAL/THORACIC/LUMB AR SPINE WITHOUT CONTRAST STAT 11/14/2024 7:[address] HEAD WITHOUT CONTRAST Routine 11/14/2024 5:33 PM EDT TROPONIN STAT 11/14/2024 12:50 PM EDT XR CHEST PA AND LATERAL 2 VIEWS Routine 11/14/2024 12:27 PM EDT TSH WITH REFLEX STAT 11/14/2024 11:56 AM EDT TROPONIN STAT 11/14/2024 11:56 AM EDT LIPASE STAT 11/14/2024 11:56 AM EDT MAGNESIUM STAT 11/14/2024 11:56 AM EDT LFTS (HEPATIC PANEL) STAT 11/14/2024 11:56 AM EDT BASIC METABOLIC PANEL STAT 11/14/2024 11:56 AM EDT CBC AND DIFFERENTIAL STAT 11/14/2024 11:56 AM EDT URINE SEDIMENT STAT 11/14/2024 11:53 AM EDT URINALYSIS W/REFLEX URINE CULTURE STAT 11/14/2024 11:53 AM EDT ECG 12-LEAD STAT 11/14/2024 11:18 AM EDT POCT GLUCOSE Routine 11/14/2024 11:15 AM EDT from Last 3 Months Results * (ABNORMAL) CBC (11/25/2024 5:49 AM EDT) Only the most recent of7 resultswithin the time period is included. WBC 4.73 4.00 - 11.00 K/uL [facility] RBC 3.95(L) 4.50 - 5.90 M/uL [facility] HGB 12.1(L) 13.5 - 17.5 g/dL [facility] HCT 36.9(L) 41.0 - 53.0 % [facility] PLT 159 150 - 450 K/uL [facility] MCV 93.4 80.0 - 100.0 fL [facility] MCH 30.6 27.0 - 31.0 pg [facility] MCHC 32.8 32.0 - 36.0 g/dL [facility] RDW 12.7 11.5 - 14.5 % [facility] MPV 10.4 8.4 - 12.0 fL [facility] NRBC 0.00 0.00 /100 WBCs [facility] ABSOLUTE NRBC 0.00 0.00 K/uL [facility] Blood 11/25/2024 5:49 AM EDT 11/25/2024 6:02 AM EDT us Tyler Cheng MD LAB BLOOD ORDERABLES Final Resul t Performing Organization Address City/State/[facility] Co de Phone Number [address] [address] * Basic metabolic panel (11/25/2024 5:49 AM EDT) Only the most recent of4 resultswithin the time period is included. SODIUM 139 133 - 146 mmol/L [facility] CHLORIDE 103 96 - 108 mmol/L [facility] POTASSIUM 3.9 3.3 - 5.1 mmol/L [facility] CO2 27 21 - 35 mmol/L [facility] BUN 19 6 - 19 mg/dL [facility] CREATININE 1.20 0.5 - 1.5 mg/dL [facility] GLUCOSE 87 70 - 99 mg/dL [facility] CALCIUM 9.0 8.4 - 10.3 mg/dL [facility] EGFR 65 >59 mL/min/1.7 3m2 [facility] Comment:Estimated glomerular filtration rate calculated using the CKD-EPI refit equation. ANION GAP 13 10 - 20 mmol/L [facility] Blood 11/25/2024 5:49 AM EDT 11/25/2024 6:02 AM EDT us Tyler Cheng MD LAB BLOOD ORDERABLES Final Resul t [address] [address] * (ABNORMAL) Comprehensive metabolic panel (11/22/2024 6:02 AM EDT) Only the most recent of4 resultswithin the time period is included. SODIUM 140 133 - 146 mmol/L [facility] POTASSIUM 3.7 3.3 - 5.1 mmol/L [facility] CHLORIDE 105 96 - 108 mmol/L [facility] CO2 26 21 - 35 mmol/L [facility] BUN 17 6 - 19 mg/dL [facility] CREATININE 1.20 0.5 - 1.5 mg/dL [facility] GLUCOSE 105(H) 70 - 99 mg/dL [facility] ALBUMIN 3.8(L) 3.9 - 4.8 g/dL [facility] TOTAL PROTEIN 6.3(L) 6.5 - 8.0 g/dL [facility] CALCIUM 9.4 8.4 - 10.3 mg/dL [facility] ALKALINE PHOSPHATASE 47 39 - 117 U/L [facility] TOTAL BILIRUBIN 0.7 0.0 - 1.2 mg/dL [facility] AST 16 0 - 37 U/L [facility] ALT <5 0 - 40 U/L [facility] GLOBULIN 2.5 1 - 4.8 g/dL [facility] EGFR 65 >59 mL/min/1.7 3m2 [facility] Comment:Estimated glomerular filtration rate calculated using the CKD-EPI refit equation. ANION GAP 13 10 - 20 mmol/L [facility] Blood 11/22/2024 6:02 AM EDT 11/22/2024 6:45 AM EDT us Chioma Doe DO, MPH LAB BLOOD ORDER SHILPI Final Result Performing Organization Address [facility] Co de Phone Number [address] [address] * Phosphorus (11/22/2024 6:02 AM EDT) Only the most recent of3 resultswithin the time period is included. PHOSPHORUS 3.2 2.7 - 4.5 mg/dL [facility] Blood 11/22/2024 6:02 AM EDT 11/22/2024 6:45 AM EDT us Chioma Doe DO MPH LAB BLOOD ORDER SHILPI Final Result Performing Organization Address [facility] de Phone Number [address] [address] * Magnesium (11/22/2024 6:02 AM EDT) Only the most recent of6 resultswithin the time period is included. MAGNESIUM 2.1 1.6 - 2.6 mg/dL [facility] Blood 11/22/2024 6:02 AM EDT 11/22/2024 6:45 AM EDT us Chioma Doe DO MPH LAB BLOOD ORDER SHILPI Final Result Performing Organization Address [facility] Co de Phone Number [address] [address] * Lyme Screen with Reflex to Immunoblot, Blood (11/15/2024 5:02 AM EDT) Lyme AB IgG Negative Negative [facility] Lyme AB IgM Negative Negative [facility] Blood 11/15/2024 5:02 AM EDT 11/15/2024 5:10 AM EDT us Brody Castañeda PA-C LAB BLOOD ORDERABLES Final Re sult Performing Organization Address City/[facility]/ZIP Co de Phone Number [address] [address] * MRI CERVICAL/THORACIC/LUMBAR SPINE WITHOUT CONTRAST (11/14/2024 7:42 PM EDT) Anatomical Region Laterality Modality T-spine Magnetic Resonan ce 11/14/2024 8:08 PM EDT Impressions 11/14/2024 11:42 PM EDT 1. No evidence of cord compression or high-grade spinal stenosis. 2. Multilevel degenerative changes of the spine most notable in the cervical spine with multilevel high-grade foraminal stenosis from C3 to C6. Narrative 11/14/2024 11:42 PM EDT MRI CERVICAL/THORACIC/LUMBAR SPINE WITHOUT CONTRAST Referring clinician's provided indication for this examination in Epic: * Cord compression TECHNIQUE: MRI CERVICAL/THORACIC/LUMBAR SPINE WITHOUT CONTRAST Multi-sequence, multi-planar MRI of the cervical, thoracic, and lumbar spine was performed without intravenous contrast. COMPARISON: None available FINDINGS: CERVICAL SPINE: Alignment and Vertebrae: Normal alignment. No compression fracture. Marrow: No suspicious bone marrow replacing lesion. Discs and Endplates: Multilevel disc desiccation with up to moderate disc height loss at C6-C7. No high-grade spinal stenosis. Multilevel facet and uncovertebral hypertrophy with high-grade foraminal stenosis on the right at C3-C4 and bilaterally from C4 to C6 Spinal Cord: No spinal cord compression or signal abnormality. Soft Tissue: Normal. No prevertebral edema. THORACIC SPINE: Alignment and Vertebrae: Normal alignment. No compression fracture. Marrow: No suspicious bone marrow replacing lesion. Nonspecific 6 mm T2 hyperintense lesion within the right T6 lamina without aggressive features. Discs and Endplates: Multilevel degenerative disc changes with a few small Schmorl's nodes. Spinal Cord: No spinal cord compression or signal abnormality. Soft Tissue: No prevertebral edema. A few perineural cysts are noted most prominently on the right at T8-T9 and left at T11-T12. Other Findings: Right renal cyst. LUMBAR SPINE: Alignment and Vertebrae: Normal alignment. No compression fracture. Marrow: No suspicious bone marrow replacing lesion. Discs and Endplates: Multilevel disc desiccation with Modic 1 edematous degenerative changes at L2-L3 and L3-L4. Multilevel disc bulges up to mild spinal stenosis. Disc bulge and facet arthrosis contributes to moderate foraminal stenosis on the left at L2-L3. No high-grade spinal. Conus: The conus terminates in a normal position at the level of L1. Soft Tissues: No prevertebral edema. Other Findings: None. Procedure Note Paco Oquendo MD - 11/14/2024 MRI CERVICAL/THORACIC/LUMBAR SPINE WITHOUT CONTRAST Referring clinician's provided indication for this examination in Epic: *Cord compression TECHNIQUE: MRI CERVICAL/THORACIC/LUMBAR SPINE WITHOUT CONTRAST Multi-sequence, multi-planar MRI of the cervical, thoracic, and lumbarspine was performed without intravenous contrast. COMPARISON: None available FINDINGS: CERVICAL SPINE: Alignment and Vertebrae: Normal alignment. No compression fracture. Marrow: No suspicious bone marrow replacing lesion. Discs and Endplates: Multilevel disc desiccation with up to moderate discheight loss at C6-C7. No high-grade spinal stenosis. Multilevel facet anduncovertebral hypertrophy with high-grade foraminal stenosis on the rightat C3-C4 and bilaterally from C4 to C6 Spinal Cord: No spinal cord compression or signal abnormality. Soft Tissue: Normal. No prevertebral edema. THORACIC SPINE: Alignment and Vertebrae: Normal alignment. No compression fracture. Marrow: No suspicious bone marrow replacing lesion. Nonspecific 6 mm [id number] lesion within the right T6 lamina without aggressivefeatures. Discs and Endplates: Multilevel degenerative disc changes with a few smallSchmorl's nodes. Spinal Cord: No spinal cord compression or signal abnormality. Soft Tissue: No prevertebral edema. A few perineural cysts are noted mostprominently on the right at T8-T9 and left at T11-T12. Other Findings: Right renal cyst. LUMBAR SPINE: Alignment and Vertebrae: Normal alignment. No compression fracture. Marrow: No suspicious bone marrow replacing lesion. Discs and Endplates: Multilevel disc desiccation with Modic 1 edematousdegenerative changes at L2-L3 and L3-L4. Multilevel disc bulges up to mildspinal stenosis. Disc bulge and facet arthrosis contributes to moderateforaminal stenosis on the left at L2-L3. No high-grade spinal. Conus: The conus terminates in a normal position at the level of L1. Soft Tissues: No prevertebral edema. Other Findings: None. IMPRESSION: 1. No evidence of cord compression or high-grade spinal stenosis. 2. Multilevel degenerative changes of the spine most notable in thecervical spine with multilevel high-grade foraminal stenosis from C3 toC6. Cem Alfaro PA-C IMG MR XSPECIALTY Final Result * CT HEAD WITHOUT CONTRAST (11/14/2024 5:33 PM EDT) Anatomical Region Laterality Modality Head Computed Tomogra phy 11/14/2024 7:01 PM EDT Impressions 11/14/2024 7:04 PM EDT No acute intracranial findings. Narrative 11/14/2024 7:[address] HEAD WITHOUT CONTRAST Referring clinician's provided indication for this examination in [facility]: * Mental status change, unknown cause TECHNIQUE: CT of the head was performed without intravenous contrast using tailored dose modulation techniques. Images were reconstructed in the axial, coronal, and sagittal planes. COMPARISON: None FINDINGS: Brain Parenchyma: No midline shift, mass effect, parenchymal hemorrhage, or evidence of acute territorial infarct. Ventricular System and Extra-Axial Spaces: The CSF spaces are moderately prominent related to brain parenchymal volume loss. No extra-axial fluid collections. Basilar cisterns are patent. No hydrocephalus. Osseous and Extracranial Structures: No calvarial fracture or significant soft tissue hematoma. No significant paranasal sinus disease. No orbital abnormality. Procedure Note Polo Harris MD - 11/14/2024 CT HEAD WITHOUT CONTRAST Referring clinician's provided indication for this examination in [facility]: *Mental status change, unknown cause TECHNIQUE: CT of the head was performed without intravenous contrast usingtailored dose modulation techniques. Images were reconstructed in theaxial, coronal, and sagittal planes. COMPARISON: None FINDINGS: Brain Parenchyma: No midline shift, mass effect, parenchymal hemorrhage,or evidence of acute territorial infarct. Ventricular System and Extra-Axial Spaces: The CSF spaces are moderatelyprominent related to brain parenchymal volume loss. No extra-axial fluidcollections. Basilar cisterns are patent. No hydrocephalus. Osseous and Extracranial Structures: No calvarial fracture or significantsoft tissue hematoma. No significant paranasal sinus disease. No orbitalabnormality. IMPRESSION: No acute intracranial findings. Cem Alfaro PA-C IMG CT HEAD/NECK Final Result * (ABNORMAL) Troponin (11/14/2024 12:50 PM EDT) Only the most recent of2 resultswithin the time period is included. Troponin-T, HS Gen5 18(H) 0 - 14 ng/L [facility] Blood 11/14/2024 12:5 0 PM EDT 11/14/2024 1:13 PM EDT Cem Alfaro PA-C LAB BLOOD ORDERABLES Final Res ult Performing Organization Address City/State/[facility] Co de Phone Number [address] [address] * XR CHEST PA AND LATERAL 2 VIEWS (11/14/2024 12:27 PM EDT) Anatomical Region Laterality Modality Chest Computed Radiogr aphy 11/14/2024 1:27 PM EDT Impressions 11/14/2024 1:27 PM EDT No acute abnormality. Narrative 11/14/2024 1:27 PM EDT XR CHEST PA AND LATERAL 2 VIEWS Referring clinician's provided indication for this examination in [facility]: Fatigue; Dyspnea (Shortness of Breath) COMPARISON: None FINDINGS: Devices/Tubes/Lines: None. Lungs: No focal consolidation or pulmonary edema. Pleura: No pleural effusion or pneumothorax. Heart/Mediastinum: Normal heart and mediastinum. Bones/Soft Tissues: No significant abnormality. Procedure Note Haylee Austin MD, PhD - 11/14/2024 XR CHEST PA AND LATERAL 2 VIEWS Referring clinician's provided indication for this examination in [facility]:Fatigue; Dyspnea (Shortness of Breath) COMPARISON: None FINDINGS: Devices/Tubes/Lines: None. Lungs: No focal consolidation or pulmonary edema. Pleura: No pleural effusion or pneumothorax. Heart/Mediastinum: Normal heart and mediastinum. Bones/Soft Tissues: No significant abnormality. IMPRESSION: No acute abnormality. Cem Alfaro PA-C IMG XR CHEST Final Result * TSH with reflex (11/14/2024 11:56 AM EDT) TSH 0.93 0.27 - 4.20 uIU/mL [facility] Blood 11/14/2024 11:5 6 AM EDT 11/14/2024 12:46 PM EDT us Cem Alfaro PA-C LAB BLOOD ORDERABLES Final Res ult Performing Organization Address City/State/[facility] Co de Phone Number [address] [address] * (ABNORMAL) LFTs (hepatic panel) (11/14/2024 11:56 AM EDT) ALKALINE PHOSPHATASE 48 39 - 117 U/L [facility] TOTAL BILIRUBIN 0.9 0.0 - 1.2 mg/dL [facility] DIRECT BILIRUBIN 0.3(H) 0.0 - 0.2 mg/dL [facility] Bilirubin (Indirect) 0.6 0 - 1.5 mg/dL [facility] AST 19 0 - 37 U/L [facility] ALT 10 0 - 40 U/L [facility] TOTAL PROTEIN 6.6 6.5 - 8.0 g/dL [facility] ALBUMIN 4.1 3.9 - 4.8 g/dL [facility] GLOBULIN 2.5 1 - 4.8 g/dL [facility] A/G Ratio 1.64 1.00 - 4.80 RATIO [facility] Blood 11/14/2024 11:5 6 AM EDT 11/14/2024 12:07 PM EDT us Cem Alfaro PA-C LAB BLOOD ORDERABLES Final Res ult [facility] [address] [place] [address] * (ABNORMAL) CBC and differential (11/14/2024 11:56 AM EDT) WBC 5.01 4.00 - 11.00 K/uL [facility] RBC 4.49(L) 4.50 - 5.90 M/uL [facility] HGB 13.6 13.5 - 17.5 g/dL [facility] HCT 41.2 41.0 - 53.0 % [facility] PLT 183 150 - 450 K/uL [facility] MCV 91.8 80.0 - 100.0 fL [facility] MCH 30.3 27.0 - 31.0 pg [facility] MCHC 33.0 32.0 - 36.0 g/dL [facility] RDW 12.6 11.5 - 14.5 % [facility] MPV 10.7 8.4 - 12.0 fL [facility] NRBC 0.00 0.00 /100 WBCs [facility] ABSOLUTE NRBC 0.00 0.00 K/uL [facility] DIFF METHOD Auto [facility] NEUTS 66.6 48.0 - 76.0 % [facility] LYMPHS 24.8 18.0 - 41.0 % [facility] MONOS 7.0 4.0 - 11.0 % [facility] EOS 0.8 0.0 - 5.0 % [facility] BASOS 0.6 0.0 - 1.5 % [facility] Granulocytes, immature (%) 0.2 0.0 - 0.9 % [facility] ABSOLUTE NEUTS 3.34 1.92 - 7.60 K/uL [facility] ABSOLUTE LYMPHS 1.24 0.72 - 4.10 K/uL [facility] ABSOLUTE MONOS 0.35 0.16 - 1.10 K/uL [facility] ABSOLUTE EOS 0.04 0.00 - 0.50 K/uL [facility] ABSOLUTE BASOS 0.03 0.00 - 0.15 K/uL [facility] Granulocytes, immature 0.01 0.00 - 0.09 K/uL [facility] Blood 11/14/2024 11:5 6 AM EDT 11/14/2024 12:07 PM EDT Cem Alfaro PA-C LAB BLOOD ORDERABLES Final Res ult Performing Organization Address [facility] Co de Phone Number [address] [address] * Lipase (11/14/2024 11:56 AM EDT) LIPASE 57 16 - 63 U/L [facility] Blood 11/14/2024 11:5 6 AM EDT 11/14/2024 12:07 PM EDT Cem Alfaro PA-C LAB BLOOD ORDERABLES Final Res ult Performing Organization Address [facility] de Phone Number [address] [address] * (ABNORMAL) Urinalysis w/reflex Urine Culture (11/14/2024 11:53 AM EDT) COLOR Yellow Yellow [facility] CLARITY Clear [facility] GLUCOSE Negative Negative [facility] BILI Negative Negative [facility] KETONES 1+(A) Negative [facility] SPECIFIC GRAVITY <1.005 1.005 - 1.030 [facility] BLOOD 1+(A) Negative [facility] PH 6.5 5.0 - 8.0 [facility] Protein-UA Negative Negative [facility] NITRITE Negative Negative [facility] Leukocyte esterase, ur Negative Negative [facility] Urine (Urine) 11/14/2024 11: 53 AM EDT 11/14/2024 1:14 PM EDT Cem Alfaro PA-C URINE ORDERABLES Final Result Performing Organization Address [facility] Co de Phone Number [address] [address] * (ABNORMAL) Urine sediment (11/14/2024 11:53 AM EDT) WBC 0-4(A) NONE SEEN /hpf [facility] RBC 0-2(A) NONE SEEN /hpf [facility] URINE EPITHELIAL 0-4(A) NONE SEEN [facility] MUCUS Trace(A) NONE SEEN /hpf [facility] BACTERIA Trace(A) NONE SEEN /hpf [facility] 11/14/2024 11:5 3 AM EDT 11/14/2024 1:14 PM EDT Cem Alfaro PA-C URINE ORDERABLES Final Result Performing Organization Address City/[facility] Co de Phone Number [facility] [address] [place] [address] * ECG 12-LEAD (11/14/2024 11:18 AM EDT) Ventricular Rate EKG/MIN 75 BPM [facility] Atrial Rate 75 BPM [facility] MD Interval 144 ms [facility] QRS Duration 80 ms [facility] QT Interval 396 ms [facility] QTC Interval 442 ms [facility] P [place] 30 degrees [facility] R Wave [place] 17 degrees [facility] T Wave [place] 46 degrees [facility] 11/14/2024 11:1 8 AM EDT 11/15/2024 12:05 PM EDT Narrative [facility] - 11/15/2024 12:05 PM EDT Sinus rhythm with marked sinus arrhythmia Otherwise normal ECG No previous ECGs available Confirmed by Jordin Tsang ([id number]) on 11/15/2024 12:05:45 PM Cem Alfaro PA-C ECG ORDERABLES Final Result Performing Organization Address City/[facility] Co de Phone Number [facility] * (ABNORMAL) POCT Glucose (11/14/2024 11:15 AM EDT) Glucose, POCT 101(H) 70 - 100 mg/dL [facility] 11/14/2024 11:1 5 AM EDT 11/14/2024 11:21 AM EDT us Unknown Unknown MD POINT OF CARE TEST ORDERABLES Final Result [address] [address] from Last 3 Months Insurance [place] [employer] MEDICARE A [place] [employer] MEDICARE A [place] [employer] PPO MEDICARE A [place] [employer] PPO MEDIC[facility] PPO MEDICARE A Advance Directives For more information, please contact: [phone] (9AM - 5PM [facility], Saturday-Saturday) Documents on File Type Date Recorded Patient Bond Underwriter Expl anation Healthcare Proxy 11/26/2024 1:01 PM * Full Code (Latest Code Status on File) Date Activated Date Inactivated Comments 11/14/2024 9:57 PM Question Answer Comments Code Status Confirmed With: Patient Care Teams Substation Operator Automatic Relationship Specialty Start Date End Date Alex Stuart MD [address] [place] [address] Dr ELIZONDO [address] [place] [address] [address] PCP - General Internal Medicine 08/21/22 Odette Damon MD [address] [place] [address] [place] [address] Neurology 05/02/23 Roro Trujillo MD [address] [place] [address] [place] [address] Neurology 05/02/23 Additional Source Comments The information contained in this document represents components of the legal health record. It is not the complete legal health record.[facility]
--- OUTSIDE RECORDS SUMMARY | 2024-12-01 11:03 | XMS_ITS | Encounter Summary ---
Author Organization [facility] Address [address] [place] [phone] Phone Care Team Providers Care Half Section Ironer Name Role Phone Alex Stuart MD Primary Care Provider Odette Damon MD Unavailable Roro Trujillo MD Unavailable [phone] Encounter Details Date Type Department Care Team (Late st Contact Info) Description 11/27/2024 Episode Documentatio n Update [facility] [address] [place] [address] Social History Tobacco Use Types Packs/Day Years [...] your housing situation today? I have debbie dmuont 11/14/2024 How many times have you move [...] Visit [facility] [address] [place] [address] Zunilda Spring, PT [address] [place] [address] 12/01/2024 1:00 PM EDT Home Care Visit [facility] [address] [place] [address] Sridhar Shari [address] [place] [phone] [email or web address] 12/02/2024 1:30 AM EDT Home Care Visit [facility] [address] [place] [address] Margarita Leung, RICH [address] [place] [address] [email or web address] 12/03/2024 12:00 PM EDT Home Care Visit [facility] [address] [place] [address] Sridhar Shari [address] [place] [phone] [email or web address] 12/07/2024 12:00 PM EDT Home Care Visit [facility] [address] [place] [address] Shari Waller [address] [place] [phone] [email or web address] 12/09/2024 2:30 AM EDT Home Care Visit [facility] [address] [place] [address] Margarita eLung, RICH [address] [place] [address] [email or web address] 12/10/2024 12:00 PM EDT Home Care Visit [facility] [address] [place] [address] Sridhar Shari [address] [place] [phone] [email or web address] 12/14/2024 12:00 PM EDT Home Care Visit [facility] [address] [place] [address] Shari Waller [address] [place] [address] [email or web address] 12/16/2024 2:00 AM EDT Home Care Visit [facility] [address] [place] [address] Margarita Leung, RICH [address] [place] [address] maria 12/17/2024 12:00 PM EDT Home Care Visit [facility] [address] [place] [address] Sridhar Shari [address] [place] [phone] [email or web address] 12/21/2024 12:00 PM EDT Home Care Visit [facility] [address] [place] [address] Shari Waller [address] [place] [phone] [email or web address] 12/23/2024 3:00 AM EDT Home Care Visit [facility] [address] [place] [phone] Margarita Leung RN [address] [place] [address] [email or web address] 12/24/2024 12:00 PM EDT Home Care Visit [facility] [address] [place] [address] Sridhar Shari [address] [place] [phone] [email or web address] 12/28/2024 12:00 PM EDT Home Care Visit [facility] [address] [place] [address] Sridhar Shari [address] [place] [address] [email or web address] 12/30/2024 1:30 AM EDT Home Care Visit [facility] [address] [place] [phone] Margarita Leung, RICH [address] [place] [phone] [email or web address] 12/31/2024 12:00 PM EDT Home Care Visit [facility] [address] [place] [address] SridharShari [address] [place] [address] [email or web address] 01/04/2025 12:00 PM EDT Home Care Visit [facility] [address] [place] [phone] [address]ridhar [address] [address] [email or web address] 01/07/2025 1:00 AM EDT Home Care Visit [facility] [address] [place] [phone] Margarita Leung RN [address] [place] [phone] [email or web address] 01/14/2025 12:30 AM EDT Home Care Visit [facility] [address] [place] [phone] Margarita Leung RN [address] [place] [phone] [email or web address] 01/21/2025 12:30 AM EDT Appointment [facility] [address] [place] [phone] Margarita Leung, RICH [address] [place] [phone] [email or web address] documented as of this encounter Visit Diagnoses Not on filedocumented in this encounter Care Teams Half Section Ironer Relationship Specialty Start Date End Date Bombardier, Alex Peter, MD [address] [place] [address] Dr [address]ERRA [address] [place] [id number] PCP - General Internal Medicine 08/21/22 Odette Damon MD [address] [place] [address] Dr [address] [place] [address] Neurology 05/02/23 Roro Trujillo MD [address] [place] [address] Dr [address] [place] [address] Neurology 05/02/23 documented as of this encounter Additional Source Comments The information contained in this document represents components of the legal health record. It is not the complete legal health record.[facility]
--- OUTSIDE RECORDS SUMMARY | 2024-12-01 11:03 | XMS_ITS | Patient Health Record ---
Author Organization [facility] Address [address] [place] [address] Care Team Providers Care Regulator Assembler Name Role Phone Alex Stuart MD Primary Care Provider Duke Albarado Unavailable [phone] Allergies No Known Allergies Results Component Value Reference Range Notes CT abdomen pelvis w con Reviewed date:09/16/2024 12:04:45 AM Interpretation: Performing Lab: Notes/Report: [address] [address] [address] Scan Report Signed Patient: Dave Heller MR#: [id number] : 1955 Acct:[id number] Age/Sex: 69 / M ADM Date: 09/15/24 Loc: .ED Attending Dr: Ordering Physician: Neisha Pepper PA-C Date of Service: 09/15/24 Procedure(s): CT abdomen pelvis w IV con Accession Number(s): [id number] cc: Neisha Pepper PA-C; Duke Rodriguez MD Report Number: [id number]: Total DLP = 463.00 mGy-cm CLINICAL HISTORY: [...] Severe stool burden is noted distally with zgdojoub-yq-wnhzie distention of the distal large intestine and [...] in OV> 09/15/242256 DD/ 55 TD/TT: 09/15/242255 Railroad [employer]: KATIE BURGOS Reviewed date:09/18/2024 04:54:49 PM Interpretation: Performing Lab: Notes/Report: [address] [address] XRay Report Signed Patient: Dave Heller MR#: [id number] : 1955 Acct:[id number] Age/Sex: 69 / M ADM Date: 09/17/24 Loc: HO.ED Attending Dr: Ordering Physician: Marni Correa MD Date of Service: 09/17/24 Procedure(s): XR KUB Accession Number(s): [id number] cc: Marni Correa MD; Duke Rodriguez MD [...] in OV> 09/17/242213 DD/ 11 TD/TT: 09/17/242211 [employer]: Basic Metabolic Panel Stanleyin maryan Reviewed date:09/18/2024 04:53:36 PM Interpretation: Performing Lab:[facility], [address] [place] [address] Notes/Report: Sodium 138 135-145 mmol/L Potassium 4.1 [...] Creatinine Reviewed date:09/18/2024 04:54:12 PM Interpretation: Performing Lab:[address] [address] Notes/Report: Creatinine 1.13 0.5-1.4 mg/dL Creatinine Clr [...] Thyroxine) Reviewed date:09/18/2024 04:53:54 PM Interpretation: Performing Lab:[address] [address] Notes/Report: Free T4 (Free Thyroxine) 1.14 0.71-1.85 ng/dL Thyroid Stimulating Hormone Reviewed date:09/18/2024 04:54:01 PM Interpretation: Performing Lab:[address] [address] Notes/Report: Thyroid Stimulating Hormone 0.99 0.32-4.0 uIU/ mL TSH 3rd Generation ([facility]) Complete Blood Count Auto Di ff Reviewed date:09/19/2024 06:18:39 PM Interpretation: Performing Lab:[address] [address] Notes/Report: White Blood Count 7.0 4.8-10.8 X10*3/uL [...] Panel Reviewed date:09/19/2024 06:18:13 PM Interpretation: Performing Lab:[address] [address] Notes/Report: Sodium 142 135-145 mmol/L Potassium 3.7 [...] Creatinine Reviewed date:09/19/2024 06:18:25 PM Interpretation: Performing Lab:[address] [address] Notes/Report: Creatinine 1.12 0.5-1.4 mg/dL Creatinine Clr [...] gy Reviewed date:09/21/2024 11:04:24 PM Interpretation: Performing Lab:[facility], [address] [place] [phone] Notes/Report: Hold Lav - Possible Hematology SEE NOTE Specimen will be held untested for 8 hours. Call Hematology if testing is desired. Basic Metabolic Panel Reviewed date:09/21/2024 11:04:10 PM Interpretation: Performing Lab:[facility], [address] [place] [address] Notes/Report: Sodium 142 135-145 mmol/L Potassium 3.9 [...] date:09/21/2024 11:03:57 PM Interpretation: Performing Lab: Notes/Report: [address] [address] XRay Report Signed Patient: Dave Heller MR#: [id number] : 1955 Acct:[id number] Age/Sex: 69 / M ADM Date: 09/18/24 Loc: HO.S3 360-[address]: June ASTUDILLO Ordering Physician: June Pfeiffer Date of Service: 09/20/24 Procedure(s): XR KUB Accession Number(s): [id number] cc: June Pfeiffer; Duke Rodriguez MD CLINICAL [...] 09/20/24 1126 DD/ 1125 TD/TT: 09/20/24 1125 Railroad Police: Reason For Referral No Information Medications Medication [...] Problem Status W/U Status Risk Notes Problem 638545659 Encounter for screening for malignant neoplasm of colon (Z12.11) Active confirmed Problem Diverticular disease of colon (942170534) Diverticulosis of large intestine without perforation or abscess without bleeding (K57.30) Active confirmed Problem 787739908678829 Preprocedural examination (Z01.818) Active confirmed Problem 632179878 Family history o f colon cancer (Z80.0) Active confirmed Problem 84954122 Constipation, unspecified constipation type (K59.00) Active confirmed Problem 853901679 Hx of adenomatou s colonic polyps (Z86.010) Active confirmed Problem 76756650 Crohn''s disease of small intestine without complication (K50.00) Active confirmed Encounters Encounter Location Date Provider Diagnosis [facility] [address] [place] [phone] 09/14/2024 Duke Rodriguez [facility] [address] [place] [address] 09/17/2024 Duke Michael [facility] [address] [place] [address] 09/18/2024 Duke Rodriguez [facility] [address] [place] [address] 09/22/2024 Duke Rodriguez [facility] [address] [place] [address] 09/28/2024 Duke Rodriguez [facility] [address] [place] [address] 11/15/2024 Duke Rodriguez Plan Of Treatment Future Test Test Name Order Date COLONOSCOPY 04/17/2013 COLONOSCOPY 05/07/2018 COLONOSCOPY 08/13/2023 Insurance Providers Payer Name Payer Address Payer Phone Subscriber Number Group Number Insured Name Patient Relationship to Insured Coverage Start Date Coverage End Date [employer] [address] EDVIN SHANE [phone] [id number] DAVE HELLER Self - patient is the [...] on his colonoscopies and GI series. Denies LA,DM,CVA,Lung disease,renal dise ase Neg. ETT Negative colonoscopy in 2018 other than his known melanosis coli and Crohn's ileitis. Parkinson's disease Anxiety in association with the Parkinso n's disease Surgical History Surgery Date(Month/Year) Knee surgery
--- OUTSIDE RECORDS SUMMARY | 2024-12-01 11:04 | XMS_ITS | Encounter Summary ---
Author Organization [facility] Address [address] [place] [address] Phone Care Team Providers Care Auto Garage Mechanic Name Role Phone Alex Stuart MD Primary Care Provider Odette Damon MD Unavailable [phone] Roro Trujillo MD Unavailable [phone] Reason for Visit * Auth/Cert (Routine) Specialty Diagnoses / Procedures Referred By Contac t Referred To Contact Referral ID Status Reason Start Date Expiration Date Visits Re quested Visits Authorized [id number] 1 1 Encounter Details Date Type Department Care Team (Late st Contact Info) Description 11/30/2024 Home Care Visit [facility] [address] [place] [address] Ana Smith, PT [address] [place] [address] [email or web address] ENCOUNTER Social History Tobacco Use Types Packs/Day Years [...] 12:30 PM EDT Home Care Visit [facility] [address] [place] [address] Zunilda Spring, PT [address] [place] [address] [email or web address] 12/01/2024 1:00 PM EDT Home Care Visit [facility] [address] [place] [address] hSari Waller [address] [place] [phone] [email or web address] 12/02/2024 1:30 AM EDT Home Care Visit [facility] [address] [place] [phone] Margarita Leung, RICH [address] [place] [address] [email or web address] 12/03/2024 12:00 PM EDT Home Care Visit [facility] [address] [place] [phone] Sridhar Shari [address] [place] [email or web address] 12/07/2024 12:00 PM EDT Home Care Visit [facility] [address] [place] [phone] Shari Waller [address] [place] [email or web address] 12/09/2024 2:30 AM EDT Home Care Visit [facility] [address] [place] [phone] Margarita Leung, RN [address] [place] [address] [email or web address] 12/10/2024 12:00 PM EDT Home Care Visit [facility] [address] [place] [address] SridharShari [address] [place] [address] [email or web address] 12/14/2024 12:00 PM EDT Home Care Visit [facility] [address] [place] [address] [address] [place] [phone] [email or web address] 12/16/2024 2:00 AM EDT Home Care Visit [facility] [address] [place] [address] Margarita Leung RN [address] [place] [address] [email or web address] 12/17/2024 12:00 PM EDT Home Care Visit [facility] [address] [place] [address] [address]ari [address] [place] [address] [email or web address] 12/21/2024 12:00 PM EDT Home Care Visit [facility] [address] [place] [address] [address]ari [address] [place] [phone] [email or web address] 12/23/2024 3:00 AM EDT Home Care Visit [facility] [address] [place] [address] Margarita Leung RN [address] [place] [address] [email or web address] 12/24/2024 12:00 PM EDT Home Care Visit [facility] [address] [place] [address] Sridhar Shari [address] [place] [address] [email or web address] 12/28/2024 12:00 PM EDT Home Care Visit [facility] [address] [place] [address] [address]ari [address] [place] [email or web address] 12/30/2024 1:30 AM EDT Home Care Visit [facility] [address] [place] [address] Margarita Leung, RICH [address] [place] [address] [email or web address] 12/31/2024 12:00 PM EDT Home Care Visit [facility] [address] [place] [address] [address] [place] [address] [email or web address] 01/04/2025 12:00 PM EDT Home Care Visit [facility] [address] [place] [address] Shari Waller [address] [place] [phone] [email or web address] 01/07/2025 1:00 AM EDT Home Care Visit [facility] [address] [place] [address] Margarita Leung, RICH [address] [place] [address] [email or web address] 01/14/2025 12:30 AM EDT Home Care Visit [facility] [address] [place] [address] Margarita Leung, RICH [address] [place] [address] [email or web address] 01/21/2025 12:30 AM EDT Appointment [facility] [address] [place] [address] Margarita Leung, RN [address] [place] [address] [email or web address] documented as of this encounter Visit Diagnoses Not on filedocumented in this encounter Care Teams Auto Garage Mechanic Relationship Specialty Start Date End Date Alex Stuart MD [address] [place] [address] Dr GUERRA [address] [place] [address] PCP - General Internal Medicine 08/21/22 Odette Damon MD [address] [place] [address] Dr Guerra [address] [place] [address] Neurology 05/02/23 Roro Trujillo MD [address] [place] [address] Dr Guerra [address] [place] [phone] Neurology 05/02/23 documented as of this encounter Additional Source Comments The information contained in this document represents components of the legal health record. It is not the complete legal health record.[facility]
== END 2024-12-01 10:30 | disposition home or self-care (01) ==
LOC: HO.HSMS 09:34
PROVIDERS: PCP Internal Medicine; Visit Provider Psychiatry & Neurology Neurology
DX: G20.A1 Parkinson's disease without dyskinesia, without mention of fluctuations (principal); K59.09 Other constipation; F41.9 Anxiety disorder, unspecified
CPT/HCPCS: 99214

== ENCOUNTER 2025-01-05 09:06 | Outpatient (AMB) | payer OTHER, SELFPAY ==
--- OUTSIDE RECORDS SUMMARY | 2023-11-20 04:30 | XMS_ITS ---
Author Organization [facility] Address [address] [place] [address] Care Team Providers Care Tile Ditcher Name Role Phone Alex Stuart MD Primary Care Provider Duke Albarado [phone] REASON FOR VISIT screening,hx polyps, fam hx colon ca Medications Medication SIG (Take, Route, Frequency, Duration) Notes Start Date End Date Status Fish Oil 1000 MG [address] capsule [address] ee times a day; Duration: 30 day(s) Active Carbidopa-Levodopa 25-100 MG Oral; Duration: 90 Active Garlic 100 MG as directed Orally Active Problems Problem Type SNOMED Code ICD Code Onset Dates Problem Status W/U Status Risk Notes Problem Diverticular disease of colon (942564681) Diverticulosis of large intestine without perforation or abscess without bleeding (K57.30) Active confirmed Encounters Encounter Location Date Provider Diagnosis [facility] Outpatient [address] [place] [address] [phone] 11/20/2023 Duke Rodriguez Colon cancer scree donaldo [...] * DAVE HELLERDOB: 4 (69 yo M)Acc No.[id number]:11/20/2023 COLON WITH MAC Patient: DAVE FREEMAN Provider: Chelsi Rodriguez MD :1955 A ge:68 Y S ex:Male Date:11/20/2023 Address:[address] [place] [address], [id number] Pcp:Alex Stuart MD Subjective: * Chief Complaints: [...] 5385 LESION REMOVAL COLONOSCOPY, Modifiers: 33 , 52425 COLONOSCOPY AND BIOPSY, Modifiers: 59 , 33 * * The named appointment provid er may or may not be the originator of this progress note, and it is not deemed complete until electronically signed by the appointment provider. Sign off status: Pending * Provider: Chelsi Rodriguez MD Date: 11/20/2023 Generated for Renuka kaminski/Joey/Yingitting on: 1 09:51 AM EDT
--- OUTSIDE RECORDS SUMMARY | 2024-11-12 09:30 | XMS_ITS ---
Author Organization Alex Stuart MD Address [address] [place] [phone] Care Team Providers Care Recycling Operator Name Role Phone Alex Stuart Primary Care Provider Results Component Value Reference Range Notes UA ClnCatch+Micro w/rflx Cul t Reviewed date:11/13/2024 12:40:07 PM Interpretation: Performing Lab:[facility], [address] [place] [phone] Notes/Report: Urine, Clean Catch Color Urine Yellow Appearance Urine Cloudy PH 6.5 5.0-9.0 Glucose Urine UA Negative Negative mg/dL Urine Blood Trace Negative Specific [place] - Urine 1.015 1.005-1.025 Urine Protein [...] Stuart MD [address] [place], [place] [phone] 11/12/2024 Alex Stuart UTI (urinary tract infection) N39.0 Assessments Encounter Date Diagnosis (ICD Code) Assessment Notes Treatment Notes Treatment Clinical Notes Section Notes 11/12/2024 UTI (urinary tract infection) (ICD-10 - N39.0) Plan Of Treatment Next Appt Details Provider Name:Alex Sotelo ielandon, 02/12/2025 01:45:00 PM, [address] [place] [address], Suite [facility], [place], [place], [phone], Provider Name:Alex Sotelo ielandon, 10/08/2025 07:00:00 AM, [address] [place] [address], Suite [facility], [place], [place], [phone], Provider Name:Alex harvey, 10/15/2025 01:00:00 PM, [address] [place] [address], [address], [phone], Progress Notes * Gabriel HELLER PDOB: [birth year] (69 yo M)Acc No.[id number]:11/12/2024 Progress Note Patient: Everett Gabriel BARR Provider: Oliver Stuart MD :1955 A ge:69 Y S ex:Male Date:11/12/2024 Address:[address] [place] [address], [facility] Subjective: * Chief Complaints: * 1 . [...] MD Date: 0 11/12/2024 Generated for Renuka kaminski/Joey/eTransmitting on: 09:52 AM EDT
--- OUTSIDE RECORDS SUMMARY | 2024-11-26 05:48 | XMS_ITS ---
Author Organization Alex Stuart MD Address [address] [place] [phone] Care Team Providers Care Automobile Relocation Engineer Name Role Phone Alex Stuart Primary Care Provider [phone] REASON FOR VISIT Discharge summary rec'd Encounters Encounter Location Date Provider Diagnosis Alex Stuart MD [address] [place] [phone] 11/26/2024 Alex Stuart Plan Of Treatment Next Appt Details Provider Name:Alex harvey, 02/12/2025 01:45:00 PM, [address] [place] [address], [address], [phone], Provider Name:Alex harvey, 10/08/2025 07:00:00 AM, [address] [place] [address], [place] [address], [place], [place], [phone], Provider Name:Alex harvey, 10/15/2025 01:00:00 PM, [address] [place] [address], [address], [id number], Progress Notes * Gabriel HELLER PDOB: [birth year] (69 yo M)Acc No.[id number]:11/26/2024 Patient: Everett Gabriel BARR :1955 A ge:69 Y S ex:Male Address:[address] [place] [address], [place] [address] * true * Date: Generated for Renuka kaminski/Joey/Ronsmitting on: 09:52 AM EDT
--- OUTSIDE RECORDS SUMMARY | 2024-11-30 10:00 | XMS_ITS ---
Author Organization Alex Stuatr MD Address [address] [place] [phone] Care Team Providers Care Supervisor Finishing Name Role Phone Alex Stuart Primary Care Provider [phone] Allergies No Known Allergies REASON FOR VISIT [...] kg/m2 11/30/2024 weight is down 7 pounds [facility] e 10-13-24 Encounters Encounter Location Date Provider Diagnosis Alex Stuart MD [address] [place] [phone] 11/30/2024 Alex Stuart Cervical spinal stenosis M48.02 [...] Up: 3 Weeks, Reason: Provider Name:Alex harvey, 02/12/2025 01:45:00 PM, [address] [place] [address], [address], [phone], Provider Name:Alex harvey, 10/08/2025 07:00:00 AM, [address] [place] [address], [place] [address], [place], [place], [phone], Provider Name:Alex harvey, 10/15/2025 01:00:00 PM, [address] [place] [address], [address] [place] [address], [phone], Progress Notes * Gabriel HELLER PDOB: [birth year] (69 yo M)Acc No.[id number]:11/30/2024 Patient: Gabriel FREEMAN Provider: Oliver Stuart MD :1955 A ge:69 Y S ex:Male Date:11/30/2024 Address:[address] [place] [address], [facility] [id number] Subjective: * Chief Complaints: * P H/TCMAccompanied [...] Procedure Codes: * Preventive Medicine: Immunizations: I arturolujessica durham you had a flu shot since the most recent November 23? N o patient refused at visit today. * Follow Up: 3 Weeks * * Sign off status: Completed true * Provider: Oliver Stuart MD Date: 0 11/30/2024 Generated for Renuka kaminski/Joey/Ronsmitting on: 09:49 AM EDT History and Physical Notes * [...]
--- OUTSIDE RECORDS SUMMARY | 2024-12-03 05:58 | XMS_ITS ---
Author Organization Alex Stuart MD Address [address] [place] [phone] Care Team Providers Care Tobacco Cutter Name Role Phone Alex Stuart Primary Care Provider [phone] REASON FOR VISIT FYI Encounters Encounter Location Date Provider Diagnosis Alex Stuart MD [address] [facility] [address] [place] [phone] 12/03/2024 Alex Stuart Plan Of Treatment Next Appt Details Provider Name:Alex harvey, 02/12/2025 01:45:00 PM, [address] [place] [address], [address] [place] [address], [phone], Provider Name:Alex harvey, 10/08/2025 07:00:00 AM, [address] [place] [address], [place] [address], [place], [phone], Provider Name:Alex harvey, 10/15/2025 01:00:00 PM, [address] [place] [address], [address], [phone], Progress Notes * Gabriel HELLER PDOB: [birth year] (69 yo M)Acc No.[id number]:12/03/2024 Patient: Everett Gabriel BARR Jenifer :1955 A ge:69 Y S ex:Male Address:[address] [place] [address], [place] [address] * true * Date: Generated for Renuka kaminski/Joey/Ronsmitting on: 09:50 AM EDT
--- OUTSIDE RECORDS SUMMARY | 2024-12-15 09:30 | XMS_ITS ---
Author Organization Alex Stuart MD Address [address] [place] [phone] Care Team Providers Care Food Taster Name Role Phone Alex Stuart Primary Care [...] Alex Stuart MD [address] [place] [phone] 12/15/2024 Alex Stuart Parkinson's disease without dyskinesia, [...] Up: 2 Months, Reason: Provider Name:Alex harvey, 02/12/2025 01:45:00 PM, [address] [place] [address], [address], [phone], Provider Name:Alex harvey, 10/08/2025 07:00:00 AM, [address] [place] [address], [address], [phone], Provider Name:Alex harvey, 10/15/2025 01:00:00 PM, [address] [place] [address], [address] [place] [address], [phone], Progress Notes * PINA Gabriel PDOB: [birth year] (69 yo M)Acc No.[id number]:12/15/2024 Progress Notes Patient: Gabriel FREEMAN Provider: Oliver Stuart MD :1955 A ge:69 Y S ex:Male Date:12/15/2024 Address:[address] [place] [address], [facility] Subjective: * Chief Complaints: * 2 month [...] MD Date: 0 12/15/2024 Generated for Renuka kaminski/Joey/eTransmitting on: 1 09:52 AM EDT History and Physical Notes * [...]
--- NOTE | 2025-01-05 09:08 | A.OFFVIS_ITS ---
Vital Signs 01/05/25 09:09 Height 5 ft 10 in Weight 166 lb 4 oz BMI 23.9 BP 102/60 Blood Pressure Location Rt brachial Position Sitting Pulse 62 Pulse Source Pulse Oximeter Pulse Oximetry (%) 97 Oxygen Delivery Method Room Air Intake Visit Reasons: 1 mnth f/u ok per Dr. Trujillo Intake Note: Follow up Parkinson's disease without dyskinesia, without mention of fluctuations, constipation and anxiety Personnel Placement Specialist Required: No Accompanied by: Spouse Allergies No Known Allergies Allergy (Verified 01/05/25 09:08) HPI Comments Details: 69y/o right handed male comes for follow up. He is doing well since last visit. He started with Blanca Romano . He is on sinemet 25/100 2 tabs qid diazepam 5 mg qhs - 1/2 tab at 8 PM Mirtazepine 7.5mg qhs He was admitted at [facility] for constipation in August 2024 He is against using miralax which was suggested by his GI He is not taking dulcolax but he is taking magnesium 600mg qd He has daily bowel movements He stopped all supplements . History form last visit-He has some good days and some bad days . 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 He is better when he exercises. he also has left knee pain- has PRP treatment. He is doing good with meds and he did BIG program in June and JULY which helped. He reports fatigue around noon time after his meds. Denies dizziness, but feels like he can fall asleep.He does exercise in the afternoon and feels good. He feels anxious in the mornings.He will start playing Golf this week. He eats breakfast at 6am - oatmeal and banana. 2.30-4pm exercises with sports athletic trainer M,W,F He does not eat lunch . He eats between 5pm-6pm and by 6.30 pm he is sleeping. He wakes up at 9pm and takes melatonin 10mg and sleeps from 10pm - 2 am . History from initial visit- He was seen by Dr. Damon and was diagnosed with parkinsons and started on sinemet 25/100 1 tab tid which helped. He started noticing tremors about 2 years ago . The left hand tremors were worse compared to right.The tremors were mainly in the morning and at rest. He also felt his legs were stiff and tight.He also had right shoulder issues , has a shot in his neck, diagnosed with c spine stenosis . He did PT and felt better. 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 Motivated- good Speech- Normal Drooling- at nighttime Writing- poor , smaller. using utensils- good Dressing- good SHower- normal Turning in bed- normal Gait- good Hallucinations - none He had h/o Crohns and had diarrhea and constipation. falls- none He had concussions from Football as a kid No exposure to chemicals [facility] Medical History Anxiety Constipation Anxiety Benign enlargement of prostate Parkinson's disease without dyskinesia Right shoulder tendinitis Lumbar spondylosis Cervical spinal stenosis Crohn disease Surgical History S/P colon polypectomy Hx of colonoscopy H/O left knee surgery Family History Mother No problems noted. Father No problems noted. Sister Breast CA Brother No problems noted. Social History Household Members: Spouse Housing: House Do you presently have visiting nurse or other home services: No Alcohol intake: never Comment: at bed side Patient Tobacco Use Status: Former Tobacco user Tobacco use type: Cigarette Second Hand Smoke Exposure: No Advance Directives Date on File: 09/18/24 service: No Physical Exam Vital Signs: Last Vital Signs Pulse 62 01/05/25 09:09 BP 102/60 01/05/25 09:09 Pulse Ox 97 01/05/25 09:09 Oxygen Delivery Method Room Air 01/05/25 09:09 BMI result Body Mass Index 23.9 Const General: cooperative, healthy appearing, comfortable and anxious Nutritional Appearance: average body habitus Orientation/consciousness: patient oriented x3 Limitations: no limitations Eyes Pupils: Equal, round and reactive pupils present Neuro Other: mild infrequent rest tremors Left UE Mild decreased facial expression and blink FFM and foot taps mild decreased gisele L>R Gait- mild stooped , smaller stride , mild decreased arm swings gisele Mild cogwheel rigidity L>R General: patient oriented x3, moves all extremities and no focal motor deficits Cranial nerves: Yes Facial sensation intact/muscles of mastication intact, Yes Equal, round and reactive pupils present, Yes Bilaterally intact EOM present, Yes Nystagmus not present, Yes Normal facial strength present, Yes Midline tongue present and Yes Symmetric palate elevation present Cognition (Neuro): normal cognition Motor exam (neuro): 5/5 motor strength present throughout Coordination: [id number] test normal Psych Affect: Anxious affect present Assessment & Plan Assessment & Plan (1) Parkinson's disease without dyskinesia: Code(s): G20.A1 - Parkinson's disease without dyskinesia, without mention of fluctuations Category: Medical Qualifiers: Fluctuating manifestations: without fluctuating manifestations Qualified Code(s): G20.A1 - Parkinson's disease without dyskinesia, without mention of fluctuations (2) Constipation: Code(s): K59.00 - Constipation, unspecified Category: Medical Qualifiers: Constipation type: other constipation type Qualified Code(s): K59.09 - Other constipation (3) Anxiety: Code(s): F41.9 - Anxiety disorder, unspecified Category: Medical Plan Diazepam 5mg q 8pm- 1/2 tabs Mirtazepine 7.5mg q 8,30 pm Carbidopa/levodopa 25/100 2tabs qid PT for gait and parkinsons- started with Blanca Juan Antonio Medications: New mirtazapine 7.5 mg PO BEDTIME 90 tabs 3RF Changed From diazepam (Valium) 5 mg PO BEDTIME PRN To diazepam (Valium) 5 mg PO BEDTIME 30 tabs 3RF Refilled carbidopa-levodopa 25-100 mg 2 tabs PO QID 240 tabs 6RF 30 days Coding Level of Care Code Est Pt Level 4 (64414) Complex EM visit Add On G2211 Diagnoses Parkinson's disease without dyskinesia or fluctuating manifestations G20.A1 Fluctuating manifestations: without fluctuating manifestations Other constipation K59.09 Constipation type: other constipation type Anxiety F41.9
[2025-01-05 09:09] VITALS: BP 102/60; PULSE 62; O2SAT 97; BMI 23.9
--- OUTSIDE RECORDS SUMMARY | 2025-01-05 09:51 | XMS_ITS | Encounter Summary ---
Author Organization [facility] Address [address] [place] [id number] Phone Care Team Providers Care A/C Technician Name Role Phone Alex Stuart MD Primary Care Provider Odette Damon MD Unavailable Roro Trujillo MD Unavailable [phone] Encounter Details Date Type Department Care Team (Late st Contact Info) Description 11/14/2024 Procedure Pass [facility], [address] [address] Social History Tobacco Use Types Packs/Day Years [...] 11:02 AM EDT Chanel Shepard RN * [place] Suicide Severity Rating Scale (Screener/Recent Self-Report) Question Answer Date of Assessment Author 1. Wish to be (Past 1 Month) No 11/14/2024 11:02 AM EDT Chanel Shepard RN 2. Non-Specific Active Suicidal Thoughts (Past 1 Month) No 11/14/2024 11:02 AM EDT Chanel Shepard RN 6. Suicidal Behavior (Lifetime) No 11/14/2024 11:02 AM EDT Chanel Shepard RN documented as of this encounter Plan of Treatment Not on file documented as of this encounter Visit Diagnoses Not on filedocumented in this encounter Care Teams A/C Technician Relationship Specialty Start Date End Date Alex Stuart MD [address] [place] [address] [address] [place] [address] PCP - General Internal Medicine 08/21/22 Odette Damon MD [address] [place] [address] Dr [address] [place] [address] Neurology 05/02/23 Roro Trujillo MD [address] [place] [address] Dr [address] [place] [address] Neurology 05/02/23 documented as of this encounter Additional Source Comments The information contained in this document represents components of the legal health record. It is not the complete legal health record.[facility]
--- OUTSIDE RECORDS SUMMARY | 2025-01-05 09:51 | XMS_ITS | Encounter Summary ---
Author Organization [facility] Address [address] [place] [id number] Phone Care Team Providers Care Weather Reporter Name Role Phone Alex Stuart MD Primary Care Provider Odette Damon MD Unavailable Roro Trujillo MD Unavailable [phone] Encounter Details Date Type Department Care Team (Late st Contact Info) Description 11/14/2024 Procedure Pass [facility] - [address] [address] Social History Tobacco Use Types Packs/Day Years [...] 11:02 AM EDT Chanel Shepard RN * [place] Suicide Severity Rating Scale (Screener/Recent Self-Report) Question [...] on filedocumented in this encounter Care Teams Weather Reporter Relationship Specialty Start Date End Date Alex Stuart MD [address] [place] [address] Dr [address] [place] [address] PCP - General Internal Medicine 08/21/22 Odette Damon MD [address] [place] [address] Dr [address] [place] [address] Neurology 05/02/23 Roro Trujillo MD [address] [place] [address] Dr [address] [place] [address] Neurology 05/02/23 documented as of this encounter Additional Source Comments The information contained in this document represents components of the legal health record. It is not the complete legal health record.[facility]
--- OUTSIDE RECORDS SUMMARY | 2025-01-05 09:51 | XMS_ITS | Clinical Summary ---
Author Organization [facility] Address [address] [facility] [address] [place] [address] Phone Care Team Providers Care Printing Machine Operator Tape Rules Name Role Phone Alex Stuart MD Primary Care Provider Odette Damon MD Unavailable [phone] Roro Trujillo MD Unavailable [phone] Allergies No known active allergies Medications carbidopa-levod opa (SINEMET) 25-100 mg per tablet Take 2 tablets by mouth 4 (four) times a day. 240 tablet 2 5 02/24/20 25 Active polyethylene glycol (MIRALAX) 17 gram packet [The details of the medication are not available because there are pending changes by a home health clinician.] 60 packet 2 5 02/24/20 25 Active Additional Information Patient not taking.Reported on 11/26/2024 diazePAM (VALIUM) 5 MG tablet Take 0.5 tablets (2.5 mg total) by mouth 2 (two) times a day as needed for anxiety. 90 tablet 5 02/24/20 25 Active docusate sodium (COLACE) 100 MG capsule [The details of the medication are not available because there are pending changes by a home health clinician.] 120 capsule 2 5 02/24/20 25 Active Additional Information Patient not taking.Reported on 11/26/2024 mirtazapine (REMERON) 7.5 MG tablet Take 1 tablet (7.5 mg total) by mouth nightly at bedtime. 30 tablet 2 5 02/24/20 25 Active magnesium oxide (MAG-OX) 400 mg (241.3 mg elemental) tablet Take 600 mg by mouth daily. prescribed by airframe and powerplant technician; MD campbell, was taking while inpatient 5 Active Active Problems Problem Noted Date Diagnosed [...] referral for deep brain stimulation evaluation in [place]. I discussed this with the family, referral [...] referral for deep brain stimulation evaluation in [place]. I discussed this with the family -Patient [...] 11/16. Referral placed for DBS evaluation in [place]. Will need outpatient neurology follow up. Referral [...] is away until approx 11/25?, but covering [employer] Alf Duffy and Alicia VILLANUEVA have both [...] 11/16. Referral placed for DBS evaluation in [place]. Will need outpatient neurology follow up. Referral within [facility] per patient preference to be seen for second opinion. - psychiatry consulted 11/16, following. Recommend addition of diazepam both scheduled and prn. In agreement with antidepressant such as mirtazapine, or trazodone. - Primary neurology team has been in contact and is helping with medication management. ; Dr Trujillo is his primary Neurologist, she is away until approx 11/25?, but covering [employer] Alf Duffy and Alicia VILLANUEVA have both [...] 11/16. Referral placed for DBS evaluation in [place]. Will need outpatient neurology follow up. Referral within [facility] per patient preference to be seen for second opinion. - psychiatry consulted 11/16, following. Recommend addition of diazepam both scheduled and prn. In agreement with antidepressant such as mirtazapine, or trazodone. - Primary neurology team has been in contact and is helping with medication management. ; Dr Trujillo is his primary Neurologist, she is away until approx 11/25?, but covering [employer] Alf Duffy and Alicia VILLANUEVA have both [...] 11/16. Referral placed for DBS evaluation in [place]. Will need outpatient neurology follow up. Referral within [facility] per patient preference to be seen for second opinion. - psychiatry consulted 11/16, following. Recommend addition of diazepam both scheduled and prn. In agreement with antidepressant such as mirtazapine, or trazodone. - Primary neurology team has been in contact and is helping with medication management. ; Dr Trujillo is his primary Neurologist, she is away until approx 11/25?, but covering [employer] Alf Duffy and Alicia VILLANUEVA have both [...] 11/16. Referral placed for DBS evaluation in [place]. Will need outpatient neurology follow up. Referral [...] is away until approx 11/25?, but covering [employer] Alf Duffy and Alicia VILLANUEVA have both [...] 11/16. Referral placed for DBS evaluation in [place]. Will need outpatient neurology follow up. Referral [...] 11/16. Referral placed for DBS evaluation in [place]. Will need outpatient neurology follow up. Referral within [facility] per patient preference to be seen [...] 11/16. Referral placed for DBS evaluation in [place]. Will need outpatient neurology follow up. Referral within [facility] per patient preference to be seen [...] Encounters Date Type Department Care Team Description 12/09/2024 10:00 AM EDT Home [facility] Visit [facility] [address] [place] [phone] Margarita Leung RN SN OASIS DISCHARGE VISIT 12/05/2024 Home Care Visit [facility] [address] [place], [place] [phone] Felicita Rivera, ARMOR SENIOR SERGEANT CLINICAL COMMUNICATION 12/03/2024 Episode Documentation Update [facility] [address] [place] [phone] Rosalinda Gonzalez 12/02/2024 10:00 AM EDT Home [facility] Visit [facility] [address] [place] [address] Margarita Leung, RN SN HOME VISIT 12/01/2024 12:30 PM EDT Home Care Visit [facility] [address] [place] [address] Zunilda Spring, PT PT EVALUATION 11/30/2024 Home Care Visit [facility] [address] [place] [address] Ana Smith, PT TELEPHONE ENCOUNTER 11/27/2024 1:00 PM EDT Home Care Visit [facility] [address] [place] [address] Ellis Valero RN SN HOME VISIT 11/27/2024 Episode Documentation Update [facility] [address] [place] [address] 11/26/2024 1:00 PM EDT Home Care Visit [facility] [address] [place] [address] Michelle Espinosa, RICH SN OASIS START OF CARE (SOC) 11/26/2024 Plan of Care Documentation [facility] [address] [place] [address] 11/25/2024 Home Care Visit [facility] [address] [place] [address] Michelle Espinosa, RN TELEPHONE ENCOUNTER 11/15/2024 Orders Only [facility] [address] [place] [address] Homehealth, Interface ProviderMD 11/14/2024 10:34 AM EDT - 11/25/2024 6:00 PM EDT Hospital Encounter [facility] [address] [place] [address] Ramy Amaro MD Altman, Evan K, DO, MPH Chioma Doe DO, MPH Carmelita Louis DO Yau, Cyrus H, MD Discharge Disposition: Home-Health Care Svc 11/14/2024 Procedure [facility], Mri - [facility] [address] [place] [address] 11/14/2024 Procedure [facility], Ct Scan - [address] [address] from Last 3 Months Social History Tobacco Use Types Packs/Day Years Used Date Smoking Tobacco: Never Smokeless Tobacco: Never Tobacco Cessation:Counseling Given: Not Answered Alcohol Use Standard Drinks/Week Comments Not Currently 0 (1 standard drink = 0.6 oz pur e alcohol) Home Health Assessment: Transportation Answer Date Recorded Lack of Transportation (Medical) No 12/09/2024 Lack of Transportation (Non-Medical) No 12/09/2024 Patient Unable or Declines to Respond No 12/09/2024 Education Answer Date Recorded Are you interested [...] Sign Reading Time Taken Comments Blood Pressure 110/68 12/09/2024 10:35 AM EDT Pulse 60 12/09/2024 10:31 AM EDT Temperature 36.6 C (97.9 F) 12/09/2024 10:31 AM EDT Respiratory Rate 16 11/26/2024 6:00 PM EDT Oxygen Saturation 97% 12/09/2024 10:31 AM EDT Inhaled Oxygen Concentration - - Weight 70.9 kg (156 lb 3.2 oz) 11/23/2024 11:00 AM EDT Height 177.8 cm (5' 10 ) 11/14/2024 1:42 PM EDT Body Mass Index 22.41 11/14/2024 1:42 PM EDT Plan of Treatment Health Maintenance Due Date [...] 2003 INFLUENZA VACCINE (#1) 2024 COVID-19 VACCINE (1 - 2024-2 6 season) 2024 RSV VACCINE (1 - 1-dose [...] included. WBC 4.73 4.00 - 11.00 K/uL [facility] RBC 3.95(L) 4.50 - 5.90 M/uL [facility] HGB 12.1(L) 13.5 - 17.5 g/dL [facility] HCT 36.9(L) 41.0 - 53.0 % [facility] PLT 159 150 - 450 K/uL [facility] MCV 93.4 80.0 - 100.0 fL [facility] MCH 30.6 27.0 - 31.0 pg [facility] MCHC 32.8 32.0 - 36.0 g/dL [facility] RDW 12.7 11.5 - 14.5 % [facility] MPV 10.4 8.4 - 12.0 fL [facility] NRBC 0.00 0.00 /100 WBCs [facility] ABSOLUTE NRBC 0.00 0.00 K/uL [facility] Blood 11/25/2024 5:49 AM EDT 11/25/2024 6:02 AM EDT us Tyler Cheng MD LAB BLOOD ORDERABLES Final Resul t Performing Organization Address [facility]/ZIP Co de Phone Number [address] [address] * Basic metabolic panel (11/25/2024 5:49 AM EDT) Only the most recent of4 resultswithin the time period is included. SODIUM 139 133 - 146 mmol/L [facility] CHLORIDE 103 96 - 108 mmol/L [facility] POTASSIUM 3.9 3.3 - 5.1 mmol/L [facility] CO2 27 21 - 35 mmol/L [facility] BUN 19 6 - 19 mg/dL [facility] CREATININE 1.20 0.5 - 1.5 mg/dL [facility] GLUCOSE 87 70 - 99 mg/dL [facility] CALCIUM 9.0 8.4 - 10.3 mg/dL [facility] EGFR 65 >59 mL/min/1.7 3m2 [facility] Comment:Estimated glomerular filtration rate calculated using the CKD-EPI refit equation. ANION GAP 13 10 - 20 mmol/L [facility] Blood 11/25/2024 5:49 AM EDT 11/25/2024 6:02 AM EDT Tyler Cheng MD LAB BLOOD ORDERABLES Final Resul t [address] [address] * (ABNORMAL) Comprehensive metabolic panel (11/22/2024 6:02 AM EDT) Only the most recent of4 resultswithin the time period is included. SODIUM 140 133 - 146 mmol/L [facility] POTASSIUM 3.7 3.3 - 5.1 mmol/L [facility] CHLORIDE 105 96 - 108 mmol/L [facility] CO2 26 21 - 35 mmol/L [facility] BUN 17 6 - 19 mg/dL [facility] CREATININE 1.20 0.5 - 1.5 mg/dL [facility] GLUCOSE 105(H) 70 - 99 mg/dL [facility] ALBUMIN 3.8(L) 3.9 - 4.8 g/dL [facility] TOTAL PROTEIN 6.3(L) 6.5 - 8.0 g/dL [facility] CALCIUM 9.4 8.4 - 10.3 mg/dL [facility] ALKALINE PHOSPHATASE 47 39 - 117 U/L [facility] TOTAL BILIRUBIN 0.7 0.0 - 1.2 mg/dL [facility] AST 16 0 - 37 U/L [facility] ALT <5 0 - 40 U/L [facility] GLOBULIN 2.5 1 - 4.8 g/dL [facility] EGFR 65 >59 mL/min/1.7 3m2 [facility] Comment:Estimated glomerular filtration rate calculated using the CKD-EPI refit equation. ANION GAP 13 10 - 20 mmol/L [facility] Blood 11/22/2024 6:02 AM EDT 11/22/2024 6:45 AM EDT us Chioma Doe DO, MPH LAB BLOOD ORDER SHILPI Final Result [facility] [address] [place] [address] * Phosphorus (11/22/2024 6:02 AM EDT) Only the most recent of3 resultswithin the time period is included. PHOSPHORUS 3.2 2.7 - 4.5 mg/dL [facility] Blood 11/22/2024 6:02 AM EDT 11/22/2024 6:45 AM EDT Chioma Doe DO, MPH LAB BLOOD ORDER SHILPI Final Result Performing Organization Address [facility] Co de Phone Number [address] [address] * Magnesium (11/22/2024 6:02 AM EDT) Only the most recent of6 resultswithin the time period is included. MAGNESIUM 2.1 1.6 - 2.6 mg/dL [facility] Blood 11/22/2024 6:02 AM EDT 11/22/2024 6:45 AM EDT Chioma Doe DO, MPH LAB BLOOD ORDER SHILPI Final Result Performing Organization Address [facility] de Phone Number [address] [address] * Lyme Screen with Reflex to Immunoblot, Blood (11/15/2024 5:02 AM EDT) Lyme AB IgG Negative Negative [facility] Lyme AB IgM Negative Negative [facility] Blood 11/15/2024 5:02 AM EDT 11/15/2024 5:10 AM EDT Brody Castañeda PA-C LAB BLOOD ORDERABLES Final Re sult Performing Organization Address [facility] Co de Phone Number [address] [address] * MRI CERVICAL/THORACIC/LUMBAR SPINE WITHOUT CONTRAST (11/14/2024 [...] clinician's provided indication for this examination in [facility]: * Cord compression TECHNIQUE: MRI CERVICAL/THORACIC/LUMBAR SPINE [...] clinician's provided indication for this examination in [facility]: *Cord compression TECHNIQUE: MRI CERVICAL/THORACIC/LUMBAR SPINE WITHOUT [...] bone marrow replacing lesion. Nonspecific 6 mm [id number] lesion within the right T6 lamina without [...] clinician's provided indication for this examination in [facility]: * Mental status change, unknown [...] clinician's provided indication for this examination in [facility]: *Mental status change, unknown cause [...] HS Gen5 18(H) 0 - 14 ng/L [facility] Blood 11/14/2024 12:5 0 PM EDT 11/14/2024 1:13 PM EDT us Cem Alfaro PA-C LAB BLOOD ORDERABLES Final Res ult [address] [address] * XR CHEST PA AND LATERAL 2 VIEWS (11/14/2024 12:27 PM EDT) Anatomical Region Laterality Modality Chest Computed Radiogr aphy 11/14/2024 1:27 PM EDT Impressions 11/14/2024 1:27 PM EDT No acute abnormality. Narrative 11/14/2024 1:27 PM EDT XR CHEST PA AND LATERAL 2 VIEWS Referring clinician's provided indication for this examination in [facility]: Fatigue; Dyspnea (Shortness of Breath) COMPARISON: None FINDINGS: Devices/Tubes/Lines: None. Lungs: No focal consolidation or pulmonary edema. Pleura: No pleural effusion or pneumothorax. Heart/Mediastinum: Normal heart and mediastinum. Bones/Soft Tissues: No significant abnormality. Procedure Note Haylee Austin MD, PhD - 11/14/2024 XR CHEST PA AND LATERAL 2 VIEWS Referring clinician's provided indication for this examination in [facility]:Fatigue; Dyspnea (Shortness of Breath) COMPARISON: None FINDINGS: Devices/Tubes/Lines: None. Lungs: No focal consolidation or pulmonary edema. Pleura: No pleural effusion or pneumothorax. Heart/Mediastinum: Normal heart and mediastinum. Bones/Soft Tissues: No significant abnormality. IMPRESSION: No acute abnormality. us Cem Alfaro PA-C IMG XR CHEST Final Result * TSH with reflex (11/14/2024 11:56 AM EDT) TSH 0.93 0.27 - 4.20 uIU/mL [facility] Blood 11/14/2024 11:5 6 AM EDT 11/14/2024 12:46 PM EDT Cem Alfaro PA-C LAB BLOOD ORDERABLES Final Res ult Performing Organization Address City/[facility]/ZIP Co de Phone Number [address] [address] * (ABNORMAL) LFTs (hepatic panel) (11/14/2024 11:56 AM EDT) [facility] ALKALINE PHOSPHATASE 48 39 - 117 U/L [facility] TOTAL BILIRUBIN 0.9 0.0 - 1.2 mg/dL [facility] DIRECT BILIRUBIN 0.3(H) 0.0 - 0.2 mg/dL [facility] Bilirubin (Indirect) 0.6 0 - 1.5 mg/dL [facility] AST 19 0 - 37 U/L [facility] ALT 10 0 - 40 U/L [facility] TOTAL PROTEIN 6.6 6.5 - 8.0 g/dL [facility] ALBUMIN 4.1 3.9 - 4.8 g/dL [facility] GLOBULIN 2.5 1 - 4.8 g/dL [facility] A/G Ratio 1.64 1.00 - 4.80 RATIO [facility] Blood 11/14/2024 11:5 6 AM EDT 11/14/2024 12:07 PM EDT Cem Alfaro PA-C LAB BLOOD ORDERABLES Final Res ult [address] [address] * (ABNORMAL) CBC and differential (11/14/2024 11:56 AM EDT) [facility] WBC 5.01 4.00 - 11.00 K/uL [facility] RBC 4.49(L) 4.50 - 5.90 M/uL [facility] HGB 13.6 13.5 - 17.5 g/dL [facility] HCT 41.2 41.0 - 53.0 % [facility] PLT 183 150 - 450 K/uL [facility] MCV 91.8 80.0 - 100.0 fL [facility] MCH 30.3 27.0 - 31.0 pg [facility] MCHC 33.0 32.0 - 36.0 g/dL [facility] RDW 12.6 11.5 - 14.5 % [facility] MPV 10.7 8.4 - 12.0 fL [facility] NRBC 0.00 0.00 /100 WBCs [facility] ABSOLUTE NRBC 0.00 0.00 K/uL [facility] DIFF METHOD Auto [facility] NEUTS 66.6 48.0 - 76.0 % [facility] LYMPHS 24.8 18.0 - 41.0 % [facility] MONOS 7.0 4.0 - 11.0 % [facility] EOS 0.8 0.0 - 5.0 % [facility] BASOS 0.6 0.0 - 1.5 % [facility] Granulocytes, immature (%) 0.2 0.0 - 0.9 % [facility] ABSOLUTE NEUTS 3.34 1.92 - 7.60 K/uL [facility] ABSOLUTE LYMPHS 1.24 0.72 - 4.10 K/uL [facility] ABSOLUTE MONOS 0.35 0.16 - 1.10 K/uL [facility] ABSOLUTE EOS 0.04 0.00 - 0.50 K/uL [facility] ABSOLUTE BASOS 0.03 0.00 - 0.15 K/uL [facility] Granulocytes, immature 0.01 0.00 - 0.09 K/uL [facility] Blood 11/14/2024 11:5 6 AM EDT 11/14/2024 12:07 PM EDT us Cem Alfaro PA-C LAB BLOOD ORDERABLES Final Res ult [facility] [address] [place] [address] * Lipase (11/14/2024 11:56 AM EDT) LIPASE 57 16 - 63 U/L [facility] Blood 11/14/2024 11:5 6 AM EDT 11/14/2024 12:07 PM EDT Cem Alfaro PA-C LAB BLOOD ORDERABLES Final Res ult Performing Organization Address [facility]/ZIP Co de Phone Number [address] [address] * (ABNORMAL) Urinalysis w/reflex Urine Culture (11/14/2024 11:53 AM EDT) COLOR Yellow Yellow [facility] CLARITY Clear [facility] GLUCOSE Negative Negative [facility] BILI Negative Negative [facility] KETONES 1+(A) Negative [facility] SPECIFIC GRAVITY <1.005 1.005 - 1.030 [facility] BLOOD 1+(A) Negative [facility] PH 6.5 5.0 - 8.0 [facility] Protein-UA Negative Negative [facility] NITRITE Negative Negative [facility] Leukocyte esterase, ur Negative Negative [facility] Urine (Urine) 11/14/2024 11: 53 AM EDT 11/14/2024 1:14 PM EDT Cem Alfaro PA-C URINE ORDERABLES Final Result Performing Organization Address [facility] Co de Phone Number [address] [address] * (ABNORMAL) Urine sediment (11/14/2024 11:53 AM EDT) WBC 0-4(A) NONE SEEN /hpf [facility] RBC 0-2(A) NONE SEEN /hpf [facility] URINE EPITHELIAL 0-4(A) NONE SEEN [facility] MUCUS Trace(A) NONE SEEN /hpf [facility] BACTERIA Trace(A) NONE SEEN /hpf [facility] 11/14/2024 11:5 3 AM EDT 11/14/2024 1:14 PM EDT Cem Alfaro PA-C URINE ORDERABLES Final Result Performing Organization Address [facility] Co de Phone Number [address] [address] * ECG 12-LEAD (11/14/2024 11:18 AM EDT) Ventricular Rate EKG/MIN 75 BPM [facility] Atrial Rate 75 BPM [facility] ME Interval 144 ms [facility] QRS Duration 80 ms [facility] QT Interval 396 ms [facility] QTC Interval 442 ms [facility] P [place] 30 degrees [facility] R Wave [place] 17 degrees [facility] T Wave [place] 46 degrees [facility] 11/14/2024 11:1 8 AM EDT 11/15/2024 12:05 PM EDT Narrative [facility] - 11/15/2024 12:05 PM EDT Sinus rhythm with marked sinus arrhythmia Otherwise normal ECG No previous ECGs available Confirmed by Jordin Tsang ([id number]) on 11/15/2024 12:05:45 PM Cem Alfaro PA-C ECG ORDERABLES Final Result Performing Organization Address [facility] Co de Phone Number [email or web address] * (ABNORMAL) POCT Glucose (11/14/2024 11:15 AM EDT) Glucose, POCT 101(H) 70 - 100 mg/dL [facility] 11/14/2024 11:1 5 AM EDT 11/14/2024 11:21 AM EDT us Unknown Unknown MD POINT OF CARE TEST ORDERABLES Final Result Performing Organization Address [facility]/ZIP Co de Phone Number [address] [address] from Last 3 Months Insurance [facility] PPO MEDICARE A [facility] PPO MEDICARE A [facility] PPO MEDICARE A [facility] PPO MEDICARE A [facility] PPO MEDICARE A [facility] PPO MEDICARE A Advance Directives For more information, please contact: [phone] (9AM - 5PM [facility]on[facility], Saturday-Saturday) Documents on File Type Date Recorded Patient Data Entry Email Processor Expl anation Healthcare Proxy 11/26/2024 1:01 PM * Full Code (Latest Code Status on File) Date Activated Date Inactivated Comments 11/14/2024 9:57 PM Question Answer Comments Code Status Confirmed With: Patient Care Teams Printing Machine Operator Tape Rules Relationship Specialty Start Date End Date Alex Stuart MD [address] [place] [address] [address] [place] [id number] PCP - General Internal Medicine 08/21/22 Odette Damon MD [address] [place] [address] [place] [address] Neurology 05/02/23 Roro Trujillo MD [address] [place] [address] [place] [address] Neurology 05/02/23 Additional Source Comments The information contained in this document represents components of the legal health record. It is not the complete legal health record.[facility]
--- OUTSIDE RECORDS SUMMARY | 2025-01-05 09:51 | XMS_ITS | Patient Health Record ---
Author Organization [facility] Address [address] [place] [address] Care Team Providers Care Short Goods Drier Name Role Phone Alex Stuart MD Primary Care Provider Duke Albarado Unavailable [phone] Allergies No Known Allergies Results Component Value Reference Range Notes CT abdomen pelvis w con Reviewed date:09/16/2024 12:04:45 AM Interpretation: Performing Lab: Notes/Report: [address] [address] [address] Scan Report Signed Patient: Dave Heller MR#: [id number] : 1955 Acct:[id number] Age/Sex: 69 / M ADM Date: 09/15/24 Loc: .ED Attending Dr: Ordering Physician: Neisha Pepper PA-C Date of Service: 09/15/24 Procedure(s): CT abdomen pelvis w IV con Accession Number(s): [id number] cc: Neisha Pepper PA-C; Duke Rodriguez MD Report Number: [id number]: Total DLP = 463.00 mGy-cm CLINICAL HISTORY: [...] Severe stool burden is noted distally with chwhmjum-ch-yzhwoo distention of the distal large intestine and [...] in OV> 09/15/242256 DD/ 55 TD/TT: 09/15/242255 Biomedical Instrument Technician: KATIE BURGOS Reviewed date:09/18/2024 04:54:49 PM Interpretation: Performing Lab: Notes/Report: [address] [address] XRay Report Signed Patient: Dave Heller MR#: [id number] : 1955 Acct:[id number] Age/Sex: 69 / M ADM Date: 09/17/24 Loc: HO.ED Attending Dr: Ordering Physician: Marni Correa MD Date of Service: 09/17/24 Procedure(s): XR KUB Accession Number(s): [id number] cc: Marni Correa MD; Duke Rodriguez MD [...] in OV> 09/17/242213 DD/ 11 TD/TT: 09/17/242211 Biomedical Instrument Technician: Basic Metabolic Panel Stanleyin maryan Reviewed date:09/18/2024 04:53:36 PM Interpretation: Performing Lab:[facility], [address] [place] [address] Notes/Report: Sodium 138 135-145 mmol/L Potassium 4.1 [...] Creatinine Reviewed date:09/18/2024 04:54:12 PM Interpretation: Performing Lab:[address] [address] Notes/Report: Creatinine 1.13 0.5-1.4 mg/dL Creatinine Clr [...] Thyroxine) Reviewed date:09/18/2024 04:53:54 PM Interpretation: Performing Lab:[address] [address] Notes/Report: Free T4 (Free Thyroxine) 1.14 0.71-1.85 ng/dL Thyroid Stimulating Hormone Reviewed date:09/18/2024 04:54:01 PM Interpretation: Performing Lab:[address] [address] Notes/Report: Thyroid Stimulating Hormone 0.99 0.32-4.0 uIU/ mL TSH 3rd Generation ([facility]) Complete Blood Count Auto Di ff Reviewed date:09/19/2024 06:18:39 PM Interpretation: Performing Lab:[address] [address] Notes/Report: White Blood Count 7.0 4.8-10.8 X10*3/uL [...] Panel Reviewed date:09/19/2024 06:18:13 PM Interpretation: Performing Lab:[address] [address] Notes/Report: Sodium 142 135-145 mmol/L Potassium 3.7 [...] Creatinine Reviewed date:09/19/2024 06:18:25 PM Interpretation: Performing Lab:[address] [address] Notes/Report: Creatinine 1.12 0.5-1.4 mg/dL Creatinine Clr [...] gy Reviewed date:09/21/2024 11:04:24 PM Interpretation: Performing Lab:[facility], [address] [place] [phone] Notes/Report: Hold Lav - Possible Hematology SEE NOTE Specimen will be held untested for 8 hours. Call Hematology if testing is desired. Basic Metabolic Panel Reviewed date:09/21/2024 11:04:10 PM Interpretation: Performing Lab:[facility], [address] [place] [phone] Notes/Report: Sodium 142 135-145 mmol/L Potassium 3.9 [...] date:09/21/2024 11:03:57 PM Interpretation: Performing Lab: Notes/Report: [address] [address] XRay Report Signed Patient: Dave Heller MR#: [id number] : 1955 Acct:[id number] Age/Sex: 69 / M ADM Date: 09/18/24 Loc: HO.S3 360-[address]: June ASTUDILLO Ordering Physician: June Pfeiffer Date of Service: 09/20/24 Procedure(s): XR KUB Accession Number(s): [id number] cc: June Pfeiffer; Duke Rodriguez MD CLINICAL [...] OV> 09/20/24 1126 DD/ 1125 TD/TT: 09/20/24 112 Biomedical Instrument Technician: Reason For Referral No Information Medications Medication [...] Problem Status W/U Status Risk Notes Problem Screening for malignant neoplasm of colon (060105005) Encounter for screening for malignant neoplasm of colon (Z12.11) Active confirmed Problem Diverticular disease of colon (730792441) Diverticulosis of large intestine without perforation or abscess without bleeding (K57.30) Active confirmed Problem Preprocedural examination (421844973718807) Preprocedural examination (Z01.818) Active confirmed Problem Family History of Cancer of Colon (Situation) (796289062) Family history of colon cancer (Z80.0) Active confirmed Problem Constipation (12419256) Constipation, unspecified constipation type (K59.00) Active confirmed Problem History of adenomatous polyp of colon (482711506) Hx of adenomatous colonic polyps (Z86.010) Active confirmed Problem Crohn's disease of small intestine (48688326) Crohn''s disease of small intestine without complication (K50.00) Active confirmed Encounters Encounter Location Date Provider Diagnosis [facility] [address] [place] [phone] 09/14/2024 Duke Rodriguez [facility] [address] [place] [phone] 09/17/2024 Duke Rodriguez [facility] [address] [place] [phone] 09/18/2024 Duke Rodriguez [facility] [address] [place] [phone] 09/22/2024 Duke Rodriguez [facility] [address] [place] [phone] 09/28/2024 Duke Rodriguez [facility] [address] [place] [phone] 11/15/2024 Duke Rodriguez Plan Of Treatment Future Test Test Name Order Date COLONOSCOPY 04/17/2013 COLONOSCOPY 05/07/2018 COLONOSCOPY 08/13/2023 Insurance Providers Payer Name Payer Address Payer Phone Subscriber Number Group Number Insured Name Patient Relationship to Insured Coverage Start Date Coverage End Date [employer] [address] EDV[place] SHANE [phone] [id number] VALERIEDAVE VELA Self - patient is the insured Medical [...] on his colonoscopies and GI series. Denies MS,DM,CVA,Lung disease,renal dise ase Neg. ETT Negative colonoscopy in [place] of 2018 other than his known melanosis coli and Crohn's ileitis. Parkinson's disease Anxiety in association with the Parkinso n's disease Surgical History Surgery Date(Month/Year) Knee surgery
--- OUTSIDE RECORDS SUMMARY | 2025-01-05 09:52 | XMS_ITS | Patient Health Record ---
Author Organization Alex Stuart MD Address [address] [place] [phone] Care Team Providers Care Track Coach Name Role Phone Alex Stuart Primary Care Provider Allergies No Known Allergies Results Component Value Reference Range Notes Hemoglobin A1c Reviewed date:07/16/2024 01:50:05 PM Interpretation: Performing Lab: Notes/Report: Hemoglobin A1c 5.3 Complete Blood Count Auto Di ff Reviewed date:10/05/2024 12:55:35 PM Interpretation: Performing Lab:[facility], [address] [place] [phone] Notes/Report: White Blood Count 6.9 4.8-10.8 X10*3/uL [...] NRBC Abs Auto 0.000 0.0-0.012 X10*3/uL Comprehensive [facility]. Panel Fa st Reviewed date:10/05/2024 12:55:13 PM Interpretation: Performing Lab:[facility], [address] [place] [phone] Notes/Report: Sodium 140 135-145 mmol/L Potassium 3.9 [...] Panel Reviewed date:10/05/2024 12:54:35 PM Interpretation: Performing Lab:[address] [address] Notes/Report: Triglycerides 94 <150 mg/dL Desirable Triglyceride: [...] (Free>4and<10) Reviewed date:10/05/2024 12:54:54 PM Interpretation: Performing Lab:[address] [address] Notes/Report: PSA,Total (Free>4and<10) 1.25 0.00-4.00 ng/mL A [...] A1c Reviewed date:10/05/2024 12:50:47 PM Interpretation: Performing Lab:[address], [place] [address] Notes/Report: Hemoglobin A1c % 5.5 <6.0 % [...] average glucose, using the formula of the D3T-Aulukuj Average Glucose study (ADAG), Diabetes Care, Vol.31,#8, Oct. 2007 UA ClnCatch+Micro w/rflx Cul t Reviewed date:11/13/2024 12:40:07 PM Interpretation: Performing Lab:[address] [address] Notes/Report: Urine, Clean Catch Color Urine Yellow Appearance Urine Cloudy PH 6.5 5.0-9.0 Glucose Urine UA Negative Negative mg/dL Urine Blood Trace Negative Specific [place] - Urine 1.015 1.005-1.025 Urine Protein Negative [...] date:10/05/2024 01:05:26 PM Interpretation: Performing Lab: Notes/Report: [address] [address] XRay Report Signed Patient: Gabriel Brian MR#: [id number] : 1955 Acct:[id number] Age/Sex: 69 / M ADM Date: 10/05/24 Loc: LIEN Attending Dr: Alex Stuart MD Ordering Physician: Alex Stuart MD Date of Service: 10/05/24 Procedure(s): XR KUB Accession Number(s): [id number] cc: Alex Stuart MD EXAMINATION: XR ABDOMEN [...] 10/05/24 1253 DD/ 1100 TD/TT: 10/05/24 1115 Assistant Drafter: [place] [address] XRay Report Signed Patient: Gabriel Brian MR#: [id number] : 1955 Acct:[id number] Age/Sex: 69 / M ADM Date: 10/05/24 Loc: HO.ROB Attending Dr: Alex Stuart MD Ordering Physician: Alex Stuart MD Date of Service: 10/05/24 Procedure(s): XR KUB Accession Number(s): [id number] cc: Alex Stuart MD EXAMINATION: XR ABDOMEN [...] 10/05/24 1253 DD/ 1100 TD/TT: 10/05/24 1115 Assistant Drafter: Complete Blood Count Auto Di ff Reviewed date:09/15/2024 05:35:59 PM Interpretation: Performing Lab:[facility], [address] [place] [phone] Notes/Report: White Blood Count 7.7 4.8-10.8 X10*3/uL [...] Panel Reviewed date:09/15/2024 03:01:59 PM Interpretation: Performing Lab:[facility], [address] [place] [phone] Notes/Report: Bilirubin Total 0.8 0.0-1.0 mg/dL Bilirubin Direct 0.2 0.0-0.5 mg/dL Aspartate Amino Transferase 24 5-37 U/L Alanine Aminotransferase 9 0-40 U/L Total Protein 6.8 6.5-8.0 g/dL Albumin Level 4.3 3.5-5.0 g/dL Alkaline Phosphatase 51 39-117 U/L Basic Metabolic Panel Reviewed date:09/15/2024 05:33:53 PM Interpretation: Performing Lab:[facility], [address] [place] [phone] Notes/Report: Sodium 139 135-145 mmol/L Potassium 4.0 [...] Magnesium Reviewed date:09/15/2024 03:02:13 PM Interpretation: Performing Lab:[facility], [address] [place] [phone] Notes/Report: Magnesium 2.1 1.6-2.6 mg/dL C Reactive Protein Reviewed date:09/15/2024 03:00:53 PM Interpretation: Performing Lab:[address] [address] Notes/Report: C Reactive Protein < 0.04 < or = 0.50 mg/dL Lipase Reviewed date:09/15/2024 03:00:46 PM Interpretation: Performing Lab:[facility], [address] [place] [phone] Notes/Report: Lipase 39 8-78 U/L Tiffanie Jah Reviewed date:09/15/2024 03:01:45 PM Interpretation: Performing Lab:[facility], [address] [place] [phone] Notes/Report: Tiffanie Tyson See Note Specimen held untested for 24 hours; Call to request Chemistry testing. UA CC w/rflx Micro + Cult Reviewed date:09/16/2024 07:42:01 PM Interpretation: Performing Lab:[facility], [address] [place] [phone] Notes/Report: Urine, Clean Catch Color Urine Yellow Appearance Urine Clear PH 7.0 5.0-9.0 Glucose Urine UA Negative Negative mg/dL Urine Blood Negative Negative Specific [place] - Urine 1.015 1.005-1.025 Urine Protein Negative [...] Solo 0 10/13/2024 02:30:26 PM > phone [phone] fax [phone], Allyssa Solo 10/15/2024 11:47:47 AM >spoke with patient he needs to call them a per register, Wants me to hold off on sending this referral , He was told they are booking in July 2025, Allyssa Solo 11/05/2024 01:44:08 PM >spoke with patient's , she said he want's to hold of on this referral to far to travel, Allyssa Solo 12/11/2024 09:59:16 AM > spoke with patient he wants referral faxed - info faxed, Allyssa Solo 12/29/2024 03:15:08 PM > tired calling patient regarding above referral no answer, not able to leave a voice message. Referral Priority Routine Medications Medication SIG (Take, Route, Frequency, Duration) Notes Start Date End Date Status Carbidopa-Levodopa 25-100 MG 2 tabs Orally Foutr times a day Active Mirtazapine 7.5 MG 1 tablet at bedtime Orally Once a day Active Valium 5 MG 0.5 tab Orally twice a day Active Immunizations Vaccine Route Administration [...] Status W/U Status Risk Notes Problem Prostatism (31119975) Prostatism (N40.0) Active confirmed Problem 501921946 Tubular adenoma (D36.9) Active confirmed Problem Constipation (10170952) Constipation (K59.00) Active confirmed Problem Anxiety (59414176) Anxiety (F41.9) Active confirmed Problem 36130758 Crohn's disease, unspecified, with abscess (K50.914) Active confirmed Problem 3851710 Prediabetes (R73.09) Active confirmed Problem 361812407 History of hematuria (Z87.448) Active confirmed Problem 6062977 Migraine with au ra and without status migrainosus, not intractable (G43.109) Active confirmed Problem 491810364 Panic attacks (F41.0) Active confirmed Problem Liver cyst (00046443) Liver cyst (K76.89) Active confirmed Problem 588845589 Irritable bowel syndrome with constipation (K58.1) Active confirmed Problem 948616416 Arthritis of kne e (M17.10) Active confirmed Problem Lesion of liver (291017209) Liver lesion (K76.9) Active confirmed Problem 14293892 Parkinson's disease without dyskinesia, unspecified whether manifestations fluctuate (G20.A1) Active confirmed Vital Signs Blood pressure diastolic 60 mm Hg 12/15/2024 francisca ght is up 6 pounds since 11-30-24 Height 70 in 12/15/2024 weight is up 6 pounds since 11-30-24 Blood pressure systolic 108 mm Hg 12/15/2024 weig ht is up 6 pounds since 11-30-24 Weight 162 lbs 12/15/2024 weight is up 6 pounds since 11-30-24 BMI 23.24 kg/m2 12/15/2024 weight is up 6 pounds since 11-30-24 Encounters Encounter Location Date Provider Diagnosis Alex Stuart MD [address] [place] [id number] 10/05/2024 Alex Stuart Prediabetes R73.09 ; Prostatism N40.0 ; Blood tests for routine general physical examination Z00.00 and Liver mass R16.0 Aelx Stuart MD [address] [place] [id number] 11/12/2024 Alex Stuart UTI (urinary tract infection) N39.0 Alex Stuart MD [address] [place] [id number] 04/14/2024 Alex Stuart Prediabetes R73.09 ; Anxiety F41.9 and Parkinson's disease, unspecified whether dyskinesia present, unspecified whether manifestations fluctuate G20.A1 Alex Stuart MD [address] [place] [id number] 07/16/2024 Alex Stuart Prediabetes R73.09 a nd Parkinson disease G20 Alex Stuart MD [address] [place] [id number] 10/05/2024 Alex Stuart Constipation K59.00 ; Ileus K56.7 ; Liver lesion K76.9 and Kidney cysts N28.1 Alex Stuart MD [address] [place] [id number] 10/13/2024 Alex Stuart Annual physical exam Z00.00 ; Parkinson's disease without dyskinesia, unspecified whether manifestations fluctuate G20.A1 ; Liver cyst K76.89 ; Prediabetes R73.09 ; Prostatism N40.0 and Depression screening Z13.31 Alex Stuart MD [address] [place] [id number] 11/30/2024 Alex Stuart Cervical spinal stenosis M48.02 ; Parkinson's disease without dyskinesia, unspecified whether manifestations fluctuate G20.A1 and Anxiety F41.[address] [place] [id number] 12/15/2024 Alex Stuart Parkinson's disease without dyskinesia, unspecified whether manifestations fluctuate G20.A1 and Anxiety F41.[address] [place] [id number] 10/29/2024 Alex [address] [place] [id number] 10/02/2024 Alex Stuart MD [address] [place] [id number] 11/26/2024 Alex Stuart MD [address] [id number] 12/03/2024 Alex Stuart Assessments Encounter Date Diagnosis (ICD Code) Assessment Notes Treatment Notes Treatment Clinical Notes Section Notes 10/05/2024 Prediabetes (ICD-10 - R73.09) 10/05/2024 Prostatism (ICD-10 - N40.0) 11/12/2024 UTI (urinary tract infection) (ICD-10 - N39.0) 04/14/2024 Prediabetes (ICD-10 - R73.09) stable, no [...] present have suggested that he go to [facility] medical neurology dr puri 11/30/2024 Cervical spinal stenosis (ICD-10 - M48.02) did not have significant spinal stenosis on mri 12/15/2024 Parkinson's disease without dyskinesia, unspecified whether manifestations fluctuate (ICD-10 - G20.A1) 12/15/2024 Anxiety (ICD-10 - F41.9) doing well on present meds 10/05/2024 Blood tests for routine general physical examination (ICD-10 - Z00.00) 04/14/2024 Parkinson's disease, unspecified whether dyskinesia present, [...] have to do the mri later 11/30/2024 Parkinson's disease without dyskinesia, unspecified whether manifestations fluctuate (ICD-10 - G20.A1) doing better 10/05/2024 Kidney cysts (ICD-10 - N28.1) [facility] 10/13/2024 Prediabetes (ICD-10 - R73.09) stable, no need for medication at this time 11/30/2024 Anxiety (ICD-10 - F41.9) seems well controlled 10/05/2024 Liver mass (ICD-10 - R16.0) 10/13/2024 [...] Next Appt Details Provider Name:Alex Sotelo ier, 02/12/2025 01:45:00 PM, [address] [place] [address], [address], [phone], Provider Name:Alex Sotelo ier, 10/08/2025 07:00:00 AM, [address] [place] [address], [place] [address], [place], [place], [phone], Provider Name:Alex Sotelo ier, 10/15/2025 01:00:00 PM, [address] [place] [address], [address], [phone], Insurance Providers Payer Name Payer Address Payer Phone Subscriber Number Group Number Insured Name Patient Relationship to Insured Coverage Start Date Coverage End Date [facility] [address] [place] SHANE [id number] Gabriel Brian Self - patient is the insured Medical (General) History Medical History History ICD Code colonoscopy 2008; colonoscop y 06/10/2013 - repeat 5 years; Colonoscopy 06/13/18 - Dr. Rodriguez - repeat 5 years, colonoscopy 11/20/23 repeat 3 y trigeminal neurology hematuria w/u 07/15
== END 2025-01-05 09:45 | disposition home or self-care (01) ==
LOC: HO.HSMS 09:07
PROVIDERS: PCP Internal Medicine; Visit Provider Psychiatry & Neurology Neurology
DX: G20.A1 Parkinson's disease without dyskinesia, without mention of fluctuations (principal); K59.09 Other constipation; F41.9 Anxiety disorder, unspecified
CPT/HCPCS: 99214

== ENCOUNTER 2025-03-09 13:04 | Outpatient (AMB) | payer OTHER, SELFPAY ==
--- OUTSIDE RECORDS SUMMARY | 2023-11-20 03:30 | XMS_ITS ---
Author Organization [facility] Address [address] [place] [address] Care Team Providers Care Generating Plant Superintendent Name Role Phone Alex Stuart MD Primary Care Provider Duke Albarado [phone] REASON FOR VISIT screening,hx polyps, fam hx colon ca Medications Medication SIG (Take, Route, Frequency, Duration) Notes Start Date End Date Status Fish Oil 1000 MG Capsule 1 capsule Orall y Three times a day; Duration: 30 day(s) Active Carbidopa-Levodopa 25-100 MG Tablet Oral; Duration: 90 Active Garlic 100 MG Tablet as directed Orally Active Problems Problem Type SNOMED Code ICD Code Onset Dates Problem Status W/U Status Risk Notes Problem Diverticular disease of colon (573890798) Diverticulosis of large intestine without perforation or abscess without bleeding (K57.30) Active confirmed Encounters Encounter Location Date Provider Diagnosis [facility] [address] [place] [address] [phone] 11/20/2023 Duke Rodriguez Colon cancer scree donaldo Z12.11 ; Colon polyps K63.5 ; Family history of colon cancer Z80.0 ; Other specified diseases of intestine K63.89 ; Diverticulosis of large intestine without perforation or abscess without bleeding K57.30 and Other hemorrhoids K64.8 Assessments Encounter Date Diagnosis (ICD Code) Assessment Notes Treatment Notes Treatment Clinical Notes Section Notes 11/20/2023 Colon cancer screening (ICD-10 - Z12.11) 11/20/2023 Colon polyps (ICD-10 - K63.5) 11/20/2023 Family history of colon cancer (ICD-10 - Z80.0) 11/20/2023 Other specified diseases of intestine (ICD-10 - K63.89) 11/20/2023 Diverticulosis of large intestine without perforation or abscess without bleeding (ICD-10 - K57.30) 11/20/2023 Other hemorrhoids (ICD-10 - K64.8) Plan Of Treatment No Information Progress Notes * DAVE HELLERDOB: [birth year] (69 yo M)Acc No.[id number]:11/20/2023 COLON WITH MAC Patient: DAVE FREEMAN Provider: Chelsi Rodriguez MD :1955 A ge:68 Y S ex:Male Date:11/20/2023 Address:[address] [place], [place] [id number] Pcp:Alex Stuart MD Subjective: * Chief Complaints: * S creening,hx polyps, fam hx colon ca * Medications: T akingGarlic 100 MG Tablet as directed Orally Fish Oil 1000 MG Capsule 1 capsule Orally Three times a day Carbidopa-Levodopa 25-100 MG Tablet Oral Taking Garlic 100 MG Tablet as directed Orally Taking Fish Oil 1000 MG Capsule 1 capsule Orally Three times a day Taking Carbidopa-Levodopa 25-100 MG Tablet Oral Assessment: * Assessment: 1. C olon cancer screening - Z12.11 (Primary) 2 . C olon polyps - K63.5? 3. F amily history of colon cancer - Z80.0 4 . O ther specified diseases of intestine - K63.89 5 . D iverticulosis of large intestine without perforation or abscess without bleeding - K57.30 6 . O ther hemorrhoids - K64.8? Plan: * Procedure Codes: 4 5385 LESION REMOVAL COLONOSCOPY, Modifiers: 33 76711 COLONOSCOPY AND BIOPSY, Modifiers: 59 , 33 Billing Information: * Procedure Codes: 21028 LESION REMOVAL COLONOSCOPY. Modifiers: 33 48434 COLONOSCOPY AND BIOPSY. Modifiers: 59, 33 * The named appointment provid er may or may not be the originator of this progress note, and it is not deemed complete until electronically signed by the appointment provider. Sign off status: Pending * Provider: Chelsi Rodriguez MD Date: 0 11/20/2023 Generated for Renuka kaminski/Joey/eTransmitting on: 1 05/10/2024 05:03 PM EST
--- OUTSIDE RECORDS SUMMARY | 2024-10-05 04:15 | XMS_ITS ---
Author Organization Alex Stuart MD Address [address] [place], [place] [id number] Care Team Providers Care Breaker Up Machine Operator Name Role Phone Alex Stuart Primary Care Provider [phone] Results Component Value Reference Range Notes Complete Blood Count Auto Di ff Reviewed date:10/05/2024 12:55:35 PM Interpretation: Performing Lab:[facility], [address] [place] [phone] Notes/Report: White Blood Count 6.9 4.8-10.8 X10*3/uL Red Blood Count 4.79 4.60-5.80 X10*6/uL Hemoglobin 14.7 14.0-18.0 g/dl Hematocrit 43.8 42.0-52.0 % Mean Corpuscular Volume 91.4 80.0-98.0 fL Mean Corpuscular Hemoglobin 30.7 27.0-33.0 pg Mean Corpuscular HGB Conc 33.6 31.0-36.0 g/dl Red Cell Distribution Width 12.6 11.0-16.0 % Platelet Count 235 160-400 X10*3/uL Mean Platelet Volume 11.2 9.4-12.4 fL Neutrophils Percent Auto 66.1 45-73 % Imm Gran Pct Auto 0.3 0.0-0.4 % Lymphocytes Percent Auto 27.4 20-40 % Monocytes Percent Auto 5.4 2-11 % Eosinophils Percent Auto 0.4 0-4 % Basophils Percent Auto 0.4 0-2 % NRBC Pct Auto 0.0 0.0-0.2 /100WBC Neutrophils Absolute Auto 4.5 2.0-8.3 x10*3/u L Imm Gran Abs Auto 0.02 0.00-0.03 X10*3/uL Lymphocytes Absolute Auto 1.9 1.2-4.9 X10*3/u L Monocytes Absolute Auto 0.4 0.1-1.2 X10*3/uL Eosinophils Absolute Auto 0.0 0.0-0.4 X10*3/u L Basophils Absolute Auto 0.0 0.0-0.2 X10*3/uL NRBC Abs Auto 0.000 0.0-0.012 X10*3/uL Comprehensive [place]. Panel Fa st Reviewed date:10/05/2024 12:55:13 PM Interpretation: Performing Lab:[facility], [address] [place] [phone] Notes/Report: Sodium 140 135-145 mmol/L Potassium 3.9 3.3-5.1 mmol/L Chloride 105 96-108 mmol/L Carbon Dioxide 25 22-29 mmol/L Anion Gap 14 12-20 Blood Urea Nitrogen 18 9-16 mg/dL Creatinine 1.23 0.5-1.4 mg/dL Estimated Glomerular Filt Rate 58 Chronic Kidney Disease: Estimated GFR < 60 mL/min/1.73m2 Severe Kidney Disease: Estimated GFR < 15 mL/min/1.73m2 Glucose Fasting 112 60-99 mg/dL A fasting glucose from 100-125 mg/dl is considered impaired (pre-diabetes). Calcium 9.3 8.4-10.2 mg/dL Bilirubin Total 1.4 0.0-1.0 mg/dL Slight Icte hortensia. Aspartate Amino Transferase 26 5-37 U/L Alanine Aminotransferase 7 0-40 U/L Total Protein 7.0 6.5-8.0 g/dL Albumin Level 4.4 3.5-5.0 g/dL Alkaline Phosphatase 52 39-117 U/L Lipid Panel Reviewed date:10/05/2024 12:54:35 PM Interpretation: Performing Lab:[address] [phone] Notes/Report: Triglycerides 94 <150 mg/dL Desirable Triglyceride: less than 150 mg/dL Borderline High Triglyceride 150-199 mg/dL High Triglyceride: 200-499 mg/dL Very High Triglyceride: greater than or equal to 5OO mg/dL Cholesterol 206 <200 mg/dL Desirable Cholesterol: less than 200 mg/dL Borderline High Cholesterol: 200-239 mg/dL High Cholesterol: greater than 239 mg/dL LDL Cholesterol Calculated 126 <100 mg/dL Desirable LDL: less than 100 mg/dL Near Optimal/Above Optimal LDL: 110-129 mg/dL Borderline High LDL: 130-159 mg/dL High LDL: 160-189 mg/dL Very High LDL: greater than or equal to 190 mg/dL HDL Cholesterol 62 >40 mg/dL Desirable HDL: greater than 40 mg/dL Note: This HDL assay may give artificially low results in patients with liver disease. PSA,Total (Free>4and<10) Reviewed date:10/05/2024 12:54:54 PM Interpretation: Performing Lab:[facility], [address] [place] [phone] Notes/Report: PSA,Total (Free>4and<10) 1.25 0.00-4.00 ng/mL A Free PSA was not [...] [place] Alinity i Chemiluminescent Microparticle Immunoassay (CMIA) Hemoglobin A1c Reviewed date:10/05/2024 12:50:47 PM Interpretation: Performing Lab:[facility], [address] [place] [phone] Notes/Report: Hemoglobin A1c % 5.5 <6.0 % [...] average glucose, using the formula of the R8E-Glbyphs Average Glucose study (ADAG), Diabetes Care, Vol.31,#8, Oct. 2007 REASON FOR VISIT yearly fasting labs Medications Medication SIG (Take, Route, Frequency, Duration) Notes Start Date End Date Status Carbidopa-Levodopa 25-100 MG 1 tablet as needed Orally Three times a day Active Escitalopram Oxalate 5 MG 1 tablet Orall y Once a day 10/05/2024 Active Encounters Encounter Location Date Provider Diagnosis Alex Stuart MD [address] [place] [address] [place] [phone] 10/05/2024 Alex Stuart Prediabetes R73.09 ; Prostatism N40.0 ; Blood tests for routine general physical examination Z00.00 and Liver mass R16.0 Assessments Encounter Date Diagnosis (ICD Code) Assessment Notes Treatment Notes Treatment Clinical Notes Section Notes 10/05/2024 Prediabetes (ICD-10 - R73.09) 10/05/2024 Prostatism (ICD-10 - N40.0) 10/05/2024 Blood tests for routine general physical examination (ICD-10 - Z00.00) 10/05/2024 Liver mass (ICD-10 - R16.0) Plan Of Treatment Pending Test Test Name Order Date MRI ABD W&WO CONTRAST 10/05/2024 Microalbumin, Random 10/05/2024 UA ClnCatch+Micro w/rflx Cult 10/05/2024 Next Appt Details Provider Name:Alex harvey, 06/11/2025 10:00:00 AM, [address] [place] [address], Suite [facility], [place], [place], [phone], Provider Name:Alex harvey, 10/08/2025 07:00:00 AM, [address] [place] [address], Suite [facility], [place], [place], [phone], Provider Name:Alex Sotelo ier, 10/15/2025 01:00:00 PM, [address], [address], [place], [place], [phone], Progress Notes * Gabriel HELLER PDOB: [birth year] (69 yo M)Acc No.[id number]:10/05/2024 Progress Note Patient: Gabriel FREEMAN Provider: Oliver Stuart MD :1955 A ge:69 Y S ex:Male Date:10/05/2024 Address:[address] [place] [address], [facility] Subjective: * Chief Complaints: * 1 . Yearly fasting labs. * Medical History: * Medications: T aking Escitalopram Oxalate 5 MG Tablet 1 tablet Orally Once a day , Taking Carbidopa-Levodopa 25-100 MG Tablet 1 tablet as needed Orally Three times a day Objective: * Vitals: Assessment: * Assessment: 1. P rediabetes - R73.09 (Primary) 2 . P rostatism - N40.0 3 . B lood tests for routine general physical examination - Z00.00 4 . L iver mass - R16.0 Plan: * Treatment: 2. P rostatism L AB: Microalbumin, Random L AB: UA ClnCatch+Micro w/rflx Cult L AB: Complete Blood Count Auto Diff (Collection Date & Time - 10/05/2024 09:15 AM) L AB: Comprehensive [place]. Panel Fast (Collection Date & Time - 10/05/2024 09:15 AM) L AB: Lipid Panel (Collection Date & Time - 10/05/2024 09:15 AM) L AB: PSA,Total (Free>4and<10) (Collection Date & Time - 10/05/2024 09:15 AM) L AB: Hemoglobin A1c (Collection Date & Time - 10/05/2024 09:15 AM) 3. B lood tests for routine general physical examination L AB: Microalbumin, Random L AB: UA ClnCatch+Micro w/rflx Cult L AB: Complete Blood Count Auto Diff (Collection Date & Time - 10/05/2024 09:15 AM) L AB: Comprehensive [place]. Panel Fast (Collection Date & Time - 10/05/2024 09:15 AM) L AB: Lipid Panel (Collection Date & Time - 10/05/2024 09:15 AM) L AB: PSA,Total (Free>4and<10) (Collection Date & Time - 10/05/2024 09:15 AM) L AB: Hemoglobin A1c (Collection Date & Time - 10/05/2024 09:15 AM) 4. L iver mass I maging: MRI ABD W&WO CONTRAST * Procedure Codes: 3 6415 VENIPUNCT, ROUTINE* * * The named appointment provid er may or may not be the originator of this progress note, and it is not deemed complete until electronically signed by the appointment provider. Sign off status: Pending * Provider: Oliver Stuart MD Date: 0 10/05/2024 Generated for Renuka kaminski/Joey/Yingitting on: 1 05/10/2024 05:03 PM EST
--- OUTSIDE RECORDS SUMMARY | 2024-10-05 04:15 | XMS_ITS ---
Author Organization Alex Stuart MD Address [address] [place] [phone] Care Team Providers Care Mgmt Consultant Name Role Phone Alex Stuart Primary Care Provider Allergies No Known Allergies Results Component Value Reference Range Notes XR KUB Reviewed date:10/05/2024 01:05:26 PM Interpretation: Performing Lab: Notes/Report: [address] [address] XRay Report Signed Patient: Gabriel Heller MR#: [id number] : 1955 Acct:[id number] Age/Sex: 69 / M ADM Date: 10/05/24 Loc: HO.ROB Attending Dr: Alex Stuart MD Ordering Physician: Alex Stuart MD Date of Service: 10/05/24 Procedure(s): XR KUB Accession Number(s): [id number] cc: Alex Stuart MD EXAMINATION: XR ABDOMEN 1 VIEW (KUB) HISTORY: ILEUS COMPARISON: Comparison is made with the prior examination dated 09/20/2024. FINDINGS: Two supine views of the abdomen are submitted. The bowel gas pattern is unremarkable, without evidence of mechanical obstruction. There are phleboliths in the pelvis. There are no abnormal soft tissue masses. The bones are intact. XR/XR KUB IMPRESSION: Unremarkable bowel gas pattern. Electronically signed by: Duke Wolfe MD 10/05/2024 12:53 PM EDT RP Dictated By: Duke Wolfe MD Signed By: <Electronically signed by Duke Wolfe MD in OV> 10/05/24 1253 DD/ 1100 TD/TT: 10/05/24 1115 Principal Librarian: [place] [address] XRay Report Signed Patient: Alfred Heller MR#: [id number] : 1955 Acct:[id number] Age/Sex: 69 / M ADM Date: 10/05/24 Loc: HOSYED Attending Dr: Alex Stuart MD Ordering Physician: Alex Stuart MD Date of Service: 10/05/24 Procedure(s): XR KUB Accession Number(s): [id number] cc: Alex Stuart MD EXAMINATION: XR ABDO MEN 1 VIEW (KUB) HISTORY: ILEUS COMPARISON: Comparis on is made with the prior examination dated 09/20/2024. FINDINGS: Two supine views of the abdomen are submitted. The bowel gas pattern is unrem arkable, without evidence of mechanical obstruction. There a re phleboliths in the pelvis. There are no abnormal soft tissue masses. The bones are intact. XR/XR KUB IMPRESSION: Unremarkable bowel gas pattern. Electronically tricia d by: Duke Wolfe MD 10/05/2024 12:53 PM EDT RP Dictated By: Duke Wolfe MD Signed By: <Electro nically signed by Duke Wolfe MD in OV> 10/05/24 1253 DD/ 1100 TD/TT: 10/05/24 1115 Principal Librarian: REASON FOR VISIT PH VISIT, Accompanied by Medications Medication SIG (Take, Route, Frequency, Duration) Notes Start Date End Date Status Carbidopa-Levodopa 25-100 MG 1 tablet as needed Orally Three times a day Active Escitalopram Oxalate 5 MG 1 tablet Orall y Once a day 10/05/2024 Active Problems Problem Type SNOMED Code ICD Code Onset Dates Problem Status W/U Status Risk Notes Problem Constipation (61185288) Constipation (K59.00) Active confirmed Problem Lesion of liver (036975842) Liver lesion (K76.9) Active confirmed Vital Signs Blood pressure systolic 144 mm Hg 10/06/19 25 Blood pressure diastolic 76 mm Hg 025 Height 70 in 10/05/2024 Weight 163 lbs 10/05/2024 BMI 23.39 kg/m2 10/05/2024 weight is down 13 pounds sin ce 07-16-24 Encounters Encounter Location Date Provider Diagnosis Alex Stuart MD [address] [place] [address] [place] [phone] 10/05/2024 Alex Stuart Constipation K59.00 ; Ileus K56.7 ; Liver lesion K76.9 and Kidney cysts N28.1 Assessments Encounter Date Diagnosis (ICD Code) Assessment Notes Treatment Notes Treatment Clinical Notes Section Notes 10/05/2024 Constipation (ICD-10 - K59.00) need results from the thyroid done 09/1810/05/2024 Ileus (ICD-10 - K56.7) 10/05/2024 Liver lesion (ICD-10 - K76.9) needs liver mass imaging. need to talk to radiology to see what that is/ has ongoing weight loss and abnomal ct of liver. need further evaluation to ascertain that this is not a cancer 10/05/2024 Kidney cysts (ICD-10 - N28.1) us kidney 10/05/2024 Other Total time spent on the date of the encounter is 35 minutes including both face to face time spent and time spent reviewing documentation, pertinent lab data, studies and counseling the patient. Plan Of Treatment Treatment Notes Assessment Notes Constipation need results from th e thyroid done 09/18 Liver lesion needs liver mass jez ging. need to talk to radiology to see what that is/ has ongoing weight loss and abnomal ct of liver. need further evaluation to ascertain that this is not a cancer Kidney cysts us kidney Other Total time spent on the date of the encounter is 35 minutes including both face to face time spent and time spent reviewing documentation, pertinent lab data, studies and counseling the patient. Pending Test Test Name Order Date US renal BI 10/05/2024 Next Appt Details Follow Up: 1 Week, Reason: Provider Name:Alex Sotelo candice, 06/11/2025 10:00:00 AM, [address] [place] [address], Suite [facility], [place], [place], [phone], Provider Name:Alex Sotelo candice, 10/08/2025 07:00:00 AM, [address] [place] [address], Suite [facility], [place], [place], [phone], Provider Name:Alex Sotelo candice, 10/15/2025 01:00:00 PM, [address] [place] [address], [place] [address], [place], [place], [phone], Progress Notes * Gabriel HELLER PDOB: [birth year] (69 yo M)Acc No.[id number]:10/05/2024 Patient: Everett Gabriel BARR Provider: Oliver Stuart MD :1955 A ge:69 Y S ex:Male Date:10/05/2024 Address:[address] [place] [address], [facility] Subjective: * Chief Complaints: * P H VISITAccompanied by * HPI: S ymptom(s): patient is a 69 yo male here for transitional care management visit, discharge summary has been reviewed and medications reconcilled, having a lot of anxiety and feels like he is crawling out of his skin.. * ROS: G eneral/Constitutional: Denies C hills. D enies F atigue. D enies F ever. D enies H eadache. E NT: Denies S ore throat. R espiratory: Denies C ough. D enies S hortness of breath at rest. D enies S hortness of breath with exertion. G astrointestinal: Denies A bdominal pain. D enies C onstipation. A dmits D iarrhea. A dmits N ausea. P sychiatric: Admits A nxiety. A dmits D ifficulty sleeping. * Medical History: * Surgical History: * Hospitalization/Major Diagno stic Procedure: * Medications: T akingEscitalopram Oxalate 5 MG Tablet 1 tablet Orally Once a day Carbidopa- Levodopa 25-100 MG Tablet 1 tablet as needed Orally Three times a day Medication List reviewed and reconciled with the patientTaking Escitalopram Oxalate 5 MG Tablet 1 tablet Orally Once a day Taking Carbidopa-Levodopa 25-100 MG Tablet 1 tablet as needed Orally Three times a day Medication List reviewed and reconciled with the patient * Allergies: N .K.D.A.yes[Allergies Verified] Objective: * Vitals: H t: 70, Wt: 163, BMI:23.39, BP:144/76, Wt-k.94. weight is down 13 pounds since 07-16-24. * Examination: G eneral Examination: GENERAL APPEARANCE: a ppears very distressed. SKIN: g ood turgor. HEART: n o murmurs, rubs, gallops, regular rate and rhythm.? LUNGS: n o wheezes, rales, rhonchi, clear to auscultation bilaterally. ABDOMEN: s oft, nontender, nondistended. ? Assessment: * Assessment: 1. C onstipation - K59.00 (Primary) 2 . I leus - K56.7 3 .?Liver lesion - K76.9 4 . K idney cysts - N28.1 Plan: * Treatment: 2. I leus I maging: XR KUB (Performed Date - 10/05/2024) 3. L iver lesion Notes: needs liver mass imaging. need to talk to radiology to see what that is/ has ongoing weight loss and abnomal ct of liver. need further evaluation to ascertain that this is not a cancer ? 4. K idney cysts I maging: US renal BI Notes: us kidney 5. O thers Notes: Total time spent on the date of the encounter is 35 minutes including both face to face time spent and time spent reviewing documentation, pertinent lab data, studies and counseling the patient. * Procedure Codes: * Follow Up: 1 Week * * Sign off status: Completed true * Provider: Oliver Stuart MD Date: 0 10/05/2024 Generated for Renuka kaminski/Joey/Yingitting on: 1 05/10/2024 05:04 PM EST History and Physical Notes * HPI (History of Present Illness) Category Sub-Category Detail Notes Category Not es Symptom(s) patient is a 69 yo male here for transitional care management visit, discharge summary has been reviewed and medications reconcilled, having a lot of anxiety and feels like he is crawling out of his skin.. Examination Category Sub-Category Detail Notes Category Not es General Examination GENERAL APPEARANCE: appears very d istressed HEART: no murmurs, rubs, ga llops, regular rate and rhythm LUNGS: no wheezes, rales, r honchi, clear to auscultation bilaterally ABDOMEN: soft, nontender, non distended SKIN: good turgor
--- OUTSIDE RECORDS SUMMARY | 2024-10-13 08:00 | XMS_ITS ---
Author Organization Alex Stuart MD Address [address] [place] [phone] Care Team Providers Care Manager Store Name Role Phone Alex Stuart Primary Care Provider [phone] Allergies No Known Allergies Reason For Referral Reason parkinson's disease Diagnosis 1 Parkinson's disease without dyskinesia, unspecified whether manifestations fluctuate (G20.A1) Referral Organization Alex Stuart MD Referring Provider First Name Alex Referring Provider Last Name Narciso Referring Provider Speciality Internal M edicine Referred Provider Miles Puri Referred Provider Specialty Neurology General Notes Allyssa Solo 0 10/13/2024 02:30:26 PM > phone [phone] fax [phone], Allyssa Solo 10/15/2024 11:47:47 AM >spoke with patient he needs to call them a per register, Wants me to hold off on sending this referral , He was told they are booking in July 2025, Allyssa Solo 11/05/2024 01:44:08 PM >spoke with patient's , she said he want's to hold of on this referral to far to travel, Calista Soloette 12/11/2024 09:59:16 AM > spoke with patient he wants referral faxed - info faxed, Calista Soloette 12/29/2024 03:15:08 PM > tired calling patient regarding above referral no answer, not able to leave a voice message., Allyssa Solo 02/12/2025 10:04:27 AM > spoke with patient, he wants to hold office on these. Referral Priority Routine REASON FOR VISIT annual visit Medications Medication SIG (Take, Route, Frequency, Duration) Notes Start Date End Date Status Escitalopram Oxalate 5 MG 1 tablet Orall y Once a day 10/05/2024 Active Carbidopa-Levodopa 25-100 MG 1 tablet as needed [...] Problem Status W/U Status Risk Notes Problem Liver cyst (95852367) Liver cyst (K76.89) Active confirmed Vital Signs Blood pressure systolic 128 mm Hg 10/14/19 25 Blood pressure diastolic 66 mm Hg 025 Height 70 in 10/13/2024 Weight 163 lbs 10/13/2024 BMI 23.39 kg/m2 10/13/2024 Encounters Encounter Location Date Provider Diagnosis Alex Stuart MD [address] [place] [address] [place] [phone] 10/13/2024 Alex Stuart Annual physical exam Z00.00 ; Parkinson's disease without dyskinesia, unspecified whether manifestations fluctuate G20.A1 ; Liver cyst K76.89 ; Prediabetes R73.09 ; Prostatism N40.0 and Depression screening Z13.31 Assessments Encounter Date Diagnosis (ICD Code) Assessment Notes Treatment Notes Treatment Clinical Notes Section Notes 10/13/2024 Annual physical exam (ICD-10 - Z00.00) labs reviewed and discussed with patient 10/13/2024 Parkinson's disease without dyskinesia, unspecified whether manifestations fluctuate (ICD-10 - G20.A1) not doing well at present have suggested that he go to [facility] neurology dr puri 10/13/2024 Liver cyst (ICD-10 - K76.89) at present not able to do mri. the cyst appear to be small. will probably have to do the mri later 10/13/2024 Prediabetes (ICD-10 - R73.09) stable, no need for medication at this time 10/13/2024 Prostatism (ICD-10 - N40.0) stable, will continue to monitor 10/13/2024 Depression screening (ICD-10 - Z13.31) negative screen Plan Of Treatment Treatment Notes Assessment Notes Annual physical exam labs reviewed and d iscussed with patient Parkinson's disease without dyskinesia, unspecified whether manifestations fluctuate not doing well at present have suggested that he go to [facility] neurology dr puri Liver cyst at present not able to do mri. the cyst appear to be small. will probably have to do the mri later Prediabetes stable, no need for medication at this time Prostatism stable, will continu e to monitor Depression screening negative screen Referrals Referral Date Details 10/13/2024 10/13/2024, parkinso n's disease, Johnjaylin Jaxson Next Appt Details Follow Up: 2 Months, Reason: Provider Name:Alex harvey, 06/11/2025 10:00:00 AM, [address] [place] [address], [address], [phone], Provider Name:Alex harvey, 10/08/2025 07:00:00 AM, [address] [place] [address], [address] [place] [address], [phone], Provider Name:Alex harvey, 10/15/2025 01:00:00 PM, [address] [place] [address], [address], [phone], Progress Notes * Gabriel HELLER PDOB: [birth year] (69 yo M)Acc No.[id number]:10/13/2024 Progress Notes Patient: Gabriel FREEMAN Provider: Oliver Stuart MD :1955 A ge:69 Y S ex:Male Date:10/13/2024 Address:[address] [place] [address], [facility] shanna Funez [id number] Subjective: * Chief Complaints: * A nnual visit * HPI: D epression Screening: PHQ-9 L ittle interest or pleasure in doing things N ot at all, F eeling down, depressed, or hopeless N ot at all, T rouble falling or staying asleep, or sleeping too much N ot at all, F eeling tired or having little energy N ot at all, P oor appetite or overeating N ot at all, F eeling bad about yourself or that you are a failure, or have let yourself or your family down N ot at all, T rouble concentrating on things, such as reading the newspaper or watching television N ot at all, M oving or speaking so slowly that other people could have noticed; or the opposite, being so fidgety or restless that you have been moving around a lot more than usual N ot at all, T houghts that you would be better off or of hurting yourself in some way N ot at all, T otal Score 0 . I nterpretation and Intervention D epression Screening Findings N egative, F ollow-Up for Depression : review of PHQ-9 found negative result, no follow-up needed. C ommunication Needs: Communication Needs D oes the patient have a hearing impairment N o, D oes the patient have a vision impairment? Y es, I f yes, what is the vision impairment? G lasses, D oes the patient have a cognition impairment? N o. F all Risk: History H ave you had any falls with injury in the past year? N o, H ave you had two or more falls in the past year? N o. S SARAHY Questions: SDOH Questions I n the past year have you been worried about losing housing? N o, I n the past year have you or any family members you live with been unable to get any of the following when it was really needed? Check all that apply: N one. S ymptom(s): patient is a 69 yo male here for annual visit with review of recent labs this morning felt normal. for a couple hours. had bowel movement today. taking fiber pills. * ROS: G eneral/Constitutional: Change in appetite d enies. C hills d enies. F ever d enies. O phthalmologic: Blurred vision d enies. D ischarge d enies. P ain d enies. E NT: Decreased hearing d enies. S ore throat d enies.?Swollen glands d enies. E ndocrine: Cold intolerance d enies. E xcessive thirst d enies. H eat intolerance d enies. W eight loss d enies. R espiratory: Cough d enies. S hortness of breath at rest d enies. S hortness of breath with exertion d enies. W heezing d enies. C ardiovascular: Chest pain at rest d enies. C hest pain with exertion?denies. I rregular heartbeat d enies. S hortness of breath d enies. ? G astrointestinal: Abdominal pain d enies. C hange in bowel habits h aving difficulty with constipation/. D iarrhea d enies. N ausea d enies. R ectal bleeding d enies. V omiting d enies . G enitourinary: Blood in urine d enies. D ifficulty urinating d enies. F requent urination d enies. M usculoskeletal: Painful joints d enies. W eakness d enies. ? S kin: Dry skin d enies. I tching d enies. D enies?Mole(s), changes in moles, new moles or any lesions of concern. D enies P hotosensitivity. R daisha d enies. N eurologic: Dizziness d enies. F ainting d enies. H eadache?denies. * Medical History: * Surgical History: * Hospitalization/Major Diagno stic Procedure: * Family History: F ather: 85 yrs, bladder cancer, colon cancer, pancreatic cancer, prostate cancer, diagnosed with Cancer. M other: alive 97 yrs. 1 brother(s) , 1 sister(s) . . Mother-Healthy, Denies mental health/substance abuse family history, No pertinent family medical history, No pertinent family medical history, Denies mental health/substance abuse family history, Denies mental health/substance abuse family history. * Social History: T obacco Use: T obacco Use/Smoking P athardeep is a n onsmoker, A dditional Findings: Tobacco Non-User C urrent non-smoker, currently using no form of tobacco. D rugs/Alcohol: A lcohol Screen D id you have a drink containing alcohol in the past year? N o, P oints 0 , I nterpretation N egative. M iscellaneous: C affeine: no. Children: no. Community involvements: no. 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 Home smoke detector use: yes. Housing: owning. Living with: spouse. Marital status: . Occupation: works full-time,sales. Pets: none. Travel outside of the [place]: no. * Medications: T akingEscitalopram Oxalate 5 MG [...] Vitals: H t: 70, Wt: 163, BMI:23.39, BP:128/66, Wt-k.94. * P ast Orders: L ab:PSA,Total (Free>4and<10) (Order Date - 10/05/2024) (Collection Date & Time - 10/05/2024 09:15 AM) Value Reference Range PSA,Total (Free>4and<10) 1.25 0.00-4.00 - ng/ mL L ab:Hemoglobin A1c (Order Date - 10/05/2024) (Collection Date & Time - 10/05/2024 09:15 AM) Value Reference Range Hemoglobin A1c % 5.5 <6.0 - % Estimated Average Glucose 111 - mg/dL L ab:Complete Blood Count Auto Diff (Order Date - 10/05/2024) (Collection Date & Time - 10/05/2024 09:15 AM) Value Reference Range White Blood Count 6.9 4.8-10.8 - X10*3/uL Red Blood Count 4.79 4.60-5.80 - X10*6/uL Hemoglobin 14.7 14.0-18.0 - g/dl Hematocrit 43.8 42.0-52.0 - % Mean Corpuscular Volume 91.4 80.0-98.0 - fL Mean Corpuscular Hemoglobin 30.7 27.0-33.0 - pg Mean Corpuscular HGB Conc 33.6 31.0-36.0 - g/ dl Red Cell Distribution Width 12.6 11.0-16.0 - % Platelet Count 235 160-400 - X10*3/uL Mean Platelet Volume 11.2 9.4-12.4 - fL Neutrophils Percent Auto 66.1 45-73 - % Imm Gran Pct Auto 0.3 0.0-0.4 - % Lymphocytes Percent Auto 27.4 20-40 - % Monocytes Percent Auto 5.4 2-11 - % Eosinophils Percent Auto 0.4 0-4 - % Basophils Percent Auto 0.4 0-2 - % NRBC Pct Auto 0.0 0.0-0.2 - /100WBC Neutrophils Absolute Auto 4.5 2.0-8.3 - x10* 3/uL Imm Gran Abs Auto 0.02 0.00-0.03 - X10*3/uL Lymphocytes Absolute Auto 1.9 1.2-4.9 - X10* 3/uL Monocytes Absolute Auto 0.4 0.1-1.2 - X10*3/ uL Eosinophils Absolute Auto 0.0 0.0-0.4 - X10* 3/uL Basophils Absolute Auto 0.0 0.0-0.2 - X10*3/ uL NRBC Abs Auto 0.000 0.0-0.012 - X10*3/uL L ab:Comprehensive [place]. Panel Fast (Order Date - 10/05/2024) (Collection Date & Time - 10/05/2024 09:15 AM) Value Reference Range Sodium 140 135-145 - mmol/L Bilirubin Total 1.4 H 0.0-1.0 - mg/dL Aspartate Amino Transferase 26 5-37 - U/L Alanine Aminotransferase 7 0-40 - U/L Total Protein 7.0 6.5-8.0 - g/dL Albumin Level 4.4 3.5-5.0 - g/dL Alkaline Phosphatase 52 39-117 - U/L Potassium 3.9 3.3-5.1 - mmol/L Chloride 105 96-108 - mmol/L Carbon Dioxide 25 22-29 - mmol/L Anion Gap 14 12-20 - Blood Urea Nitrogen 18 H 9-16 - mg/dL Creatinine 1.23 0.5-1.4 - mg/dL Estimated Glomerular Filt Rate 58 - Glucose Fasting 112 H 60-99 - mg/dL Calcium 9.3 8.4-10.2 - mg/dL L ab:Lipid Panel (Order Date - 10/05/2024) (Collection Date & Time - 10/05/2024 09:15 AM) Value Reference Range Triglycerides 94 <150 - mg/dL Cholesterol 206 H <200 - mg/dL LDL Cholesterol Calculated 126 H <100 - mg/dL HDL Cholesterol 62 >40 - mg/dL * Examination: G eneral Examination: GENERAL APPEARANCE: v donis rigid movement. flat affect. HEAD: n ormocephalic, atraumatic. EYES: p upils equal, round, reactive to light and accommodation, sclera non-icteric. EARS: n ormal. ORAL CAVITY: m ucosa moist. THROAT: c lear. NECK/THYROID: n ilya supple, full range of motion, no cervical lymphadenopathy, no bruits. SKIN: w arm and dry, no suspicious lesions. HEART: r egular rate and rhythm, S1, S2 normal, no murmurs.? LUNGS: c lear to auscultation bilaterally. ABDOMEN: s oft, nontender, nondistended, bowel sounds present, normal, no organomegaly , no masses palpable. RECTAL EXAM: d eclined. MALE GENITOURINARY: d eclined. EXTREMITIES: n o clubbing, cyanosis, or edema. NEUROLOGIC: n onfocal, motor strength normal upper and lower extremities, sensory exam intact/with , abnormal with cogwheeling rigidity. Assessment: * Assessment: 1. A nnual physical exam - Z00.00 (Primary) 2 . P arkinson's disease without dyskinesia, unspecified whether manifestations fluctuate - G20.A1 3 . L iver cyst - K76.89 4 . P rediabetes - R73.09 5 . P rostatism - N40.0 6 . D epression screening - Z13.31 Plan: * Treatment: 2. P arkinson's disease without dyskinesia, unspecified whether manifestations fluctuate Notes: not doing well at present have suggested that he go to [facility] medical neurology dr puri ? Referral To:[facility] Reason:parkinson's disease 3. L iver cyst Notes: at present not able to do mri. the cyst appear to be small. will probably have to do the mri later 4. P rediabetes Notes: stable, no need for medication at this time 5. P rostatism Notes: stable, will continue to monitor 6. D epression screening Notes: negative screen * Procedure Codes: * Follow Up: 2 Months * * Sign off status: Completed true * Provider: Oliver Stuart MD Date: 0 10/13/2024 Generated for Renuka kaminski/Joey/Yingitting on: 1 05/10/2024 05:02 PM EST History and Physical Notes * HPI (History of Present Illness) Category Sub-Category Detail Notes Category Not es Symptom(s) patient is a 69 yo male here for annual visit with review of recent labs this morning felt normal. for a couple hours. had bowel movement today. taking fiber pills Depression Screening PHQ-9 Little inte rest or pleasure in doing things: Not at all Feeling down, depressed, or hopeless: No t at all Trouble falling or staying asleep, or sl eeping too much: Not at all Feeling tired or having little energy: N ot at all Poor appetite or overeating: Not at all Feeling bad about yourself o r that you are a failure, or have let yourself or your family down: Not at all Trouble concentrating on thi ngs, such as reading the newspaper or watching television: Not at all Moving or speaking so slowly that other people could have noticed; or the opposite, being so fidgety or restless that you have been moving around a lot more than usual: Not at all Thoughts that you would be b joyce off or of hurting yourself in some way: Not at all Total Score: 0 Interpretation and Intervention Depression Scree donaldo Findings: Negative Follow-Up for Depression: : review of PH Q-9 found negative result, no follow-up needed SDOH Questions SDOH Questions In the past [...] patient have a vision impairmen t?: Yes If yes, what is the vision impairment?: Glasses Does the patient have a cognition impair ment?: No Examination Category Sub-Category Detail Notes Category Not es General Examination GENERAL APPEARANCE: very rig id movement. flat affect HEAD: normocephalic, atrau matic EYES: pupils equal, round, reactive to light and accommodation, sclera non-icteric EARS: normal THROAT: clear NECK/THYROID: neck supple, full ra nge of motion, no cervical lymphadenopathy, no bruits HEART: regular rate and rhy thm, S1, S2 normal, no murmurs LUNGS: clear to auscultatio n bilaterally ABDOMEN: soft, nontender, non distended, bowel sounds present, normal, no organomegaly , no masses palpable NEUROLOGIC: nonfocal, motor stre ngth normal upper and lower extremities, sensory exam intact/with , abnormal with cogwheeling rigidity SKIN: warm and dry, no vani picious lesions EXTREMITIES: no clubbing, cyanosi s, or edema MALE GENITOURINARY: declined RECTAL EXAM: declined ORAL CAVITY: mucosa moist Consultation Request Notes Referral Date Referring Provider Referred Provider Not es 10/13/2024 Alex Stuart Wissam parkinson's disease
--- OUTSIDE RECORDS SUMMARY | 2024-10-29 08:11 | XMS_ITS ---
Author Organization Alex Stuart MD Address [address] [place] [phone] Care Team Providers Care Masking Machine Feeder Name Role Phone Alex Stuart Primary Care Provider REASON FOR VISIT US renal bilateral * Encounters Encounter Location Date Provider Diagnosis Alex Stuart MD [address] [place] [phone] 10/29/2024 Alex Stuart Plan Of Treatment Next Appt Details Provider Name:Alex harvey, 06/11/2025 10:00:00 AM, [address] [place] [address], Suite [facility], [place], [place], [phone], Provider Name:Alex harvey, 10/08/2025 07:00:00 AM, [address] [place] [address], [place] [address], [place], [place], [phone], Provider Name:Alex harvey, 10/15/2025 01:00:00 PM, [address] [place] [address], [address], [phone], Progress Notes * Gabriel HELLER PDOB: [birth year] (69 yo M)Acc No.[id number]:10/29/2024 Patient: Gabriel FREEMAN :1955 A ge:69 Y S ex:Male Address:[address] [place] [address], [place] [address] * * Date:
--- OUTSIDE RECORDS SUMMARY | 2024-11-12 08:30 | XMS_ITS ---
Author Organization Alex Stuart MD Address [address] [place] [phone] Care Team Providers Care Vp Lab Name Role Phone Alex Stuart Primary Care Provider Results Component Value Reference Range Notes UA ClnCatch+Micro w/rflx Cul t Reviewed date:11/13/2024 12:40:07 PM Interpretation: Performing Lab:[facility], [address] [place] [phone] Notes/Report: Urine, Clean Catch Color Urine Yellow Appearance Urine Cloudy PH 6.5 5.0-9.0 Glucose Urine UA Negative Negative mg/dL Urine Blood Trace Negative Specific [place] - Urine 1.015 1.005-1.025 Urine Protein Negative Neg-Trace mg/dL Urine Ketones Trace Negative mg/dL Nitrite Urine Negative Negative Leukocyte Esterase Urine Trace Negative RBC Urine 6-10 0-2 /HPF WBC Urine 0-5 0-5 /HPF Squamous Epithelial Cell Urine 0-2 0-2 /HPF Bacteria Urine None Seen None Seen Hyaline Casts Urine 3-5 0-2 /LPF REASON FOR VISIT UA Encounters Encounter Location Date Provider Diagnosis Alex Stuart MD [address] [place], [place] [phone] 11/12/2024 Alex Stuart UTI (urinary tract infection) N39.0 Assessments Encounter Date Diagnosis (ICD Code) Assessment Notes Treatment Notes Treatment Clinical Notes Section Notes 11/12/2024 UTI (urinary tract infection) (ICD-10 - N39.0) Plan Of Treatment Next Appt Details Provider Name:Alex harvey, 06/11/2025 10:00:00 AM, [address], Suite [facility], [place], [place], [phone], Provider Name:Alex harvey, 10/08/2025 07:00:00 AM, [address] [place] [address], Suite [facility], [place], [place], [phone], Provider Name:Alex harvey, 10/15/2025 01:00:00 PM, [address] [place] [address], Suite [facility], [place], [place], [phone], Progress Notes * Gabriel HELLER PDOB: [birth year] (69 yo M)Acc No.[id number]:11/12/2024 Progress Note Patient: Everett Gabriel BARR Provider: Oliver Stuart MD :1955 A ge:69 Y S ex:Male Date:11/12/2024 Address:[address] [place] [address], [facility] Subjective: * Chief Complaints: * 1 . UA. * Medical History: Objective: * Vitals: Assessment: * Assessment: 1. U TI (urinary tract infection) - N39.0 (Primary) Plan: * Treatment: * * The named appointment provid er may or may not be the originator of this progress note, and it is not deemed complete until electronically signed by the appointment provider. Sign off status: Pending * Provider: Oliver Stuart MD Date: 0 11/12/2024 Generated for Renuka kaminski/Joey/eTsarkissmitting on: 05/10/2024 05:03 PM EST
--- OUTSIDE RECORDS SUMMARY | 2024-11-26 04:48 | XMS_ITS ---
Author Organization Alex Stuart MD Address [address] [place] [phone] Care Team Providers Care Commercial Pilot Name Role Phone Alex Stuart Primary Care Provider REASON FOR VISIT Discharge summary rec'd Encounters Encounter Location Date Provider Diagnosis Alex Stuart MD [address] [place] [phone] 11/26/2024 Alex Stuart Plan Of Treatment Next Appt Details Provider Name:Alex harvey, 06/11/2025 10:00:00 AM, [address] [place] [address], [address] [place] [address], [phone], Provider Name:Alex harvey, 10/08/2025 07:00:00 AM, [address] [place] [address], [place] [address], [place], [place], [phone], Provider Name:Alex harvey, 10/15/2025 01:00:00 PM, [address] [place] [address], [address], [phone], Progress Notes * Gabriel HELLER PDOB: [birth year] (69 yo M)Acc No.[id number]:11/26/2024 Patient: Everett Gabriel BARR :1955 A ge:69 Y S ex:Male Address:[address] [place] [address], [place] [address] * true * Date: Generated for Renuka kaminski/Joey/Ronsmitting on: 05/10/2024 05:03 PM EST
--- OUTSIDE RECORDS SUMMARY | 2024-11-30 09:00 | XMS_ITS ---
Author Organization Alex Stuart MD Address [address] [place] [phone] Care Team Providers Care Guest Relation Officer Name Role Phone Alex Stuart Primary Care Provider Allergies No Known Allergies REASON FOR VISIT PH/TCM, Accompanied by Medications Medication SIG (Take, Route, Frequency, Duration) Notes Start Date End Date Status Valium 5 MG 0.5 tab Orally twice a day Active Mirtazapine 7.5 MG 1 tablet at bedtime Orally Once a day Active Carbidopa-Levodopa 25-100 MG 2 tabs Orally Foutr times a day Active Immunizations Vaccine Route Administration Date Status Comme nts Influenza High Dose Unknown 11/30/2024 Refused Vital Signs Blood pressure systolic 98 mm Hg 12/01/19 25 Blood pressure diastolic 54 mm Hg 025 Height 70 in 11/30/2024 Weight 156 lbs 11/30/2024 BMI 22.38 kg/m2 11/30/2024 weight is down 7 pounds [facility] e 10-13-24 Encounters Encounter Location Date Provider Diagnosis Alex Stuart MD [address] [place] [phone] 11/30/2024 Alex Stuart Cervical spinal stenosis M48.02 ; Parkinson's disease without dyskinesia, unspecified whether manifestations fluctuate G20.A1 and Anxiety F41.9 Assessments Encounter Date Diagnosis (ICD Code) Assessment Notes Treatment Notes Treatment Clinical Notes Section Notes 11/30/2024 Cervical spinal stenosis (ICD-10 - M48.02) did not have significant spinal stenosis on mri 11/30/2024 Parkinson's disease without dyskinesia, unspecified whether manifestations fluctuate (ICD-10 - G20.A1) doing better 11/30/2024 Anxiety (ICD-10 - F41.9) seems well controlled Plan Of Treatment Treatment Notes Assessment Notes Cervical spinal stenosis did not have si gnificant spinal stenosis on mri Parkinson's disease without dyskinesia, unspecified whether manifestations fluctuate doing better Anxiety seems well controlle d Next Appt Details Follow Up: 3 Weeks, Reason: Provider Name:Alex harvey, 06/11/2025 10:00:00 AM, [address] [place] [address], [address], [phone], Provider Name:Alex harvey, 10/08/2025 07:00:00 AM, [address] [place] [address], Suite [facility], [place], [place], [phone], Provider Name:Alex harvey, 10/15/2025 01:00:00 PM, [address] [place] [address], Suite [facility], [place], [place], [phone], Progress Notes * Gabriel HELLER PDOB: [birth year] (69 yo M)Acc No.[id number]:11/30/2024 Patient: Gabriel FREEMAN Provider: Oliver Stuart MD :1955 A ge:69 Y S ex:Male Date:11/30/2024 Address:[address] [place] [address], [facility] [id number] Subjective: * Chief Complaints: * P H/TCMAccompanied by * HPI: S ymptom(s): patient is a 69 yo male here for transitional care management visit, discharge summary has been reviewed and medications reconcilled/ here for follow up of the hospital. couldn't move 2 weeks ago thinks it was a side effect of medicine. * ROS: G eneral/Constitutional: Denies C hills. D enies F atigue. D enies F ever. D enies H eadache. E NT: Denies S ore throat. R espiratory: Denies C ough. D enies S hortness of breath at rest. D enies S hortness of breath with exertion. G astrointestinal: Denies D iarrhea. D enies N ausea. * Medical History: * Surgical History: * Hospitalization/Major Diagno stic Procedure: * Medications: T akingMirtazapine 7.5 MG Tablet 1 tablet at bedtime Orally Once a day Valium 5 MG Tablet 0.5 tab Orally twice a day Carbidopa-Levodopa 25-100 MG Tablet 2 tabs Orally Foutr times a day Taking Mirtazapine 7.5 MG Tablet 1 tablet at bedtime Orally Once a day Taking Valium 5 MG Tablet 0.5 tab Orally twice a day Taking Carbidopa- Levodopa 25-100 MG Tablet 2 tabs Orally Foutr times a day DiscontinuedEscitalopram Oxalate 5 MG Tablet 1 tablet Orally Once a day Discontinued Escitalopram Oxalate 5 MG Tablet 1 tablet Orally Once a day * Allergies: N .K.D.A.yes[Allergies Verified] Objective: * Vitals: H t: 70, Wt: 156, BMI:22.38, BP:98/54, Wt-k.76. weight is down 7 pounds since 10-13-24. * Examination: G eneral Examination: GENERAL APPEARANCE: w ell developed, well nourished. HEAD: n ormocephalic. SKIN: g ood turgor. HEART: r egular rate and rhythm, no murmurs, rubs, gallops.? LUNGS: n o wheezes, rales, rhonchi, good air movement, clear to auscultation bilaterally. Assessment: * Assessment: 1. C ervical spinal stenosis - M48.02 (Primary) 2 . P arkinson's disease without dyskinesia, unspecified whether manifestations fluctuate - G20.A1 3 . A nxiety - F41.9 Plan: * Treatment: 2. P arkinson's disease without dyskinesia, unspecified whether manifestations fluctuate Notes: doing better 3. A nxiety Notes: seems well controlled * Immunizations: Influenza High Dose (Not administered - Refused: Patient decision) * Procedure Codes: * Preventive Medicine: Immunizations: I nflujessica durham you had a flu shot since the most recent November 23? N o patient refused at visit today. * Follow Up: 3 Weeks * * Sign off status: Completed true * Provider: Oliver Stuart MD Date: 0 11/30/2024 Generated for Renuka kaminski/Joey/Ronsmitting on: 1 05/10/2024 05:02 PM EST History and Physical Notes * HPI (History of Present Illness) Category Sub-Category Detail Notes Category Not es Symptom(s) patient is a 69 yo male here for transitional care management visit, discharge summary has been reviewed and medications reconcilled/ here for follow up of the hospital. couldn't move 2 weeks ago thinks it was a side effect of medicine Examination Category Sub-Category Detail Notes Category Not es General Examination GENERAL APPEARANCE: well developed , well nourished HEAD: normocephalic HEART: regular rate and rhy thm, no murmurs, rubs, gallops LUNGS: no wheezes, rales, r honchi, good air movement, clear to auscultation bilaterally SKIN: good turgor
--- OUTSIDE RECORDS SUMMARY | 2024-12-03 04:58 | XMS_ITS ---
Author Organization Alex Stuart MD Address [address] [place] [phone] Care Team Providers Care Digital Tech Name Role Phone Alex Stuart Primary Care Provider REASON FOR VISIT FYI Encounters Encounter Location Date Provider Diagnosis Alex Stuart MD [address] [facility] [address] [place] [phone] 12/03/2024 Alex Stuart Plan Of Treatment Next Appt Details Provider Name:Alex harvey, 06/11/2025 10:00:00 AM, [address] [place] [address], [address] [place] [address], [phone], Provider Name:Alex harvey, 10/08/2025 07:00:00 AM, [address] [place] [address], [place] [address], [place], [phone], Provider Name:Alex harvey, 10/15/2025 01:00:00 PM, [address] [place] [address], [address], [phone], Progress Notes * Gabriel HELLER PDOB: [birth year] (69 yo M)Acc No.[id number]:12/03/2024 Patient: Everett Gabriel BARR Jenifer :1955 A ge:69 Y S ex:Male Address:[address] [place] [address], [place] [address] * true * Date: Generated for Renuka kaminski/Joey/Ronsmitting on: 05/10/2024 05:02 PM EST
--- OUTSIDE RECORDS SUMMARY | 2024-12-15 08:30 | XMS_ITS ---
Author Organization Alex Stuart MD Address [address] [place] [phone] Care Team Providers Care Sap Basis Architect Name Role Phone Alex Stuart Primary Care Provider [phone] Allergies No Known Allergies REASON FOR VISIT 2 month Medications Medication SIG (Take, Route, Frequency, Duration) Notes Start Date End Date Status Carbidopa-Levodopa 25-100 MG 2 tabs Orally Foutr times a day Active Mirtazapine 7.5 MG 1 tablet at bedtime Orally Once a day Active Valium 5 MG 0.5 tab Orally twice a day Active Vital Signs Blood pressure systolic 108 mm Hg 12/16/19 25 Blood pressure diastolic 60 mm Hg 025 Height 70 in 12/15/2024 Weight 162 lbs 12/15/2024 BMI 23.24 kg/m2 12/15/2024 weight is up 6 pounds since 11-30-24 Encounters Encounter Location Date Provider Diagnosis Alex Stuart MD [address] [place] [phone] 12/15/2024 Alex Stuart Parkinson's disease without dyskinesia, unspecified whether manifestations fluctuate G20.A1 and Anxiety F41.9 Assessments Encounter Date Diagnosis (ICD Code) Assessment Notes Treatment Notes Treatment Clinical Notes Section Notes 12/15/2024 Parkinson's disease without dyskinesia, unspecified whether manifestations fluctuate (ICD-10 - G20.A1) 12/15/2024 Anxiety (ICD-10 - F41.9) doing well on present meds Plan Of Treatment Medication Medication Name Sig Start Date Stop Date Notes Carbidopa-Levodopa 25-100 MG 2 tabs Oral ly Foutr times a day Treatment Notes Assessment Notes Anxiety doing well on presen t meds Next Appt Details Follow Up: 2 Months, Reason: Provider Name:Alex harvey, 06/11/2025 10:00:00 AM, [address] [place] [address], [address] [place] [address], [phone], Provider Name:Alex harvey, 10/08/2025 07:00:00 AM, [address] [place] [address], [place] [address], [place], [place], [phone], Provider Name:Alex harvey, 10/15/2025 01:00:00 PM, [address] [place] [address], [address] [facility], [place], [place], [phone], Progress Notes * PINA Gabriel PDOB: [birth year] (69 yo M)Acc No.[id number]:12/15/2024 Progress Notes Patient: Gabriel FREEMAN Provider: Oliver Stuart MD :1955 A ge:69 Y S ex:Male Date:12/15/2024 Address:[address] [place] [address], [facility] Subjective: * Chief Complaints: * 2 month * HPI: S ymptom(s): patient is a 69 yo male here for 2 month follow up visit/ doing better every day. had toes that were numb and getting better. was able to golf last week. sleeping well. less anxious. working 5 days.. golfed 18 holes. * ROS: G eneral/Constitutional: Denies C [place]. [...] 2 tabs Orally Foutr times a day Medication List reviewed and reconciled with the patientTaking Mirtazapine 7.5 MG Tablet 1 tablet at bedtime Orally Once a day Taking Valium 5 MG Tablet 0.5 tab Orally twice a day Taking Carbidopa-Levodopa 25-100 MG Tablet 2 tabs Orally Foutr times a day Medication List reviewed and reconciled with the patient * Allergies: N .K.D.A.yes[Allergies Verified] Objective: * Vitals: H t: 70, Wt: 162, BMI:23.24, BP:108/60, Wt-k.48. weight is up 6 pounds since 11-30-24. * Examination: G eneral Examination: GENERAL APPEARANCE: w ell developed, well nourished. HEAD: n ormocephalic. SKIN: g ood turgor. HEART: r egular rate and rhythm, no murmurs, rubs, gallops.? LUNGS: n o wheezes, rales, rhonchi, good air movement, clear to auscultation bilaterally. ABDOMEN: s oft, nontender, nondistended, no rebound tenderness, no organomegaly. Assessment: * Assessment: 1. P arkinson's disease without dyskinesia, unspecified whether manifestations fluctuate - G20.A1 (Primary) 2 . A nxiety - F41.9 Plan: * Treatment: 2. A nxiety Notes: doing well on present meds * Procedure Codes: * Follow Up: 2 Months * * Sign off status: Completed true * Provider: Oliver Stuart MD Date: 0 12/15/2024 Generated for Renuka kaminski/Joey/Ronsmitting on: 1 05/10/2024 05:04 PM EST History and Physical Notes * HPI (History of Present Illness) Category Sub-Category Detail Notes Category Not es Symptom(s) patient is a 69 yo male here for 2 month follow up visit/ doing better every day. had toes that were numb and getting better. was able to golf last week. sleeping well. less anxious. working 5 days.. golfed 18 holes. Examination Category Sub-Category Detail Notes Category Not es General Examination GENERAL APPEARANCE: well developed , well nourished HEAD: normocephalic HEART: regular rate and rhy thm, no murmurs, rubs, gallops LUNGS: no wheezes, rales, r honchi, good air movement, clear to auscultation bilaterally ABDOMEN: soft, nontender, non distended, no rebound tenderness, no organomegaly SKIN: good turgor
--- OUTSIDE RECORDS SUMMARY | 2025-02-12 04:00 | XMS_ITS ---
Author Organization Alex Stuart MD Address [address] [place] [phone] Care Team Providers Care Tank Wagon Driver Name Role Phone Alex Stuart Primary Care Provider Allergies No Known Allergies REASON FOR VISIT 2 MO F/U Medications Medication SIG (Take, Route, Frequency, Duration) Notes Start Date End Date Status Valium 5 MG 0.5 tab Orally twice a day Active Carbidopa-Levodopa 25-100 MG 2 tabs Orally Foutr times a day Active Mirtazapine 7.5 MG 1 tablet at bedtime Orally Once a day Active Immunizations Vaccine Route Administration Date Status Comme nts Influenza High Dose Unknown 02/12/2025 Refused Vital Signs Blood pressure systolic 104 mm Hg 02/13/20 25 Blood pressure diastolic 60 mm Hg 025 Height 70 in 02/12/2025 Weight 170 lbs 02/12/2025 BMI 24.39 kg/m2 02/12/2025 weight is up 8 pounds since 12-15-24 Encounters Encounter Location Date Provider Diagnosis Alex Stuart MD [address] [place] [id number] 02/12/2025 Alex Stuart Arthritis of knee M17.10 and Parkinson's disease without dyskinesia, unspecified whether manifestations fluctuate G20.A1 Assessments Encounter Date Diagnosis (ICD Code) Assessment Notes Treatment Notes Treatment Clinical Notes Section Notes 02/12/2025 Arthritis of knee (ICD-10 - M17.10) got PRP and is able to walk again. able to golf without his knee swelling 02/12/2025 Parkinson's disease without dyskinesia, unspecified whether manifestations fluctuate (ICD-10 - G20.A1) is doing a lot of exercise and his neurologist encouraged him to continue. he is in variious gyms with trainers and is able to do a lot more. had a fall on the golf course looking for a ball but was related to tripping and not his parkinson disease. Plan Of Treatment Treatment Notes Assessment Notes Arthritis of knee got PRP and is able to walk again. able to golf without his knee swelling Parkinson's disease without dyskinesia, unspecified whether manifestations fluctuate is doing a lot of exercise and his neurologist encouraged him to continue. he is in variious gyms with trainers and is able to do a lot more. had a fall on the golf course looking for a ball but was related to tripping and not his parkinson disease. Next Appt Details Follow Up: 4 Months, Reason: Provider Name:Alex harvey, 06/11/2025 10:00:00 AM, [address] [place] [address], [address], [phone], Provider Name:Alex harvey, 10/08/2025 07:00:00 AM, [address] [place] [address], [address], [phone], Provider Name:Alex harvey, 10/15/2025 01:00:00 PM, [address] [place] [address], [address], [phone], Progress Notes * Gabriel HELLER PDOB: [birth year] (69 yo M)Acc No.[id number]:02/12/2025 Progress Notes Patient: Gabriel FREEMAN Provider: Oliver Stuart MD :1955 A ge:69 Y S ex:Male Date:02/12/2025 Address:[address] [place] [address], Myra Funez [id number] Subjective: * Chief Complaints: * 2 MO F/U * HPI: S ymptom(s): patient is a 69yo male here for 2 month follow up visit. here for follow up. is doing well.. sleeping well. sleeping all night. starting sleeping as soon as he started mirtazapine. walking 2.5 miles. did qc kinetics. 5 shots of prp. * ROS: G eneral/Constitutional: Denies C hills. [...] Objective: * Vitals: H t: 70, Wt: 170, BMI:24.39, BP:104/60, Wt-k.11. weight is up 8 pounds since 12-15-24. * Examination: G eneral Examination: GENERAL APPEARANCE: p atient appears much more alert and facial movememts appear spontaneous.. HEAD: n ormocephalic. SKIN: g ood turgor. HEART: n o murmurs, rubs, gallops, regular rate and rhythm.? LUNGS: n o wheezes, rales, rhonchi, good air movement, clear to auscultation bilaterally. Assessment: * Assessment: 1. A rthritis of knee - M17.10 (Primary) 2 . P arkinson's disease without dyskinesia, unspecified whether manifestations fluctuate - G20.A1 Plan: * Treatment: 2. P arkinson's disease without dyskinesia, unspecified whether manifestations fluctuate Notes: is doing a lot of exercise and his neurologist encouraged him to continue. he is in variious gyms with trainers and is able to do a lot more. had a fall on the golf course looking for a ball but was related to tripping and not his parkinson disease. * Immunizations: Influenza High Dose (Not administered - Refused: Patient decision) * Procedure Codes: * Follow Up: 4 Months * * Sign off status: Completed true * Provider: Oliver Stuart MD Date: 04/14/2024 Generated for Renuka kaminski/Joey/Nataliaransmitting on: 05/10/2024 05:03 PM EST History and Physical Notes * HPI (History of Present Illness) Category Sub-Category Detail Notes Category Not es Symptom(s) patient is a 69 yo male here for 2 month follow up visit. here for follow up. is doing well.. sleeping well. sleeping all night. starting sleeping as soon as he started mirtazapine. walking 2.5 miles. did qc kinetics. 5 shots of prp Examination Category Sub-Category Detail Notes Category Not es General Examination GENERAL APPEARANCE: patient appears much more alert and facial movememts appear spontaneous. HEAD: normocephalic HEART: no murmurs, rubs, ga llops, regular rate and rhythm LUNGS: no wheezes, rales, r honchi, good air movement, clear to auscultation bilaterally SKIN: good turgor
--- NOTE | 2025-03-09 13:06 | A.OFFVIS_ITS ---
Vital Signs 03/09/25 13:07 Height 5 ft 10 in Weight 173 lb BMI 24.8 BP 102/60 Blood Pressure Location Rt brachial Position Sitting Pulse 59 Pulse Source Pulse Oximeter Pulse Oximetry (%) 98 Oxygen Delivery Method Room Air Intake Visit Reasons: 2mnth Intake Note: Follow up Parkinson's disease without dyskinesia, Anxiety disorder and constipation Business Management Consultant Required: No Accompanied by: Spouse Allergies No Known Allergies Allergy (Verified 03/09/25 13:07) HPI Comments Details: 69y/o right handed male comes for follow up. He is doing well since last visit.2 falls He started with Blanca Romano . He is on sinemet 25/100 2 tabs qid diazepam 5 mg qhs - 1/2 tab at 8 PM Mirtazepine 15mg qhs He was admitted at [facility] [place] [place] for constipation in August 2024 He is against using miralax which was suggested by his GI He is not taking dulcolax but he is taking magnesium 600mg qd He has daily bowel movements He stopped all supplements . History form last visit-He has some good days and some bad days . 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 He is better when he exercises. he also has left knee pain- has PRP treatment. He is doing good with meds and he did BIG program in June and JULY which helped. He reports fatigue around noon time after his meds. Denies dizziness, but feels like he can fall asleep.He does exercise in the afternoon and feels good. He feels anxious in the mornings.He will start playing Golf this week. He eats breakfast at 6am - oatmeal and banana. 2.30-4pm exercises with show dog trainer M,W,F He does not eat lunch . He eats between 5pm-6pm and by 6.30 pm he is sleeping. He wakes up at 9pm and takes melatonin 10mg and sleeps from 10pm - 2 am . History from initial visit- He was seen by Dr. Damon and was diagnosed with parkinsons and started on sinemet 25/100 1 tab tid which helped. He started noticing tremors about 2 years ago . The left hand tremors were worse compared to right.The tremors were mainly in the morning and at rest. He also felt his legs were stiff and tight.He also had right shoulder issues , has a shot in his neck, diagnosed with c spine stenosis . He did PT and felt better. 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 Motivated- good Speech- Normal Drooling- at nighttime Writing- poor , smaller. using utensils- good Dressing- good SHower- normal Turning in bed- normal Gait- good Hallucinations - none He had h/o Crohns and had diarrhea and constipation. falls- none He had concussions from Football as a kid No exposure to chemicals [facility] Medical History Anxiety Constipation Anxiety Benign enlargement of prostate Parkinson's disease without dyskinesia Right shoulder tendinitis Lumbar spondylosis Cervical spinal stenosis Crohn disease Surgical History S/P colon polypectomy Hx of colonoscopy H/O left knee surgery Family History Mother No problems noted. Father No problems noted. Sister Breast CA Brother No problems noted. Social History Household Members: Spouse Housing: House Do you presently have visiting nurse or other home services: No Alcohol intake: never Comment: at bed side Patient Tobacco Use Status: Former Tobacco user Tobacco use type: Cigarette Second Hand Smoke Exposure: No Advance Directives Date on File: 09/18/24 service: No Physical Exam Vital Signs: Last Vital Signs Pulse 59 03/09/25 13:07 BP 102/60 03/09/25 13:07 Pulse Ox 98 03/09/25 13:07 Oxygen Delivery Method Room Air 03/09/25 13:07 BMI result Body Mass Index 24.8 Const General: cooperative, healthy appearing, comfortable and anxious Nutritional Appearance: average body habitus Orientation/consciousness: patient oriented x3 Limitations: no limitations Eyes Pupils: Equal, round and reactive pupils present Neuro Other: mild infrequent rest tremors Left UE Mild decreased facial expression and blink FFM and foot taps mild decreased gisele L>R Gait- mild stooped , smaller stride , mild decreased arm swings gisele Mild cogwheel rigidity L>R General: patient oriented x3, moves all extremities and no focal motor deficits Cranial nerves: Yes Facial sensation intact/muscles of mastication intact, Yes Equal, round and reactive pupils present, Yes Bilaterally intact EOM present, Yes Nystagmus not present, Yes Normal facial strength present, Yes Midline tongue present and Yes Symmetric palate elevation present Cognition (Neuro): normal cognition Motor exam (neuro): 5/5 motor strength present throughout Coordination: [id number] test normal Psych Affect: Anxious affect present Assessment & Plan Assessment & Plan (1) Parkinson's disease without dyskinesia: Code(s): G20.A1 - Parkinson's disease without dyskinesia, without mention of fluctuations Category: Medical Qualifiers: Fluctuating manifestations: without fluctuating manifestations Qualified Code(s): G20.A1 - Parkinson's disease without dyskinesia, without mention of fluctuations (2) Constipation: Code(s): K59.00 - Constipation, unspecified Category: Medical Qualifiers: Constipation type: other constipation type Qualified Code(s): K59.09 - Other constipation (3) Anxiety: Code(s): F41.9 - Anxiety disorder, unspecified Category: Medical Plan Diazepam 5mg q 8pm- 1/2 tabs Increase fluid intake Discussed fall prevention Mirtazepine 15mg q 8,30 pm Carbidopa/levodopa 25/100 2tabs qid PT for gait and parkinsons- started with Balnca Romano Coding Level of Care Code Est Pt Level 4 (05262) Add On Problem Visit Only Diagnoses Parkinson's disease without dyskinesia or fluctuating manifestations G20.A1 Fluctuating manifestations: without fluctuating manifestations Other constipation K59.09 Constipation type: other constipation type Anxiety F41.9
[2025-03-09 13:07] VITALS: BP 102/60; PULSE 59; O2SAT 98; BMI 24.8
--- OUTSIDE RECORDS SUMMARY | 2025-03-09 17:03 | XMS_ITS | Clinical Summary ---
Author Organization [facility] Address [address] [facility] [address] [place] [address] Phone Care Team Providers Care Sheet Metal Shop Foreman Name Role Phone Alex Stuart MD Primary Care Provider Odette Damon MD Unavailable [phone] Roro Trujillo MD Unavailable [phone] Allergies No known active allergies Medications carbidopa-levod opa (SINEMET) 25-100 mg per tablet Take 2 tablets by mouth 4 (four) times a day. 240 tablet 2 5 Active diazePAM (VALIUM) 5 MG tablet Take 0.5 tablets (2.5 mg total) by mouth 2 (two) times a day as needed for anxiety. 90 tablet 5 Active mirtazapine (REMERON) 7.5 MG tablet Take 1 tablet (7.5 mg total) by mouth nightly at bedtime. 30 tablet 2 5 Active magnesium oxide (MAG-OX) 400 mg (241.3 mg elemental) tablet Take 600 mg by mouth daily. prescribed by baccarat dealer; aware, was taking while inpatient 5 Active polyethylene glycol (MIRALAX) 17 gram packet [The details of the medication are not available because there are pending changes by a home health clinician.] 60 packet 2 5 02/24/20 25 Additional Information Patient not taking.Reported on 11/26/2024 docusate sodium (COLACE) 100 MG capsule [The details of the medication are not available because there are pending changes by a home health clinician.] 120 capsule 2 02/24/20 25 Additional Information Patient not taking.Reported on 11/26/2024 Active Problems Problem Noted Date Diagnosed Date [...] referral for deep brain stimulation evaluation in [place]. I discussed this with the family, referral [...] referral for deep brain stimulation evaluation in [place]. I discussed this with the family -Patient [...] 11/16. Referral placed for DBS evaluation in [place]. Will need outpatient neurology follow up. Referral within [facility] system per patient preference to be seen for second opinion. - psychiatry consulted 11/16, following. Recommend addition of diazepam both scheduled and prn. In agreement with antidepressant such as mirtazapine, or trazodone. - Primary neurology team has been in contact and is helping with medication management. ; Dr Trujillo is his primary Neurologist, she is away until approx , but covering ROLL BUCKER Alf Duffy and Alicia VILLANUEVA have both [...] 11/16. Referral placed for DBS evaluation in [place]. Will need outpatient neurology follow up. Referral [...] is away until approx 11/25?, but covering ROLL BUCKER Alf Duffy and Alicia VILLANUEVA have both [...] 11/16. Referral placed for DBS evaluation in [place]. Will need outpatient neurology follow up. Referral within [facility] system per patient preference to be seen for second opinion. - psychiatry consulted 11/16, following. Recommend addition of diazepam both scheduled and prn. In agreement with antidepressant such as mirtazapine, or trazodone. - Primary neurology team has been in contact and is helping with medication management. ; Dr Trujillo is his primary Neurologist, she is away until approx 11/25?, but covering ROLL BUCKER Alf Duffy and Alicia VILLANUEVA have both [...] 11/16. Referral placed for DBS evaluation in [place]. Will need outpatient neurology follow up. Referral within [facility] system per patient preference to be seen for second opinion. - psychiatry consulted 11/16, following. Recommend addition of diazepam both scheduled and prn. In agreement with antidepressant such as mirtazapine, or trazodone. - Primary neurology team has been in contact and is helping with medication management. ; Dr Trujillo is his primary Neurologist, she is away until approx 11/25?, but covering ROLL BUCKER Alf Duffy and Alicia VILLANUEVA have both [...] 11/16. Referral placed for DBS evaluation in [place]. Will need outpatient neurology follow up. Referral within [facility] system per patient preference to be seen for second opinion. - psychiatry consulted 11/16, following. Recommend addition of diazepam both scheduled and prn. In agreement with antidepressant such as mirtazapine, or trazodone. - Primary neurology team has been in contact and is helping with medication management. ; Dr Trujillo is his primary Neurologist, she is away until approx 11/25?, but covering ROLL BUCKER Alf Duffy and Alicia VILLANUEVA have both [...] 11/16. Referral placed for DBS evaluation in [place]. Will need outpatient neurology follow up. Referral within [facility] system per patient preference to be seen [...] 11/16. Referral placed for DBS evaluation in [place]. Will need outpatient neurology follow up. Referral within [facility] system per patient preference to be seen [...] 11/16. Referral placed for DBS evaluation in [place]. Will need outpatient neurology follow up. Referral within [facility] system per patient preference to be seen [...] 12/09/2024 10:00 AM EDT Home [facility] [address] [place] [id number] Margarita Leung RN SN OASIS DISCHARGE VISIT from Last 3 Months Social History Tobacco [...] VACCINE (#1) 2024 COVID-19 VACCINE ( - 2024-2 6 season) 2024 RSV VACCINE [...] topic Medical Devices Not on file Insurance [employer] Member Subscriber Plan / Payer ( fective 2022-) Name:Gabriel Brian Relation to Subscriber:Self Name:Gabriel Brian Payer ID:[id number] (NAIC) Group ID:Not on file Type:O Address: [facility] [id number] [place] [id number] MEDICARE A [employer] MEDICARE A Member Subscriber Plan / Payer ( fective 2018-Present) Name:Gabriel Brian Member ID:[id number] Relation to Subscriber:Self Name:Gabriel Brian Subscriber ID:[id number] Payer ID:[id number] Group ID:Not on file Type:Medicare Address: [facility] [employer] [facility] [address] [place], [place] [id number] [facility] Member Subscriber Plan / Payer (Ef fective 2018-Present) Name:Gabriel Brian Member ID:[id number] Relation to Subscriber:Self Name:Gabriel Brian Subscriber ID:[id number] Payer ID:[id number] Group ID:Not on file Type:Medicare Address: [facility] [employer] [facility] [address] [place], [place] [id number] [facility] [employer] MEDICARE A [employer] MEDICARE A Advance Directives For more information, please contact: [phone] (9AM - 5PM [facility], Saturday-Saturday) Documents on File Type Date Recorded Patient Tellers Supervisor Expl anation Healthcare Proxy 11/26/2024 1:01 PM * Full Code (Latest Code Status on File) Date Activated Date Inactivated Comments 11/14/2024 9:57 PM Question Answer Comments Code Status Confirmed With: Patient Care Teams Sheet Metal Shop Foreman Relationship Specialty Start Date End Date Alex Stuart MD [address] [place] [address] [place] [id number] PCP - General Internal Medicine 08/21/22 Odette Damon MD [address] [place] [address] [place] [id number] Neurology 05/02/23 Roro Trujillo MD [address] [place] [address] [place] [address] Neurology 05/02/23 Additional Source Comments The information contained in this document represents components of the legal health record. It is not the complete legal health record.[facility]
--- OUTSIDE RECORDS SUMMARY | 2025-03-09 17:03 | XMS_ITS | Encounter Summary ---
Author Organization [facility] Address [address] [place] [address] Phone Care Team Providers Care Dubbing Machine Operator Name Role Phone Alex Stuart MD Primary Care Provider Odette Damon MD Unavailable Roro Trujillo MD Unavailable [phone] Encounter Details Date Type Department Care Team (Late st Contact Info) Description 11/14/2024 Procedure Pass [facility], Ct Scan - [address] [address] Social History Tobacco Use Types Packs/Day Years [...] 11:02 AM EDT Chanel Shepard RN * [place] Suicide Severity Rating Scale (Screener/Recent Self-Report) Question [...] on filedocumented in this encounter Care Teams Dubbing Machine Operator Relationship Specialty Start Date End Date Alex Stuart MD [address] [place] [address] [address] [place] [address] PCP - General Internal Medicine 08/21/22 Odette Damon MD [address] [place] [address] Dr [address] [place] [address] Neurology 05/02/23 Roro Trujillo MD [address] [place] [address] Dr [address] [place] [address] Neurology 05/02/23 documented as of this encounter Additional Source Comments The information contained in this document represents components of the legal health record. It is not the complete legal health record.[facility]
--- OUTSIDE RECORDS SUMMARY | 2025-03-09 17:03 | XMS_ITS | Patient Health Record ---
Author Organization [facility] Address [address] [place] [address] Care Team Providers Care Coal Washer Tender Name Role Phone Alex Stuart MD Primary Care Provider Duke Albarado Unavailable [phone] Allergies No Known Allergies Results Component Value Reference Range Flag Notes CT abdomen pelvis w con Reviewed date:09/16/2024 12:04:45 AM Interpretation: Performing Lab: Notes/Report: [address] [address] [address] Scan Report Signed Patient: Dave Heller MR#: [id number] : 1955 Acct:[id number] Age/Sex: 69 / M ADM Date: 09/15/24 Loc: .ED Attending Dr: Ordering Physician: Neisha Pepper PA-C Date of Service: 09/15/24 Procedure(s): CT abdomen pelvis w IV con Accession Number(s): [id number] cc: Neisha Pepper PA-C; Duke Rodriguez MD Report Number: [id number]: Total DLP = 463.00 mGy-cm CLINICAL HISTORY: [...] Severe stool burden is noted distally with knlvzvfc-ny-rsptjx distention of the distal large intestine and [...] [place] MD on 09/15/2024 22:56:08 Dictated By: hSai [place] MD Signed By: <Electronically signed by Shai [place] MD in OV> 09/15/242256 DD/ 55 TD/TT: 09/15/242255 On Site Soil Evaluator: KATIE BURGOS Reviewed date:09/18/2024 04:54:49 PM Interpretation: Performing Lab: Notes/Report: [address] [address] XRay Report Signed Patient: Dave Heller MR#: [id number] : 1955 Acct:[id number] Age/Sex: 69 / M ADM Date: 09/17/24 Loc: HO.ED Attending Dr: Ordering Physician: Marni Correa MD Date of Service: 09/17/24 Procedure(s): XR KUB Accession Number(s): [id number] cc: Marni Correa MD; Duke Rodriguez MD [...] in OV> 09/17/242213 DD/ 11 TD/TT: 09/17/242211 On Site Soil Evaluator: Basic Metabolic Panel Fastin g Reviewed date:09/18/2024 04:53:36 PM Interpretation: Performing Lab:[facility], [address] [place] [address] Notes/Report: Sodium 138 135-145 mmol/L N Potassium 4.1 3.3-5.1 mmol/L N Chloride 104 96-108 mmol/L N Carbon Dioxide 27 22-29 mmol/L N Anion Gap 11 12-20 L Blood Urea Nitrogen 20 9-16 mg/dL H Creatinine 1.23 0.5-1.4 mg/dL N Creatinine Clr Calc Pharmacy 56.8 eGFR (calculated [...] 15 mL/min/1.73m2 Glucose Fasting 122 60-99 mg/dL H A fasting glucose from 100-125 mg/dl is considered impaired (pre-diabetes). Calcium 9.3 8.4-10.2 mg/dL N Creatinine Reviewed date:09/18/2024 04:54:12 PM Interpretation: Performing Lab:[facility], [address] [place] [phone] Notes/Report: Creatinine 1.13 0.5-1.4 mg/dL N Creatinine Clr Calc Pharmacy 61.9 eGFR (calculated [...] Thyroxine) Reviewed date:09/18/2024 04:53:54 PM Interpretation: Performing Lab:[facility], [address] [place] [phone] Notes/Report: Free T4 (Free Thyroxine) 1.14 0.71-1.85 ng/dL N Thyroid Stimulating Hormone Reviewed date:09/18/2024 04:54:01 PM Interpretation: Performing Lab:[facility], [address] [place] [phone] Notes/Report: Thyroid Stimulating Hormone 0.99 0.32-4.0 uIU/mL N TSH 3rd Generation ([facility]) Complete Blood Count Auto Di ff Reviewed date:09/19/2024 06:18:39 PM Interpretation: Performing Lab:[facility], [address] [place] [phone] Notes/Report: White Blood Count 7.0 4.8-10.8 X10*3/uL N Red Blood Count 4.25 4.60-5.80 X10*6/uL L Hemoglobin 13.2 14.0-18.0 g/dl L Hematocrit 38.0 42.0-52.0 % L Mean Corpuscular Volume 89.4 80.0-98.0 fL N Mean Corpuscular Hemoglobin 31.1 27.0-33.0 pg N Mean Corpuscular HGB Conc 34.7 31.0-36.0 g/dl N Red Cell Distribution Width 12.5 11.0-16.0 % N Platelet Count 144 160-400 X10*3/uL L Mean Platelet Volume 10.4 9.4-12.4 fL N Neutrophils Percent Auto 74.7 45-73 % H Imm Gran Pct Auto 0.4 0.0-0.4 % N Lymphocytes Percent Auto 14.7 20-40 % L Monocytes Percent Auto 7.8 2-11 % N Eosinophils Percent Auto 1.8 0-4 % N Basophils Percent Auto 0.6 0-2 % N NRBC Pct Auto 0.0 0.0-0.2 /100WBC N Neutrophils Absolute Auto 5.3 2.0-8.3 x10*3/uL N Imm Gran Abs Auto 0.03 0.00-0.03 X10*3/uL N Lymphocytes Absolute Auto 1.0 1.2-4.9 X10*3/uL L Monocytes Absolute Auto 0.6 0.1-1.2 X10*3/uL N Eosinophils Absolute Auto 0.1 0.0-0.4 X10*3/uL N Basophils Absolute Auto 0.0 0.0-0.2 X10*3/uL N NRBC Abs Auto 0.000 0.0-0.012 X10*3/uL N Basic Metabolic Panel Reviewed date:09/19/2024 06:18:13 PM Interpretation: Performing Lab:[facility], [address] [place] [phone] Notes/Report: Sodium 142 135-145 mmol/L N Potassium 3.7 3.3-5.1 mmol/L N Chloride 106 96-108 mmol/L N Carbon Dioxide 24 22-29 mmol/L N Anion Gap 16 12-20 N Blood Urea Nitrogen 20 9-16 mg/dL H Creatinine 1.13 0.5-1.4 mg/dL N Creatinine Clr Calc Pharmacy 61.9 eGFR (calculated [...] 15 mL/min/1.73m2 Glucose Random 96 60-115 mg/dL N Calcium 9.0 8.4-10.2 mg/dL N Creatinine Reviewed date:09/19/2024 06:18:25 PM Interpretation: Performing Lab:[facility], [address] [place] [phone] Notes/Report: Creatinine 1.12 0.5-1.4 mg/dL N Creatinine Clr Calc Pharmacy 62.4 eGFR (calculated [...] gy Reviewed date:09/21/2024 11:04:24 PM Interpretation: Performing Lab:[facility], [address] [place] [phone] Notes/Report: Hold Lav - Possible Hematology SEE NOTE Specimen will be held untested for 8 hours. Call Hematology if testing is desired. Basic Metabolic Panel Reviewed date:09/21/2024 11:04:10 PM Interpretation: Performing Lab:[facility], [address] [place] [phone] Notes/Report: Sodium 142 135-145 mmol/L N Potassium 3.9 3.3-5.1 mmol/L N Chloride 108 96-108 mmol/L N Carbon Dioxide 23 22-29 mmol/L N Anion Gap 15 12-20 N Blood Urea Nitrogen 14 9-16 mg/dL N Creatinine 1.10 0.5-1.4 mg/dL N Creatinine Clr Calc Pharmacy 63.5 eGFR (calculated [...] 15 mL/min/1.73m2 Glucose Random 100 60-115 mg/dL N Calcium 9.0 8.4-10.2 mg/dL N XR KUB Reviewed date:09/21/2024 11:03:57 PM Interpretation: Performing Lab: Notes/Report: [address] [address] XRay Report Signed Patient: Dave Heller MR#: [id number] : 1955 Acct:[id number] Age/Sex: 69 / M ADM Date: 09/18/24 Loc: [facility] 360-[address]: June ASTUDILLO Ordering Physician: June Pfeiffer Date of Service: 09/20/24 Procedure(s): XR KUB Accession Number(s): [id number] cc: June Pfeiffer; Duke Rodriguez MD CLINICAL [...] 09/20/24 1126 DD/ 1125 TD/TT: 09/20/24 1125 On Site Soil Evaluator: Reason For Referral No Information Medications Medication SIG (Take, Route, Frequency, Duration) Notes Start Date End Date Status Fish Oil 1000 MG Capsule 1 capsule Orall y Three times a day; Duration: 30 day(s) Active Carbidopa-Levodopa 25-100 MG Tablet Oral; Duration: 90 Active Garlic 100 MG Tablet as directed Orally Active Immunizations Vaccine Route Administration Date Status Comme nts Influenza Unknown 05/07/2018 Refused Influenza Unknown 08/13/2023 Refused Social History Social History Additional Details Category Social Info Options Details Miscellaneous: Marital status: 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 Section Notes: Nonsmoker; no alcohol Nonsmoker; no alcohol Nonsmoker; no alcohol Problems Problem Type SNOMED Code ICD Code Onset Dates Problem Status W/U Status Risk Notes Problem Screening for malignant neoplasm of colon (155350075) Encounter for screening for malignant neoplasm of colon (Z12.11) Active confirmed Problem Diverticular disease of colon (804142315) Diverticulosis of large intestine without perforation or abscess without bleeding (K57.30) Active confirmed Problem Preprocedural examination (269604914487631) Preprocedural examination (Z01.818) Active confirmed Problem Family History of Cancer of Colon (Situation) (336402920) Family history of colon cancer (Z80.0) Active confirmed Problem Constipation (61776409) Constipation, unspecified constipation type (K59.00) Active confirmed Problem History of adenomatous polyp of colon (472643808) Hx of adenomatous colonic polyps (Z86.010) Active confirmed Problem Crohn's disease of small intestine (83219432) Crohn''s disease of small intestine without complication (K50.00) Active confirmed Encounters Encounter Location Date Provider Diagnosis [facility] [address] [place] [phone] 09/14/2024 Duke Rodriguez [facility] [address] [place] [phone] 09/17/2024 Duke Rodriguez [facility] [address] [place] [phone] 09/18/2024 Duke Rodriguez [facility] [address] [place] [phone] 09/22/2024 Duke Rodriguez [facility] [address] [place] [phone] 09/28/2024 Duke Rodriguez [facility] [address] [place] [phone] 11/15/2024 Duke Rodriguez Plan Of Treatment Future Test Test Name Order Date COLONOSCOPY 04/17/2013 COLONOSCOPY 05/07/2018 COLONOSCOPY 08/13/2023 Insurance Providers Payer Name Payer Address Payer Phone Subscriber Number Group Number Insured Name Patient Relationship to Insured Coverage Start Date Coverage End Date [facility] [address] [place] SHANE [phone] [id number] DAVE HELLER Self - patient is the [...] on his colonoscopies and GI series. Denies OR,DM,CVA,Lung disease,renal dise ase Neg. ETT Negative colonoscopy in 2018 other than his known melanosis coli and Crohn's ileitis. Parkinson's disease Anxiety in association with the Parkinso n's disease Surgical History Surgery Date(Month/Year) Knee surgery
--- OUTSIDE RECORDS SUMMARY | 2025-03-09 17:03 | XMS_ITS | Encounter Summary ---
Author Organization [facility] Address [address] [place] [address] Phone Care Team Providers Care Tour Conductor Name Role Phone Alex Stuart MD Primary Care Provider Odette Damon MD Unavailable Roro Trujillo MD Unavailable [phone] Encounter Details Date Type Department Care Team (Late st Contact Info) Description 11/14/2024 Procedure [facility], [address] [address] Social History Tobacco Use Types Packs/Day Years [...] 11:02 AM EDT Chanel Shepard RN * [place] Suicide Severity Rating Scale (Screener/Recent Self-Report) Question [...] on filedocumented in this encounter Care Teams Tour Conductor Relationship Specialty Start Date End Date Alex Stuart MD [address] [place] [address] Dr GUERRA [address] [place] [address] PCP - General Internal Medicine 08/21/22 Odette Damon MD [address] [place] [address] Dr Guerra [address] [place] [address] Neurology 05/02/23 Roro Trujillo MD [address] [place] [address] Dr Guerra [address] [place] [address] Neurology 05/02/23 documented as of this encounter Additional Source Comments The information contained in this document represents components of the legal health record. It is not the complete legal health record.[facility]
--- OUTSIDE RECORDS SUMMARY | 2025-03-09 17:04 | XMS_ITS | Patient Health Record ---
Author Organization Alex Stuart MD Address [address] [place] [phone] Care Team Providers Care Supervisor Steel Division Name Role Phone Alex Stuart Primary Care Provider [phone] Allergies No Known Allergies Results Component Value Reference Range Notes Hemoglobin A1c Reviewed date:07/16/2024 01:50:05 PM Interpretation: Performing Lab: Notes/Report: Hemoglobin A1c 5.3 Complete Blood Count Auto Di ff Reviewed date:10/05/2024 12:55:35 PM Interpretation: Performing Lab:[facility], [address] [place] [phone] Notes/Report: White Blood Count 6.9 4.8-10.8 X10*3/uL [...] NRBC Abs Auto 0.000 0.0-0.012 X10*3/uL Comprehensive [place]. Panel Fa st Reviewed date:10/05/2024 12:55:13 PM Interpretation: Performing Lab:[facility], [address] [place] [phone] Notes/Report: Sodium 140 135-145 mmol/L Potassium 3.9 [...] Panel Reviewed date:10/05/2024 12:54:35 PM Interpretation: Performing Lab:[address] [address] Notes/Report: Triglycerides 94 <150 mg/dL Desirable Triglyceride: [...] (Free>4and<10) Reviewed date:10/05/2024 12:54:54 PM Interpretation: Performing Lab:[address] [address] Notes/Report: PSA,Total (Free>4and<10) 1.25 0.00-4.00 ng/mL A [...] A1c Reviewed date:10/05/2024 12:50:47 PM Interpretation: Performing Lab:[address], [place] [address] Notes/Report: Hemoglobin A1c % 5.5 <6.0 % [...] average glucose, using the formula of the I9K-Dpidopj Average Glucose study (ADAG), Diabetes Care, Vol.31,#8, Oct. 2007 UA ClnCatch+Micro w/rflx Cul t Reviewed date:11/13/2024 12:40:07 PM Interpretation: Performing Lab:[address] [address] Notes/Report: Urine, Clean Catch Color Urine Yellow Appearance Urine Cloudy PH 6.5 5.0-9.0 Glucose Urine UA Negative Negative mg/dL Urine Blood Trace Negative Specific [place] - Urine 1.015 1.005-1.025 Urine Protein Negative [...] date:10/05/2024 01:05:26 PM Interpretation: Performing Lab: Notes/Report: [address] [address] XRay Report Signed Patient: Gabriel Brian MR#: [id number] : 1955 Acct:[id number] Age/Sex: 69 / M ADM Date: 10/05/24 Loc: [facility] Attending Dr: Alex Stuart MD Ordering Physician: Alex Stuart MD Date of Service: 10/05/24 Procedure(s): XR KUB Accession Number(s): [id number] cc: Alex Stuart MD EXAMINATION: XR ABDOMEN [...] 10/05/24 1253 DD/ 1100 TD/TT: 10/05/24 1115 Transit Specialist: [place] [address] XRay Report Signed Patient: Gabriel Brian MR#: [id number] : 1955 Acct:[id number] Age/Sex: 69 / M ADM Date: 10/05/24 Loc: HO.ROB Attending Dr: Alex Stuart MD Ordering Physician: Alex Stuart MD Date of Service: 10/05/24 Procedure(s): XR KUB Accession Number(s): [id number] cc: Alex Stuart MD EXAMINATION: XR ABDOMEN [...] 10/05/24 1253 DD/ 1100 TD/TT: 10/05/24 1115 Transit Specialist: Complete Blood Count Auto Di ff Reviewed date:09/15/2024 05:35:59 PM Interpretation: Performing Lab:[facility], [address] [place] [phone] Notes/Report: White Blood Count 7.7 4.8-10.8 X10*3/uL [...] Panel Reviewed date:09/15/2024 03:01:59 PM Interpretation: Performing Lab:[facility], [address] [place] [phone] Notes/Report: Bilirubin Total 0.8 0.0-1.0 mg/dL Bilirubin Direct 0.2 0.0-0.5 mg/dL Aspartate Amino Transferase 24 5-37 U/L Alanine Aminotransferase 9 0-40 U/L Total Protein 6.8 6.5-8.0 g/dL Albumin Level 4.3 3.5-5.0 g/dL Alkaline Phosphatase 51 39-117 U/L Basic Metabolic Panel Reviewed date:09/15/2024 05:33:53 PM Interpretation: Performing Lab:[facility], [address] [place] [phone] Notes/Report: Sodium 139 135-145 mmol/L Potassium 4.0 [...] Magnesium Reviewed date:09/15/2024 03:02:13 PM Interpretation: Performing Lab:[facility], [address] [place] [phone] Notes/Report: Magnesium 2.1 1.6-2.6 mg/dL C Reactive Protein Reviewed date:09/15/2024 03:00:53 PM Interpretation: Performing Lab:[address] [address] Notes/Report: C Reactive Protein < 0.04 < or = 0.50 mg/dL Lipase Reviewed date:09/15/2024 03:00:46 PM Interpretation: Performing Lab:[facility], [address] [place] [phone] Notes/Report: Lipase 39 8-78 U/L Tiffanie Jah Reviewed date:09/15/2024 03:01:45 PM Interpretation: Performing Lab:[facility], [address] [place] [phone] Notes/Report: Tiffanie Tyson See Note Specimen held untested for 24 hours; Call to request Chemistry testing. UA CC w/rflx Micro + Cult Reviewed date:09/16/2024 07:42:01 PM Interpretation: Performing Lab:[facility], [address] [place] [phone] Notes/Report: Urine, Clean Catch Color Urine Yellow Appearance Urine Clear PH 7.0 5.0-9.0 Glucose Urine UA Negative Negative mg/dL Urine Blood Negative Negative Specific [place] - Urine 1.015 1.005-1.025 Urine Protein Negative [...] Solo 0 10/13/2024 02:30:26 PM > phone [phone] fax [phone], Allyssa Solo 10/15/2024 11:47:47 AM >spoke with [...] hold office on these. Referral Priority Routine Medications Medication SIG (Take, [...] Refused Influenza High Dose Unknown 11/30/2024 Refused Influenza High Dose Unknown 02/12/2025 Refused Social History Tobacco Use: Social History [...] Status W/U Status Risk Notes Problem Prostatism (85245799) Prostatism (N40.0) Active confirmed Problem 511137774 Tubular adenoma (D36.9) Active confirmed Problem Constipation (81317754) Constipation (K59.00) Active confirmed Problem Anxiety (91017678) Anxiety (F41.9) Active confirmed Problem 21763400 Crohn's disease, unspecified, with abscess (K50.914) Active confirmed Problem 9796481 Prediabetes (R73.09) Active confirmed Problem 534811692 History of hematuria (Z87.448) Active confirmed Problem 5898526 Migraine with au ra and without status migrainosus, not intractable (G43.109) Active confirmed Problem 146973250 Panic attacks (F41.0) Active confirmed Problem Liver cyst (76764202) Liver cyst (K76.89) Active confirmed Problem 323060302 Irritable bowel syndrome with constipation (K58.1) Active confirmed Problem 956153105 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) Active confirmed Problem Lesion of liver (102590602) Liver lesion (K76.9) Active confirmed Problem 37018182 Parkinson's disease without dyskinesia, unspecified whether manifestations fluctuate (G20.A1) Active confirmed Vital Signs Blood pressure diastolic 60 mm Hg 02/12/2025 francisca ght is up 8 pounds since 12-15-24 Height 70 in 02/12/2025 weight is up 8 pounds since 12-15-24 Blood pressure systolic 104 mm Hg 02/12/2025 weig ht is up 8 pounds since 12-15-24 Weight 170 lbs 02/12/2025 weight is up 8 pounds since 12-15-24 BMI 24.39 kg/m2 02/12/2025 weight is up 8 pounds since 12-15-24 Encounters Encounter Location Date Provider Diagnosis Alex Stuart MD [address] [place] [id number] 10/05/2024 Alex Stuart Prediabetes R73.09 ; Prostatism N40.0 ; Blood tests for routine general physical examination Z00.00 and Liver mass R16.0 Alex [place] MD [address] [place] [id number] 11/12/2024 Alex Stuart UTI (urinary tract infection) N39.0 Alex Stuart MD [address] [place] [id number] 04/14/2024 Alex Stuart Prediabetes R73.09 ; Anxiety F41.9 and Parkinson's disease, unspecified whether dyskinesia present, unspecified whether manifestations fluctuate G20.A1 Alex [place] MD [address] [place] [id number] 07/16/2024 Alex Stuart Prediabetes R73.09 a nd Parkinson disease G20 Alex Stuart MD [address] [place] [id number] 10/05/2024 Alex Stuart Constipation K59.00 ; Ileus K56.7 ; Liver lesion K76.9 and Kidney cysts N28.1 Aelx [place] MD [address] [place] [id number] 10/13/2024 Alex Stuart Annual physical exam Z00.00 ; Parkinson's disease without dyskinesia, unspecified whether manifestations fluctuate G20.A1 ; Liver cyst K76.89 ; Prediabetes R73.09 ; Prostatism N40.0 and Depression screening Z13.31 Alex Stuart MD [address] [place] [id number] 11/30/2024 Alex Stuart Cervical spinal stenosis M48.02 ; Parkinson's disease without dyskinesia, unspecified whether manifestations fluctuate G20.A1 and Anxiety F41.9 Alex Stuart MD [address] [place] [id number] 12/15/2024 Alex Stuart Parkinson's disease without dyskinesia, unspecified whether manifestations fluctuate G20.A1 and Anxiety F41.9 Alex Stuart MD [address] [place] [id number] 02/12/2025 Alex Stuart Arthritis of knee M17.10 and Parkinson's disease without dyskinesia, unspecified whether manifestations fluctuate G20.A1 Alex Stuart MD [address] [place] [id number] 10/29/2024 Alex Stuart MD [address] [place] [id number] 10/02/2024 Alex Stuart MD [address] [place] [id number] 11/26/2024 Alex Stuart MD [address] [place] [id number] 12/03/2024 Alex Stuart Assessments Encounter Date Diagnosis [...] present have suggested that he go to [facility] neurology dr puri 11/30/2024 Cervical spinal stenosis (ICD-10 - M48.02) did not have significant spinal stenosis on mri 12/15/2024 Parkinson's disease without dyskinesia, unspecified whether manifestations fluctuate (ICD-10 - G20.A1) 12/15/2024 Anxiety (ICD-10 - F41.9) doing well on present meds 02/12/2025 Arthritis of knee (ICD-10 - M17.10) got PRP and is able to walk again. able to golf without his knee swelling 10/05/2024 Blood tests for routine general physical [...] manifestations fluctuate (ICD-10 - G20.A1) doing better 02/12/2025 Parkinson's disease without dyskinesia, unspecified whether manifestations fluctuate (ICD-10 - G20.A1) is doing a lot of exercise and his neurologist encouraged him to continue. he is in variious gyms with trainers and is able to do a lot more. had a fall on the golf course looking for a ball but was related to tripping and not his parkinson disease. 10/05/2024 Kidney cysts (ICD-10 - N28.1) us [...] Details Provider Name:Alex harvey, 06/11/2025 10:00:00 AM, [address] [place] [address], [address], [place], [place], [phone], Provider Name:Alex harvey, 10/08/2025 07:00:00 AM, [address], [address], [place], [place], [phone], Provider Name:Alex Sotelo ier, 10/15/2025 01:00:00 PM, [address] [facility], [address], [place], [place], [phone], Insurance Providers Payer Name Payer Address Payer Phone Subscriber Number Group Number Insured Name Patient Relationship to Insured Coverage Start Date Coverage End Date [facility] [address] [place] [id number] [phone] [id number] Gabriel Brian Self - patient is the insured Medical (General) History Medical History History ICD Code colonoscopy 2008; colonoscop y 06/10/2013 - repeat 5 years; Colonoscopy 06/13/18 - Dr. Rodriguez - repeat 5 years, colonoscopy 11/20/23 repeat 3 y trigeminal neurology hematuria w/u 07/15
== END 2025-03-09 13:50 | disposition home or self-care (01) ==
LOC: HO.HSMS 13:04
PROVIDERS: PCP Internal Medicine; Visit Provider Psychiatry & Neurology Neurology
DX: G20.A1 Parkinson's disease without dyskinesia, without mention of fluctuations (principal); K59.09 Other constipation; F41.9 Anxiety disorder, unspecified
CPT/HCPCS: 99214